=== PATIENT | male | born 1945 | race Caucasian/White ===

== ENCOUNTER 2023-11-23 12:44 | Emergency (ER) | payer MEDICARE, SELFPAY ==
[2023-11-23 12:57] VITALS: BP 136/73; PULSE 61; RESP 16; TEMP 36.7; O2SAT 98
--- NOTE | 2023-11-23 13:10 | ED.GENADULT ---
HPI - General Adult General Chief complaint: Upper Respiratory Infection Stated complaint: Sore Throat/Vomiting Source: patient, RN notes reviewed and old records reviewed Mode of arrival: ambulatory Limitations: no limitations History of Present Illness HPI narrative: 38-year-old male presents to [facility] with complaint cough, congestion, sore throat that started 3 days ago. patient states then today had some lightheadedness. Patient states took Benadryl 1 time for symptoms. Patient denies shortness of breath, chest pain, weakness, vomiting. Related Data Home Medications Medication Instructions Recorded Confirmed apixaban 5 mg tablet (Eliquis) 5 mg PO BID 11/23/23 11/23/23 Allergies Allergy/AdvReac Type Severity Reaction Status Date / Time Penicillins Allergy Intermediate Rash Verified 11/23/23 13:13 Review of Systems Constitutional: Constitutional: Reports no additional constitutional complaints, Denies body ache(s), Denies chills, Denies fatigue, Denies fever(s) and Denies headache(s) Eyes: Eyes: Reports no additional eye complaints and Denies blurry vision ENT: Reports system reviewed and no additional complaints, except as documented, Denies vertigo, Reports dizziness, Denies ear discharge, Denies otalgia, Denies facial pain, Denies headache(s), Reports nasal congestion, Denies nasal discharge, Denies sinus pain, Reports sinus pressure and Reports sore throat Cardiovascular: Cardiovascular: Reports no additional cardiovascular complaints, Denies chest pain, Denies chest pain at rest, Denies rapid heart rate and Denies dyspnea Respiratory: Respiratory: Reports no additional respiratory complaints, Reports chest congestion, Reports cough, Denies pain on inspiration, Denies pain with cough and Denies dyspnea Gastrointestinal: Gastrointestinal: Denies abdominal pain, Denies diarrhea, Denies nausea and Denies vomiting Integumentary/Breasts: Skin/Breast: Denies rash Neurologic: Reports system reviewed and no additional complaints, except as documented, Denies vertigo, Denies dizziness and Denies headache(s) Endocrine: Endocrine: Denies fatigue PMFSH Comments At the time of my signature, I reviewed and agree with the nursing past medical, surgical, social, and family history. There is no relevant family history pertinent to the patient complaint. Exam Const: General: cooperative, healthy appearing, no acute distress and well nourished Nutritional Appearance: well nourished Orientation/consciousness: patient oriented x3 Limitations: no limitations HENMT: Head: normal to inspection and normocephalic Ears: external ears normal, TM's normal bilaterally, mastoids normal and Abnormal EAC present Face/Nose/Sinus: normal facial exam Face and sinus: normal facial exam Mouth: Yes Normal oral and palatal mucosa present, Yes oropharynx normal and Yes moist mucous membranes Throat: tonsils normal, uvula midline and no uvular edema Eyes: General: appearance normal, both eyes and all related structures Sclera: sclerae normal Pupils: Equal, round and reactive pupils present Resp: Effort & Inspection: normal respiratory effort, able to speak in complete sentences, no audible wheezes, no cough, no respiratory distress and no retractions Auscultation: clear to auscultation bilaterally, no crackles, no rales, no rhonchi and no wheezes Cardio: Rate: regular rate Rhythm: regular rhythm Skin: General skin exam: normal color and no rashes or lesions noted Neuro: General: patient oriented x3 Cranial nerves: Yes Equal, round and reactive pupils present Psych: Appearance: grossly normal Mental Status: mental status grossly normal Speech and movement: Normal speech and movement present Affect: normal affect Course Course Emergency Course: Patient is aware of diagnosis, understands and agrees to treatment plan.? Anticipatory guidance given.? Patient agrees to follow-up as directed and is aware of reasons to seek care at the
== END 2023-11-23 13:32 | disposition short-term general hospital (02) ==
LOC: EXPBETH 12:51
PROVIDERS: Emergency Provider Registered Nurse; PCP Family Medicine
DX: R42 Dizziness and giddiness (principal); R55 Syncope and collapse; Z20.822 Contact with and (suspected) exposure to COVID-19
CPT/HCPCS: 87081; 87426; 87804; 87880; 99213; C9803; G0463

== ENCOUNTER 2024-04-30 15:38 | Outpatient (CLI) | payer MEDICARE, SELFPAY ==
--- NOTE | ~2024-04-30 | XR_ITS ---
Left Shoulder Technique: AP and scapular Y views were obtained. Clinical History: Pain Findings: No fracture or dislocation is seen. Osseous alignment is anatomic. The glenohumeral joint i s intact. There is [id number] AC joint degenerative change.. Probable calcific tendinitis of th e distal rotator cuff insertion. Impression: Probable calcific tendinitis of the distal rotator cuff insertion. [id number] AC joint degenerative change. Reviewed, dictated and finalized at location . Impression: Probable calcific tendinitis of the distal rotator cuff insertion. [id number] AC joint degenerative change.
== END 2024-04-30 15:39 | disposition home or self-care (01) ==
LOC: ANHBWCIMG 15:40
PROVIDERS: PCP Nurse Practitioner Adult Health; Visit Provider Nurse Practitioner Adult Health
DX: M25.512 Pain in left shoulder (principal)
CPT/HCPCS: 73030

== ENCOUNTER 2025-01-11 09:17 | Emergency (ER) | payer MEDICARE, SELFPAY ==
[2025-01-11 09:24] VITALS: BP 135/76; PULSE 66; RESP 20; TEMP 36.8; O2SAT 100
--- NOTE | 2025-01-11 10:19 | ED_ITS ---
HPI - URI/Sore Throat General Chief Complaint: Upper Respiratory Infection Stated Complaint: Cough/Sinus Problem Time Seen by Provider: 01/11/25 10:05 Source: patient, RN notes reviewed and old records reviewed Mode of arrival: ambulatory Limitations: no limitations History of Present Illness HPI Narrative: 79 year old male who presents to [facility] care with complaints of cough runny nose with sinus congestion with pressure for the past 3 weeks with no fever. Patient reports that he has been taking Jadyn [place] cold for his symptoms without resolution. Patient reports that he is expectorating white mucous. MD elicited complaint: cough, rhinorrhea and nasal congestion Onset (ago): week(s) (3) Severity: moderate Able to tolerate fluids by mouth: Yes Treatments prior to arrival: other (jadyn seltzer cold medication) Related Data Home Medications ?Medication ?Instructions ?Recorded ?Confirmed ?Last Taken ?Type apixaban 5 mg tablet (Eliquis) 5 mg PO BID 01/15/23 08/12/24 Unknown History dronedarone 400 mg tablet 400 mg PO Q12H 01/15/23 08/12/24 Unknown History metoprolol succinate 100 mg 100 mg PO DAILY 01/15/23 08/12/24 Unknown History tablet,extended release 24 hr pantoprazole 40 mg tablet,delayed 40 mg PO QAM 12/10/23 08/12/24 Unknown History release (Protonix) Allergies Allergy/AdvReac Type Severity Reaction Status Date / Time Penicillins Allergy Unknown Unknown Verified 08/12/24 15:39 Review of Systems Review of Systems: CONSTITUTIONAL: Denies malaise, chills, sweats, or fever. EYES: Denies visual changes, redness, or discharge. ENT: Reports rhinorrhea, congestion, sinus pain,no otalgia and no sore throat. CARDIOVASCULAR: Denies chest pain, palpitations, or edema. RESPIRATORY: Reports cough especially at night.? Denies dyspnea. GASTROINTESTINAL: Denies abdominal pain, nausea, vomiting, diarrhea SKIN: Denies rash or itching. MUSCULOSKELETAL: Denies myalgia. NEUROLOGIC: Denies headache. All systems reviewed & are unremarkable except as noted in HPI and below PMFSH Past Medical History Medical History (Updated 01/13/25 @ 09:15 by Aimee Castrejon NP) GERD (gastroesophageal reflux disease) A-fib FH: mitral valve repair Surgical History Surgical History (Updated 01/11/25 @ 10:37 by Aimee Castrejon NP) History of varicose vein stripping Family History Family History (Updated 02/06/24 @ 10:42 by Rocío Aguillon CMA) Father EtOH dependence Alcoholism Mother Diabetes mellitus Sibling Breast cancer Grandparent Diabetes mellitus Other Hypertension Depression Social History Social History Smoking status: Never smoker Alcohol intake: never Substance use: never Lack of Transportation: No Lack of Food: Never True Current Housing: I Have Housing Concerned About Future Housing: No Difficulty Paying Gas/Electric Bills: No Difficulty Paying for Meds: No Currently Unemployed: No Education: High School Diploma/GED Difficulty w/ Childcare or Family Care: No Living arrangements: with family Occupation/Education: occupation 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 There is no relevant family history pertinent to the presenting complaint Exam Narrative: GENERAL: Well-appearing, well-nourished, and in no acute distress. HEAD: Normocephalic EYES: PERRLA, conjunctivae clear ENT: Nares clear, turbinates edematous and erythematous, clear discharge, sinus pressure. Mucous membranes moist. TM pearly awad with dull light reflex bilaterally; no tragal tenderness. Oropharynx erythematous without lesions. Ton sils not enlarged and without exudate, no drooling, no hoarseness, no trismus, uvula midline.post nasal drainage noted NECK: Supple. No lymphadenopathy CHEST: Clear to auscultation, breath sounds equal. No wheezing, rhonchi, rales, or stridor. No respiratory distress, speaks in full sentences.cough noted SAO2 100% on room air HEART: Regular rate and rhythm. No murmur heard. SKIN: Warm, dry, no rash. NEURO: Alert and oriented x3. PSYCH: Normal mood and affect Course Course Emergency Course: Patient is aware of diagnosis, understands and agrees to treatment plan.? Anticipatory guidance given.? Patient agrees to follow-up as directed and is aware of reasons to seek care at the emergency department. Portions of this record may have been created with voice recognition software Level of Care: Express Care Visit Vital Signs Vital signs: Vital Signs Temperature 36.8 C 01/11/25 09:24 Pulse Rate 66 01/11/25 09:24 Respiratory Rate 20 01/11/25 09:24 Blood Pressure 135/76 01/11/25 09:24 Pulse Oximetry 100 01/11/25 09:24 Oxygen Delivery Room Air 01/11/25 09:24 Temperature 36.8 C 01/11/25 09:24 Pulse Rate 66 01/11/25 09:24 Respiratory Rate 20 01/11/25 09:24 Blood Pressure 135/76 01/11/25 09:24 Pulse Oximetry 100 01/11/25 09:24 Oxygen Delivery Room Air 01/11/25 09:24 Reviewed MDM - URI/Sore Throat MDM Narrative Medical decision making narrative: Differential diagnosis considered: Gonzalez virus, strep pharyngitis, allergic rhinitis, upper respiratory tract infection, sinusitis, rhinosinusitis, nasopharyngitis. viral pharyngitis, otitis media, otitis externa, pneumonia, bronchitis, viral cough syndrome, viral syndrome, and influenza.? Exam findings show no acute concerns or changes; patient is non-toxic appearing and is in no distress.? Patient is appropriate for outpatient treatment and follow-up. Differential Diagnosis Differential diagnosis: Likely upper respiratory infection, sinusitis, viral infection and other (cough) Medical Records Attestation: I reviewed the patient's medical records. Lab Data Attestation: I reviewed the patient's lab results. 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 - Chronic pansinusitis Patient Disposition: Home, Self-Care Condition: Stable Instructions: Antibiotic Form, Sinusitis (ED) Additional Instructions: Increase fluids especially juices and water [id number] cough and cold medicine of your choice for your symptoms Zyrtec Claritin or Brenda daily include Coricidin brand decongestant heat to the face 20-30 minutes 4-6 times a day for pain Salt water gargles, throat lozenges or throat sprays as desired Antibiotic as directed--finished the medication If your symptoms persist, change or worsen significantly before you can contact your personal physician then please, without delay, go to the emergency departme for further evaluation. Follow-up with PCP in 7-10 days or sooner if needed Follow up with PCP soon in regards to your blood pressure which is elevated above threshold for referral. Blood pressure above 120/80 may indicate pre- hypertension. Tylenol for any fever pain Patient Language: Azeri Prescriptions: New doxycycline hyclate 100 mg tablet 100 mg PO Q12H Qty: 20 0RF Rx Instructions: take with food benzonatate 200 mg capsule 200 mg PO TID PRN (Reason: cough) Qty: 20 0RF No Action pantoprazole [Protonix] 40 mg tablet,delayed release (DR/EC) 40 mg PO QAM Eliquis 5 mg tablet 5 mg PO BID metoprolol succinate 100 mg tablet extended release 24 hr 100 mg PO DAILY dronedarone 400 mg tablet 400 mg PO Q12H Rx Instructions: must administer with a meal/food Follow-up/Referrals: Kenia Lazo APRN [Primary Care Provider] - Time of Disposition: 10:32 Quality Yoan Coma Scale Eyes: Open Verbal: Oriented and Alert Motor: Follows Commands [place] Coma Total Score: 15
--- OUTSIDE RECORDS SUMMARY | 2025-01-11 11:58 | XMS_ITS | Encounter Summary ---
Author Name [facility] [place] Organization [facility] [place] Address [address] [place] [address] Care Team Providers Care Occupational Therapy Professor Name Role Phone ASIYA FIERRO Primary Care Provider UnavailTARYN Gong Primary Care Provider Unavailab gregory Insurance Providers: All historical and current Section Date Range: From patient's date of to the date document was created. This section includes the names of all active insurance providers for the patient. Insurance Provider Type of Coverage Plan Name Start of Policy Coverage End of Policy Coverage Group Number Member ID Insurance Provider's Telephone Number Policy Gresham's Name Patient's Relationship to Policy Gresham [employer]NA [facility] ([facility] MEDICARE ADVANTAGE [facility] ([facility] 2022 [id number] MARIELOS HOLT PHEN PATIENT MEDICA [facility] ([facility] MEDICARE ADVANTAGE [facility] ([facility] May 25, 2013 [id number] [phone] MARIELOS HOLT PHEN PATIENT MEDICARE ([facility] MEDICARE (M) PART B May 25, 2013 PART B [id number] HOLTMARIELOS PHEN PATIENT MEDICARE ([facility] MEDICARE (M) PART A Jul 26, 2012 PART A [id number] [phone] MARIELOS HOLT PATIENT MEDICARE PART D (WNR) MEDICARE (M) PART D March 25, 2013 PART D [phone] MARIELOS HOLT PATIENT [facility] [facility] (WNR) MEDICARE ADVANTAGE [facility] (WNR) Dec 26, 2022 [id number] MARIELOS HOLT PATIENT Selected Encounter This section includes the information on record at [place] for the Encounter. 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 This section includes future appointments and future orders which are active, pending or scheduled. Future Appointments This section includes appointments that were scheduled to occur 6 months from the date of the Encounter, up to a maximum of 20 appointments. The data comes from all [place] treatment facilities. Appointment Date/Time Appointment Type Appointme nt Facility Name Jul 31, 2024 10:30 AM AMBULATORY - MEDICINE [facility] Aug 10, 2024 10:15 AM AMBULATORY - NONE [facility] Aug 18, 2024 10:30 AM AMBULATORY - MEDICINE [facility] Aug 20, 2024 08:30 PM AMBULATORY - NONE [facility] 2024 10:30 AM AMBULATORY - MEDICINE [facility] Sep 14, 2024 09:00 AM AMBULATORY - SURGERY [facility] Nov 02, 2024 10:00 AM AMBULATORY - NONE [facility] Jan 19, 2025 02:30 PM AMBULATORY - MEDICINE [facility] Jan 22, 2025 02:30 PM AMBULATORY - NONE [facility] Active, Pending, and Scheduled Orders This section includes a listing of several types of active, pending, and scheduled orders, including clinic medications orders, diagnostic test orders, procedure orders and consult orders; where the start date of the order is 45 days before the date of the Encounter or 45 days after the date of theEncounter. The data comes from all [place] treatment facilities. Test Date/Time Test Type Test Details Facility Name Jul 22, 2024 06:00 AM Laboratory - Blood Bank Order TYPE & SCREEN - LAB BLOOD WC [facility] Lab Results: +/- 30 days of the encounter This section includes the Chemistry and Hematology Lab Results on record with [place] for the patient. Radiology Reports and Pathology Reports are provided separately, in subsequent sections. Lab Results This section contains the Chemistry/Hematology Results that were resulted 30 days before or 30 daysafter the date of the Encounter. Date/Time Source Result Type Result - Unit Interpretation Reference Range Comment Aug 10, 2024 10:12 AM [facility] GLUCOSE,BLOOD-poct (STL) Specimen Type: BLOOD Comment: Test Performed by: [id number] Meter #: [id number] Ordering Provider: TARYN EDGAR Report Released Date/Time: Aug 10, 2024 10:28 AM Reporting Lab: [facility] [address] [address] Performing Lab: [facility] [address] [address] GLUCOSE,BLOOD-p oct (STL) 94 mg/dL 72-99 Jul 23, 2024 06:24 AM [facility] MAGNESIUM Specimen Type: PLASMA Comment: No hemolysis noted. Ordering Provider: ALFREDITO WILSON Report Released Date/Time: Jul 22, 2024 05:37 PM Reporting Lab: [facility] [address] [facility] [address] Performing Lab: [facility] [address] [address] MAGNESIUM 1.8 mg/dL 1.6-2.6 Jul 23, 2024 06:24 AM [facility] BASIC METABOLIC PANEL Specimen Type: PLASMA Comment: No hemolysis noted. Ordering Provider: ALFREDITO WILSON Report Released Date/Time: Jul 22, 2024 05:37 PM Reporting Lab: [facility] [address] [address] Performing Lab: [address] [address] CREATININE 0.78 mg/dL 0.7-1.3 UREA NITROGEN 14.4 mg/dL 9.0-25.0 GLUCOSE 113 mg/dL H 72-99 SODIUM 136 meq/L 136-145 POTASSIUM 3.7 meq/L 3.5-5 CHLORIDE 108 meq/L H 98-107 CARBON DIOXIDE 21 meq/L L 22-31 CALCIUM 8.3 mg/dL L 8.4-10.4 EGFR (CKD-EPI 2020) 92.4 >60 Jul 23, 2024 06:24 AM [facility] PHOSPHOROUS Specimen Type: PLASMA Comment: No hemolysis noted. Ordering Provider: ALFREDITO WILSON Report Released Date/Time: Jul 22, 2024 05:37 PM Reporting Lab: [address] [address] Performing Lab: [address] [address] PHOSPHOROUS 4.0 mg/dL 2.3-4.7 Jul 23, 2024 06:24 AM [facility] CBC Specimen Type: BLOOD Comment: VERIFIED BY REPEAT Ordering Provider: ALFREDITO WILSON Report Released Date/Time: Jul 22, 2024 05:37 PM Reporting Lab: [address] [address] Performing Lab: [address] [address] WBC 11.3 10*3/uL H 3.6-11.2 RBC 3.86 10*6/uL L 4.10-5.70 HGB 11.8 g/dL L 13.1-16.8 HCT 35.8 L 38.2-48.4 MCV 92.7 fL 80.0-100.0 MCH 30.6 pg 27.0-34.0 MCHC 33.0 g/dL 33.0-36.0 PLT 126 10*3/uL L 150-400 MPV 12.0 fL H 7.5-11.2 RDW 13.9 11.8-15.1 IMMATURE PLT FRACTION 5.2 1.0-7.0 MICROCYTOSIS 1+ POLYCHROMASIA 1+ PAPPENHEIMER BODIES 0 LYMPHOCYTES, AUTO % 30 MONOCYTES, AUTO % 6 NEUTROPHILS, AUTO % 63 EOSINOPHILS, AUTO % 0 BASOPHILS, AUTO % 0 LYMPHOCYTES, ABSOLUTE 3.43 10*3/uL 0.77-4.50 MONOCYTES, ABSOLUTE 0.65 10*3/uL 0.19-0.80 NEUTROPHILS, ABSOLUTE 7.09 10*3/uL 2.10-8.00 EOSINOPHILS, ABSOLUTE 0.04 10*3/uL 0.00-0.60 BASOPHILS, ABSOLUTE 0.02 10*3/uL 0.00-0.20 PLT EST-CV ADEQUATE ADEQUATE SCRNPERF YES Jul 22, 2024 05:20 PM [facility] MRSA SURVL NARES DNA Specimen Type: NARES Comment: Qualitative real-time PCR test for the rapid detection of methicillin-resis tant Staphylococcus aureus (MRSA) DNA from nasal swabs. A negative result does not preclude infection with the agent(s) tested and should not be used as the sole basis for treatment or other patient management decisions. A positive test does not necessarily indicate the presence of viable organisms, following bacterial culture to recover the organism for further characterization and susceptibility testing. All results must be combined with clinical observations, patient history, and epidemiological information for final interpretation. Ordering Provider: ALFREDITO WILSON Report Released Date/Time: Jul 22, 2024 04:20 PM Reporting Lab: [address] [address] Performing Lab: [address] [address] MRSA SURVL NARES DNA Negative Negative Jul 22, 2024 02:16 PM [facility] POC ACT-CELITE,HEMOCHRON (STL) Specimen Type: BLOOD Comment: Test Performed by: [id number] Meter #: [id number] Ordering Provider: TARYN EDGAR Report Released Date/Time: Jul 22, 2024 03:15 PM Reporting Lab: [address] [address] Performing Lab: [address] [address] POC ACT-CELITE,HEMO CHRON (STL) 174 s H 89-169 Jul 22, 2024 01:45 PM [facility] POC ACT-CELITE,HEMOCHRON (STL) Specimen Type: BLOOD Comment: Test Performed by: [id number] Meter #: [id number] Ordering Provider: TARYN EDGAR Report Released Date/Time: Jul 22, 2024 03:15 PM Reporting Lab: [place] [address] [address] Performing Lab: [place] [address] [address] POC ACT-CELITE,HEMO CHRON (STL) >400 s H 89-169 Jul 22, 2024 01:22 PM [facility] POC ACT-CELITE,HEMOCHRON (STL) Specimen Type: BLOOD Comment: Test Performed by: [id number] Meter #: [id number] Ordering Provider: TARYN EDGAR Report Released Date/Time: Jul 22, 2024 02:24 PM Reporting Lab: [place] [address] [address] Performing Lab: [place] [address] [address] POC ACT-CELITE,HEMO CHRON (STL) 355 s H 89-169 Jul 22, 2024 01:02 PM [facility] POC ACT-CELITE,HEMOCHRON (STL) Specimen Type: BLOOD Comment: Test Performed by: [id number] Meter #: [id number] Ordering Provider: TARYN EDGAR Report Released Date/Time: Jul 22, 2024 02:04 PM Reporting Lab: [place] [address] [address] [address] Performing Lab: [place] [address] [address] [address] POC ACT-CELITE,HEMO CHRON (STL) 339 s H 89-169 Jul 22, 2024 12:46 PM [facility] POC ACT-CELITE,HEMOCHRON (STL) Specimen Type: BLOOD Comment: Test Performed by: [id number] Meter #: [id number] Ordering Provider: TARYN EDGAR Report Released Date/Time: Jul 22, 2024 01:48 PM Reporting Lab: [address] [address] Performing Lab: [address] [address] POC ACT-CELITE,HEMO CHRON (STL) 327 s H 89-169 Jul 22, 2024 12:30 PM [facility] POC ACT-CELITE,HEMOCHRON (STL) Specimen Type: BLOOD Comment: Test Performed by: [id number] Meter #: [id number] Ordering Provider: TARYN EDGAR Report Released Date/Time: Jul 22, 2024 01:48 PM Reporting Lab: [place] [phone] Performing Lab: [place] [phone] POC ACT-CELITE,HEMO CHRON (STL) >400 s H 89-169 Jul 22, 2024 12:07 PM [facility] POC ACT-CELITE,HEMOCHRON (STL) Specimen Type: BLOOD Comment: Test Performed by: [id number] Meter #: [id number] Ordering Provider: TARYN EDGAR Report Released Date/Time: Jul 22, 2024 01:16 PM Reporting Lab: [place] [phone] Performing Lab: [address] [address] POC ACT-CELITE,HEMO CHRON (STL) >400 s H 89-169 Jul 22, 2024 11:46 AM [facility] POC ACT-CELITE,HEMOCHRON (STL) Specimen Type: BLOOD Comment: Test Performed by: [id number] Meter #: [id number] Ordering Provider: TARYN EDGAR Report Released Date/Time: Jul 22, 2024 12:48 PM Reporting Lab: [address] [address] Performing Lab: [place] [address] [address] POC ACT-CELITE,HEMO CHRON (STL) 354 s H 89-169 Jul 22, 2024 11:31 AM [facility] POC ACT-CELITE,HEMOCHRON (STL) Specimen Type: BLOOD Comment: Test Performed by: [id number] Meter #: [id number] Ordering Provider: TARYN EDGAR Report Released Date/Time: Jul 22, 2024 12:33 PM Reporting Lab: [address] [address] Performing Lab: [address] [address] POC ACT-CELITE,HEMO CHRON (STL) 373 s H 89-169 Jul 22, 2024 11:15 AM [facility] POC ACT-CELITE,HEMOCHRON (STL) Specimen Type: BLOOD Comment: Test Performed by: [id number] Meter #: [id number] Ordering Provider: TARYN EDGAR Report Released Date/Time: Jul 22, 2024 12:16 PM Reporting Lab: [address] [address] Performing Lab: [address] [address] POC ACT-CELITE,HEMO CHRON (STL) 318 s H 89-169 Jul 22, 2024 11:01 AM [facility] POC ACT-CELITE,HEMOCHRON (STL) Specimen Type: BLOOD Comment: Test Performed by: [id number] Meter #: [id number] Ordering Provider: TARYN EDGAR Report Released Date/Time: Jul 22, 2024 12:03 PM Reporting Lab: [address] [address] Performing Lab: [address] [address] POC ACT-CELITE,HEMO CHRON (STL) 313 s H 89-169 Jul 22, 2024 10:25 AM [facility] POC ACT-CELITE,HEMOCHRON (STL) Specimen Type: BLOOD Comment: Test Performed by: [id number] Meter #: [id number] Ordering Provider: TARYN EDGAR Report Released Date/Time: Jul 22, 2024 11:28 AM Reporting Lab: [address] [address] Performing Lab: [place] [phone] POC ACT-CELITE,HEMO CHRON (STL) 379 s H 89-169 Jul 22, 2024 10:05 AM [facility] POC ACT-CELITE,HEMOCHRON (STL) Specimen Type: BLOOD Comment: Test Performed by: [id number] Meter #: [id number] Ordering Provider: TARYN EDGAR Report Released Date/Time: Jul 22, 2024 11:06 AM Reporting Lab: [place] [phone] Performing Lab: [address] [address] POC ACT-CELITE,HEMO CHRON (STL) 388 s H 89-169 Jul 22, 2024 09:49 AM [facility] POC ACT-CELITE,HEMOCHRON (STL) Specimen Type: BLOOD Comment: Test Performed by: [id number] Meter #: [id number] Ordering Provider: TARYN EDGAR Report Released Date/Time: Jul 22, 2024 10:51 AM Reporting Lab: [place] [phone] Performing Lab: [address] [address] POC ACT-CELITE,HEMO CHRON (STL) 351 s H 89-169 Jul 22, 2024 09:33 AM [facility] POC ACT-CELITE,HEMOCHRON (STL) Specimen Type: BLOOD Comment: Test Performed by: [id number] Meter #: [id number] Ordering Provider: TARYN EDGAR Report Released Date/Time: Jul 22, 2024 10:40 AM Reporting Lab: [address] [address] Performing Lab: [address] [address] POC ACT-CELITE,HEMO CHRON ([facility]) 269 s H 89-169 Jul 22, 2024 08:51 AM [facility] POC ACT-CELITE,HEMOCHRON ([facility]) Specimen Type: BLOOD Comment: Test Performed by: [id number] Meter #: [id number] Ordering Provider: TARYN EDGAR Report Released Date/Time: Jul 22, 2024 09:52 AM Reporting Lab: [address] [address] Performing Lab: [address] [address] POC ACT-CELITE,HEMO CHRON ([facility]) 155 s 89-169 Jul 22, 2024 06:55 AM [facility] PT/INR NEW ([facility]-CT) Specimen Type: PLASMA No comment entered. Ordering Provider: GWENDOLYN LOPEZ Report Released Date/Time: Jun 22, 2024 12:20 PM Reporting Lab: [address] [address] Performing Lab: [address] [address] PROTIME 14.1 s H 9.4-12.5 INR VALUE 1.3 {INR} Jul 22, 2024 06:55 AM [facility] BASIC METABOLIC PANEL Specimen Type: PLASMA Comment: No hemolysis noted. Ordering Provider: GWENDOLYN LOPEZ Report Released Date/Time: Jun 22, 2024 12:20 PM Reporting Lab: [address] [address] Performing Lab: [address] [address] CREATININE 1.00 mg/dL 0.7-1.3 UREA NITROGEN 16.9 mg/dL 9.0-25.0 GLUCOSE 107 mg/dL H 72-99 SODIUM 138 meq/L 136-145 POTASSIUM 4.4 meq/L 3.5-5 CHLORIDE 108 meq/L H 98-107 CARBON DIOXIDE 22 meq/L 22-31 CALCIUM 9.0 mg/dL 8.4-10.4 EGFR (CKD-EPI 2020) 78.0 >60 Jul 22, 2024 06:55 AM [facility] CBC Specimen Type: BLOOD No comment entered. Ordering Provider: GWENDOLYN LOPEZ Report Released Date/Time: Jun 22, 2024 12:20 PM Reporting Lab: [address] [address] Performing Lab: [address] [address] WBC 14.6 10*3/uL H 3.6-11.2 RBC 4.72 10*6/uL 4.10-5.70 HGB 14.4 g/dL 13.1-16.8 HCT 43.6 38.2-48.4 MCV 92.4 fL 80.0-100.0 MCH 30.5 pg 27.0-34.0 MCHC 33.0 g/dL 33.0-36.0 PLT 170 10*3/uL 150-400 MPV 11.8 fL H 7.5-11.2 RDW 14.0 11.8-15.1 NEUTROPHILS 34.8 MONOCYTES 1.7 EOSINOPHILS 1.8 POIKILOCYTOSIS 1+ PAPPENHEIMER BODIES 0 LYMPHOCYTES 60.0 ATYPICAL LYMPHOCYTES 1.7 PLT EST-CV ADEQUATE ADEQUATE EO#-MDIFF 0.26 10*3/uL 0.00-0.60 MONO#-MDIFF 0.25 10*3/uL 0.19-0.80 LYMPH#-MDIFF 9.01 10*3/uL H 0.77-4.50 NEUT#-MDIFF 5.08 10*3/uL 2.10-8.00 Jul 20, 2024 11:31 AM [facility] I-STAT, CREAT (STL-CT) Specimen Type: BLOOD Comment: Test Performed by: [id number] Meter #: [id number] Ordering Provider: TARYN EDGAR Report Released Date/Time: Jul 20, 2024 11:34 AM Reporting Lab: [facility] [address] [facility] [address] Performing Lab: [facility] [address] [facility] [address] I-STAT, CREAT (STL-MA) 1.1 mg/dL 0.7-1.3 Vital Signs: All taken on the encounter date This section contains inpatient and outpatient Vital Signs collected on the date of the Encounter. Date/Time Temperature Pulse Blood Pressure Respiratory Rate SP02 Pain Height Weight Body Mass Index Source Jul 22, 2024 08:33 PM 0 [facility] Jul 22, 2024 08:32 PM 98 73 105/67 20 94 0 [facility] Jul 22, 2024 07:30 PM 98.3 70 121/68 20 97 [facility] Jul 22, 2024 06:40 PM 6 [facility] Jul 22, 2024 06:30 PM 70 106/66 19 97 [facility] Radiology Reports: +/- 30 days of the encounter Radiology Reports For cases when an order for radiology services may have been completed prior to the date of the Encounter, the report list includes the Radiology Reports that were completed up to 30 days before dateof the Encounter. For cases when an order for radiology services may have been completed after the date of the Encounter, the report list also includes the Radiology Reports that were completed up to30 days after date of the Encounter. The data comes from all [place] treatment facilities. Date/Time Radiology Report Provider Source Aug 10, 2024 10:29 AM PET/CT TUMOR IMAGING (SKULL TO MID-THIGH)-P: YANETSABINEVALENTE GERMAN [id number] M Exm Date: AUG 10, 2024@10:29 Req Phys: TARYN EDGAR Loc: [facility]-PRE-OP EVAL NURSING AM (Req Img Loc: [facility]-PET-CT Service: [facility] [address] [place] [address] (Case [id number] COMPLETE) PET/CT TUMOR SKULL BASE TO MID-T(NM Detailed) CPT:65106 CPT Modifiers : PI PET TUMOR INIT TX STRAT Reason for Study: lung nodule (Case [id number] COMPLETE) F-18 FLUORODEOXYGLUCOSE (FDG),PER(NM Detailed) CPT:A9552 Clinical History: Report Status: Verified Date Reported: AUG 10, 2024 Date Verified: AUG 10, 2024 Oncology Social Work E-Sig:/ES/BURKE DAVIS M.D. Report: PATIENT NAME: SABINE HOLT. CASE #: [id number] PROCEDURE: PET/CT study HISTORY: A 78-year-old male presenting with right middle lobe pulmonary nodule seen in the prior CT from 07/20/2024. TECHNIQUE: 12.45 mCi of F-18 FDG by IV in the right antecubital fossa. PET/CT image acquisition from the base of the skull to upper thighs after approximately 60 minutes postinjection with a CT being low dose, noncontrast. No separate report for the CT was generated since it was used for localization and attenuation correction. Blood glucose level of the time of injection was 94 mg/DL. SUV calculation was based on body weight. Comparison: No similar prior study for comparison, however CT from 07/20/2024 was reviewed. FINDINGS: For reference, SUV max of liver is 3.4. HEAD AND NECK: The brain is partially included in the [id number] and there is misregistration in the region of head and neck due to patient's motion. The visualized portion of the brain is grossly unremarkable. No hypermetabolic/enlarged cervical lymphadenopathy is identified. Atherosclerotic calcification of the carotid vessels is noted. The thyroid gland appears grossly normal. 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 Mild FDG uptake within previously seen 0.9 cm right middle lobe pulmonary nodule with SUV max of 1.3. No evidence of hypermetabolic lymphadenopathy in the chest.. No pleural or pericardial effusion is identified. Atherosclerotic calcification of aorta and coronary vessels is noted. ABDOMEN: Within the limitation of low-dose CT liver, spleen, pancreas, adrenals and kidneys appear grossly unremarkable. Physiologic bowel activity is identified. No hypermetabolic/enlarged abdominal lymphadenopathy is noted. Atherosclerotic calcification of aorta and its branches is identified. PELVIS: Focal intense uptake within the mid of prostate with SUV max of 6.5. No evidence of hypermetabolic within pelvic lymph node enlargement. MUSCULOSKELETAL: Multilevel extensive degenerative changes are noted throughout the spine. There is lytic lesion within T12 vertebral body with no increased FDG uptake. Curvature of the lumbar spine to the right is noted. There is no abnormal FDG avid lesion. No suspicious sclerotic bone lesion is noted. Impression: 1. Mild FDG uptake within previously seen 0.9 cm right middle lobe pulmonary nodule, favored to be benign with no associated thoracic lymphadenopathy. However, low metabolic malignancy is not excluded and attention on follow-up CT chest is suggested to establish stability in the absence malignant features. 2. Intense FDG activity within mid prostate may represent activity within the prostatic urethra. Prostatic lesion is not excluded and clinical correlation with PSA is recommended. 3. There is lytic lesion within the T12 vertebral body with no increased FDG uptake. DIAGNOSTIC CODE: 1001 Dictated by Sirena Van MD (Nuclear Medicine resident). I, Burke Davis, have reviewed the images and report and concur with these findings. Primary Diagnostic Code: SIGNIFICANT ABNORMALITY, ATTN NEEDED Primary Interpreting Staff: BURKE DAVIS M.D., STAFF PHYSICIAN - DIAGNOSTIC IMAGING (Oncology Social Work) Primary Interpreting Resident: SIRENA VAN, Resident Physician /[facility] Jul 20, 2024 11:[address] HEART & VENOUS MAPPING W/3D: YANETSABINEVALENTE GERMAN [id number] -[id number] M Exm Date: JUL 20, 2024@11:10 Req Phys: GWENDOLYN LOPEZ Pat Loc: [facility]-PRE-OP EVAL NURSING AM (Req Img Loc: [facility]-CT IMAGING [facility] Service: Unknown [facility] [address] [place] [address] (Case [id number] COMPLETE) CT HEART W CONTRAST & VENOUS JOSE(CT Detailed) CPT:66396 Reason for Study: pulmonary vein mapping Clinical History: Responsible Attending: Dr Lopez Attending Contact Number: [phone] Resident Contact Number: Enter Hx and Reason for Exam: pt will need CT scan prior to a-fib ablation scheduled for 07/22 Allergies listed in CPRS chart: PENICILLIN Creatinine; CREATININE 0.84 mg/dL 02/03/2024 10:45 /eGFR: STL EGFR (within one year). CREATININE 0.84 mg/dL (02/03/24 10:45) Wt: 185.1 lb [83.96 kg] (05/08/2024 09:45) History of: Renal failure, chronic or acute renal disease: NO Report Status: Verified Date Reported: JUL 22, 2024 Date Verified: JUL 22, 2024 Oncology Social Work E-Sig:/ES/ADA Demian WIGGINST Report: Case [id number]. CT heart with contrast & venous mapping. Max CTDI(vol): 12.46 mGy. Total DLP: 104 mGy*cm. TECHNIQUE: Cardiac CT was obtained with bolus IV contrast administration without gating. Multiplanar reformatted images and 3-D models were reconstructed as a CT cardiac pulmonary venogram for electrophysiology planning. Images were reformatted and analyzed using [employer] software. NUMBER OF PULMONARY VEINS: 2 right and 2 left pulmonary veins. EARLY PULMONARY VEIN BRANCHING: There is early branching (within 1 cm) of pulmonary vein ostia involving the right superior and inferior pulmonary vein. There is a large superior segment right lower lobe pulmonary vein branch arising at the origin of the right inferior pulmonary vein. PULMONARY VEIN OSTIAL MEASUREMENTS: Right superior pulmonary vein: 3 x 2.6 cm Right inferior pulmonary vein: 3 x 2.6 cm Left superior pulmonary vein: 2.6 x 1.8 cm Left inferior pulmonary vein: 2.1 x 1.6 cm LEFT ATRIUM SIZE (AP DIAMETER): 5.3 cm (estimated -- non-gated study) LEFT ATRIAL APPENDAGE: No thrombus identified. ESOPHAGUS LOCATION: The esophagus courses posterior to the left superior and inferior pulmonary vein ostia CORONARY ARTERIES: Expected origins. Atherosclerotic calcification is present. INCIDENTAL FINDINGS: Mitral valve procedure is noted. CABG. There is a right middle lobe nodule measuring 9 mm (series 7 image 38). COMPARISON: None. Impression: 2 right and 2 left pulmonary veins. There is early branching of the right superior and inferior pulmonary vein. Right middle lobe nodule measuring 9 mm. Correlation with prior examinations is recommended if available to confirm stability. If unavailable then short-term follow-up CT versus PET/CT or tissue sampling is advised. Primary Interpreting Staff: ADA WIGGINS MD (Oncology Social Work) /ADA SANCHEZ [facility] Encounter Notes: All associated encounter notes This section contains the clinical notes associated to the Encounter. Date/Time Encounter Note(s) Provider Source Jul 22, 2024 08:05 AM CARDIOLOGY DIAGNOSTIC STUDY REPORT: LOCAL TITLE: CP ELECTROPHYSIOLOGY REPORT STL STANDARD TITLE: CARDIOLOGY DIAGNOSTIC STUDY REPORT DATE OF NOTE: JUL 22, 2024@08:05:45 ENTRY DATE: JUL 22, 2024@08:05:45 AUTHOR: CLINICAL,DEVICE PRO EXP COSIGNER: URGENCY: STATUS: COMPLETED PROCEDURE SUMMARY CODE: Machine Resulted DATE/TIME PERFORMED: JUL 22, 2024@06:15 DOCUMENT IN [employer] SEE FULL REPORT IN [facility] Administrative Closure: 07/22/2024 by: CLINICAL,DEVICE PROXY SERVICE CLINICAL,DEVICE PROXY SERVICE [facility]
--- OUTSIDE RECORDS SUMMARY | 2025-01-11 11:58 | XMS_ITS | Encounter Summary ---
Author Name [facility] [place] [facility] [place] [facility] [place] Address [address] [place] [address] Care Team Providers Care Family Medicine Physician Assistant Name Role Phone ASIYA FIERRO Primary Care Provider UnavailTARYN Gong Primary Care Provider Unavail le Insurance Providers: All historical and current Section [...] Name Patient's Relationship to Policy Gresham HUMANA [facility] ([facility]) MEDICARE ADVANTAGE [facility] ([facility]) 2022 [id number] YANETMARIELOS PHEN PATIENT MEDICA [facility] ([facility]) MEDICARE ADVANTAGE [facility] ([facility]) May 25, 2013 [id number] [phone] HOLTMARIELOS PHEN PATIENT MEDICARE ([facility]) MEDICARE (M) PART B May 25, 2013 PART B [id number] HOLTMARIELOS CORDOVA PHEN PATIENT MEDICARE ([facility]) MEDICARE (M) PART A Jul 26, 2012 PART A [id number] MARIELOS HOLT PATIENT MEDICARE PART D ([place]) MEDICARE (M) PART D March 25, 2013 PART D [id number] MARIELOS HOLT PATIENT [facility] (WNR) MEDICARE ADVANTAGE [facility] (WNR) Dec 26, 2022 [id number] MARIELOS HOLT PATIENT Selected Encounter This section includes the information on record at [place] for the Encounter. Date/Time Encounter Type Encounter Description Reason Provider Source March 31, 2024 10:00 AM OFFICE O/P EST HI 40 MIN CIED DEVICES ICD-10-CM I48.91 Unspecified atrial fibrillation PAYAM LOPEZ [facility] Encounter Template Text not used by [place] Assessments - Encounter Diagnoses This section includes the primary and secondary diagnoses documented for the Encounter. Date/Time Primary/Secondary Diagnosis Diagnosis Name Provider Source March 31, 2024 09:53 AM PRIMARY Unspecified atrial fibrillation PAYAM LOPEZ [facility] Plan of Treatment: Future Appointments (+ 6 months) and Future Tests (+/- 45 days) The Plan of Treatment section includes future care activities for the patient from all [place] [facility]. This section includes future appointments and future orders which are active, pending or scheduled. Future Appointments This section includes appointments that were scheduled to occur 6 months from the date of the Encounter, up to a maximum of 20 appointments. The data comes from all [place] treatment facilities. Appointment Date/Time Appointment Type Appointme nt Facility Name April 09, 2024 10:15 AM AMBULATORY - MEDICINE [facility] May 01, 2024 10:00 AM AMBULATORY - MEDICINE [facility] May 08, 2024 10:00 AM [facility] Jul 20, 2024 10:15 AM AMBULATORY - MEDICINE [facility] Jul 20, 2024 03:00 PM AMBULATORY - NONE [facility] Jul 22, 2024 06:00 AM AMBULATORY - NONE [facility] Jul 22, 2024 06:15 AM AMBULATORY - MEDICINE [facility] Jul 31, 2024 10:30 AM AMBULATORY - MEDICINE [facility] Aug 10, 2024 10:15 AM AMBULATORY - NONE [facility] Aug 18, 2024 10:30 AM AMBULATORY - MEDICINE [facility] Aug 20, 2024 08:30 PM AMBULATORY - NONE [facility] Marcum [facility] 2024 10:30 AM AMBULATORY - MEDICINE [facility] Sep 14, 2024 09:00 AM AMBULATORY - SURGERY . Thelma PEREZ [facility] Vital Signs: All taken on the encounter date This section contains inpatient and outpatient Vital Signs collected on the date of the Encounter. Date/Time Temperature Pulse Blood Pressure Respiratory Rate SP02 Pain Height Weight Body Mass Index Source March 31, 2024 02:15 PM 128 115/[address] [facility] Encounter Notes: All associated encounter notes This section contains the clinical notes associated to the Encounter. Date/Time Encounter Note(s) Provider Source March 31, 2024 09:45 AM CARDIOLOGY OUTPATI ENT NOTE: LOCAL TITLE: CARDIOLOGY OUTPATIENT FOLLOW UP ST STANDARD TITLE: CARDIOLOGY OUTPATIENT NOTE DATE OF NOTE: MARCH 31, 2024@09:45 ENTRY DATE: MARCH 31, 2024@09:45:49 AUTHOR: PAYAM LOPEZ EXP COSIGNER: URGENCY: STATUS: COMPLETED CARDIOLOGY OUTPATIENT FOLLOW UP ST Has ADDENDA CARDIAC ELECTROPHYSIOLOGY OUTPATIENT CONSULTATION HISTORY: Patient is a 78-year-old man with a history of atrial fibrillation (unclear paroxysmal or persistent) and chronic tremor and status post mitral valve repair in 2002.. He was first diagnosed in atrial fibrillation in December 2019. Per records and him he states he had palpitations and lightheadedness. He was started on Multaq. Since being started on the Multaq he had previously not had any recurrence. His last EKG in January 2024 showed sinus rhythm. He did undergo mitral valve repair in 2002. He is anticoagulated with Eliquis. He denies any chest pain shortness of breath syncope or presyncope. Specifically he denies palpitations or lightheadedness however his EKG for the first time since being on Multaq shows atrial fibrillation at 120 bpm. ROS- Unless otherwise stated, all ROS has been reviewed and is negative for presenting complaint. CURRENT MEDICATIONS: Active Outpatient Medications (excluding Supplies): Issue Date Status Last Fill Active Outpatient Medications Refills Expiration 1) APIXABAN 5MG TAB Qty: 180 for 90 days ACTIVE Issu:11-28-23 Sig: TAKE ONE TABLET BY MOUTH TWICE A Refills: 3 Last:02-14-24 DAY FOR ANTICOAGULATION Expr:11-28-24 2) CICLOPIROX 8% TOP SOLN Qty: 6.6 for 30 ACTIVE Issu:04-02-23 days Sig: APPLY LIGHTLY TO AFFECTED Refills: 9 Last:10-28-23 AREA(S) ONCE A DAY (THIN COAT TO THICK Expr:04-02-24 NAILS - FILE DOWN AFTER 1 WEEK) (EXTERNAL USE ONLY) 3) DRONEDARONE 400MG TAB Qty: 180 for 90 ACTIVE Issu:11-28-23 days Sig: TAKE ONE TABLET BY MOUTH Refills: 2 Last:03-23-24 TWICE A DAY FOR ATRIAL FIBRILLATION - Expr:11-28-24 TAKE IN THE MORNING AND EVENING WITH FOOD 4) METOPROLOL SUCCINATE 200MG SA TAB Qty: ACTIVE Issu:11-28-23 45 for 90 days Sig: TAKE ONE-HALF Refills: 3 Last:02-08-24 TABLET BY MOUTH ONCE A DAY FOR Expr:11-28-24 HEART/BLOOD PRESSURE. SWALLOW WHOLE, DO NOT CRUSH OR CHEW (TABLETS MAY BE CUT IN HALF). 5) PANTOPRAZOLE NA 40MG EC TAB Qty: 90 for ACTIVE Issu:02-03-24 90 days Sig: TAKE ONE TABLET BY MOUTH Refills: 3 Last:02-03-24 EVERY MORNING BEFORE A MEAL TAKE 30 Expr:02-03-25 MINUTES BEFORE MEAL(S) Medication List Reconciliation: Current medication list was reviewed with the patient and/or caregiver and compared to current list of medications in [facility]. The medicaton list was updated to reflect any changes. The importance of medication managment was explained and patient and/or caregiver was receptive and verbalized understanding. Allergies:PENICILLIN EXAM: Vital Signs: Pulse: 63 (02/17/2024 10:42) BP: 140/72 (02/17/2024 10:42) RESP: 18 (02/17/2024 10:42) G- Patient A&Ox3, NAD DATA: 03/28 EKG-atrial fibrillation, rate 120 02/15 CMP reviewed 10/16 EF 55-60% 10/16 EKG sinus with PACS, LAFB 01/14 echo: EF 55%, LA Vol 45, MVA 1.7 by PHT, 1.26 by VTI. 01/14 MPI- No ischemia 12/17 CMP reviewed Labs reviewed ASSESSMENT/PLAN: The patient is a 78-year-old man with a history of atrial fibrillation (unclear paroxysmal or persistent) and chronic tremor and status post mitral valve repair in 2002.. He was first diagnosed in atrial fibrillation in December 2019. He was placed on Multaq at that time and has been free of symptomatic atrial fibrillation since that time. His most recent EKG in January 2024 showed him to be in sinus rhythm. However today for the first time since being on the Multaq he is in atrial fibrillation at 120 bpm. He denies any associated symptoms including lightheadedness palpitations or shortness of breath and states he does not feel any different. We discussed options. The first option is simple cardioversion and monitoring. This has a disadvantages and that atrial fibrillation would have a high likelihood of occurring again in the future. The second option is switching his antiarrhythmic from Multaq to dofetilide which require 3 days of inpatient hospitalization. This is a more attractive noninvasive option. The final option is catheter ablation. I told him catheter ablation is the best long-term treatment for atrial fibrillation and the best chance of being free from antiarrhythmic for the rest of his life. The risks and benefits of catheter ablation were explained to the patient and he would like to proceed. We will plan on a DC cardioversion hopefully this week as the patient plans a trip on the . He will remain on the Multaq. We will plan on a pulmonary vein isolation plus or minus low voltage isolation. He will need a cardiac CT and PATRICIA prior. We will call him to schedule all procedures. Thank you for letting me participate in the case of this very pleasant patient. Please contact me if you have any questions. Payam Lopez M.D. Clinical Cardiac Electrophysiology This note was transcribed using voice detection software. Please excuse any errors. Health Maintenance All patients are counseled on the risks of smoking at every visit including patients with no history of smoking in order to dissuade them from starting the use of tobacco products; former smokers to minimize recidivism of nicotine dependence; and current smokers in an effort to help them cease the use of nicotine products. Where relevant [age between 50-60-years and history of smoking], we and/or the PCP will obtain an abdominal ultrasound to screen for the possibility of an abdominal aortic aneurysm and ABIs to screen for occult PAD. When completed, the results will be found in [facility]. Where relevant all echocardiograms (including transthoracic and transesophogeal echocardiograms), laboratory results, imaging results and procedure results that have been ordered have results communicated to the patient by myself, surrogate and/or the PCP. When completed, the results will be in the appropriate area in [facility] or [facility]. # HEALTH PROMOTION/HEALTH MAINTENANCE & EDUCATION DISEASE: Discussed treatment options & counseled on exacerbating factors. # DIAGNOSTIC TESTING AND LABORATORY DATA: Pertinent labs and diagnostic tests (both normal and abnormal) are included above and were reviewed and discussed with the patient within 7-days of the test and during this visit. - DISEASE: Coordinated care; discussed treatment options, & counseled on ` exacerbating factors. - Encouraged participation in regular exercise program 3-5 days/week - Maximize risk factor reduction & lifestyle modifications i.e. BP <130/80 and LDL goal <70 - Discussed at length about lifestyle modifications in regard to diet, exercise, and medication compliance. -Assessed smoking habits and whether actively using tobacco products or a past history of nicotine dependence, smoking cessation strategies were reinforced. - In patients with a history of CHF, SUKH/ARB use is considered and held when contraindications such as allergies, renal function preclude use. If not mentioned in the above note, these assessments are detailed in prior cardiology notes. The patient verbalized understanding of information regarding: labs, meds, and plans for care. Reinforcement is indicated. # MEDICATION RECONCILIATION: - All cardiac medications were reconciled during the visit. - All patients with an EF </= 40% are considered for Sukh inhibitors or ARBs except when contraindicated due to intolerance/allergy, hypotension, or renal disease. Documentation is found in the historical record if not repeated in this note. - All patients with an EF </= 40% are considered for beta blockers and aspirin unless contraindicated due to intolerance/allergy, hypotension, bradycardia, or bleeding risk. Documentation is found in the historical record if not repeated in this note. - Anticoagulation therapy was discussed with all patients in the setting of atrial flutter/fibrillation and held in cases where the complications of bleeding (e.g., fall risk) outweighs the risk of stroke. All patients on anticoagulation medications are counseled on bleeding risks and the warning signs of a stroke or TIA. - Except where mentioned or restricted, the PCP may renew the cardiac medications. - Other listed profile meds will continue as directed by the PCP (primary provider). Thank you for allowing us to participate in this patient's care. Total time spent = 60 minutes Life Sustaining Treatment Orders /dionna/ PAYAM LOPEZ MD CLINICAL CARDIAC WINDLACE MACHINE OPERATOR Signed: 03/31/2024 09:53 03/31/2024 ADDENDUM STATUS: COMPLETED Patient is anticoagulant with Eliquis and denies missing any doses in the last month. /dionna/ PAYAM LOPEZ MD CLINICAL CARDIAC WINDLACE MACHINE OPERATOR Signed: 03/31/2024 09:55 PAYAM LOPEZ [facility]
--- OUTSIDE RECORDS SUMMARY | 2025-01-11 11:58 | XMS_ITS | Clinical Summary ---
Author Organization [facility] Address [address] [place] [address] Phone Care Team Providers Care Marble Worker Name Role Phone Chris Dean MD Primary Care Provider [phone] Allergies Active Allergy Reactions Criticality Noted Date Comments Penicillins Rash 11/23/2023 Medications apixaban (Eliquis) 5 MG Tablet Take 5 mg by mouth 2 times daily. Active ondansetron (ZOFRAN) 4 MG Tablet Take 1 Tablet by mouth every 8 hours as needed for Nausea - 1st line. 10 Tablet 11/23/2023 Active Social History Tobacco Use Types Packs/Day Years Used Date Smoking Tobacco: Never Assessed Sex and Gender Information Value Date Recorded Sex Assigned at Not on file Legal Sex Male 2:00 PM MULTIPLE SLIDE OPERATOR Gender Identity Not on file Sexual Orientation Not on file Last Filed Vital Signs Vital Sign Reading Time Taken Comments Blood Pressure 126/59 11/23/2023 5:45 PM MULTIPLE SLIDE OPERATOR Pulse 55 11/23/2023 5:45 PM MULTIPLE SLIDE OPERATOR Temperature 36.2 C (97.2 F) 11/23/2023 2:11 PM MULTIPLE SLIDE OPERATOR Respiratory Rate 21 11/23/2023 5:45 PM MULTIPLE SLIDE OPERATOR Oxygen Saturation 100% 11/23/2023 5:45 PM MULTIPLE SLIDE OPERATOR Inhaled Oxygen Concentration - - Weight 81.6 kg (180 lb) 11/23/2023 2:11 PM MULTIPLE SLIDE OPERATOR Height 182.9 cm (6') 11/23/2023 2:11 PM MULTIPLE SLIDE OPERATOR Body Mass Index 24.41 11/23/2023 2:11 PM MULTIPLE SLIDE OPERATOR Plan of Treatment Health Maintenance Due Date Last Done Comments Hepatitis C Virus (HCV) Screening 1945 Zoster Immunization (1 of 2) 1997 Respiratory Syncytial Virus (RSV) Immunization (Adult) (1 - 1-dose 75+ series) 2022 Influenza Immunization (#1) 2024 11/25/2021 SARS-COV-2 Immunization ( season) 2024 02/24/2021, 02/06/2021, 01/27/2021 DTaP/Tdap/Td Immunization Discontinued 12/06/2017 TdaP Immunization Completed 12/06/2017 Pneumococcal Immunization (50+ years) Completed 01/17/2022, 02/01/2016 Hepatitis B Immunization Aged Out No longer eligible based on patient's age to complete this topic Meningococcal Immunization (ACWY) Aged Out No longer eligible based on patient's age to complete this topic Rotavirus Immunization Aged Out No lo nger eligible based on patient's age to complete this topic Insurance MEDICARE C [employer] Care Teams Marble Worker Relationship Specialty Start Date End Date Chris Dean MD [address] [place] [id number] PCP - General Family Medicine 11/23/23
--- OUTSIDE RECORDS SUMMARY | 2025-01-11 11:58 | XMS_ITS | Encounter Summary ---
Author Name [facility] [place] [facility] [place] Address [address] [place] [address] Care Team Providers Care Exercise Physiology Professor Name Role Phone ASIYA FIERRO Primary [...] Name Patient's Relationship to Policy Gresham HUMANA [employer] ([facility]) MEDICARE ADVANTAGE [employer] ([facility]) 2022 [id number] [phone] YANETMARIELOS PHEN PATIENT MEDICA [employer] ([facility]) MEDICARE ADVANTAGE [employer] ([facility]) May 25, 2013 [id number] [phone] HOLTMARIELOS PHEN PATIENT MEDICARE ([facility]) MEDICARE (M) PART B May 25, 2013 PART B [id number] [phone] HOLTMARIELOS CORDOVA PHEN PATIENT MEDICARE ([facility]) MEDICARE (M) PART A Jul 26, 2012 PART A [id number] [phone] MARIELOS HOLT PATIENT MEDICARE PART D (WNR) MEDICARE (M) PART D March 25, 2013 PART D [id number] [phone] MARIELOS HOLT PATIENT [employer] ([place]) MEDICARE ADVANTAGE [employer] ([place]) Dec 26, 2022 [id number] [phone] MARIELOS HOLT PATIENT Selected Encounter This section includes the information on record at [place] for the Encounter. Date/Time Encounter Type Encounter Description Reason Provider Source Sep 14, 2024 09:00 AM OFFICE O/P NEW MOD 45 [facility]OLOGY [facility] ICD-10-CM R31.29 Other microscopic hematuria HUY SHEIKH Encounter Template Text not used by [place] Assessments - Encounter Diagnoses This section includes the primary and secondary diagnoses documented for the Encounter. Date/Time Primary/Secondary Diagnosis Diagnosis Name Provider Source Sep 14, 2024 09:00 AM PRIMARY Other microscopic hematuria Lucretia ARCHULETA [facility] Plan of Treatment: Future Appointments (+ 6 months) and Future Tests (+/- 45 days) The Plan of Treatment section includes future care activities for the [facility] [place] [facility] This section includes future appointments and future orders which are active, pending or scheduled. Future Appointments This section includes appointments that were scheduled to occur 6 months from the date of the Encounter, up to a maximum of 20 appointments. The data comes from all [place] treatment facilities. Appointment Date/Time Appointment Type Appointme nt Facility Name Nov 02, 2024 10:00 AM AMBULATORY - NONE [facility] Jan 19, 2025 02:30 PM AMBULATORY - MEDICINE [facility] Jan 22, 2025 02:30 PM AMBULATORY - NONE [facility] Feb 05, 2025 02:30 PM [facility] Mar 01, 2025 11:00 AM AMBULATORY - MEDICINE [facility] Lab Results: +/- 30 days of the encounter This section includes the Chemistry and Hematology Lab Results on record with [place] for the patient. Radiology Reports and Pathology Reports are provided separately, in subsequent sections. Lab Results This section contains the Chemistry/Hematology Results that were resulted 30 days before or 30 daysafter the date of the Encounter. Date/Time Source Result Type Result - Unit Interpretation Reference Range Comment 2024 11:50 AM [facility] URIC ACID Specimen Type: PLASMA Comment: No hemolysis noted. Ordering Provider: EVANGELIST EDGAR Report Released Date/Time: 2024 10:17 AM Reporting Lab: [address] [address] Performing Lab: [address] [address] URIC ACID 6.0 mg/dL 3.5-7.2 2024 11:50 AM [facility] VITAMIN D, 25-HYDROXY Specimen Type: SERUM Comment: The listed sex of this patient may not be a typical indication for this test. Therefore, reference ranges or interpretive criteria listed may not be valid. Clinical correlation suggested. Ordering Provider: EVANGELIST EDGAR Report Released Date/Time: 2024 10:17 AM Reporting Lab: [facility] [address] [place] [phone] Performing Lab: [address] [address] VITAMIN D, 25-HYDROXY 63.1 ng/mL 30-96 2024 11:50 AM [facility] PROST. SPECIFIC AG.(PB-STL) Specimen Type: SERUM Comment: The listed sex of this patient may not be a typical indication for this test. Therefore, reference ranges or interpretive criteria listed may not be valid. Clinical correlation suggested. Ordering Provider: EVANGELIST EDGAR Report Released Date/Time: 2024 10:20 AM Reporting Lab: [facility] [address] [place] [phone] Performing Lab: [address] [address] PROST. SPECIFIC AG.(PB-STL) 1.456 ng/mL 0-4 2024 11:50 AM [facility] COMPREHENSIVE METABOLIC PANEL Specimen Type: PLASMA Comment: No hemolysis noted. Ordering Provider: EVANGELIST EDGAR Report Released Date/Time: 2024 10:17 AM Reporting Lab: [address] [address] Performing Lab: [address] [address] CREATININE 0.89 mg/dL 0.7-1.3 UREA NITROGEN 16.1 mg/dL 9.0-25.0 GLUCOSE 85 mg/dL 72-99 SODIUM 139 meq/L 136-145 POTASSIUM 4.0 meq/L 3.5-5 CHLORIDE 107 meq/L 98-107 CARBON DIOXIDE 21 meq/L L 22-31 CALCIUM 9.1 mg/dL 8.4-10.4 PROTEIN 7.1 g/dL 6-8.6 ALBUMIN 4.0 g/dL 3.4-5 TOTAL BILIRUBIN 0.6 mg/dL 0.2-1.2 ALKALINE PHOSPHATASE 88 U/L 40-150 AST/SGOT 12 U/L 5-34 ALT/SGPT 10 U/L 8-40 EGFR (CKD-EPI 2020) 88.3 >60 2024 11:50 AM [facility] CBC Specimen Type: BLOOD No comment entered. Ordering Provider: EVANGELITS EDGAR Report Released Date/Time: 2024 10:17 AM Reporting Lab: [address] [phone] Performing Lab: [address] [address] WBC 9.3 10*3/uL 3.6-11.2 RBC 4.07 10*6/uL L 4.10-5.70 HGB 12.2 g/dL L 13.1-16.8 HCT 36.7 L 38.2-48.4 MCV 90.2 fL 80.0-100.0 MCH 30.0 pg 27.0-34.0 MCHC 33.2 g/dL 33.0-36.0 PLT 161 10*3/uL 150-400 MPV 12.6 fL H 7.5-11.2 RDW 13.7 11.8-15.1 LYMPHOCYTES, AUTO % 50 MONOCYTES, AUTO % 5 NEUTROPHILS, AUTO % 44 EOSINOPHILS, AUTO % 1 BASOPHILS, AUTO % 0 LYMPHOCYTES, ABSOLUTE 4.61 10*3/uL H 0.77-4.50 MONOCYTES, ABSOLUTE 0.43 10*3/uL 0.19-0.80 NEUTROPHILS, ABSOLUTE 4.03 10*3/uL 2.10-8.00 EOSINOPHILS, ABSOLUTE 0.12 10*3/uL 0.00-0.60 BASOPHILS, ABSOLUTE 0.04 10*3/uL 0.00-0.20 2024 11:50 AM [facility] URINALYSIS (L-PB) Specimen Type: URINE No comment entered. Ordering Provider: EVANGELIST EDGAR Report Released Date/Time: 2024 10:20 AM Reporting Lab: [facility] [address] [facility] [phone] Performing Lab: [facility] [address] [facility] [phone] URINE COLOR Light-Yellow Yellow U.BILIRUBIN Negative mg/dL Negative U.PH 6.0 5.0-8.0 URINE WBC/HPF 1 /[HPF] 0-5 URINE RBC/HPF 2 /[HPF] 0-5 APPEARANCE Clear Clear U.NITRITE Negative mg/dL Negative MUCUS RARE /[LPF] Negative -Ra re CA OXYLATE CRYSTALS RARE /[HPF] Negative-Ra re URN.GLUCOSE Normal mg/dL Negative URN.PROTEIN 20 mg/dL H Negative-20 URN.UROBILINOGEN Normal mg/dL Normal URN.BLOOD Negative mg/dL Negat dutch-Tr jean URN.KETONES Negative mg/dL Neg ative-Tr jean URN.LEUK.EST. Negative mg/dL N egative-Tr jean URN.SPECIFIC GRAVITY 1.026 1.005-1.029 Vital Signs: All taken on the encounter date This section contains inpatient and outpatient Vital Signs collected on the date of the Encounter. Date/Time Temperature Pulse Blood Pressure Respiratory Rate SP02 Pain Height Weight Body Mass Index Source Sep 14, 2024 09:15 AM 97.7 75 143/79 18 99 0 72 187.4 25 [facility] N Pathology Reports: +/- 30 days of the encounter Pathology Reports For cases when an order for pathology services may have been completed prior to the date of the Encounter, the report list includes the Pathology Reports that were completed up to 30 days before dateof the Encounter. For cases when an order for pathology services may have been completed after the date of the Encounter, the report list also includes the Pathology Reports that were completed up to30 days after date of the Encounter. The data comes from all [place] treatment facilities. Date/Time Pathology Report Provider Source 2024 11:50 AM LR MICROBIOLOGY RE PORT: Accession [UID]: [facility] [id number] [[id number]] Received: 2024@17:54 Collection sample: URINE,CLEAN CATCH Collection date: 2024 11:50 Site/Specimen: URINE Provider: TARYN EDGAR Test(s) ordered: C&S URINE..................... completed: Aug 26, 2024 20:13 * BACTERIOLOGY FINAL REPORT => Aug 26, 2024 20:14 TECH CODE: [id number] Bacteriology Remark(s): BERNADINE 08/26/24 <10,000 CFU/ML MIXED GRAM POSITIVE ORGANISMS There will be no work up. =--=--=--=--=--=--=--=--=--=--=--=-- =--=--=--=--=--=--=--=--=--=--=--=-- =--=-- Performing Laboratory: Bacteriology Report Performed By: [address]# [id number] [address] [facility] [address] [place] [address] [facility] Encounter Notes: All associated encounter notes This section contains the clinical notes associated to the Encounter. Date/Time Encounter Note(s) Provider Source Sep 14, 2024 08:52 AM UROLOGY CONSULT: LOCAL TITLE: UROLOGY CONSULT [facility] STANDARD TITLE: UROLOGY CONSULT DATE OF NOTE: SEP 14, 2024@08:52 ENTRY DATE: SEP 14, 2024@08:52:18 AUTHOR: MILE ARCHULETA EXP COSIGNER: HUY SHEIKH URGENCY: STATUS: COMPLETED CHIEF COMPLAINT, HPI, EXAM & DATA CC: abnormal PET scan finding HPI: 79 yo M with hx of -recent PET scan with uptake in prostate (obtained due to CT finding of lung nodule) -denies all LUTS, urgency/frequency/difficult y voiding. not on flomax/finsteride. no hx of retention, gross hematuria, bladder stones, kidney stones. -denies any urological history or fhx of prostate cancer -08/2024 PSA 1.456 (similar to 11/2022 PSA 1.4) -on apixaban for hx afib -recent UA with 2rbc ROS/PMH Denies F/C/N/V/CP/SOB Remainder of PMH listed below and reviewed? Yes TARGETED PHYSICAL EXAM: Gen: NAD HEENT: NC/AT Resp: NLB Abd: s/nt/nd, no rebound or guarding Back: No CVAT bilaterally Ext: WWP MSK: CATHERINE Neuro: non-focal Skin: warm and dry CREATININE:CREATININE 0.89 mg/dL 2024 11:50 PSA: PROST. SPECIFIC AG.(PB-STL) 1.456 ng/mL 2024 11:50 IMAGING: Impression: 1. Mild FDG uptake within previously [...] vertebral body with no increased FDG uptake. ASSESSM ENT AND PLAN --- 79 yo M w/ PET scan showing uptake in prostate but otherwise very low risk for prostate cancer, PSA 1.4, no urinary symptoms, no Fhx pluck separator. discussed usual PSA screening cutoff of 4 for patients age 55-70 and risks benefits of screening/further testing given natural course of prostate cancer. given his age and low PSA, would not proceed with any further diagnostic testing for prostate cancer at this time. discussed microscopic hematuria guidelines and given precautions if further repeated UAs show >3rbc or develops gross hematuria. FOLLOW-UP: as needed basis call if any concern for new voiding symptoms, gross hematuria, etc (MORE INFORMATION) -- * LABS------ PSA Trend: PROST. SPECIFIC AG.(PB-STL) 1.456 ng/mL 2024 11:50 PROST. SPECIFIC AG.(PB-STL) 0.552 ng/mL 02/03/2024 10:45 PROST. SPECIFIC AG.(PB-STL) 1.454 ng/mL 12/12/2022 09:26 BMP: SODIUM 139 mEq/L 2024 11:50 POTASSIUM 4.0 mEq/L 2024 11:50 CHLORIDE 107 mEq/L 2024 11:50 UREA NITROGEN 16.1 mg/dL 2024 11:50 CREATININE 0.89 mg/dL 2024 11:50 CALCIUM 9.1 mg/dL 2024 11:50 CARBON DIOXIDE 21 L mEq/L 2024 11:50 GLUCOSE 85 mg/dL 2024 11:50 EGFR (CKD-EPI 2020) 88.3 2024 11:50 CBC: WBC 9.3 10*3/uL 2024 11:50 RBC 4.07 L 10*6/uL 2024 11:50 HGB 12.2 L g/dL 2024 11:50 HCT 36.7 L % 2024 11:50 MCV 90.2 fL 2024 11:50 MCH 30.0 pg 2024 11:50 MCHC 33.2 g/dL 2024 11:50 RDW 13.7 % 2024 11:50 PLT 161 10*3/uL 2024 11:50 MPV 12.6 H fL 2024 11:50 NEUTROPHILS, AUTO % 44 % 2024 11:50 LYMPHOCYTES, AUTO % 50 % 2024 11:50 MONOCYTES, AUTO % 5 % 2024 11:50 EOSINOPHILS, AUTO % 1 % 2024 11:50 BASOPHILS, AUTO % 0 % 2024 11:50 NEUTROPHILS, ABSOLUTE 4.03 10*3/uL 2024 11:50 LYMPHOCYTES, ABSOLUTE 4.61 H 10*3/uL 2024 11:50 MONOCYTES, ABSOLUTE 0.43 10*3/uL 2024 11:50 EOSINOPHILS, ABSOLUTE 0.12 10*3/uL 2024 11:50 BASOPHILS, ABSOLUTE 0.04 10*3/uL 2024 11:50 NEUTROPHILS 34.8 % 07/22/2024 06:55 LYMPHOCYTES 60.0 % 07/22/2024 06:55 MONOCYTES 1.7 % 07/22/2024 06:55 EOSINOPHILS 1.8 % 07/22/2024 06:55 ATYPICAL LYMPHOCYTES 1.7 % 07/22/2024 06:[address]T FRACTION 5.2 % 07/23/2024 06:00 POIKILOCYTOSIS 1+ 07/22/2024 06:55 MICROCYTOSIS 1+ 07/23/2024 06:00 POLYCHROMASIA 1+ 07/23/2024 06:00 UA: URINE COLOR Light-Yellow 2024 11:50 APPEARANCE Clear 2024 11:50 U.PH 6.0 2024 11:50 U.BILIRUBIN Negative mg/dL 2024 11:50 U.NITRITE Negative mg/dL 2024 11:50 URINE RBC/HPF 2 /HPF 2024 11:50 URINE WBC/HPF 1 /HPF 2024 11:50 MUCUS RARE /LPF 2024 11:50 CA OXYLATE CRYSTALS RARE /HPF 2024 11:50 PAST MEDICAL, SOCIAL, FAMILY HX AND ROS 1) Chronic tremor 2) AF - Atrial Fibrillation (SCT [id number]) 3) AK - Actinic keratosis 4) History of varicose veins 5) Lymphocytosis 6) PVD - peripheral vascular disease MEDICATIONS: Active Outpatient Medications (including Supplies): Active Outpatient Medications Status 1) APIXABAN 5MG TAB TAKE ONE TABLET BY MOUTH TWICE A DAY ACTIVE FOR ANTICOAGULATION 2) CICLOPIROX 8% TOP SOLN APPLY LIGHTLY TO AFFECTED ACTIVE AREA(S) ONCE A DAY (THIN COAT TO THICK NAILS - FILE DOWN AFTER 1 WEEK) (EXTERNAL USE ONLY) 3) COLCHICINE 0.6MG TAB TAKE ONE TABLET BY MOUTH TWICE A ACTIVE DAY STOP MED AND CONTACT PROVIDER AT FIRST SIGN OF NAUSEA, VOMITING, OR DIARRHEA 4) DRONEDARONE 400MG TAB TAKE ONE TABLET BY MOUTH TWICE ACTIVE A DAY FOR ATRIAL FIBRILLATION - TAKE IN THE MORNING AND EVENING WITH FOOD 5) METOPROLOL SUCCINATE 200MG SA TAB TAKE ONE-HALF ACTIVE TABLET BY MOUTH ONCE A DAY FOR HEART/BLOOD PRESSURE. SWALLOW WHOLE, DO NOT CRUSH OR CHEW (TABLETS MAY BE CUT IN HALF). 6) PANTOPRAZOLE NA 40MG EC TAB TAKE ONE TABLET BY MOUTH ACTIVE ONCE A DAY FOR GASTROESOPHAGEAL REFLUX DISEASE TAKE 30 MINUTES BEFORE MEAL(S) Allergies: PENICILLIN /dionna/ JESSICA MOON RESIDENT PHYSICIAN, UROLOGY Signed: 09/14/2024 09:07 /dionna/ HUY SHEIKH MD Staff Physician, Urology Cosigned: 09/14/2024 09:39 MILE ARCHULETA [facility]
--- OUTSIDE RECORDS SUMMARY | 2025-01-11 11:58 | XMS_ITS ---
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) MEDICARE ADVANTAGE [facility] ([facility]) 2022 [id number] [phone] MARIELOS MARLOW PHEN PATIENT MEDICA [facility] ([facility]) MEDICARE ADVANTAGE [facility] ([facility]) May 25, 2013 [id number] MARIELOS MARLOW PHEN PATIENT MEDICARE ([facility]) MEDICARE (M) PART B May 25, 2013 PART B [id number] [phone] MARLOWMARIELOS PHEN PATIENT MEDICARE ([facility]) MEDICARE (M) PART A Jul 26, 2012 PART A [id number] [phone] MARIELOS MARLOW PATIENT MEDICARE PART D (WNR) MEDICARE (M) PART D March 25, 2013 PART D [id number] MARIELOS MARLOW PATIENT [facility] (WNR) MEDICARE ADVANTAGE [facility] (WNR) Dec 26, 2022 [id number] [phone] MARIELOS MARLOW PATIENT Selected Encounter This section includes the information on record at [place] for the Encounter. Date/Time Encounter Type Encounter Description Reason Pro vider Source Jul 22, 2024 04:18 PM Inpatient Visit HOSPITALIZATION ICD-10-CM R33.9 Retention of urine, unspecified TWOD,MED IHE Encounter Template Text not used by [place] Assessments - Encounter Diagnoses This section includes the primary and secondary diagnoses documented for the Encounter. 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, NEC [facility] Jul 24, 2024 02:18 PM SECONDARY Other chest pain [facility] Jul 24, 2024 02:18 PM SECONDARY Peripheral vascular disease, unspecified [facility] Jul 24, 2024 02:18 PM SECONDARY Retention of urine, unspecified [facility] Jul 24, 2024 02:18 PM SECONDARY Solitary pulmonary nodule [facility] Plan of Treatment: Future Appointments (+ 6 months) and Future Tests (+/- 45 days) The Plan of Treatment section includes future care activities for the patient from all [place] treatmentfacilities. This section includes future appointments and future orders which are active, pending or scheduled. Future Appointments This section includes appointments that were scheduled to occur 6 months from the date of the Encounter, up to a maximum of 20 appointments. The data comes from all [facility]. Appointment Date/Time Appointment Type Appointme nt Facility Name Jul 31, 2024 10:30 AM AMBULATORY - MEDICINE [facility] Aug 10, 2024 10:15 AM AMBULATORY - NONE [facility] Aug 18, 2024 10:30 AM AMBULATORY - MEDICINE [facility] Aug 20, 2024 08:30 PM AMBULATORY - NONE [facility] 2024 10:30 AM AMBULATORY - MEDICINE [facility] Sep 14, 2024 09:00 AM AMBULATORY - SURGERY [facility] Nov 02, 2024 10:00 AM AMBULATORY - NONE [facility] Jan 19, 2025 02:30 PM AMBULATORY - MEDICINE [facility] Jan 22, 2025 02:30 PM AMBULATORY - NONE [facility] Active, Pending, and Scheduled Orders This section includes a listing of several types of active, pending, and scheduled orders, including clinic medications orders, diagnostic test orders, procedure orders and consult orders; where the start date of the order is 45 days before the date of the Encounter or 45 days after the date of theEncounter. The data comes from all [facility]. Test Date/Time Test Type Test Details Facility Name Jul 22, 2024 06:00 AM Laboratory - Blood Bank Order TYPE & SCREEN - LAB BLOOD WC [facility] Lab Results: +/- 30 days of the encounter This section includes the Chemistry and Hematology Lab Results on record with [place] for the patient. Radiology Reports and Pathology Reports are provided separately, in subsequent sections. Lab Results This section contains the Chemistry/Hematology Results that were resulted 30 days before or 30 daysafter the date of the Encounter. Date/Time Source Result Type Result - Unit Interpretation Reference Range Comment Aug 10, 2024 10:12 AM [facility] GLUCOSE,BLOOD-poct (STL) Specimen Type: BLOOD Comment: Test Performed by: [id number] Meter #: [id number] Ordering Provider: TARYN EDGAR Report Released Date/Time: Aug 10, 2024 10:28 AM Reporting Lab: [address] [place] [address] Performing Lab: [facility] [address] [place] [phone] GLUCOSE,BLOOD-p oct (STL) 94 mg/dL 72-99 Jul 23, 2024 06:24 AM [facility] MAGNESIUM Specimen Type: PLASMA Comment: No hemolysis noted. Ordering Provider: ALFREDITO WILSON Report Released Date/Time: Jul 22, 2024 05:37 PM Reporting Lab: [facility] [address] [place] [phone] Performing Lab: [address] [address] MAGNESIUM 1.8 mg/dL 1.6-2.6 Jul 23, 2024 06:24 AM [facility] BASIC METABOLIC PANEL Specimen Type: PLASMA Comment: No hemolysis noted. Ordering Provider: ALFREDITO WILSON Report Released Date/Time: Jul 22, 2024 05:37 PM Reporting Lab: [address] [address] Performing Lab: [address] [address] CREATININE 0.78 mg/dL 0.7-1.3 UREA NITROGEN 14.4 mg/dL 9.0-25.0 GLUCOSE 113 mg/dL H 72-99 SODIUM 136 meq/L 136-145 POTASSIUM 3.7 meq/L 3.5-5 CHLORIDE 108 meq/L H 98-107 CARBON DIOXIDE 21 meq/L L 22-31 CALCIUM 8.3 mg/dL L 8.4-10.4 EGFR (CKD-EPI 2020) 92.4 >60 Jul 23, 2024 06:24 AM [facility] PHOSPHOROUS Specimen Type: PLASMA Comment: No hemolysis noted. Ordering Provider: ALFREDITO WILSON Report Released Date/Time: Jul 22, 2024 05:37 PM Reporting Lab: [facility] [address] [place] [phone] Performing Lab: [address] [address] PHOSPHOROUS 4.0 mg/dL 2.3-4.7 Jul 23, 2024 06:24 AM [facility] CBC Specimen Type: BLOOD Comment: VERIFIED BY REPEAT Ordering Provider: ALFREDITO WILSON Report Released Date/Time: Jul 22, 2024 05:37 PM Reporting Lab: [address] [address] Performing Lab: [address] [address] WBC 11.3 10*3/uL H 3.6-11.2 RBC 3.86 [...] YES Jul 22, 2024 05:20 PM [facility] MRSA SURVL NARES DNA Specimen Type: NARES [...] Jul 22, 2024 04:20 PM Reporting Lab: [address] [address] Performing Lab: [address] [address] MRSA SURVL NARES DNA Negative Negative Jul 22, 2024 02:16 PM [facility] POC ACT-CELITE,HEMOCHRON (STL) Specimen Type: BLOOD Comment: Test Performed by: [id number] Meter #: [id number] Ordering Provider: TARYN EDGAR Report Released Date/Time: Jul 22, 2024 03:15 PM Reporting Lab: [place] [address] [place] [address] Performing Lab: [address] [address] POC ACT-CELITE,HEMO CHRON (STL) 174 s H 89-169 Jul 22, 2024 01:45 PM [facility] POC ACT-CELITE,HEMOCHRON (STL) Specimen Type: BLOOD Comment: Test Performed by: [id number] Meter #: [id number] Ordering Provider: TARYN EDGAR Report Released Date/Time: Jul 22, 2024 03:15 PM Reporting Lab: [address] [address] Performing Lab: [address] [address] POC ACT-CELITE,HEMO CHRON (STL) >400 s H 89-169 Jul 22, 2024 01:22 PM [facility] POC ACT-CELITE,HEMOCHRON (STL) Specimen Type: BLOOD Comment: Test Performed by: [id number] Meter #: [id number] Ordering Provider: TARYN EDGAR Report Released Date/Time: Jul 22, 2024 02:24 PM Reporting Lab: [address] [address] Performing Lab: [address] [address] POC ACT-CELITE,HEMO CHRON (STL) 355 s H 89-169 Jul 22, 2024 01:02 PM [facility] POC ACT-CELITE,HEMOCHRON (STL) Specimen Type: BLOOD Comment: Test Performed by: [id number] Meter #: [id number] Ordering Provider: TARYN EDGAR Report Released Date/Time: Jul 22, 2024 02:04 PM Reporting Lab: [address] [address] Performing Lab: [address] [address] POC ACT-CELITE,HEMO CHRON (STL) 339 s H 89-169 Jul 22, 2024 12:46 PM [facility] POC ACT-CELITE,HEMOCHRON (STL) Specimen Type: BLOOD Comment: Test Performed by: [id number] Meter #: [id number] Ordering Provider: TARYN EDGAR Report Released Date/Time: Jul 22, 2024 01:48 PM Reporting Lab: [address] [address] Performing Lab: [address] [address] POC ACT-CELITE,HEMO CHRON (STL) 327 s H 89-169 Jul 22, 2024 12:30 PM [facility] POC ACT-CELITE,HEMOCHRON (STL) Specimen Type: BLOOD Comment: Test Performed by: [id number] Meter #: [id number] Ordering Provider: TARYN EDGAR Report Released Date/Time: Jul 22, 2024 01:48 PM Reporting Lab: [address] [address] Performing Lab: [address] [address] POC ACT-CELITE,HEMO CHRON (STL) >400 s H 89-169 Jul 22, 2024 12:07 PM [facility] POC ACT-CELITE,HEMOCHRON (STL) Specimen Type: BLOOD Comment: Test Performed by: [id number] Meter #: [id number] Ordering Provider: TARYN EDGAR Report Released Date/Time: Jul 22, 2024 01:16 PM Reporting Lab: [address] [address] Performing Lab: [address] [address] POC ACT-CELITE,HEMO CHRON (STL) >400 s H 89-169 Jul 22, 2024 11:46 AM [facility] POC ACT-CELITE,HEMOCHRON (STL) Specimen Type: BLOOD Comment: Test Performed by: [id number] Meter #: [id number] Ordering Provider: TARYN EDGAR Report Released Date/Time: Jul 22, 2024 12:48 PM Reporting Lab: [address] [address] Performing Lab: [address] [address] POC ACT-CELITE,HEMO CHRON (STL) 354 s H 89-169 Jul 22, 2024 11:31 AM [facility] POC ACT-CELITE,HEMOCHRON (STL) Specimen Type: BLOOD Comment: Test Performed by: [id number] Meter #: [id number] Ordering Provider: TARYN EDGAR Report Released Date/Time: Jul 22, 2024 12:33 PM Reporting Lab: [address] [address] Performing Lab: [address] [address] POC ACT-CELITE,HEMO CHRON (STL) 373 s H 89-169 Jul 22, 2024 11:15 AM [facility] POC ACT-CELITE,HEMOCHRON (STL) Specimen Type: BLOOD Comment: Test Performed by: [id number] Meter #: [id number] Ordering Provider: TARYN EDGAR Report Released Date/Time: Jul 22, 2024 12:16 PM Reporting Lab: [place] [phone] Performing Lab: [place] [phone] POC ACT-CELITE,HEMO CHRON (STL) 318 s H 89-169 Jul 22, 2024 11:01 AM [facility] POC ACT-CELITE,HEMOCHRON (STL) Specimen Type: BLOOD Comment: Test Performed by: [id number] Meter #: [id number] Ordering Provider: TARYN EDGAR Report Released Date/Time: Jul 22, 2024 12:03 PM Reporting Lab: [place] [phone] Performing Lab: [place] [phone] POC ACT-CELITE,HEMO CHRON (STL) 313 s H 89-169 Jul 22, 2024 10:25 AM [facility] POC ACT-CELITE,HEMOCHRON (STL) Specimen Type: BLOOD Comment: Test Performed by: [id number] Meter #: [id number] Ordering Provider: TARYN EDGAR Report Released Date/Time: Jul 22, 2024 11:28 AM Reporting Lab: [place] [phone] Performing Lab: [address] [address] POC ACT-CELITE,HEMO CHRON (STL) 379 s H 89-169 Jul 22, 2024 10:05 AM [facility] POC ACT-CELITE,HEMOCHRON (STL) Specimen Type: BLOOD Comment: Test Performed by: [id number] Meter #: [id number] Ordering Provider: TARYN EDGAR Report Released Date/Time: Jul 22, 2024 11:06 AM Reporting Lab: [address] [address] Performing Lab: [address] [address] POC ACT-CELITE,HEMO CHRON (STL) 388 s H 89-169 Jul 22, 2024 09:49 AM [facility] POC ACT-CELITE,HEMOCHRON (STL) Specimen Type: BLOOD Comment: Test Performed by: [id number] Meter #: [id number] Ordering Provider: TARYN EDGAR Report Released Date/Time: Jul 22, 2024 10:51 AM Reporting Lab: [address] [address] Performing Lab: [address] [address] POC ACT-CELITE,HEMO CHRON (STL) 351 s H 89-169 Jul 22, 2024 09:33 AM [facility] POC ACT-CELITE,HEMOCHRON (STL) Specimen Type: BLOOD Comment: Test Performed by: [id number] Meter #: [id number] Ordering Provider: TARYN EDGAR Report Released Date/Time: Jul 22, 2024 10:40 AM Reporting Lab: [address] [address] Performing Lab: [address] [address] POC ACT-CELITE,HEMO CHRON (L) 269 s H 89-169 Jul 22, 2024 08:51 AM [facility] POC ACT-CELITE,HEMOCHRON (STL) Specimen Type: BLOOD Comment: Test Performed by: [id number] Meter #: [id number] Ordering Provider: TARYN EDGAR Report Released Date/Time: Jul 22, 2024 09:52 AM Reporting Lab: [address] [address] Performing Lab: [address] [address] POC ACT-CELITE,HEMO CHRON (STL) 155 s 89-169 Jul 22, 2024 06:55 AM [facility] PT/INR NEW (STL-CT) Specimen Type: PLASMA No comment entered. Ordering Provider: GWENDOLYN CHA Report Released Date/Time: Jun 22, 2024 12:20 PM Reporting Lab: [address] [address] Performing Lab: [address] [address] PROTIME 14.1 s H 9.4-12.5 INR VALUE 1.3 {INR} Jul 22, 2024 06:55 AM [facility] BASIC METABOLIC PANEL Specimen Type: PLASMA Comment: No hemolysis noted. Ordering Provider: GWENDOLYN CHA Report Released Date/Time: Jun 22, 2024 12:20 PM Reporting Lab: [address] [address] Performing Lab: [address] [address] CREATININE 1.00 mg/dL 0.7-1.3 UREA NITROGEN 16.9 mg/dL 9.0-25.0 GLUCOSE 107 mg/dL H 72-99 SODIUM 138 meq/L 136-145 POTASSIUM 4.4 meq/L 3.5-5 CHLORIDE 108 meq/L H 98-107 CARBON DIOXIDE 22 meq/L 22-31 CALCIUM 9.0 mg/dL 8.4-10.4 EGFR (CKD-EPI 2020) 78.0 >60 Jul 22, 2024 06:55 AM [facility] CBC Specimen Type: BLOOD No comment entered. Ordering Provider: GWENDOLYN CHA Report Released Date/Time: Jun 22, 2024 12:20 PM Reporting Lab: [address] [address] Performing Lab: [address] [address] WBC 14.6 10*3/uL H 3.6-11.2 RBC 4.72 [...] 2.10-8.00 Jul 20, 2024 11:31 AM [facility] I-STAT, CREAT ([facility]) Specimen Type: BLOOD Comment: Test Performed by: [id number] Meter #: [id number] Ordering Provider: TARYN EDGAR Report Released Date/Time: Jul 20, 2024 11:34 AM Reporting Lab: [address] [address] Performing Lab: [address] [address] I-STAT, CREAT ([facility]) 1.1 mg/dL 0.7-1.3 Vital Signs: All taken on the encounter date This section contains inpatient and outpatient Vital Signs collected on the date of the Encounter. Date/Time Temperature Pulse Blood Pressure Respiratory Rate SP02 Pain Height Weight Body Mass Index Source Jul 22, 2024 08:[address] [facility] Jul 22, 2024 08:32 PM 98 73 105/[address] [facility] Jul 22, 2024 07:30 PM 98.3 70 121/[address] [facility] Jul 22, 2024 06:[address] [facility] Jul 22, 2024 06:30 PM 70 106/66 19 97 [facility] Radiology Reports: +/- 30 days [...] the Encounter. The data comes from all [place] treatment facilities. Date/Time Radiology Report Provider Source Aug 10, 2024 10:29 AM PET/CT TUMOR IMAGING (SKULL TO MID-THIGH)-P: SABINE MARLOW [id number] -1945 M Exm Date: AUG 10, 2024@10:29 Req Phys: TARYN EDGAR Loc: [facility]-PRE-OP EVAL NURSING AM (Req Img Loc: [facility]-PET-CT Service: [address] [address] (Case [id number] COMPLETE) PET/CT TUMOR SKULL BASE TO MID-T(NM Detailed) CPT:35870 CPT Modifiers : PI PET TUMOR INIT TX STRAT Reason for Study: lung nodule (Case [id number] COMPLETE) F-18 FLUORODEOXYGLUCOSE (FDG),PER(NM Detailed) CPT:A9552 Clinical History: Report Status: Verified Date Reported: AUG 10, 2024 Date Verified: AUG 10, 2024 Assistant Purchasing Manager E-Sig:/ES/BURKE CARRION M.D. Report: PATIENT NAME: SABINE MARLOW. CASE #: [id number] PROCEDURE: PET/CT study HISTORY: A 78-year-old male [...] The brain is partially included in the foveo-ap-yvru and there is misregistration in the region [...] Van MD (Nuclear Medicine resident). I, Burke Carrion, have reviewed the images and report and concur with these findings. Primary Diagnostic Code: SIGNIFICANT ABNORMALITY, ATTN NEEDED Primary Interpreting Staff: BURKE CARRION M.D., STAFF PHYSICIAN - DIAGNOSTIC IMAGING (Assistant Purchasing Manager) Primary Interpreting Resident: SIRENA VAN, Resident Physician /BURKE PATRICIA [facility] Jul 20, 2024 11:[address] HEART & VENOUS MAPPING W/3D: SABINE MARLOW [id number] -1945 M Exm Date: JUL 20, 2024@11:10 Req Phys: GWENDOLYN CHA Loc: [facility]-PRE-OP EVAL NURSING AM (Req Img Loc: [facility]-CT IMAGING [facility] Service: Unknown [facility], [address] [place] [address] (Case [id number] COMPLETE) CT HEART W CONTRAST & VENOUS JOSE(CT Detailed) CPT:36392 Reason for Study: pulmonary vein mapping Clinical History: Responsible Attending: Dr Cha Attending Contact Number: [phone] Resident Contact Number: Enter Hx and Reason [...] 22, 2024 Date Verified: JUL 22, 2024 Assistant Purchasing Manager E-Sig:/ES/ADA WIGGINS Report: Case [id number]. CT heart with contrast & venous mapping. Max CTDI(vol): 12.46 mGy. Total DLP: 104 mGy*cm. TECHNIQUE: Cardiac CT was obtained with bolus IV contrast administration without gating. Multiplanar reformatted images and 3-D models were reconstructed as a CT cardiac pulmonary venogram for electrophysiology planning. Images were reformatted and analyzed using [employer] software. NUMBER OF PULMONARY VEINS: 2 [...] advised. Primary Interpreting Staff: ADA WIGGINS MD (Assistant Purchasing Manager) /ADA SANCHEZ [facility] Encounter Notes: All associated encounter notes This section contains the clinical notes associated to the Encounter. Date/Time Encounter Note(s) Provider Source Jul 24, 2024 04:20 PM NURSING TRANSFER SUMMARIZATION DISCHARGE NOTE: LOCAL TITLE: [place] DISCHARGE/TRANSFER SUMMARY [facility] STANDARD TITLE: NURSING TRANSFER SUMMARIZATION DISCHARGE NOTE DATE OF NOTE: JUL 24, 2024@16:20 ENTRY DATE: JUL 24, 2024@16:21:23 AUTHOR: MAZIN PARKER COSIGNER: URGENCY: STATUS: COMPLETED DISCHARGE - TRANSFER SUMMARY Action: Discharge Diagnosis: Last Admission: 07/22/24 4:18:57 pm Admit Dx: ATRIAL FIBRILLATION Age: 78 Allergies: PENICILLIN Patient Condition: Stable Vital Signs: Temperature: 97.7 F [36.5 C] (07/24/2024 10:41) Pulse: 74 (07/24/2024 10:41) Respiration: 18 (07/24/2024 10:41) Blood Pressure: 101/64 (07/24/2024 10:41) Pain: 0 (07/24/2024 00:05) Fall Risk Assessment Score: 35 Fall Risk Level: Low Risk = SUICIDE SCREEN = [place] Suicide Severity Rating Scale (C-SSRS) 1. Over the past month, have you wished you were or wished you could go to sleep and not wake up? No 2. Over the past month, have you had any actual thoughts of killing yourself? No 3. Over the past month, have you been thinking about how you might do this? Response not required due to responses to other questions. 4. Over the past month, have you had these thoughts and had some intention of acting on them? Response not required due to responses to other questions. 5. Over the past month, have you started to work out or worked out the details of how to kill yourself? Response not required due to responses to other questions. 6. If yes, at any time in the past month did you intend to carry out this plan? Response not required due to responses to other questions. 7. In your lifetime, have you ever done anything, started to do anything, or prepared to do anything to end your life (for example, collected pills, obtained a gun, gave away valuables, went to the roof but didn't jump)? No 8. If YES, was this within the past 3 months? Response not required due to responses to other questions. C-SSRS Screen is Negative Isolation: No Precautions: Fall Orientation: x3 Hygiene: Self Care Nutrition: Regular diet Special needs: Assistance: Independent Bowel/Bladder: Date of last bowel movement: Jun Defecation: Normal Able to void: YES Continent: YES Catheter: No Wound / Skin Condition: STANDARD OF CARE / PRACTICE IMPLEMENTED: n/a Indicate status at Discharge/Transfer: Resolved Flu Shot Given: No Patient refused Pneumococcal Shot Given: No Patient refused MRSA Discharge Swab Done: No Reason: n/a Discharged/Transfered to: Own home without home care services Accompanied by (Name & Relationship): daughter lili Next of Kin notified: NO Discharge/Transfer Mode: Wheelchair Discharged/Transferred with: Written Discharge Instructions Medications Return Appointments [facility] was informed of the date and time of his/her follow-up mental health appointments: NO [facility] was provided the opportunity to cancel or change his/her scheduled follow-up mental health appointments: NO The was educated about what to do and who to contact should he/she need to cancel the follow-up mental health appointment: NO Clothing / Valuables returned: Yes Describe: shirt, pants, glasses, shoes Prosthetics with patient: Dentures/Partials with patient: None Glasses with patient: YES Other: NA Printed MD Instruction sheet with medication list reviewed and given to the patient/caregiver. Patient/Caregiver verifies medication list is complete and accurate. Patient/Caregiver appeared ready for instruction (good eye contact, appropriate questions, active participation, etc) Person(s) who received education: Patient Education Topic/Teaching Needs: Disease/Condition Medication Diet/Nutrition Follow-up Instructions Methods used Included: A copy of the Discharge Instructions Health Summary given to patient/caregiver and signed by patient/guardian. Patient's medications were reviewed and reconciled by discharge team. Teaching outcomes: Good level of understanding /dionna/ MAZIN MCKENNA, RN REGISTERED NURSE Signed: 07/24/2024 16:[address] [facility] Jul 24, 2024 02:35 PM CARDIOLOGY NOTE: LOCAL TITLE: CARDIOLOGY TELEMETRY [facility] STANDARD TITLE: CARDIOLOGY NOTE DATE OF NOTE: JUL 24, 2024@14:35 ENTRY DATE: JUL 24, 2024@14:35:53 AUTHOR: KEYANNA ASHBY EXP COSIGNER: URGENCY: STATUS: COMPLETED Telemetry reviewed: Normal Sinus Rhythm W/ FREQ.PVCS,PAT,PVCS RELAY SHOP SUPERVISOR #: [id number] RATE: 70S-80S SHIFT: 7-3 Shift COMMENT: HR RISE TO 120S WHEN HAVING PAT /dionna/ KEYANNA ASHBY Medical [employer] Cutting Machine Operator ekg Signed: 07/24/2024 14:[address] [facility] Jul 24, 2024 02:18 PM DISCHARGE SUMMARY: LOCAL TITLE: DISCHARGE OBSERVATION MEDICINE ST STANDARD TITLE: DISCHARGE SUMMARY DICT DATE: JUL 24, 2024@10:23 ENTRY DATE: JUL 24, 2024@10:23:15 DICTATED BY: ALFREDITO WILSON ATTENDING: YOLANDA FIGUEROA URGENCY: routine STATUS: COMPLETED PRINCIPAL DIAGNOSIS: Atrial fibrillation/flutter SECONDARY DIAGNOSES: Significant Medical Problems PRESENT on Admission: Chronic tremor, atrial fibrillation/flutter, actinic keratosis, peripheral vascular disease Significant Medical Problems NOT PRESENT on Admission: None OPERATIVE/INVASIVE PROCEDURES: Complex ablation for atrial fibrillation ATTENDING PHYSICIAN: CAROLINA White M.D. BRIEF HISTORY AND ESSENTIAL PHYSICAL FINDINGS: 78 YO [place] with history of chronic tremor, atrial fibrillation/flutter, peripheral vascular disease who presents for planned ablation for his paroxysmal atrial fibrillation now status post ablation on 07/22/2024. He had very extensive ablation (R and L carinal lines; posterior wall, anterior wall, septum, and roof isolation; creation of mitral line due to spontaneous intraprocedural mitral flutter; CTI flutter line for spontaneous intraprocedureal cavotricuspid isthmus AFL; roof line). Has been on Multaq and metoprolol in addition to Eliquis, was noted to be in A-fib in clinic while on his medications. HOSPITAL COURSE: Patient tolerated the procedure well initially. 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 Nausea improved with Zofran and Compazine. Nausea resolved on the day of discharge and were thought to be secondary to anesthetic effect. Chest pain also dramatically improved by the day of discharge. He was continued on home apixaban, metoprolol, and multaq. His home PPI was increased to 40 mg BID for 6 weeks, he was started on sucralfate QID for 2 weeks, and colchicine 0.6 mg BID for 2 weeks. CHRONIC: #Incidental right middle lobe nodule: 9 mm, outpatient follow-up Physical exam: General: NAD HEENT: PERRL, EOM GI Neck: Supple No LAD Heart: RRR, No mgr Lungs: Clear, no wrr Abdomen: NT/ND BS+ Vascular: 2/4 radial pulses Extremities: No clubbing, cyanosis, edema. Neuro: CN 2-12 GI, no gross motor or sensory deficits Skin: No gross rash CONDITION ON DISCHARGE: Stable FOLLOW-UP: 08/18/2024 10:30 [facility]CA[facility] 1 INPATIENT APPOINTMENT 2024 10:30 STE[facility]-NOCJhonathan PACT 1 PCP INPATIENT APPOINTMENT 01/01/2025 10:00 [facility] [place] INPATIENT APPOINTMENT NON-VA FOLLOW-UP CARE: Not Applicable DISCHARGE MEDICATIONS: Active Outpatient Medications (including Supplies): Active Outpatient Medications Status 1) APIXABAN 5MG TAB TAKE ONE TABLET BY MOUTH TWICE A DAY ACTIVE FOR ANTICOAGULATION 2) CICLOPIROX 8% TOP SOLN APPLY LIGHTLY TO AFFECTED ACTIVE AREA(S) ONCE A DAY (THIN COAT TO THICK NAILS - FILE DOWN AFTER 1 WEEK) (EXTERNAL USE ONLY) 3) DRONEDARONE 400MG TAB TAKE ONE TABLET BY MOUTH TWICE ACTIVE A DAY FOR ATRIAL FIBRILLATION - TAKE IN THE MORNING AND EVENING WITH FOOD 4) METOPROLOL SUCCINATE 200MG SA TAB TAKE ONE-HALF ACTIVE TABLET BY MOUTH ONCE A DAY FOR HEART/BLOOD PRESSURE. SWALLOW WHOLE, DO NOT CRUSH OR CHEW (TABLETS MAY BE CUT IN HALF). 5) PANTOPRAZOLE NA 40MG EC TAB TAKE ONE TABLET BY MOUTH ACTIVE EVERY MORNING BEFORE A MEAL TAKE 30 MINUTES BEFORE MEAL(S) Pending Outpatient Medications Status 1) COLCHICINE 0.6MG TAB TAKE ONE TABLET BY MOUTH TWICE A PENDING DAY STOP MED AND CONTACT PROVIDER AT FIRST SIGN OF NAUSEA, VOMITING, OR DIARRHEA 2) PANTOPRAZOLE NA 40MG EC TAB TAKE ONE TABLET BY MOUTH PENDING TWO TIMES A DAY BEFORE MEALS TAKE 30 MINUTES BEFORE MEAL(S) 3) SUCRALFATE 1GM TAB TAKE ONE TABLET BY MOUTH FOUR PENDING TIMES A DAY - TAKE ON AN EMPTY STOMACH. 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 [ ] The patient is not competent in the AR sense of the word. TOTAL TIME SPENT FOR FINAL HOSPITAL DISCHARGE: 30 minutes. Verified By MRT/SUNDAR /dionna/ YOALNDA FIGUEROA INTERNAL MEDICINE PHYSICIAN Signed: 07/28/2024 10:05 for ALFREDITO WILSON M.D resident physician /dionna/ YOLANDA FIGUEROA INTERNAL MEDICINE PHYSICIAN Cosigned: 07/28/2024 10:05 YOLANDA FIGUEROA [facility] Jul 24, 2024 02:18 PM NURSING NOTE: LOCAL TITLE: [facility] NSG IV INSERTION AND MAINTENANCE STANDARD TITLE: NURSING NOTE DATE OF NOTE: JUL 24, 2024@14:18 ENTRY DATE: JUL 24, 2024@16:18:48 AUTHOR: MAZIN PARKER EXP COSIGNER: URGENCY: STATUS: COMPLETED Version 2.2 Charting in accordance with [place] APPROVED [place] STANDARD (ARAES) ACUTE INPATIENT/REHABILITATION NURSING ADMISSION SCREENING, ASSESSMENT, AND STANDARDS OF CARE ====== IV Line Insertion and Maintenance ====== ====== Peripheral IV ====== Line #1: Discontinue: Location: Right, Forearm Date/Time: Jun Reason for discontinuation: Therapy complete Line #2: Discontinue: Location: Right, Forearm Date/Time: Jun Reason for discontinuation: Therapy complete /es/ MAZIN MCKENNA, RN REGISTERED NURSE Signed: 07/24/2024 16:19 MAZIN PARKER [facility] Jul 24, 2024 12:41 PM NURSING INPATIENT NOTE: LOCAL TITLE: [facility] NURSING FREQUENT DOCUMENTATION STANDARD TITLE: NURSING INPATIENT NOTE DATE OF NOTE: JUL 24, 2024@12:41 ENTRY DATE: JUL 24, 2024@12:41:33 AUTHOR: MAZIN PARKER EXP COSIGNER: URGENCY: STATUS: COMPLETED Version 2.4 Charting in accordance with [facility] [place] STANDARD (ARAES) ACUTE INPATIENT/REHABILITATION NURSING ADMISSION SCREENING, ASSESSMENT, AND STANDARDS OF CARE ==== NATIONAL EARLY WARNING SCORE (NEWS) ==== The vital signs below were used for scoring: Temperature: 97.7 Pulse: 74 Blood Pressure: 101/64 Respiration: 18 Pulse Oximetry: 94 The NEWS total is 2. 1. Temperature (C/F): Score = 0 36.1 - 38.0 C (96.9 - 100.4 F) 2. Pulse: Score = 0 51-90 3. Respirations: Score = 0 12-20 4. Blood Pressure (Only Systolic BP, mmHg): Score = 1 101-110 5. Pulse Oximetry: Score = 1 94% - 95% 6. Supplemental oxygen in use: Score = 0 No 7. AVPU: Score = 0 Alert /es/ MAZIN PARKER BSN, RN REGISTERED NURSE Signed: 07/24/2024 13:[address] [facility] Jul 24, 2024 12:32 PM ADMINISTRATIVE NOTE: LOCAL TITLE: ADMINISTRATIVE ST STANDARD TITLE: ADMINISTRATIVE NOTE DATE OF NOTE: JUL 24, 2024@12:32 ENTRY DATE: JUL 24, 2024@12:32:29 AUTHOR: ELMO SHEIKH EXP COSIGNER: URGENCY: STATUS: COMPLETED PATIENT SABINE MARLOW #[id number] WAS CONVERTED TO OBSERVATION STATUS PER ORDER ON 07/24/2024. /dionna/ ELMO SHEIKH ADVANCED TUGBOAT OPERATOR Signed: 07/24/2024 12:33 Receipt Acknowledged By: 07/26/2024 23:37 /dionna/ JAI BACA MERIDIAN ADVANCED TUGBOAT OPERATOR * AWAITING SIGNATURE * ALFREDO HERNANDEZ * AWAITING SIGNATURE * ADA FELIX DEVON C [facility] Jul 24, 2024 10:15 AM PHYSICIAN EDUCATION DISCHARGE NOTE: LOCAL TITLE: DISCHARGE INSTRUCTIONS ST STANDARD TITLE: PHYSICIAN EDUCATION DISCHARGE NOTE DATE OF NOTE: JUL 24, 2024@10:15 ENTRY DATE: JUL 24, 2024@10:15:33 AUTHOR: ALFREDITO WILSON EXP COSIGNER: YOLANDA FIGUEROA URGENCY: STATUS: COMPLETED >>>>>>>>>>>>>>>>>>>>>>>>>>>>> >>>>>>>>>>>>>>>>>>>>>>>>>>>>> >>>>>>>>>>>> <<<<<<<<<<<<<<<<<<<<<<<<<<<<< <<<<<<<<<<<<<<<<<<<<<<<<<<<<< <<<<<<<<<<<< >>>>>>>>>>>>>>>>>>>>>>>>>>>>> >>>>>>>>>>>>>>>>>>>>>>>>>>>>> >>>>>>>>>>>> MEDICATIONS THAT WERE CHANGED: None MEDICATIONS THAT WERE STOPPED (AND REASON FOR STOPPING): None NEW MEDICATIONS WITH INSTRUCTIONS: - PANTOPRAZOLE TAB,EC 40MGTAKE ONE TABLET BY MOUTH TWO TIMES A DAY BEFORE MEALS TAKE 30 MINUTES BEFOREMEAL(S) after 6 weeks of BID patient should return to his qdaily dose - COLCHICINE TAB 0.6MGTAKE ONE TABLET BY MOUTH TWICE A DAY STOP MED AND CONTACT PROVIDER AT FIRST SIGNOF NAUSEA, VOMITING, OR DIARRHEA -SUCRALFATE TAB 1GMTAKE ONE TABLET BY MOUTH FOUR TIMES A DAY - Take on an empty stomach. DATE OF ADMISSION: Jun 16:18 DATE OF DISCHARGE: Jun REASON(S) FOR BEING IN THE HOSPITAL: You were admitted for a planned procedure called an ablation to treat an irregular heart rhythm called atrial fibrillation. The procedure went well without any immediate complications. Please follow-up with your neurology specialist as outpatient YOUR OUTPATIENT CARE TEAM: Team Information Primary Care Team: ROSANGELA FORREST 1 PCP PC Provider: TARYN EDGAR Position: PHYSICIAN FUTURE APPOINTMENTS: 08/18/2024 10:30 [facility] 1 INPATIENT APPOINTMENT 2024 10:30 ROSANGELA FORREST 1 PCP INPATIENT APPOINTMENT 01/01/2025 10:00 [facility] YOUR KNOWN ALLERGIES: PENICILLIN CALL YOUR DOCTOR IF YOU HAVE ANY OF THESE PROBLEMS: PHYSICAL ACTIVITY: Activity as tolerated DIET: Oral Nutrition/Diet Instructions Regular Diet: A healthy eating plan will maintain or promote good health. -Consume a diet rich in fruits, vegetables, whole grains, and healthy oils -Choose lean protein sources such as fish, poultry, beans/legumes, and non-fat or low-fat dairy sources. -Limit saturated fat such as fatty cuts of beef, vanegas, pork, chicken with skin, whole milk, cream, butter -Minimize consumption of sugary drinks, desserts -Limit deep-fried foods and fast foods -Limit the use of added table salts, salt-type seasoning, and processed foods -Speak to a Registered Dietitian about other healthy eating tips and meal planning TOBACCO & ALCOHOL: Discharge tobacco cessation medication(s) not indicated due to: Other reason(s) documented by physician/AIR INTERCEPT CONTROLLER/PA or pharmacist Reason(s): None Discharge medications for alcohol/drug disorder not offered Reason: None DISCHARGE INSTRUCTIONAL MATERIALS: CONDITION OF PATIENT AT DISCHARGE: Stable DISCHARGE DESTINATION: Home OTHER (RETURN TO WORK): When able and ready NOTE: If you are having feelings of Depression or Emotional Distress, or feel you just need to talk with someone, please call [phone]), [facility] - Press 1. COPY OF DISCHARGE INSTRUCTIONS: The patient/family understands and will be provided a copy of these discharge instructions. DISCHARGE MEDICATION LIST: Active Outpatient Medications (including Supplies): Active Outpatient Medications Status 1) APIXABAN 5MG TAB TAKE ONE TABLET BY MOUTH TWICE A DAY ACTIVE FOR ANTICOAGULATION 2) CICLOPIROX 8% TOP SOLN APPLY LIGHTLY TO AFFECTED ACTIVE AREA(S) ONCE A DAY (THIN COAT TO THICK NAILS - FILE DOWN AFTER 1 WEEK) (EXTERNAL USE ONLY) 3) DRONEDARONE 400MG TAB TAKE ONE TABLET BY MOUTH TWICE ACTIVE A DAY FOR ATRIAL FIBRILLATION - TAKE IN THE MORNING AND EVENING WITH FOOD 4) METOPROLOL SUCCINATE 200MG SA TAB TAKE ONE-HALF ACTIVE TABLET BY MOUTH ONCE A DAY FOR HEART/BLOOD PRESSURE. SWALLOW WHOLE, DO NOT CRUSH OR CHEW (TABLETS MAY BE CUT IN HALF). 5) PANTOPRAZOLE NA 40MG EC TAB TAKE ONE TABLET BY MOUTH ACTIVE EVERY MORNING BEFORE A MEAL TAKE 30 MINUTES BEFORE MEAL(S) Pending Outpatient Medications Status 1) COLCHICINE 0.6MG TAB TAKE ONE TABLET BY MOUTH TWICE A PENDING DAY STOP MED AND CONTACT PROVIDER AT FIRST SIGN OF NAUSEA, VOMITING, OR DIARRHEA 2) PANTOPRAZOLE NA 40MG EC TAB TAKE ONE TABLET BY MOUTH PENDING TWO TIMES A DAY BEFORE MEALS TAKE 30 MINUTES BEFORE MEAL(S) 3) SUCRALFATE 1GM TAB TAKE ONE TABLET BY MOUTH FOUR PENDING TIMES A DAY - TAKE ON AN EMPTY STOMACH. 8 Total Medications Active Remote Medications: No Active Remote Medications for this patient /dionna/ ALFREDITO WILSON M.D resident physician Signed: 07/24/2024 10:22 /dionna/ YOLANDA FIGUEROA INTERNAL MEDICINE PHYSICIAN Cosigned: 07/24/2024 12:18 ALFREDITO WILSON [facility] Jul 24, 2024 08:32 AM NURSING NOTE: LOCAL TITLE: [facility] SKIN INSPECTION/ASSESSMENT STANDARD TITLE: NURSING NOTE DATE OF NOTE: JUL 24, 2024@08:32 ENTRY DATE: JUL 24, 2024@08:32:07 AUTHOR: MAZIN PARKER COSIGNER: URGENCY: STATUS: COMPLETED Assessment Type: SKIN REINSPECTION/REASSESSMENT SKIN INSPECTION: Skin Color: Pale Skin Temperature: Warm Skin Moisture: Normal Skin Turgor: Elastic (normal/immediate) Mary Skin Assessment: The patient's Mary Scale Score is 18. The patient is at mild risk for development of pressure ulcer/injury. Sensory perception -- ability to respond meaningfully to pressure-related discomfort Very limited. Moisture -- degree to which skin is exposed to moisture Rarely moist. Activity -- ability to change and control body position Walks occasionally. Mobility -- ability to change and control body position Slightly limited. Nutrition -- usual food intake patterns Adequate. Friction and shear No apparent problem. INTERVENTIONS: No change in previous interventions as listed below Vaaes Pressure Injury Interventions 07/23/2024 Vaaes Pressure Injury Int Not Needed RISK FACTORS THAT INCREASE RISK FOR DEVELOPING PRESSURE INJURIES: The patient/resident has the following: Age over 75 Known vascular surgery or vascular disease SKIN ALTERATIONS: Pressure Ulcer/Injury Documentation from the past year: No data available SKIN ALTERATIONS: Wound Documentation from the past year: Skin Assessment 07/24/2024 Skin Integrity - Wound rt groin / left wrist 07/23/2024 Skin Integrity - Wound rt groin /left wrist SKIN INTEGRITY: Wound - other than pressure ulcer/injury (includes open surgical wounds/incisions): Location: rt groin /left wrist Wound Type: Other: surgical Wound Description: Wound Bed Tissue Types: Other: dressed Radha-wound skin status: Intact Usual for ethnicity Skin Temperature: Warm No Edema Wound drainage none. /dionna/ MAZIN MCKENNA, RN REGISTERED NURSE Signed: 07/24/2024 08:33 MAZIN PARKER [facility] Jul 24, 2024 08:24 AM NURSING INPATIENT NOTE: LOCAL TITLE: [facility] ACUTE INPATIENT NSG SHIFT ASSESSMENT STANDARD TITLE: NURSING INPATIENT NOTE DATE OF NOTE: JUL 24, 2024@08:24 ENTRY DATE: JUL 24, 2024@08:24:08 AUTHOR: MAZIN PARKER EXP COSIGNER: URGENCY: STATUS: COMPLETED Version 2.2 Charting in accordance with [facility] [place] STANDARD (ARAES) ACUTE INPATIENT/REHABILITATION NURSING ADMISSION SCREENING, ASSESSMENT, AND STANDARDS OF CARE ==== ASSESSMENT ==== ==== HANDOFF ==== Bedside report and handoff completed Safety check completed ==== PAIN ASSESSMENT ==== Patient's acceptable pain goal: 0 No pain Are you currently experiencing pain? No: Pain Score: 0 ==== WILEY FALL SCALE & TIPS PROGRAM ==== Wiley Fall Scale: The Wiley Fall scale was performed and score was 35. This is indicative of moderate risk for falls. History of falling: immediate or within 3 months? No Secondary diagnosis: No Ambulatory aid: Crutches/cane(s)/walker Intravenous therapy/Heparin lock: Yes Gait/Transferring: Normal/bed rest/immobile Mental Status: Oriented to own ability/knows own limitations Fall Tailoring Interventions for Patient Safety (TIPS) Fall TIPS initiated with patient: Yes Interventions: Communicate recent fall or risk of harm Walking Aids: Walker Fall TIPS reviewed with patient: Yes Interventions: Communicate recent fall or risk of harm Walking Aids: Walker ==== ENVIRONMENTAL SAFETY MANAGEMENT ==== Implemented safety standards of care: -[place] to unit & environment -Adequate room lighting -Bed in low and locked position -Call light within reach -Personal items within reach -Traffic path in room free of clutter -Non-slip footwear -Upper/half length side rails up for bed mobility -Sensory aids within reach -Encourage patient to utilize sensory support ==== NEUROLOGICAL ==== Neurological Orientation: Oriented x4 Level of Consciousness (AVPU): Alert = Appears aware of and responsive to the environment on their own. Follows commands, opens eyes spontaneously, and tracks objects. Affect/behavior: Cooperative Calm ==== NEUROMUSCULAR/NEUROVASCULAR EXTREMITIES ASSESSMENT ==== Strength: First Assist Bilateral: Strong Upper Extremity Bilateral: Full strength Lower Extremity Bilateral: Full strength Sensation: Upper Extremity Sensation Bilateral: Intact Lower Extremity Sensation Bilateral: Intact Temperature: Upper Extremity Temperature Bilateral: Warm Lower Extremity Temperature Bilateral: Warm ==== CARDIOVASCULAR ==== Heart Sounds: Normal (S1S2) Heart Rate/Rhythm (without rural mail contractor): Regular Cardiac Rhythm Analysis: Normal Sinus Rhythm Telemetry Transmitter Pack #: [id number] Capillary Refill: All 4 extremities, less than or equal to 3 seconds. Peripheral Pulses: All 4 extremities, 3+ normal. Edema: None Cardiovascular - Embolism Prevention: Not Applied: Patient declined Comment: apixiban po ==== RESPIRATORY ==== Respirations: Unlabored Pattern: Regular Breath Sounds Auscultated: Anterior only Left Upper Lobe: Clear Right Upper Lobe: Clear Right Middle Lobe: Clear Left Lower Lobe: Clear Right Lower Lobe: Clear ==== GASTROINTESTINAL ==== Last bowel movement: 07/24/24 Bowel movement reported by patient-unwitnessed Abdominal Description: Flat Palpation: Soft, Non-tender Bowel Sounds: RUQ: Active LUQ: Active RLQ: Active LLQ: Active ==== GENITOURINARY ==== Elimination: Continent ==== ACTIVITIES OF DAILY LIVING ==== Hygiene ADLs: Dressing: Upper Body: Independent Lower Body: Independent Eating: Independent Foot Care: Inspection Hand Hygiene: Patient declined Oral Care: Non-ventilator patient: Patient teeth brushed: Independently The was educated that poor oral hygiene increases the risk of hospital acquired pneumonia and dental problems like gingivitis and tooth decay. [place] was educated using their preferred method and verbalized understanding. Pericare: Independent Personal Care: Independent Toileting: Independent ==== MOBILITY ==== Mobility Status: Gait: Steady ==== IV LINES ==== Peripheral IV: Line #1: Assessment: Location: Right, Wrist Gauge: 20 Dressing Condition: Clean, dry, intact Site Condition: No redness, swelling, pain Line Status: Capped ==== PSYCHOSOCIAL ==== Type of Emotional Support Provided: 1:1 discussion, Hospitalization discussion, Ventilation of feelings encouraged /es/ MAZIN MCKENNA, RN REGISTERED NURSE Signed: 07/24/2024 08:28 MAZIN PARKER [facility] Jul 24, 2024 07:21 AM NURSING INPATIENT NOTE: LOCAL TITLE: [facility] ACUTE INPATIENT NSG SHIFT ASSESSMENT STANDARD TITLE: NURSING INPATIENT NOTE DATE OF NOTE: JUL 24, 2024@07:21 ENTRY DATE: JUL 24, 2024@07:21:26 AUTHOR: WILBER AUGUSTE JR COSIGNER: URGENCY: STATUS: COMPLETED Version 2.2 Charting in accordance with [place] APPROVED [place] STANDARD (ARAES) ACUTE INPATIENT/REHABILITATION NURSING ADMISSION SCREENING, ASSESSMENT, AND STANDARDS OF CARE ==== REASSESSMENT ==== ==== HANDOFF ==== Safety check completed ==== ENVIRONMENTAL SAFETY MANAGEMENT ==== Implemented safety standards of care: -[place] to unit & environment -Adequate room lighting -Bed in low and locked position -Call light within reach -Personal items within reach -Traffic path in room free of clutter -Non-slip footwear -Upper/half length side rails up for bed mobility -Sensory aids within reach -Encourage patient to utilize sensory support Additional safety measures: Close to nurses station Mobility support items readily available ==== RESPIRATORY ==== Respirations: Unlabored Pattern: Regular === INTEGUMENTARY/SKIN/WOUND - (INCLUDING MARY) SEE NOTE: VAAES SKIN INPECTION/ASSESSMENT === /dionna/ WILBER AUGUSTE JR RN REGISTERED NURSE Signed: 07/24/2024 07:24 WILBER AUGUSTE JR [facility] Jul 24, 2024 02:18 AM NURSING NOTE: LOCAL TITLE: [facility] SKIN INSPECTION/ASSESSMENT STANDARD TITLE: NURSING NOTE DATE OF NOTE: JUL 24, 2024@02:18 ENTRY DATE: JUL 24, 2024@02:18:57 AUTHOR: WILBER AUGUSTE JR EXP COSIGNER: URGENCY: STATUS: COMPLETED Assessment Type: SKIN REINSPECTION/REASSESSMENT SKIN INSPECTION: Skin Color: Usual for ethnicity Skin Temperature: Warm Skin Moisture: Normal Skin Turgor: Elastic (normal/immediate) Mary Skin Assessment: The patient's Mary Scale Score is 18. The patient is at mild risk for development of pressure ulcer/injury. Sensory perception -- ability to respond meaningfully to pressure-related discomfort Very limited. Moisture -- degree to which skin is exposed to moisture Rarely moist. Activity -- ability to change and control body position Walks occasionally. Mobility -- ability to change and control body position Slightly limited. Nutrition -- usual food intake patterns Adequate. Friction and shear No apparent problem. INTERVENTIONS: No change in previous interventions as listed below Vaaes Pressure Injury Interventions 07/23/2024 [facility] Pressure Injury Int Not Needed RISK FACTORS THAT INCREASE RISK FOR DEVELOPING PRESSURE INJURIES: The patient/resident has the following: Age over 75 Known vascular surgery or vascular disease Device(s): (nasogastric tubes, oxygen tubing, urinary catheters, cell phone etc.) SKIN ALTERATIONS: Pressure Ulcer/Injury Documentation from the past year: No data available SKIN ALTERATIONS: Wound Documentation from the past year: Skin Assessment 07/23/2024 Skin Integrity - Wound rt groin /left wrist Wound - other than pressure ulcer/injury (includes open surgical wounds/incisions): Location: rt groin / left wrist Wound Type: Other: surgical incision No Edema Wound drainage none. /dionna/ WILBER AUGUSTE JR RN REGISTERED NURSE Signed: 07/24/2024 02:29 WILBER AUGUSTE JR [facility] Jul 24, 2024 01:14 AM NURSING INPATIENT NOTE: LOCAL TITLE: [facility] NURSING FREQUENT DOCUMENTATION STANDARD TITLE: NURSING INPATIENT NOTE DATE OF NOTE: JUL 24, 2024@01:14 ENTRY DATE: JUL 24, 2024@01:14:43 AUTHOR: WILBER AUGUSTE JR EXP COSIGNER: URGENCY: STATUS: COMPLETED Version 2.4 Charting in accordance with [facility] [place] STANDARD (ARAES) ACUTE INPATIENT/REHABILITATION NURSING ADMISSION SCREENING, ASSESSMENT, AND STANDARDS OF CARE ==== NATIONAL EARLY WARNING SCORE (NEWS) ==== The vital signs below were used for scoring: Temperature: 98 Pulse: 68 Blood Pressure: 97/62 Respiration: 20 Pulse Oximetry: 97 The NEWS total is 2. 1. Temperature (C/F): Score = 0 36.1 - 38.0 C (96.9 - 100.4 F) 2. Pulse: Score = 0 51-90 3. Respirations: Score = 0 12-20 4. Blood Pressure (Only Systolic BP, mmHg): Score = 2 91-100 5. Pulse Oximetry: Score = 0 96% or greater 6. Supplemental oxygen in use: Score = 0 No 7. AVPU: Score = 0 Alert Patient Status: Remains on unit /dionna/ WILBER AUGUSTE JR, RN REGISTERED NURSE Signed: 07/24/2024 01:17 WILBER AUGUSTE JR [facility] Jul 24, 2024 12:09 AM CARDIOLOGY NOTE: LOCAL TITLE: CARDIOLOGY TELEMETRY ST[facility] STANDARD TITLE: CARDIOLOGY NOTE DATE OF NOTE: JUL 24, 2024@00:09 ENTRY DATE: JUL 24, 2024@00:09:40 AUTHOR: ROHITH MEZA EXP COSIGNER: URGENCY: STATUS: COMPLETED Telemetry reviewed: Normal Sinus Rhythm w/ PVCs, PACs - PAT RELAY SHOP SUPERVISOR #: [id number] RATE: 65-94 bpm SHIFT: 11-7 Shift COMMENT: Pt heart rate increases as high as 123 bpm nonsustained. /dionna/ ROHITH MEZA MEDICAL LAMINATION BUILDER - TELEMETRY Signed: 07/24/2024 05:41 ROHITH MEZA [facility] Jul 24, 2024 12:04 AM NURSING INPATIENT NOTE: LOCAL TITLE: [facility] ACUTE INPATIENT NSG SHIFT ASSESSMENT STANDARD TITLE: NURSING INPATIENT NOTE DATE OF NOTE: JUL 24, 2024@00:04 ENTRY DATE: JUL 24, 2024@00:04:20 AUTHOR: WILBER AUGUSTE JR EXP COSIGNER: URGENCY: STATUS: COMPLETED Version 2.2 Charting in accordance with [facility] [place] STANDARD (ARAES) ACUTE INPATIENT/REHABILITATION NURSING ADMISSION SCREENING, ASSESSMENT, AND STANDARDS OF CARE ==== ADDITIONAL ASSESSMENT DOCUMENTATION ==== ==== HANDOFF ==== Bedside report and handoff completed Safety check completed ==== PAIN ASSESSMENT ==== Patient's acceptable pain goal: 0 No pain Are you currently experiencing pain? No: Pain Score: 0 ==== WILEY FALL SCALE & TIPS PROGRAM ==== Wiley Fall Scale: The Wiley Fall scale was performed and score was 50. This is indicative of high risk for falls. History of falling: immediate or within 3 months? No Secondary diagnosis: Yes Ambulatory aid: Crutches/cane(s)/walker Intravenous therapy/Heparin lock: Yes Gait/Transferring: Normal/bed rest/immobile Mental Status: Oriented to own ability/knows own limitations Fall Tailoring Interventions for Patient Safety (TIPS) Fall TIPS initiated with patient: Yes Interventions: Walking Aids: Walker Fall TIPS reviewed with patient: Yes Interventions: Communicate recent fall or risk of harm Walking Aids: Walker ==== ENVIRONMENTAL SAFETY MANAGEMENT ==== Implemented safety standards of care: -[place] to unit & environment -Adequate room lighting -Bed in low and locked position -Call light within reach -Personal items within reach -Traffic path in room free of clutter -Non-slip footwear -Upper/half length side rails up for bed mobility -Sensory aids within reach -Encourage patient to utilize sensory support Additional safety measures: Close to nurses station Increased frequency of rounding Mobility support items readily available Supplemental Environmental Safety Management: Suicide Screen - [place] Suicide Severity Rating Scale (C-SSRS): [place] Suicide Severity Rating Scale (C-SSRS): 1. Over the past month, have you wished you were or wished you could go to sleep and not wake up? No 2. Over the past month, have you had any actual thoughts of killing yourself? No 3. Over the past month, have you been thinking about how you might do this? Response not required due to responses to other questions. 4. Over the past month, have you had these thoughts and had some intention of acting on them? Response not required due to responses to other questions. 5. Over the past month, have you started to work out or worked out the details of how to kill yourself? Response not required due to responses to other questions. 6. If yes, at any time in the past month did you intend to carry out this plan? Response not required due to responses to other questions. 7. In your lifetime, have you ever done anything, started to do anything, or prepared to do anything to end your life (for example, collected pills, obtained a gun, gave away valuables, went to the roof but didn't jump)? No 8. If YES, was this within the past 3 months? Response not required due to responses to other questions. C-SSRS Screen is Negative ==== NEUROLOGICAL ==== Neurological Orientation: Oriented x4 Level of Consciousness (AVPU): Alert = Appears aware of and responsive to the environment on their own. Follows commands, opens eyes spontaneously, and tracks objects. Affect/behavior: Cooperative Calm ==== NEUROMUSCULAR/NEUROVASCULAR EXTREMITIES ASSESSMENT ==== Strength: First Assist Bilateral: Strong Upper Extremity Bilateral: Full strength Lower Extremity Bilateral: Full strength Sensation: Upper Extremity Sensation Bilateral: Intact Lower Extremity Sensation Bilateral: Intact Temperature: Upper Extremity Temperature Bilateral: Warm Lower Extremity Temperature Bilateral: Warm ==== CARDIOVASCULAR ==== Heart Sounds: Normal (S1S2) Heart Rate/Rhythm (without rural mail contractor): Regular Cardiac Rhythm Analysis: Normal Sinus Rhythm Capillary Refill: All 4 extremities, less than or equal to 3 seconds. Peripheral Pulses: All 4 extremities, 3+ normal. Edema: None Cardiovascular - Embolism Prevention: Not Applied: Patient declined Comment: apixiban po ==== RESPIRATORY ==== Respirations: Unlabored Pattern: Regular Breath Sounds Auscultated: Anterior only Left Upper Lobe: Clear Right Upper Lobe: Clear Right Middle Lobe: Clear Left Lower Lobe: Clear Right Lower Lobe: Clear ==== GASTROINTESTINAL ==== Last bowel movement: 07/22/24 Bowel movement reported by patient-unwitnessed Passing flatus Elimination: Continent Abdominal Description: Flat Palpation: Soft, Non-tender Bowel Sounds: RUQ: Active LUQ: Active RLQ: Active LLQ: Active ==== GENITOURINARY ==== Elimination: Continent === INTEGUMENTARY/SKIN/WOUND - (INCLUDING MARY) SEE NOTE: VAAES SKIN INPECTION/ASSESSMENT === ==== ACTIVITIES OF DAILY LIVING ==== Hygiene ADLs: Dressing: Upper Body: Independent Lower Body: Independent Eating: Moderate assist Foot Care: Inspection Hand Hygiene: Performed post toileting Performed pre meals/snacks Oral Care: Non-ventilator patient: Patient teeth brushed: With assistance tremors [facility] [place] was educated that poor oral hygiene increases the risk of hospital acquired pneumonia and dental problems like gingivitis and tooth decay. was educated using their preferred method and verbalized understanding. Pericare: Personal Care: Moderate assist Toileting: Independent ==== MOBILITY ==== Mobility Status: Independent: Gait: Steady Gait: Shuffling ==== IV LINES ==== Peripheral IV: Line #1: Assessment: Location: Right, Wrist Gauge: 20 Dressing Condition: Clean, dry, intact Transparent dressing Site Condition: No redness, swelling, pain Tenderness Line Status: Capped Line #2: Assessment: Location: Right, Hand Gauge: 20 Dressing Condition: Clean, dry, intact Transparent dressing Site Condition: No redness, swelling, pain Line Status: Capped ==== PSYCHOSOCIAL ==== Type of Emotional Support Provided: 1:1 discussion, Hospitalization discussion, Ventilation of feelings bob /dionna/ WILBER AUGUSTE JR, RN REGISTERED NURSE Signed: 07/24/2024 00:15 WILBER AUGUSTE JR [facility] Jul 23, 2024 07:54 PM CARDIOLOGY NOTE: LOCAL TITLE: CARDIOLOGY TELEMETRY ST STANDARD TITLE: CARDIOLOGY NOTE DATE OF NOTE: JUL 23, 2024@19:54 ENTRY DATE: JUL 23, 2024@19:54:05 AUTHOR: TOBY JENSEN EXP COSIGNER: URGENCY: STATUS: COMPLETED Telemetry reviewed: Normal Sinus Rhythm freq pvcs ~6sec svt at 1730 RELAY SHOP SUPERVISOR #: [id number] RATE: 70s SHIFT: 3-11 Shift COMMENT: /dionna/ TOBY JENSEN SEPTIC TECHNICIAN Signed: 07/23/2024 19:54 TOBY JENSEN [facility] Jul 23, 2024 04:16 PM NURSING INPATIENT NOTE: LOCAL TITLE: [facility] ACUTE INPATIENT NSG SHIFT ASSESSMENT STANDARD TITLE: NURSING INPATIENT NOTE DATE OF NOTE: JUL 23, 2024@16:16 ENTRY DATE: JUL 23, 2024@16:16:25 AUTHOR: MAZIN PARKER EXP COSIGNER: URGENCY: STATUS: COMPLETED Version 2.2 Charting in accordance with [facility] [place] STANDARD (ARAES) ACUTE INPATIENT/REHABILITATION NURSING ADMISSION SCREENING, ASSESSMENT, AND STANDARDS OF CARE ==== REASSESSMENT ==== ==== PAIN ASSESSMENT ==== Patient's acceptable pain goal: 0 No pain Are you currently experiencing pain? No: Pain Score: 0 ==== NEUROLOGICAL ==== Neurological Orientation: Oriented x4 Level of Consciousness (AVPU): Alert = Appears aware of and responsive to the environment on their own. Follows commands, opens eyes spontaneously, and tracks objects. Affect/behavior: Cooperative Calm ==== NEUROMUSCULAR/NEUROVASCULAR EXTREMITIES ASSESSMENT ==== Strength: First Assist Bilateral: Strong Upper Extremity Bilateral: Full strength Lower Extremity Bilateral: Full strength Sensation: Upper Extremity Sensation Bilateral: Intact Lower Extremity Sensation Bilateral: Intact Temperature: Upper Extremity Temperature Bilateral: Warm Lower Extremity Temperature Bilateral: Warm ==== CARDIOVASCULAR ==== Heart Sounds: Normal (S1S2) Heart Rate/Rhythm (without rural mail contractor): Regular Cardiac Rhythm Analysis: Normal Sinus Rhythm Telemetry Transmitter Pack #: [id number] Capillary Refill: All 4 extremities, less than or equal to 3 seconds. Peripheral Pulses: All 4 extremities, 3+ normal. Edema: None Cardiovascular - Embolism Prevention: Not Applied: Patient declined Comment: apixiban po ==== RESPIRATORY ==== Respirations: Unlabored Pattern: Regular Breath Sounds Auscultated: Anterior only Left Upper Lobe: Clear Right Upper Lobe: Clear Right Middle Lobe: Clear Left Lower Lobe: Clear Right Lower Lobe: Clear ==== GASTROINTESTINAL ==== Last bowel movement: 07/22/24 Bowel movement reported by patient-unwitnessed Abdominal Description: Flat Palpation: Soft, Non-tender Bowel Sounds: RUQ: Active LUQ: Active RLQ: Active LLQ: Active Pt still c/o nausea med team aware ==== GENITOURINARY ==== Elimination: Continent Pt voiding per toilet /es/ MAZIN PARKER BSN, RN REGISTERED NURSE Signed: 07/23/2024 16:[address] [facility] Jul 23, 2024 02:58 PM CARDIOLOGY NOTE: LOCAL TITLE: CARDIOLOGY TELEMETRY STL STANDARD TITLE: CARDIOLOGY NOTE DATE OF NOTE: JUL 23, 2024@14:58 ENTRY DATE: JUL 23, 2024@14:58:09 AUTHOR: KEYANNA ASHBY EXP COSIGNER: URGENCY: STATUS: COMPLETED Telemetry reviewed: Normal Sinus Rhythm W/PACS,PVCS,PSVT,PVC TRIPLETS RELAY SHOP SUPERVISOR #: [id number] RATE: 80S-120S SHIFT: 7-3 Shift COMMENT: shai ASHBY Medical [place] Cutting Machine Operator ekg Signed: 07/23/2024 14:[address] [facility] Jul 23, 2024 12:06 PM NURSING INPATIENT NOTE: LOCAL TITLE: [facility] NURSING FREQUENT DOCUMENTATION STANDARD TITLE: NURSING INPATIENT NOTE DATE OF NOTE: JUL 23, 2024@12:06 ENTRY DATE: JUL 23, 2024@12:07:09 AUTHOR: AYSHA MANRIQUEZ EXP COSIGNER: URGENCY: STATUS: COMPLETED Version 2.4 Charting in accordance with [place] APPROVED [place] STANDARD (ARAES) ACUTE INPATIENT/REHABILITATION NURSING ADMISSION SCREENING, ASSESSMENT, AND STANDARDS OF CARE ==== ACTIVITIES OF DAILY LIVING ==== Hygiene ADLs: Dressing: Upper Body: Independent Lower Body: Independent Eating: Independent Oral Care: Non-ventilator patient: Patient teeth brushed: Independently [facility] [place] was educated that poor oral hygiene increases the risk of hospital acquired pneumonia and dental problems like gingivitis and tooth decay. was educated using their preferred method and verbalized understanding. /dionna/ willard travis NURSING ASSITANT Signed: 07/23/2024 12:[address] [facility] Jul 23, 2024 12:05 PM NURSING INPATIENT NOTE: LOCAL TITLE: [facility] NURSING FREQUENT DOCUMENTATION STANDARD TITLE: NURSING INPATIENT NOTE DATE OF NOTE: JUL 23, 2024@12:05 ENTRY DATE: JUL 23, 2024@15:52:45 AUTHOR: MAZIN PARKER EXP COSIGNER: URGENCY: STATUS: COMPLETED Version 2.4 Charting in accordance with [place] APPROVED [place] STANDARD ([facility]) ACUTE INPATIENT/REHABILITATION NURSING ADMISSION SCREENING, ASSESSMENT, AND STANDARDS OF CARE ==== BLADDER SCAN ==== Bladder distention: Absent Time Scan performed: Jun Voided within 15 minutes prior to scan: No Initial bladder volume (ml): Urine voided (ml): Post-void bladder volume (ml): Random bladder volume(ml): 90 Patient was NOT catheterized Post-void residual catheterization amount (ml): /salma PARKER BSN, RN REGISTERED NURSE Signed: 07/23/2024 16:[address] [facility] Jul 23, 2024 11:53 AM INTERNAL MEDICINE INPATIENT NOTE: LOCAL TITLE: MEDICINE GENERAL INPATIENT NOTE STANDARD TITLE: INTERNAL MEDICINE INPATIENT NOTE DATE OF NOTE: JUL 23, 2024@11:53 ENTRY DATE: JUL 23, 2024@11:53:29 AUTHOR: ALFREDITO WILSON EXP COSIGNER: YOLANDA FIGUEROA URGENCY: STATUS: COMPLETED MEDICINE GENERAL INPATIENT NOTE Has ADDENDA Internal Medicine Progress Note Assessment and Plan - 78 YO [place] with history of chronic tremor, atrial fibrillation/flutter, actinic keratosis, peripheral vascular disease who presents for planned ambulation now status post ablation on 07/22/2024 #. Paroxysmal atrial fibrillation Patient has a history of mitral valve repair in 2002, diagnosed with atrial fibrillation in 2017. Per patient has been asymptomatic. Anticoagulation for stroke risk reduction is indicated. Past 24 hrs: Rate control: adequate. Plan: --Rate/Rhythm control. Target HR: <110. Continue home metoprolol. continue home maltaq --Anticoagulation: Continue home Eliquis --Strict bedrest until 7 PM --Discontinue Hou after bedrest --Increase PPI to 40 mg BID for 6 weeks per cardiology recommendations -- Start Carafate 4 times daily for 2 weeks -- Telemetry -- Colchicine 0.6 twice daily for 2 weeks #. Nausea: Zofran and Compazine as needed CHRONIC: #Incidental right middle lobe nodule: 9 mm, outpatient follow-up #Actinic keratosis: Continue home topical solutions Subjective - No acute events overnight. This morning patient reports 8 out of 10 chest pain, nonradiating. Feels pressure-like. Associated symptoms include nausea no vomiting. Received Zofran and Compazine without much improvement. Cardiology attending contacted recommended starting colchicine 0.6 twice daily for 2 weeks. EKG at bedside unchanged from prior Hospital course: - 78 YO [place] with history of chronic tremor, atrial fibrillation/flutter, actinic keratosis, peripheral vascular disease who presents for planned ablation for his paroxysmal atrial fibrillation now status post ablation on 07/22/2024 Patient reports he tolerated the procedure well, per documentation patient went into a flutter during ablation. At bedside patient's vital signs are stable and within normal limits. He denies any pain denies palpitations denies shortness of breath. Reports that he was diagnosed with atrial fibrillation in 2017, denies having any symptoms including palpitations since then. Has been on Multaq and metoprolol in addition to Eliquis, was noted to be in A-fib in clinic while on his medications. Objective: - Vital Signs: Pulse: 70 (07/23/2024 08:29) BP: 104/64 (07/23/2024 08:29) RESP: 20 (07/23/2024 08:29) TEMP: 97.2 F [36.2 C] (07/23/2024 08:29) SaO2: 98% (07/23/2024 08:29) Weight: 208.3 lb [94.48 kg] (07/22/2024 17:00) Height: 72 in [182.9 cm] (07/22/2024 17:00) Physical exam General: NAD HEENT: PERRL, EOM GI Neck: Supple No LAD Heart: RRR, No mgr Lungs: Clear, no wrr Abdomen: NT/ND BS+ Vascular: 2/4 radial pulses Extremities: No clubbing, cyanosis, edema. Neuro: CN 2-12 GI, no gross motor or sensory deficits Skin: No gross rash Inpatient Medications: - 1) APIXABAN (PA-F) TAB,ORAL PO BID 5MG 2) CICLOPIROX OLAMINE SOLN,TOP TOP QDAILY LIGHTLY 3) DRONEDARONE (PA-F) TAB PO BID W/MEALS Give with food to improve absorption. 4) METOPROLOL SUCCINATE (SUST RELEASE) PO QDAILY 100MG 5) SUCRALFATE TAB PO QID 1GM 6) ACETAMINOPHEN TAB PO TID 650MG 7) ONDANSETRON INJ,SOLN IVP TID PRN 4MG/2ML 8) COLCHICINE TAB PO BID 0.6MG 9) PANTOPRAZOLE TAB,EC PO BID AC 40MG Labs: - SODIUM 136 mEq/L 07/23/2024 06:00 POTASSIUM 3.7 mEq/L 07/23/2024 06:00 CHLORIDE 108 H mEq/L 07/23/2024 06:00 UREA NITROGEN 14.4 mg/dL 07/23/2024 06:00 CREATININE 0.78 mg/dL 07/23/2024 06:00 CALCIUM 8.3 L mg/dL 07/23/2024 06:00 PROTEIN 7.0 g/dL 02/03/2024 10:45 ALBUMIN 4.0 g/dL 02/03/2024 10:45 ALKALINE PHOSPHATASE 82 U/L 02/03/2024 10:45 ALT/SGPT 10 U/L 02/03/2024 10:45 AST/SGOT 15 U/L 02/03/2024 10:45 TOTAL BILIRUBIN 0.6 mg/dL 02/03/2024 10:45 CARBON DIOXIDE 21 L mEq/L 07/23/2024 06:00 GLUCOSE 113 H mg/dL 07/23/2024 06:00 EGFR (CKD-EPI 2020) 92.4 07/23/2024 06:00 MAGNESIUM 1.8 mg/dL (07/23/24 06:00) PHOSPHOROUS 4.0 mg/dL 07/23/2024 06:00 WBC 11.3 H 10*3/uL 07/23/2024 06:00 RBC 3.86 L 10*6/uL 07/23/2024 06:00 HGB 11.8 L g/dL 07/23/2024 06:00 HCT 35.8 L % 07/23/2024 06:00 MCV 92.7 fL 07/23/2024 06:00 MCH 30.6 pg 07/23/2024 06:00 MCHC 33.0 g/dL 07/23/2024 06:00 RDW 13.9 % 07/23/2024 06:00 PLT 126 L 10*3/uL 07/23/2024 06:00 MPV 12.0 H fL 07/23/2024 06:00 NEUTROPHILS, AUTO % 63 % 07/23/2024 06:00 LYMPHOCYTES, AUTO % 30 % 07/23/2024 06:00 MONOCYTES, AUTO % 6 % 07/23/2024 06:00 EOSINOPHILS, AUTO % 0 % 07/23/2024 06:00 BASOPHILS, AUTO % 0 % 07/23/2024 06:00 NEUTROPHILS, ABSOLUTE 7.09 10*3/uL 07/23/2024 06:00 LYMPHOCYTES, ABSOLUTE 3.43 10*3/uL 07/23/2024 06:00 MONOCYTES, ABSOLUTE 0.65 10*3/uL 07/23/2024 06:00 EOSINOPHILS, ABSOLUTE 0.04 10*3/uL 07/23/2024 06:00 BASOPHILS, ABSOLUTE 0.02 10*3/uL 07/23/2024 06:00 NEUTROPHILS 34.8 % 07/22/2024 06:55 LYMPHOCYTES 60.0 % 07/22/2024 06:55 MONOCYTES 1.7 % 07/22/2024 06:55 EOSINOPHILS 1.8 % 07/22/2024 06:55 ATYPICAL LYMPHOCYTES 1.7 % 07/22/2024 06:55 IMMATURE PLT FRACTION 5.2 % 07/23/2024 06:00 POIKILOCYTOSIS 1+ 07/22/2024 06:55 MICROCYTOSIS 1+ 07/23/2024 06:00 POLYCHROMASIA 1+ 07/23/2024 06:00 /dionna/ ALFREDITO WILSON M.D resident physician Signed: 07/23/2024 12:03 /dionna/ YOLANDA FIGUEROA INTERNAL MEDICINE PHYSICIAN Cosigned: 07/23/2024 15:45 07/23/2024 ADDENDUM STATUS: COMPLETED Admitted yesterday evening. Seen and evaluated on rounds today. See attestation from the admission H&P for my E&M. /salma FIGUEROA INTERNAL MEDICINE PHYSICIAN Signed: 07/23/2024 15:45 ALFREDITO WILSON [facility] Jul 23, 2024 09:13 AM NURSING INPATIENT NOTE: LOCAL TITLE: [facility] NURSING FREQUENT DOCUMENTATION STANDARD TITLE: NURSING INPATIENT NOTE DATE OF NOTE: JUL 23, 2024@09:13 ENTRY DATE: JUL 23, 2024@09:13:42 AUTHOR: MAZIN PARKER COSIGNER: URGENCY: STATUS: COMPLETED Version 2.4 Charting in accordance with [place]PR[place] STANDARD ([facility]) ACUTE INPATIENT/REHABILITATION NURSING ADMISSION SCREENING, ASSESSMENT, AND STANDARDS OF CARE ==== NATIONAL EARLY WARNING SCORE (NEWS) ==== The following vital measurements were used to complete the NEWS. Measurement DT TEMP PULSE RESP BP POx F(C) (L/MIN)(%) 07/23/2024 08:29 97.2(36.2) 70 20 104/64 98 The NEWS total is 1. 1. Temperature (C/F): Score = 0 36.1 - 38.0 C (96.9 - 100.4 F) 2. Pulse: Score = 0 51-90 3. Respirations: Score = 0 12-20 4. Blood Pressure (Only Systolic BP, mmHg): Score = 1 101-110 5. Pulse Oximetry: Score = 0 96% or greater 6. Supplemental oxygen in use: Score = 0 No 7. AVPU: Score = 0 Alert /es/ MAZIN PARKER BSN, RN REGISTERED NURSE Signed: 07/23/2024 09:15 MAZIN PARKER [facility] Jul 23, 2024 09:06 AM NURSING NOTE: LOCAL TITLE: [facility] SKIN INSPECTION/ASSESSMENT STANDARD TITLE: NURSING NOTE DATE OF NOTE: JUL 23, 2024@09:06 ENTRY DATE: JUL 23, 2024@09:07:01 AUTHOR: MAZIN PARKER EXP COSIGNER: URGENCY: STATUS: COMPLETED Assessment Type: SKIN REINSPECTION/REASSESSMENT SKIN INSPECTION: Skin Color: Usual for ethnicity Skin Temperature: Warm Skin Moisture: Normal Skin Turgor: Elastic (normal/immediate) Mary Skin Assessment: The patient's Mary Scale Score is 19. The patient is considered not at risk for development of pressure ulcers/injuries. Sensory perception -- ability to respond meaningfully to pressure-related discomfort Slightly limited. Moisture -- degree to which skin is exposed to moisture Rarely moist. Activity -- ability to change and control body position Walks occasionally. Mobility -- ability to change and control body position Slightly limited. Nutrition -- usual food intake patterns Adequate. Friction and shear No apparent problem. INTERVENTIONS: The pressure injury interventions were not needed - patient/resident is not at risk. RISK FACTORS THAT INCREASE RISK FOR DEVELOPING PRESSURE INJURIES: The patient/resident has the following: Age over 75 Known vascular surgery or vascular disease SKIN ALTERATIONS: Pressure Ulcer/Injury Documentation from the past year: No data available SKIN ALTERATIONS: Wound Documentation from the past year: Skin Assessment 07/23/2024 Skin Integrity - Wound rt groin /left wrist SKIN INTEGRITY: Wound - other than pressure ulcer/injury (includes open surgical wounds/incisions): Location: rt groin /left wrist Wound Type: Other: surgical Wound Description: Wound Bed Tissue Types: Other: dressed Radha-wound skin status: Intact Usual for ethnicity Skin Temperature: Warm No Edema Wound drainage none. /es/ MAZIN MCKENNA, RN REGISTERED NURSE Signed: 07/23/2024 09:09 MAZIN PARKER [facility] Jul 23, 2024 09:01 AM NURSING INPATIENT NOTE: LOCAL TITLE: [facility] ACUTE INPATIENT NSG SHIFT ASSESSMENT STANDARD TITLE: NURSING INPATIENT NOTE DATE OF NOTE: JUL 23, 2024@09:01 ENTRY DATE: JUL 23, 2024@09:02:58 AUTHOR: MAZIN PARKER EXP COSIGNER: URGENCY: STATUS: COMPLETED Version 2.2 Charting in accordance with [facility] [place] STANDARD (ARAES) ACUTE INPATIENT/REHABILITATION NURSING ADMISSION SCREENING, ASSESSMENT, AND STANDARDS OF CARE ==== ASSESSMENT ==== ==== PAIN ASSESSMENT ==== Patient's acceptable pain goal: 2 Notice pain, does not interfere with activities Are you currently experiencing pain? Yes - DVPRS scale used to assess Location: chest [employer] Pain Rating Scale (DVPRS): 8 Awful, hard to do anything Pain Score: 8 Med Team aware, MD came to bedside. EKG ordered. MD read EKG. ordered nausea meds and stated to give tylenol early once nausea subsides. ==== [place] SCALE & TIPS PROGRAM ==== Wiley Fall Scale: The Wiley Fall scale was performed and score was 35. This is indicative of moderate risk for falls. History of falling: immediate or within 3 months? No Secondary diagnosis: No Ambulatory aid: Crutches/cane(s)/walker Intravenous therapy/Heparin lock: Yes Gait/Transferring: Normal/bed rest/immobile Mental Status: Oriented to own ability/knows own limitations Fall Tailoring Interventions for Patient Safety (TIPS) Fall TIPS initiated with patient: Yes Interventions: Communicate recent fall or risk of harm Walking Aids: Walker Fall TIPS reviewed with patient: Yes Interventions: Communicate recent fall or risk of harm Walking Aids: Walker ==== ENVIRONMENTAL SAFETY MANAGEMENT ==== Implemented safety standards of care: -[place] to unit & environment -Adequate room lighting -Bed in low and locked position -Call light within reach -Personal items within reach -Traffic path in room free of clutter -Non-slip footwear -Upper/half length side rails up for bed mobility -Sensory aids within reach -Encourage patient to utilize sensory support ==== NEUROLOGICAL ==== Neurological Orientation: Oriented x4 Level of Consciousness (AVPU): Alert = Appears aware of and responsive to the environment on their own. Follows commands, opens eyes spontaneously, and tracks objects. Affect/behavior: Cooperative Calm ==== NEUROMUSCULAR/NEUROVASCULAR EXTREMITIES ASSESSMENT ==== Strength: First Assist Bilateral: Strong Upper Extremity Bilateral: Full strength Lower Extremity Bilateral: Full strength Sensation: Upper Extremity Sensation Bilateral: Intact Lower Extremity Sensation Bilateral: Intact Temperature: Upper Extremity Temperature Bilateral: Warm Lower Extremity Temperature Bilateral: Warm ==== CARDIOVASCULAR ==== Heart Sounds: Normal (S1S2) Heart Rate/Rhythm (without rural mail contractor): Regular Cardiac Rhythm Analysis: Normal Sinus Rhythm Telemetry Transmitter Pack #: 108 Capillary Refill: All 4 extremities, less than or equal to 3 seconds. Peripheral Pulses: All 4 extremities, 3+ normal. Edema: None Cardiovascular - Embolism Prevention: Not Applied: Patient declined Comment: apixiban po ==== RESPIRATORY ==== Respirations: Unlabored Pattern: Regular Breath Sounds Auscultated: Anterior only Left Upper Lobe: Clear Right Upper Lobe: Clear Right Middle Lobe: Clear Left Lower Lobe: Clear Right Lower Lobe: Clear ==== GASTROINTESTINAL ==== Last bowel movement: 07/22/24 Bowel movement reported by patient-unwitnessed Abdominal Description: Flat Palpation: Soft, Non-tender Bowel Sounds: RUQ: Active LUQ: Active RLQ: Active LLQ: Active ==== GENITOURINARY ==== Elimination: Continent ==== ACTIVITIES OF DAILY LIVING ==== Hygiene ADLs: Dressing: Upper Body: Independent Lower Body: Independent Eating: Independent Foot Care: Inspection Hand Hygiene: Patient declined Oral Care: Non-ventilator patient: Patient teeth brushed: Independently [facility] [place] was educated that poor oral hygiene increases the risk of hospital acquired pneumonia and dental problems like gingivitis and tooth decay. [place] was educated using their preferred method and verbalized understanding. Pericare: Independent Personal Care: Independent Toileting: Independent ==== MOBILITY ==== Mobility Status: Gait: Steady ==== IV LINES ==== Peripheral IV: Line #1: Assessment: Location: Right, Wrist Gauge: 20 Dressing Condition: Clean, dry, intact Site Condition: No redness, swelling, pain Line Status: Capped ==== PSYCHOSOCIAL ==== Type of Emotional Support Provided: 1:1 discussion, Hospitalization discussion, Ventilation of feelings encouraged /dionna/ MAZIN MCKENNA, RN REGISTERED NURSE Signed: 07/23/2024 09:06 MAZIN PARKER [facility] Jul 23, 2024 04:53 AM CARDIOLOGY NOTE: LOCAL TITLE: CARDIOLOGY TELEMETRY [facility] STANDARD TITLE: CARDIOLOGY NOTE DATE OF NOTE: JUL 23, 2024@04:53 ENTRY DATE: JUL 23, 2024@04:53:53 AUTHOR: ROHITH MEZA COSIGNER: URGENCY: STATUS: COMPLETED Telemetry reviewed: Normal Sinus Rhythm w/ PVCs, PACs - PAT, SVT RELAY SHOP SUPERVISOR #: 108 RATE: 63-87 bpm SHIFT: 11-7 Shift COMMENT: @ 03:12 the pt experienced 10 bts SVT lasting 3.65s with a heart rate of ~ 167 bpm. /salma MEZA MEDICAL LAMINATION BUILDER - TELEMETRY Signed: 07/23/2024 05:16 ROHITH MEZA [facility] Jul 23, 2024 01:22 AM NURSING INPATIENT NOTE: LOCAL TITLE: [facility] ACUTE INPATIENT NSG SHIFT ASSESSMENT STANDARD TITLE: NURSING INPATIENT NOTE DATE OF NOTE: JUL 23, 2024@01:22 ENTRY DATE: JUL 23, 2024@01:22:56 AUTHOR: WILBER AUGUSTE JR COSIGNER: URGENCY: STATUS: COMPLETED Version 2.2 Charting in accordance with [facility] [place] STANDARD (VAAES) ACUTE INPATIENT/REHABILITATION NURSING ADMISSION SCREENING, ASSESSMENT, AND STANDARDS OF CARE ==== REASSESSMENT ==== ==== HANDOFF ==== Safety check completed ==== ENVIRONMENTAL SAFETY MANAGEMENT ==== Implemented safety standards of care: -[place] to unit & environment -Adequate room lighting -Bed in low and locked position -Call light within reach -Personal items within reach -Traffic path in room free of clutter -Non-slip footwear -Upper/half length side rails up for bed mobility -Sensory aids within reach -Encourage patient to utilize sensory support Additional safety measures: Close to nurses station Increased frequency of rounding ==== RESPIRATORY ==== Respirations: Unlabored Pattern: Regular === INTEGUMENTARY/SKIN/WOUND - (INCLUDING MARY) SEE NOTE: VAAES SKIN INPECTION/ASSESSMENT === /dionna/ WILBER AUGUSTE JR RN REGISTERED NURSE Signed: 07/23/2024 01:24 WILBER AUGUSTE JR [facility] Jul 23, 2024 12:35 AM NURSING NOTE: LOCAL TITLE: VAAES SKIN INSPECTION/ASSESSMENT STANDARD TITLE: NURSING NOTE DATE OF NOTE: JUL 23, 2024@00:35 ENTRY DATE: JUL 23, 2024@00:42:25 AUTHOR: WILBER AUGUSTE JR EXP COSIGNER: URGENCY: STATUS: COMPLETED Assessment Type: SKIN REINSPECTION/REASSESSMENT SKIN INSPECTION: Skin Color: Usual for ethnicity Skin Temperature: Warm Skin Moisture: Normal Skin Turgor: Elastic (normal/immediate) Mary Skin Assessment: The patient's Mary Scale Score is 19. The patient is considered not at risk for development of pressure ulcers/injuries. Sensory perception -- ability to respond meaningfully to pressure-related discomfort Slightly limited. Moisture -- degree to which skin is exposed to moisture Rarely moist. Activity -- ability to change and control body position Walks occasionally. Mobility -- ability to change and control body position Slightly limited. Nutrition -- usual food intake patterns Adequate. Friction and shear No apparent problem. INTERVENTIONS: No change in previous interventions as listed below 07/22/2024 Vaaes Pressure Injury Int Not Needed RISK FACTORS THAT INCREASE RISK FOR DEVELOPING PRESSURE INJURIES: The patient/resident has the following: Age over 75 Known vascular surgery or vascular disease SKIN ALTERATIONS: Pressure Ulcer/Injury Documentation from the past year: No data available SKIN ALTERATIONS: Wound Documentation from the past year: No data available for: Skin Integrity - Wound Skin Integrity - Wound Second Skin Integrity - Wound Third Skin Integrity - Wound Fourth Skin Integrity - Wound Fifth Skin Integrity - Wound Additional Wound - other than pressure ulcer/injury (includes open surgical wounds/incisions): Location: rt groin /left wrist Wound Type: Other: surgical Wound Description: Wound Bed Tissue Types: Other: dressed Radha-wound skin status: Intact Usual for ethnicity Skin Temperature: Warm No Edema Wound drainage none. /dionna/ WILBER AUGUSTE JR RN REGISTERED NURSE Signed: 07/23/2024 00:50 WILBER AUGUSTE JR [facility] Jul 22, 2024 11:27 PM NURSING INPATIENT NOTE: LOCAL TITLE: [facility] NURSING FREQUENT DOCUMENTATION STANDARD TITLE: NURSING INPATIENT NOTE DATE OF NOTE: JUL 22, 2024@23:27 ENTRY DATE: JUL 22, 2024@23:27:57 AUTHOR: WILBER AUGUSTE JR EXP COSIGNER: URGENCY: STATUS: COMPLETED Version 2.4 Charting in accordance with [place] APPR[place]ED [place] STANDARD (ARAES) ACUTE INPATIENT/REHABILITATION NURSING ADMISSION SCREENING, ASSESSMENT, AND STANDARDS OF CARE ==== NATIONAL EARLY WARNING SCORE (NEWS) ==== The vital signs below were used for scoring: Temperature: 98 Pulse: 73 Blood Pressure: 105/67 Respiration: 20 Pulse Oximetry: 94 The NEWS total is 2. 1. Temperature (C/F): Score = 0 36.1 - 38.0 C (96.9 - 100.4 F) 2. Pulse: Score = 0 51-90 3. Respirations: Score = 0 12-20 4. Blood Pressure (Only Systolic BP, mmHg): Score = 1 101-110 5. Pulse Oximetry: Score = 1 94% - 95% 6. Supplemental oxygen in use: Score = 0 No 7. AVPU: Score = 0 Alert Patient Status: Remains on unit /dionna/ WILBER AUGUSTE JR, RN REGISTERED NURSE Signed: 07/22/2024 23:[address] 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 /dionna/ KAREN ALLEN Employment Legal Assistant EKG Signed: 07/22/2024 22:[address] [facility] Jul 22, 2024 08:32 PM NURSING INPATIENT NOTE: LOCAL TITLE: [facility] ACUTE INPATIENT NSG SHIFT ASSESSMENT STANDARD TITLE: NURSING INPATIENT NOTE DATE OF NOTE: JUL 22, 2024@20:32 ENTRY DATE: JUL 22, 2024@20:32:51 AUTHOR: WEST,WILBER JR EXP COSIGNER: URGENCY: STATUS: COMPLETED Version 2.2 Charting in accordance with [place] [facility] [place] STANDARD (VAAES) ACUTE INPATIENT/REHABILITATION NURSING ADMISSION SCREENING, ASSESSMENT, AND STANDARDS OF CARE ==== REASSESSMENT ==== ==== HANDOFF ==== Bedside report and handoff completed Safety check completed ==== PAIN ASSESSMENT ==== Patient's acceptable pain goal: 0 No pain Are you currently experiencing pain? No: Pain Score: 0 ==== WILEY FALL SCALE & TIPS PROGRAM ==== Wiley Fall Scale: The Wiley Fall scale was performed and score was 35. This is indicative of moderate risk for falls. History of falling: immediate or within 3 months? No Secondary diagnosis: No Ambulatory aid: Crutches/cane(s)/walker Intravenous therapy/Heparin lock: Yes Gait/Transferring: Normal/bed rest/immobile Mental Status: Oriented to own ability/knows own limitations Fall Tailoring Interventions for Patient Safety (TIPS) Fall TIPS initiated with patient: Yes Interventions: Communicate recent fall or risk of harm Walking Aids: Walker Fall TIPS reviewed with patient: Yes Interventions: Communicate recent fall or risk of harm Walking Aids: Walker ==== ENVIRONMENTAL SAFETY MANAGEMENT ==== Implemented safety standards of care: -Republic to unit & environment -Adequate room lighting -Bed in low and locked position -Call light within reach -Personal items within reach -Traffic path in room free of clutter -Non-slip footwear -Upper/half length side rails up for bed mobility -Sensory aids within reach -Encourage patient to utilize sensory support Supplemental Environmental Safety Management: Suicide Screen - [place] Suicide Severity Rating Scale (C-SSRS): [place] Suicide Severity Rating Scale (C-SSRS): 1. Over the past month, have you wished you were or wished you could go to sleep and not wake up? No 2. Over the past month, have you had any actual thoughts of killing yourself? No 3. Over the past month, have you been thinking about how you might do this? Response not required due to responses to other questions. 4. Over the past month, have you had these thoughts and had some intention of acting on them? Response not required due to responses to other questions. 5. Over the past month, have you started to work out or worked out the details of how to kill yourself? Response not required due to responses to other questions. 6. If yes, at any time in the past month did you intend to carry out this plan? Response not required due to responses to other questions. 7. In your lifetime, have you ever done anything, started to do anything, or prepared to do anything to end your life (for example, collected pills, obtained a gun, gave away valuables, went to the roof but didn't jump)? No 8. If YES, was this within the past 3 months? Response not required due to responses to other questions. C-SSRS Screen is Negative ==== NEUROLOGICAL ==== Neurological Orientation: Oriented x4 Level of Consciousness (AVPU): Alert = Appears aware of and responsive to the environment on their own. Follows commands, opens eyes spontaneously, and tracks objects. Affect/behavior: Cooperative Calm ==== NEUROMUSCULAR/NEUROVASCULAR EXTREMITIES ASSESSMENT ==== Strength: First Assist Bilateral: Strong Upper Extremity Bilateral: Full strength Lower Extremity Bilateral: Full strength Sensation: Upper Extremity Sensation Bilateral: Intact Lower Extremity Sensation Bilateral: Intact Temperature: Upper Extremity Temperature Bilateral: Warm Lower Extremity Temperature Bilateral: Warm ==== CARDIOVASCULAR ==== Heart Sounds: Normal (S1S2) Heart Rate/Rhythm (without rural mail contractor): Regular Cardiac Rhythm Analysis: Normal Sinus Rhythm Telemetry Transmitter Pack #: [id number] Capillary Refill: All 4 extremities, less than or equal to 3 seconds. Peripheral Pulses: All 4 extremities, 3+ normal. Edema: None Cardiovascular - Embolism Prevention: Not Applied: Patient declined Comment: apixiban po ==== RESPIRATORY ==== Respirations: Unlabored Pattern: Regular Breath Sounds Auscultated: Anterior only Left Upper Lobe: Clear Right Upper Lobe: Clear Right Middle Lobe: Clear Left Lower Lobe: Clear Right Lower Lobe: Clear ==== GASTROINTESTINAL ==== Last bowel movement: 8/28/24 Bowel movement reported by patient-unwitnessed Abdominal Description: Flat Palpation: Soft, Non-tender Bowel Sounds: RUQ: Active LUQ: Active RLQ: Active LLQ: Active ==== GENITOURINARY ==== Elimination: Continent === INTEGUMENTARY/SKIN/WOUND - (INCLUDING MARY) SEE NOTE: VAAES SKIN INPECTION/ASSESSMENT === ==== ACTIVITIES OF DAILY LIVING ==== Hygiene ADLs: Dressing: Upper Body: Independent Lower Body: Independent Eating: Independent Foot Care: Inspection Hand Hygiene: Patient declined Oral Care: Non-ventilator patient: Patient teeth brushed: Independently [facility] [place] was educated that poor oral hygiene increases the risk of hospital acquired pneumonia and dental problems like gingivitis and tooth decay. was educated using their preferred method and verbalized understanding. Pericare: Independent Personal Care: Independent Toileting: Independent ==== MOBILITY ==== Mobility Status: Gait: Steady ==== IV LINES ==== Peripheral IV: Line #1: Assessment: Location: Right, Wrist Gauge: 20 Dressing Condition: Clean, dry, intact Site Condition: No redness, swelling, pain Line Status: Capped ==== PSYCHOSOCIAL ==== Type of Emotional Support Provided: 1:1 discussion, Hospitalization discussion, Ventilation of feelings bob /dionna/ WILBER AUGUSTE JR, RN REGISTERED NURSE Signed: 07/22/2024 20:[address] [facility] Jul 22, 2024 07:28 PM NURSING INPATIENT NOTE: LOCAL TITLE: [facility] NURSING FREQUENT DOCUMENTATION STANDARD TITLE: NURSING INPATIENT NOTE DATE OF NOTE: JUL 22, 2024@19:28 ENTRY DATE: JUL 22, 2024@19:28:46 AUTHOR: TERESE CANNON EXP COSIGNER: URGENCY: STATUS: COMPLETED Version 2.4 Charting in accordance with [facility] STANDARD (ARAES) ACUTE INPATIENT/REHABILITATION NURSING ADMISSION SCREENING, ASSESSMENT, AND STANDARDS OF CARE ==== GENITOURINARY ==== Urinary Catheter: Type: Indwelling: Discontinue: Urethral Date/Time: Jun@19:00 Comment: D/C hou cath per MD order, pt tolerated well /dionna/ TERESE CANNON Registered Nurse Signed: 07/22/2024 19:[address] [facility] Jul 22, 2024 06:45 PM NURSING NOTE: LOCAL TITLE: [facility] SKIN INSPECTION/ASSESSMENT STANDARD TITLE: NURSING NOTE DATE OF NOTE: JUL 22, 2024@18:45 ENTRY DATE: JUL 22, 2024@18:45:14 AUTHOR: TERESE CANNON EXP COSIGNER: URGENCY: STATUS: COMPLETED Assessment Type: INITIAL SKIN INSPECTION/ASSESSMENT SKIN INSPECTION: Skin Color: Usual for ethnicity Skin Temperature: Warm Skin Moisture: Normal, Dry Skin Turgor: Elastic (normal/immediate) Mary Skin Assessment: The patient's Mary Scale Score is 21. The patient is considered not at risk for development of pressure ulcers/injuries. Sensory perception -- ability to respond meaningfully to pressure-related discomfort No impairment. Moisture -- degree to which skin is exposed to moisture Rarely moist. Activity -- ability to change and control body position Walks occasionally. Mobility -- ability to change and control body position Slightly limited. Nutrition -- usual food intake patterns Excellent. Friction and shear No apparent problem. INTERVENTIONS: The pressure injury interventions were not needed - patient/resident is not at risk. RISK FACTORS THAT INCREASE RISK FOR DEVELOPING PRESSURE INJURIES: The patient/resident has the following: Age over 75 Device(s): (nasogastric tubes, oxygen tubing, urinary catheters, cell phone etc.) Comment: tele monitor, cell phone, hou cath SKIN ALTERATIONS: Wound Documentation from the past year: No data available for: Skin Integrity - Wound Skin Integrity - Wound Second Skin Integrity - Wound Third Skin Integrity - Wound Fourth Skin Integrity - Wound Fifth Skin Integrity - Wound Additional SKIN/WOUND DRESSING: Location(s): Rt groins, Lt wrist, Drsg, D/I Clean Dry Intact Open to air /es/ TERESE CANNON Registered Nurse Signed: 07/22/2024 18:46 TERESE CANNON [facility] Jul 22, 2024 06:44 PM NURSING INPATIENT NOTE: LOCAL TITLE: [facility] NURSING FREQUENT DOCUMENTATION STANDARD TITLE: NURSING INPATIENT NOTE DATE OF NOTE: JUL 22, 2024@18:44 ENTRY DATE: JUL 22, 2024@18:44:13 AUTHOR: TERESE CANNON EXP COSIGNER: URGENCY: STATUS: COMPLETED Version 2.4 Charting in accordance with [facility] [place] STANDARD (ARAES) ACUTE INPATIENT/REHABILITATION NURSING ADMISSION SCREENING, ASSESSMENT, AND STANDARDS OF CARE ==== NATIONAL EARLY WARNING SCORE (NEWS) ==== The vital signs below were used for scoring: Temperature: 98.2 Pulse: 70 Blood Pressure: 114/67 Respiration: 19 Pulse Oximetry: 98 The NEWS total is 0. 1. Temperature (C/F): Score = 0 36.1 - 38.0 C (96.9 - 100.4 F) 2. Pulse: Score = 0 51-90 3. Respirations: Score = 0 12-20 4. Blood Pressure (Only Systolic BP, mmHg): Score = 0 111-219 5. Pulse Oximetry: Score = 0 96% or greater 6. Supplemental oxygen in use: Score = 0 No 7. AVPU: Score = 0 Alert Patient Status: Remains on unit /es/ TERESE CANNON Registered Nurse Signed: 07/22/2024 18:45 TERESE CANNON [facility] Jul 22, 2024 06:39 PM NURSING INPATIENT NOTE: LOCAL TITLE: [facility] ACUTE INPATIENT NSG SHIFT ASSESSMENT STANDARD TITLE: NURSING INPATIENT NOTE DATE OF NOTE: JUL 22, 2024@18:39 ENTRY DATE: JUL 22, 2024@18:39:56 AUTHOR: TERESE CANNON EXP COSIGNER: URGENCY: STATUS: COMPLETED Version 2.2 Charting in accordance with [facility] [place] STANDARD (ARAES) ACUTE INPATIENT/REHABILITATION NURSING ADMISSION SCREENING, ASSESSMENT, AND STANDARDS OF CARE ==== ASSESSMENT ==== ==== HANDOFF ==== Safety check completed ==== PAIN ASSESSMENT ==== Patient's acceptable pain goal: Are you currently experiencing pain? Yes - DVPRS scale used to assess Location: back Defense and Veterans Pain Rating Scale (DVPRS): Pain Score: 6 Primary Pain Assessment: Pain Type: Acute Describe Pain (Quality): Musculoskeletal: Aching Pain Alleviating Interventions: Medication, see MAR ==== WILEY FALL SCALE & TIPS PROGRAM ==== Wiley Fall Scale: The Wiley Fall scale was performed and score was 60. This is indicative of high risk for falls. History of falling: immediate or within 3 months? No Secondary diagnosis: Yes Ambulatory aid: Crutches/cane(s)/walker Intravenous therapy/Heparin lock: Yes Gait/Transferring: Weakness Mental Status: Oriented to own ability/knows own limitations Fall Tailoring Interventions for Patient Safety (TIPS) Fall TIPS initiated with patient: Yes Interventions: Toileting method: Bedpan Bed/Chair Alarm on Assistance out of bed: Bed rest Call for assistance before getting out of bed Safe patient handling device necessary Fall TIPS reviewed with patient: Yes Interventions: Toileting schedule frequency established Toileting method: Assist to bathroom Bed/Chair Alarm on Assistance out of bed: Call for assistance before getting out of bed Safe patient handling device necessary ==== ENVIRONMENTAL SAFETY MANAGEMENT ==== Implemented safety standards of care: -[place] to unit & environment -Adequate room lighting -Bed in low and locked position -Call light within reach -Personal items within reach -Traffic path in room free of clutter -Non-slip footwear -Upper/half length side rails up for bed mobility -Sensory aids within reach -Encourage patient to utilize sensory support Additional safety measures: Alarms: Bed Close to nurses station Increased frequency of rounding Mobility support items readily available ==== NEUROLOGICAL ==== Neurological Orientation: Oriented x4 Level of Consciousness (AVPU): Alert = Appears aware of and responsive to the environment on their own. Follows commands, opens eyes spontaneously, and tracks objects. ==== NEUROMUSCULAR/NEUROVASCULAR EXTREMITIES ASSESSMENT ==== Strength: First Assist Bilateral: Moderate Upper Extremity Bilateral: Full strength Lower Extremity Bilateral: Full strength Sensation: Upper Extremity Sensation Bilateral: Intact Lower Extremity Sensation Bilateral: Intact Temperature: Upper Extremity Temperature Bilateral: Warm Lower Extremity Temperature Bilateral: Warm ==== CARDIOVASCULAR ==== Cardiac Rhythm Analysis: Normal Sinus Rhythm Telemetry Transmitter Pack #: [id number] Capillary Refill: All 4 extremities, less than or equal to 3 seconds. Peripheral Pulses: All 4 extremities, 3+ normal. Edema: None ==== RESPIRATORY ==== Respirations: Unlabored Pattern: Regular Breath Sounds Auscultated: Anterior only Right Upper Lobe: Clear, Diminished Left Upper Lobe: Clear, Diminished Right Middle Lobe: Right Lower Lobe: Left Lower Lobe: ==== GASTROINTESTINAL ==== Last bowel movement: 07/22/24 Passing flatus Elimination: Continent Bowel Sounds: RUQ: Active LUQ: Active RLQ: Active LLQ: Active ==== GENITOURINARY ==== Urinary Catheter: Type: Indwelling: Assessment: Type: Urethral: Regular CAUTI Prevention Maintenance Bundle Maintained: - Maintain closed drainage system - Collecting bag below the level of the bladder and remains off the floor - Catheter and collecting tube free from kinking and remains off the floor - Collection bag regularly emptied using a separate, clean collecting container for single patient use; avoiding splashing, and no contact of the drainage spigot with the nonsterile collecting container - Daily periurethral hygiene Catheter secured: Left leg Site Condition: No redness, pain, swelling Indication(s): Perioperative use for selected surgical procedures === INTEGUMENTARY/SKIN/WOUND - (INCLUDING MARY) SEE NOTE: VAAES SKIN INPECTION/ASSESSMENT === ==== ACTIVITIES OF DAILY LIVING ==== Hygiene ADLs: Oral Care: Non-ventilator patient: Patient teeth brushed: Independently ==== MOBILITY ==== Mobility Status: Minimum assist: ==== IV LINES ==== Peripheral IV: Present on admission: Line #1: Location: Right, Wrist Gauge: 20 Line #2: Location: Right, Hand Gauge: 20 Line #1: Assessment: Location: Right, Wrist, Hand Gauge: 20 Dressing Condition: Clean, dry, intact Site Condition: No redness, swelling, pain Line Status: Capped Flushed ==== PSYCHOSOCIAL ==== Type of Emotional Support Provided: Anticipated outcomes, Coping skills discussion, Disease process discussion, Hospitalization discussion, Medical directives discussion, Treatment discussion, Ventilation of feelings encouraged /dionna/ TERESE CANNON Registered Nurse Signed: 07/22/2024 18:43 TERESE CANNON [facility] Jul 22, 2024 06:35 PM NURSING ADMISSION EVALUATION NOTE: LOCAL TITLE: [facility] ACUTE INPATIENT NSG ADMISSION SCREEN STANDARD TITLE: NURSING ADMISSION EVALUATION NOTE DATE OF NOTE: JUL 22, 2024@18:35 ENTRY DATE: JUL 22, 2024@18:35:33 AUTHOR: TERESE CANNON EXP COSIGNER: URGENCY: STATUS: COMPLETED == GENERAL INFORMATION == Admission information given by: Patient Is there a legal guardian/conservator? No Preferred language for discussing healthcare: Tu[place] Preferred mode of communication: Verbal Written Items at Bedside: Dentures: top Visual Aids: Standard Glasses === INFECTIOUS DISEASE RISK SCREEN === Travel Screen: Have you traveled within the [place] within the last 21 days? No Have you traveled outside the [place] within the last 21 days? No Within the last 14 days, have you had: No known exposure Other Exposure to Infectious Disease: No known exposure Patient reported the following symptoms: No Symptoms Present History of Multiple Drug Resistant Organism (MDRO): No Methicillin-resistant Staphylococcus aureus (MRSA) Swabbing: Informed verbal consent obtained Education provided Order placed for MRSA Swab === NUTRITION SCREENING === Malnutrition Screening Weight (Previous 6 months): Measurement DT WEIGHT LB(KG)[BMI] 07/22/2024 17:00 208.3(94.48)[28*] 07/22/2024 06:30 185(83.91)[25] 05/08/2024 09:45 185.1(83.96)[25] 03/31/2024 14:15 187(84.82)[25] Lost weight recently without trying: No (0 points) Have you been eating poorly because of decreased appetite? No (0 points) Total Score: 0 Other Nutrition Screening Questions: The patient does not report any concerns with their teeth that would make it difficult to eat. The patient does not report overeating to the point of feeling sick or making themselves vomit. The patient denies gaining 10 lbs.(4.5 kgs) or more in the past 3 months without trying. The patient denies having any food allergies, intolerance, special dietary needs, or ethnic, cultural or yazidism preferences that would affect their dietary needs. Food Insecurity Screening Within the past 12 months, you worried whether your food would run out before you got money to buy more. Never true Within the past 12 months, the food you bought just did not last you and you did not have the money to get more. Never true Food Insecurity Disposition: == RISK SCREENINGS == Alcohol Screen: Screen to be completed by: Nurse: SCREEN FOR ALCOHOL (AUDIT-C) An alcohol screening test (AUDIT-C) was negative (score=2). 1. How often did you have a drink containing alcohol in the past year? Consider a drink to be a 12 ounce can or bottle of regular beer, 8 ounces of malt liquor, a 5 ounce glass of table wine, or a 1.5 ounce shot of liquor (like scotch, gin, or vodka). Monthly or less 2. How many drinks containing alcohol did you have on a typical day when you were drinking in the past year? One or two drinks 3. How often did you have six or more drinks on one occasion in the past year? Less than monthly *Does the patient consume alcohol? Yes: Alcohol Use History: Amount used/Frequency: once a week Date/Time of last use: Jun Do you have a history of alcohol withdrawal symptoms? No Do you have a history of Delirium Tremens (DTs)? No Do you have a history of seizures related to withdrawal? No Tobacco Use: Former - tobacco user Do you currently or have you ever used alternative nicotine products? No Substance Use Assessment: *Do you use any recreational drugs or narcotics (prescription or non-prescription)? No === RISK OF WANDERING === The patient does not have a history of wandering. The patient does not have a history of elopement. The patient is not expressing a desire to leave. = SUICIDE SCREEN = [place] Suicide Severity Rating Scale (C-SSRS) 1. Over the past month, have you wished you were or wished you could go to sleep and not wake up? No 2. Over the past month, have you had any actual thoughts of killing yourself? No 3. Over the past month, have you been thinking about how you might do this? Response not required due to responses to other questions. 4. Over the past month, have you had these thoughts and had some intention of acting on them? Response not required due to responses to other questions. 5. Over the past month, have you started to work out or worked out the details of how to kill yourself? Response not required due to responses to other questions. 6. If yes, at any time in the past month did you intend to carry out this plan? Response not required due to responses to other questions. 7. In your lifetime, have you ever done anything, started to do anything, or prepared to do anything to end your life (for example, collected pills, obtained a gun, gave away valuables, went to the roof but didn't jump)? No 8. If YES, was this within the past 3 months? Response not required due to responses to other questions. C-SSRS Screen is Negative == EXPOSURE TO VIOLENCE AND ABUSE PRE-SCREEN == Are you worried for your safety, that you will be hurt or harmed? No Has anyone tried to force you to sign papers or use your money against your will? No == POST TRAUMATIC STRESS DISORDER CARE CONSIDERATIONS == To minimize a startle response, what is your preference on how best to awaken you? No preference Call my name from the doorway == ADVANCE DIRECTIVE == Notification of Rights Related to Advance Directives: Written notification not provided. Explain: decline *The patient wishes to receive information about or assistance with Advance Care Planning and/or Advance Directive: No == ANTICIPATED DISCHARGE NEEDS == Where do you live? Housing owned/rented by : Method of transportation upon discharge: Private Vehicle: Are there any anticipated barriers to discharge? No = EDUCATIONAL NEEDS/LEARNING STYLE = Barriers to learning: None evident Patient learning style preferences: 1:1 Demonstration Printed materials Verbal explanation == VISITOR INFORMATION == Will you have a primary support person while in the hospital? No Patient's Visitor Restriction preferences: No Privacy Review: ==== WILEY FALL SCALE & TIPS PROGRAM ==== Wiley Fall Scale: The Wiley Fall scale was performed and score was 60. This is indicative of high risk for falls. History of falling: immediate or within 3 months? No Secondary diagnosis: Yes Ambulatory aid: Crutches/cane(s)/walker Intravenous therapy/Heparin lock: Yes Gait/Transferring: Weakness Mental Status: Oriented to own ability/knows own limitations Fall Tailoring Interventions for Patient Safety (TIPS) Fall TIPS initiated with patient: Yes Interventions: Toileting method: Bedpan Bed/Chair Alarm on Assistance out of bed: Bed rest Call for assistance before getting out of bed Safe patient handling device necessary /dionna/ TERESE CANNON Registered Nurse Signed: 07/22/2024 18:[address] [facility] Jul 22, 2024 06:33 PM NURSING NOTE: LOCAL TITLE: [facility] PERSONAL EFFECTS STL STANDARD TITLE: NURSING NOTE DATE OF NOTE: JUL 22, 2024@18:33 ENTRY DATE: JUL 22, 2024@18:34:02 AUTHOR: TERESE CANNON EXP COSIGNER: URGENCY: STATUS: COMPLETED PERSONAL EFFECTS Personal Items: Patient/Family advised that [facility] not responsible for loss of any personal effects or valuables. 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 /dionna/ TERESE CANNON Registered Nurse Signed: 07/22/2024 18:[address] [facility] Jul 22, 2024 06:32 PM NURSING TREATMENT PLAN NOTE: LOCAL TITLE: [place] PLAN OF CARE STANDARD TITLE: NURSING TREATMENT PLAN NOTE DATE OF NOTE: JUL 22, 2024@18:32 ENTRY DATE: JUL 22, 2024@18:32:54 AUTHOR: TERESE CANNON EXP COSIGNER: URGENCY: STATUS: COMPLETED [facility] PLAN OF CARE Has ADDENDA Plan of Care and Discharge Plan (nurse) TREATMENT PLAN Is the patient a fall risk? Yes. NURSING DIAGNOSIS: Falls Potential/Actual Injury Goals: Prior to discharge, patient will:--Injury due to fall will be minimized during hospital stay, --Verbalize safety measures to lower risk of fall/injury (lock w/c, use hand rails, ask for assistance) Jun, --Identify factor(s) that may increase risk of fall before discharge, --Maintain or preserve physical mobility during hospital stay Interventions: * Score 45 --Encourage pt to ask for assistance (MIGUEL ÁNGEL, ), --Keep night light and bathroom light on at night, --Check for elimination needs every 2 hours, --[place] to unit and surroundings (bathroom, call light, etc), --Provide non slip footwear when ambulating (NSG), --Place bed in low position or use low bed Care plan status: Continued Progress toward goals documented continuously through progress notes Patient Education(Nursing,SWS,PT/OT,D ietician,Environmental Services Project Manager,&Physician) Instruct as to: /dionna/ TERESE CANNON Registered Nurse Signed: 07/22/2024 18:33 07/23/2024 ADDENDUM STATUS: COMPLETED The Nursing Care Plan has been reviewed. Progress on the Goals/Outcomes is as follows: pt progressing towards goals Discharge Planning: Assessment of patient/family's ability to manage care requirement post-discharge: GOOD Need identified at this time for referrals/resources post-discharge: UNCERTAIN Comment: pending further assessment and treatment Nursing Diagnosis: Cardiac Output, Decreased (electrical/ mechanical) Goals/Expected Outcomes: Attains hemodynamic stability. Specify: Voices no complaint of chest pain or dyspnea. Interventions: Monitor and record LOC, pulse rate, rhythm, and BP q 4 Auscultate heart and breath sounds q 4 Report development of abnormal sounds. Monitor hemodynamic measurements and note trends q 4 Measure I&O and weigh daily., Maintain oxygen therapy as ordered., Administer vasoactive medications as ordered. Educational Needs: Teach patient and family about reportable symptoms. This patient problem has been resolved/stabilized. Goals have been mutually set with patient. /dionna/ WILBER AUGUSTE JR RN REGISTERED NURSE Signed: 07/23/2024 01:10 07/24/2024 ADDENDUM STATUS: COMPLETED The Nursing Care Plan has been reviewed. Progress on the Goals/Outcomes is as follows: pt progressing towards goals Discharge Planning: Assessment of patient/family's ability to manage care requirement post-discharge: GOOD Need identified at this time for referrals/resources post-discharge: UNCERTAIN Comment: pending further assessment and treatment RISK SCREEN PRECAUTIONS Bedrail Entrapment Precautions: Bed maintained in low position, Call light in reach, Bed Exit Alarms in place and activated, Minimize side rail use, Floor mats in place, Routine Toileting Schedule, Routine Turning and Re-Positioning Schedule, Bed Perimeter reminders (i.e. pillows, gap protectors, blanket rolls), Padded Bedrails for Seizure or Active Movement disorder Precautions, Close Observation Standard Fall Risk Precautions: Bed locked and in low position at all times., Siderails up, if indicated., Call light, water and personal care items within easy reach., Urinal within easy reach., Adequate lighting provided., Room and britton kept free of clutter and obstacles., [place] to surroundings., Nurse call system explained with correct return demonstration., Assistive devices within reach (glasses, hearing aids, walker, etc), Patient encouraged to wear non-skid footwear., Patient encouraged to call for assistance, if needed. Skin Risk Precautions: Keep all skin clean, dry, free of body excretion. , During cleansing, minimize the force and friction applied to skin., Use moisturizer to treat dry skin; avoid massage over bony prominences., Provide foot and nail care to avoid abrasions by scratching adjacent skin areas., Keep bed clothing dry, free from crumbs, and other irritating material., Use positioning devices such as pillows or foam wedges to pad bony prominences. , Keep patient's heels off the bed., Maintain head of bed at lowest degree elevation consistent with medical conditions or other restrictions., Avoid prolonged sitting. Nursing Diagnosis: Cardiac Output, Decreased (electrical/ mechanical) Goals/Expected Outcomes: Attains hemodynamic stability. Specify:improved circulation Voices no complaint of chest pain or dyspnea. Interventions: Monitor and record LOC, pulse rate, rhythm, and BP q 4 Auscultate heart and breath sounds q 4 Report development of abnormal sounds. Monitor hemodynamic measurements and note trends q 4 Measure I&O and weigh daily., Maintain oxygen therapy as ordered., Administer vasoactive medications as ordered. Educational Needs: Teach patient and family about reportable symptoms. This patient problem has been resolved/stabilized. Goals have been mutually set with patient. /dionna/ WILBER AUGUSTE JR RN REGISTERED NURSE Signed: 07/24/2024 03:19 TERESE CANNON [facility] Jul 22, 2024 04:44 PM INTERNAL MEDICINE H & P NOTE: LOCAL TITLE: MEDICINE HISTORY AND PHYSICAL STL STANDARD TITLE: INTERNAL MEDICINE H & P NOTE DATE OF NOTE: JUL 22, 2024@16:44 ENTRY DATE: JUL 22, 2024@16:44:58 AUTHOR: ALFREDITO WILSON EXP COSIGNER: YOLANDA FIGUEROA URGENCY: STATUS: COMPLETED MEDICINE HISTORY AND PHYSICAL STL Has ADDENDA JUL 22, 2024 Medicine History and Physical CC: Scheduled A-fib ablation HPI: 78 YO [place] with history of chronic tremor, atrial fibrillation/flutter, actinic keratosis, peripheral vascular disease who presents for planned ablation for his paroxysmal atrial fibrillation now status post ablation on 07/22/2024 Patient reports he tolerated the procedure well, per documentation patient went into a flutter during ablation. At bedside patient's vital signs are stable and within normal limits. He denies any pain denies palpitations denies shortness of breath. Reports that he was diagnosed with atrial fibrillation in 2017, denies having any symptoms including palpitations since then. Has been on Multaq and metoprolol in addition to Eliquis, was noted to be in A-fib in clinic while on his medications. Outpatient Medications: Active Outpatient Medications (including Supplies): Active Outpatient Medications Status 1) APIXABAN 5MG TAB TAKE ONE TABLET BY MOUTH TWICE A DAY ACTIVE FOR ANTICOAGULATION 2) CICLOPIROX 8% TOP SOLN APPLY LIGHTLY TO AFFECTED ACTIVE AREA(S) ONCE A DAY (THIN COAT TO THICK NAILS - FILE DOWN AFTER 1 WEEK) (EXTERNAL USE ONLY) 3) DRONEDARONE 400MG TAB TAKE ONE TABLET BY MOUTH TWICE ACTIVE A DAY FOR ATRIAL FIBRILLATION - TAKE IN THE MORNING AND EVENING WITH FOOD 4) METOPROLOL SUCCINATE 200MG SA TAB TAKE ONE-HALF ACTIVE TABLET BY MOUTH ONCE A DAY FOR HEART/BLOOD PRESSURE. SWALLOW WHOLE, DO NOT CRUSH OR CHEW (TABLETS MAY BE CUT IN HALF). 5) PANTOPRAZOLE NA 40MG EC TAB TAKE ONE TABLET BY MOUTH ACTIVE EVERY MORNING BEFORE A MEAL TAKE 30 MINUTES BEFORE MEAL(S) 1) FENTANYL INJ,SOLN IVP Q15MIN PRN 25MCG-50MCG 2) ONDANSETRON INJ,SOLN IVP Q6H PRN 4MG/2ML 3) ACETAMINOPHEN 1000MG/100ML (PA-F) INJ IV PRN 1000MG/100ML 4) APIXABAN (PA-F) TAB,ORAL PO BID 5MG 5) CICLOPIROX OLAMINE SOLN,TOP TOP QDAILY LIGHTLY 6) DRONEDARONE (PA-F) TAB PO BID W/MEALS 7) METOPROLOL SUCCINATE (SUST RELEASE) PO QDAILY 100MG 8) PANTOPRAZOLE TAB,EC PO QAMAC 40MG Allergies/Adverse Drug Reactions: PENICILLIN Past Medical/Surgical History: 1) Chronic tremor 2) AF - Atrial Fibrillation (SCT [id number]) 3) AK - Actinic keratosis 4) History of varicose veins 5) Lymphocytosis 6) PVD - peripheral vascular disease SOCIAL HISTORY: Alcohol: None Smoke: None Drugs: None FAMILY HISTORY: Noncontributory ROS: Thorough review of systems complete and are normal except as listed above OBJECTIVE: VS: BP: 131/87 P: 100 R: 18 WT: 185 T: 98.1 HT: 72 25.1 General: NAD HEENT: PERRL, EOM GI Neck: Supple No LAD Heart: RRR, No mgr Lungs: Clear, no wrr Abdomen: NT/ND BS+ Vascular: 2/4 radial pulses Extremities: No clubbing, cyanosis, edema. Neuro: CN 2-12 GI, no gross motor or sensory deficits Skin: No gross rash Notable Laboratory Findings: WBC 14.6 H 10*3/uL 07/22/2024 06:55 RBC 4.72 10*6/uL 07/22/2024 06:55 HGB 14.4 g/dL 07/22/2024 06:55 HCT 43.6 % 07/22/2024 06:55 MCV 92.4 fL 07/22/2024 06:55 MCH 30.5 pg 07/22/2024 06:55 MCHC 33.0 g/dL 07/22/2024 06:55 RDW 14.0 % 07/22/2024 06:55 PLT 170 10*3/uL 07/22/2024 06:55 MPV 11.8 H fL 07/22/2024 06:55 NEUTROPHILS, AUTO % 44 % 02/03/2024 10:45 LYMPHOCYTES, AUTO % 49 % 02/03/2024 10:45 MONOCYTES, AUTO % 5 % 02/03/2024 10:45 EOSINOPHILS, AUTO % 2 % 02/03/2024 10:45 BASOPHILS, AUTO % 0 % 02/03/2024 10:45 NEUTROPHILS, ABSOLUTE 4.34 10*3/uL 02/03/2024 10:45 LYMPHOCYTES, ABSOLUTE 4.85 H 10*3/uL 02/03/2024 10:45 MONOCYTES, ABSOLUTE 0.52 10*3/uL 02/03/2024 10:45 EOSINOPHILS, ABSOLUTE 0.21 10*3/uL 02/03/2024 10:45 BASOPHILS, ABSOLUTE 0.04 10*3/uL 02/03/2024 10:45 NEUTROPHILS 34.8 % 07/22/2024 06:55 LYMPHOCYTES 60.0 % 07/22/2024 06:55 MONOCYTES 1.7 % 07/22/2024 06:55 EOSINOPHILS 1.8 % 07/22/2024 06:55 ATYPICAL LYMPHOCYTES 1.7 % 07/22/2024 06:55 POIKILOCYTOSIS 1+ 07/22/2024 06:55 Comprehensive Metabolic Panel Results: SODIUM 138 mEq/L 07/22/2024 06:55 POTASSIUM 4.4 mEq/L 07/22/2024 06:55 CHLORIDE 108 H mEq/L 07/22/2024 06:55 UREA NITROGEN 16.9 mg/dL 07/22/2024 06:55 CREATININE 1.00 mg/dL 07/22/2024 06:55 CALCIUM 9.0 mg/dL 07/22/2024 06:55 PROTEIN 7.0 g/dL 02/03/2024 10:45 ALBUMIN 4.0 g/dL 02/03/2024 10:45 ALKALINE PHOSPHATASE 82 U/L 02/03/2024 10:45 ALT/SGPT 10 U/L 02/03/2024 10:45 AST/SGOT 15 U/L 02/03/2024 10:45 TOTAL BILIRUBIN 0.6 mg/dL 02/03/2024 10:45 CARBON DIOXIDE 22 mEq/L 07/22/2024 06:55 GLUCOSE 107 H mg/dL 07/22/2024 06:55 EGFR (CKD-EPI 2020) 78.0 07/22/2024 06:55 Hepatic Panel: No data available SODIUM 138 mEq/L 07/22/2024 06:55 POTASSIUM 4.4 mEq/L 07/22/2024 06:55 CHLORIDE 108 H mEq/L 07/22/2024 06:55 UREA NITROGEN 16.9 mg/dL 07/22/2024 06:55 CREATININE 1.00 mg/dL 07/22/2024 06:55 CALCIUM 9.0 mg/dL 07/22/2024 06:55 CARBON DIOXIDE 22 mEq/L 07/22/2024 06:55 GLUCOSE 107 H mg/dL 07/22/2024 06:55 EGFR (CKD-EPI 2020) 78.0 07/22/2024 06:55 ____ No PHOSPHOROUS data found No GLUCOSE,BLOOD-poct (STL) data found HGA1C 6.2 H % 02/03/2024 10:45 HGA1C 5.7 % 12/12/2022 09:26 Ancillary Data: 05/02/2024 14:55 Local Title: EKG CONSULT STL Standard Title: CARDIOLOGY DIAGNOSTIC STUDY CONSULT AUTHOR: CLINICAL,DEVICE PROXY SERVICE DOCUMENT IN [facility]IST[facility] SEE FULL REPORT IN [facility] SIGNATURE NOT REQUIRED SEE SIGNATURE IN [facility] ([place] EKG) AUTO-INSTRUMENT DIAGNOSIS Procedure: 88213 12 Lead ECG Release Status: Released Off-Line Verified Date Verified: May 02, 2024@14:55:19 94598.2 Ventricular Rate: 63 BPM 21459.3 Atrial Rate: 63 BPM 03892.4 P-R Interval: 176 ms 33786.5 QRS Duration: 100 ms 12027.6 Q-T Interval: 440 ms 82007 QTC Calculation(Bazett)450 ms 87301.12 Calculated P [place]: -2 degrees 39801.13 Calculated R [place]: -53 degrees 46492.14 Calculated T [place]: 34 degrees Normal sinus rhythm with sinus arrhythmia Incomplete right bundle branch block Left anterior fascicular block Abnormal ECG When compared with ECG of 09-APR-2024 10:09, No significant change was found Administrative Closure: 05/02/2024 by: CLINICAL,DEVICE PROXY SERVICE < THE ABOVE NOTE IS UNSIGNED > - DRAFT COPY * DRAFT COPY * DRAFT COPY * DRAFT COPY * DRAFT COPY * DRAFT COPY - IMAGING: Reviewed in chart Assessment/Plan: 78 YO WH[place] with history of chronic tremor, atrial fibrillation/flutter, actinic keratosis, peripheral vascular disease who presents for planned ambulation now status post ablation on 07/22/2024 #. Persistent atrial fibrillation Patient has a history of mitral valve repair in 2003, diagnosed with atrial fibrillation in 2017. Per patient has been asymptomatic. Anticoagulation for stroke risk reduction is indicated. Past 24 hrs: Rate control: adequate. Plan: --Rate/Rhythm control. Target HR: <110. Continue home metoprolol. continue home dribedaribe --Anticoagulation: Continue home Eliquis --Strict bedrest until 7 PM --Discontinue Hou after bedrest --Increase PPI to 40 mg for 6 weeks per cardiology recommendations -- Start Carafate 4 times daily for 2 weeks -- Telemetry CHRONIC: #Incidental right middle lobe nodule: 9 mm, outpatient follow-up #Actinic keratosis: Continue home topical solutions Dispo: Likely discharge tomorrow per cardiology JUL 22, 2024 /dionna/ ALFREDITO WILSON M.D resident physician Signed: 07/22/2024 17:27 /dionna/ YOLANDA FIGUEROA INTERNAL MEDICINE PHYSICIAN Cosigned: 07/23/2024 11:17 07/23/2024 ADDENDUM STATUS: COMPLETED Persistent atrial fibrillation entered in error. Patient has paroxysmal atrial fibrillation /dionna/ ALFREDITO WILSON M.D resident physician Signed: 07/23/2024 07:18 /dionna/ YOLANDA FIGUEROA INTERNAL MEDICINE PHYSICIAN Cosigned: 07/23/2024 12:35 07/23/2024 ADDENDUM STATUS: COMPLETED Patient admitted yesterday evening. I have seen and evaluated the patient with the resident team on 07/23. I have independently reviewed chart documentation, lab results, imaging studies and directly supervised medical decision making with the team. I have reviewed and agree with the note above unless otherwise documented below. History as summarized above. 12-system ROS completed and negative unless otherwise stated in HPI Family history reviewed and non-contributory Agree with exam above, with the following additions/modifications: N/A IMPRESSION & PLAN Mr. Marlow is a 78 yo man with AFib presenting 07/22 for elective outpatient AFib ablation and is admitted for monitoring. He had very extensive ablation (R and L carinal lines; posterior wall, anterior wall, septum, and roof isolation; creation of mitral line due to spontaneous intraprocedural mitral flutter; CTI flutter line for spontaneous intraprocedureal cavotricuspid isthmus AFL; roof line). He did well overnight. This morning he developed substernal pressure and significant nausea. Our team talked with his Human Services Worker who informed us that this was an incredibly extensive ablation and his symptoms are not unexpected. Will continue to treat Mr. Marlow symptomatically and coordinate with Dr. Cha, defering to his expertise. /dionna/ YOLANDA FIGUEROA INTERNAL MEDICINE PHYSICIAN Signed: 07/23/2024 11:25 ALFREDITO WILSON [facility] Jul 22, 2024 04:24 PM ADMINISTRATIVE NOTE: LOCAL TITLE: ADMINISTRATIVE STL STANDARD TITLE: ADMINISTRATIVE NOTE DATE OF NOTE: JUL 22, 2024@16:24 ENTRY DATE: JUL 22, 2024@16:24:13 AUTHOR: KARLOS ALBARRAN EXP COSIGNER: URGENCY: STATUS: COMPLETED ADVISED RECRUITMENT INTERN:JR GLOVER PT HAS ARRIVED /dionna/ KARLOS Honeycutt ADVANCED TUGBOAT OPERATOR Signed: 07/22/2024 16:25 Receipt Acknowledged By: 07/22/2024 16:25 /dionna/ DEVORA SMITH SNOW REMOVING SUPERVISOR TUGBOAT OPERATOR 07/24/2024 10:33 /es/ JING WOODRUFF SUPERVISORY TUGBOAT OPERATOR KARLOS ALBARRAN [facility]
--- OUTSIDE RECORDS SUMMARY | 2025-01-11 11:58 | XMS_ITS | Encounter Summary ---
Author Name [facility] [place] [facility] [facility] [place] Address [address] [place] [address] Care Team Providers Care Head Inspector And Center Marker Name Role Phone ASIYA FIERRO Primary Care [...] Name Patient's Relationship to Policy Gresham HUMANA [facility] ([facility]) MEDICARE ADVANTAGE [facility] ([facility]) 2022 [id number] YANETMARIELOS PHEN PATIENT MEDICA [facility] ([facility]) MEDICARE ADVANTAGE [facility] ([facility]) May 25, 2013 [id number] HOLTMARIELOS PHEN PATIENT MEDICARE ([facility]) MEDICARE (M) PART B May 25, 2013 PART B [id number] HOLTMARIELOS CORDOVA PHEN PATIENT MEDICARE ([facility]) MEDICARE (M) PART A Jul 26, 2012 PART A [id number] [phone] MARIELOS HOLT PATIENT MEDICARE PART D (WNR) MEDICARE (M) PART D March 25, 2013 PART D [id number] MARIELOS HOLT PATIENT [employer] [facility] (WNR) MEDICARE ADVANTAGE [facility] (WNR) Dec 26, 2022 [id number] MARIELOS HOLT PATIENT Selected Encounter This section includes the information on record at [place] for the Encounter. Date/Time Encounter Type Encounter Description Reason Provider Source April 09, 2024 09:12 AM OFFICE O/P EST MOD 30 MIN NON-OR ANESTHESIA PROCEDURES ICD-10-CM Z01.818 Encounter for other preprocedural examination BARRIE BARRERA Yuan Encounter Template Text not used by [place] Assessments - Encounter Diagnoses This section includes the primary and secondary diagnoses documented for the Encounter. Date/Time Primary/Secondary Diagnosis Diagnosis Name Provider Source April 09, 2024 09:22 AM PRIMARY Encounter for other preprocedural examination KELLI BARRERA [facility] April 09, 2024 09:22 AM SECONDARY Encounter for other specified surgical aftercare KELLI BARRERA [facility] Plan of Treatment: Future Appointments (+ 6 months) and Future Tests (+/- 45 days) The Plan of Treatment section includes future care activities for the patient from all [place] treatmentfacilities. This section includes future appointments and future orders which are active, pending or scheduled. Future Appointments This section includes appointments that were scheduled to occur 6 months from the date of the Encounter, up to a maximum of 20 appointments. The data comes from all [place] treatment facilities. Appointment Date/Time Appointment Type Appointme nt Facility Name May 01, 2024 10:00 AM AMBULATORY - MEDICINE [facility] May 08, 2024 10:00 AM AMBUL[facility]ORY - MEDICINE [facility] Jul 20, 2024 10:15 AM AMBULATORY - MEDICINE [facility] Jul 20, 2024 03:00 PM AMBULATORY - NONE [facility] Jul 22, 2024 06:00 AM AMBULATORY - NONE [facility] Jul 22, 2024 06:15 AM AMBULATORY - MEDICINE [facility] Jul 31, 2024 10:30 AM AMBULATORY - MEDICINE [facility] Aug 10, 2024 10:15 AM AMBULATORY - NONE . ENA Marcum [facility] Aug 18, 2024 10:30 AM [facility] Aug 20, 2024 08:30 PM AMBULATORY - NONE . ENA Marcum [facility] 2024 10:30 AM AMBULATORY - MEDICINE [facility] Sep 14, 2024 09:00 AM AMBULATORY - SURGERY [facility] Encounter Notes: All associated encounter notes This section contains the clinical notes associated to the Encounter. Date/Time Encounter Note(s) Provider Source April 09, 2024 09:14 AM ANESTHESIOLOGY PRE OPERATIVE E & M NOTE: LOCAL TITLE: ANESTHESIA PRE-OP STL STANDARD TITLE: ANESTHESIOLOGY PRE OPERATIVE E & M NOTE DATE OF NOTE: APRIL 09, 2024@09:14 ENTRY DATE: APRIL 09, 2024@09:14:15 AUTHOR: KELLI BARRERA EXP COSIGNER: URGENCY: STATUS: COMPLETED SABINE HOLT is a 78 year old MALE Pre-operative diagnosis: atrial fibrillation Operation proposed: cardioversion VITALS Age: 78 Weight: 187 lb [84.82 kg] (03/31/2024 14:15) Height: BMI: BMI not available without height 03/31/24 14:15 P: 128* B/P: 115/87 Wt: 187.00 lb (84.82 kg) Pulse Oximetry: 98% Pain: 0 (02/17/2024 10:42) ALLERGIES PENICILLIN MEDICATIONS Inpatient: No medications found. Active Outpatient Medications (including Supplies): Active Outpatient Medications Status 1) APIXABAN 5MG TAB TAKE ONE TABLET BY MOUTH TWICE A DAY ACTIVE FOR ANTICOAGULATION 2) DRONEDARONE 400MG TAB TAKE ONE TABLET BY MOUTH TWICE ACTIVE A DAY FOR ATRIAL FIBRILLATION - TAKE IN THE MORNING AND EVENING WITH FOOD 3) METOPROLOL SUCCINATE 200MG SA TAB TAKE ONE-HALF ACTIVE TABLET BY MOUTH ONCE A DAY FOR HEART/BLOOD PRESSURE. SWALLOW WHOLE, DO NOT CRUSH OR CHEW (TABLETS MAY BE CUT IN HALF). 4) PANTOPRAZOLE NA 40MG EC TAB TAKE ONE TABLET BY MOUTH ACTIVE EVERY MORNING BEFORE A MEAL TAKE 30 MINUTES BEFORE MEAL(S) LABS WBC 10.0 10*3/uL 02/03/2024 10:45 RBC 4.34 10*6/uL 02/03/2024 10:45 HGB 13.3 g/dL 02/03/2024 10:45 HCT 40.1 % 02/03/2024 10:45 MCV 92.4 fL 02/03/2024 10:45 MCH 30.6 pg 02/03/2024 10:45 MCHC 33.2 g/dL 02/03/2024 10:45 RDW 13.7 % 02/03/2024 10:45 PLT 160 10*3/uL 02/03/2024 10:45 MPV 12.7 H fL 02/03/2024 10:45 NEUTROPHILS, AUTO % 44 % 02/03/2024 10:45 [...] 10:45 BASOPHILS, ABSOLUTE 0.04 10*3/uL 02/03/2024 10:45 No INR EO data found No PTT EO data found SODIUM 141 mEq/L 02/03/2024 10:45 POTASSIUM 4.1 mEq/L 02/03/2024 10:45 CHLORIDE 108 H mEq/L 02/03/2024 10:45 UREA NITROGEN 16.9 mg/dL 02/03/2024 10:45 CREATININE 0.84 mg/dL 02/03/2024 10:45 CALCIUM 9.0 mg/dL 02/03/2024 10:45 PROTEIN 7.0 g/dL 02/03/2024 10:45 ALBUMIN 4.0 g/dL 02/03/2024 10:45 ALKALINE PHOSPHATASE 82 U/L 02/03/2024 10:45 ALT/SGPT 10 U/L 02/03/2024 10:45 AST/SGOT 15 U/L 02/03/2024 10:45 TOTAL BILIRUBIN 0.6 mg/dL 02/03/2024 10:45 CARBON DIOXIDE 24 mEq/L 02/03/2024 10:45 GLUCOSE 96 mg/dL 02/03/2024 10:45 EGFR (CKD-EPI 2020) 90.4 02/03/2024 10:45 HGA1C 6.2 H % 02/03/2024 10:45 URINE COLOR Light-Yellow 01/09/2023 09:00 APPEARANCE Clear 01/09/2023 09:00 U.PH 6.5 01/09/2023 09:00 U.BILIRUBIN Negative 01/09/2023 09:00 U.NITRITE Negative mg/dL 01/09/2023 09:00 URINE RBC/HPF 1 /HPF 01/09/2023 09:00 URINE WBC/HPF 4 /HPF 01/09/2023 09:00 MUCUS RARE /LPF 01/09/2023 09:00 No URINE DRUG SCREEN EO data found No TEST LAST ONE EO data found No HIV SCREENING EO data found [facility] Hep C tests in last five years. HEP C Ab HCV Ab (STL) Nonreactive S/CO (12/12/22 09:26) DIAGNOSTICS CXR: No Radiology exams found. EK03/31/2024 11:55 Local Title: EKG CONSULT ST Standard Title: CARDIOLOGY DIAGNOSTIC STUDY CONSULT AUTHOR: CLINICAL,DEVICE PROXY SERVICE DOCUMENT IN [facility] SEE FULL REPORT IN [employer] [facility] SIGNATURE NOT REQUIRED SEE SIGNATURE IN [employer] [facility] ([facility] EKG) AUTO-INSTRUMENT DIAGNOSIS Procedure: 65718 12 Lead ECG Release Status: Released Off-Line Verified Date Verified: March 31, 2024@11:55:29 87161.2 Ventricular Rate: 120 BPM 82607.5 QRS Duration: 90 ms 98142.6 Q-T Interval: 340 ms 74265 QTC Calculation(Bazett)480 ms 89825.13 Calculated R [place]: -56 degrees 49733.14 Calculated T [place]: 65 degrees Atrial fibrillation with rapid ventricular response with premature ventricular or aberrantly conducted complexes Left axis deviation Abnormal ECG When compared with ECG of 03-FEB-2024 09:50, Atrial fibrillation has replaced Sinus rhythm Vent. rate has increased BY 55 BPM Administrative Closure: 03/31/2024 by: CLINICAL,DEVICE PROXY SERVICE < THE ABOVE NOTE IS UNSIGNED > - DRAFT COPY * DRAFT COPY * DRAFT COPY * DRAFT COPY * DRAFT COPY * DRAFT COPY - PFT: No Pulmonary Function Test for this patient. Echocardiogram: PROGRESS NOTES SELECTED No data available for: ECHOCARDIOGRAPHIC RESULTS MA ECHOCARDIOGRAPHY CONSULT STL ECHO COMPLETED CONSULT STL TRANSESOPHAGEAL ECHOCARDIOGRAM CONSULT RESULTS (PATRICIA) MA TRANSESOPHAGEAL ECHOCARDIOGRAM (PATRICIA) CONSULT REPORT IMAGING IMPRESSION SELECTED No data available for: US ECHOCARDIOGRAPHY, TRANSTHORACIC US DOPPLER ECHOCARDIOGARPHY COLOR FLOW MAPPING -PB ONLY US DOPPLER ECHOCARDIOGRAPHY-PB ONLY US ECHOCARDIOGRAPHY, TRANSTHORACIC-PB ONLY CARDIOLOGY ECHOCARDIOGRAM 1. Sinus rhythm intraventricular conduction delay and frequent premature beats. 2. Normal biventricular systolic function. 3. The left atrium is moderately enlarged. 4. The mitral valve was not well visualized. Restricted motion of posterior mitral leaflet consistent with mitral valve repair. Mitral ring annuloplasty is also seen. Progressive mitral stenosis. 5. No other hemodynamically significant valvular abnormality. 6. No evidence of pulmonary hypertension (estimated PASP of 30 mmHg) 7. No prior study available for comparison. TAMIE HERNANDEZ MD Reading physician Stress test: No Stress Test Data available PROBLEM LIST 1) Chronic tremor 2) AF - Atrial Fibrillation (SCT [id number]) 3) AK - Actinic keratosis 4) History of varicose veins 5) Lymphocytosis comment: rule out CLL 6) PVD - peripheral vascular disease REVIEW OF SYSTEMS/PAST MEDICAL HISTORY Functional capacity: >4 METs, able to walk 2 city blocks or climb flight of stairs RESPIRATORY for: - Recent or current SOB - Sleep apnea - Asthma - COPD CARDIAC for: - Recent chest pain + Hypertension - Hyperlipidemia - Myocardial infarction - Coronary artery disease - Heart failure + Valvular disease, status post mitral valve repair in 2002 + Atrial fibrillation PSYCH/CENTRAL NERVOUS for: - Depression - Anxiety - Post-traumatic stress disorder - Cerebral vascular accident - Seizures + chronic tremor ENDOCRINE for: - Diabetes - Hypothyroid RENAL for: - Chronic kidney disease - Nephrolithiasis GI for: - GERD - Liver disease - GI bleed VASCULAR/HEMATOLOGY/ONCOLOGY for: - Anemia - Thrombocytopenia - Bleeding disorders MUSCULOSKELETAL/SKIN/PERIPHE RAL NERVOUS for: - Obesity - Arthritis/Degenerative joint disease - Rheumatoid arthritis - Neuropathy /REPRODUCTIVE for: - Prostate hypertrophy HABITS Alcohol: Occasional Smoking: Denies Other drugs: Denies SURGICAL HISTORY Reviewed Previous anesthesia complications: None Family history of anesthesia complications: None PHYSICAL EXAM Alert & oriented x3 Heart: Regular rate, Regular rhythm Lungs: Clear to auscultation bilaterally AIRWAY: MP CLASS:II THYROMENTAL DISTANCE:3 finger breaths RANGE OF MOTION: FULL ; no pain on flexion/extension TEETH: Okay ASA CLASS 3. A patient with severe systemic disease. ANESTHETIC PLAN case cancelled. pt arrived in [facility] Planned anesthetic technique and options were discussed with the patient or guardian including risks, benefits, and potential complications. PRE-INDUCTION REASSESSMENT NPO Greater than 8 hours: Yes /es/ KELLI BARRERA MD STAFF ANESTHESIOLOGIST Signed: 04/09/2024 13:12 KELLI BARRERA [facility]
--- OUTSIDE RECORDS SUMMARY | 2025-01-11 11:58 | XMS_ITS | Continuity of Care Document ---
Author Name [facility] Organization [facility] Care Team Providers Care Legal Services Manager Name Role Phone [facility] Unavailable Unavailable Problems Combined list of problems from Department of Defense and [facility] Affairs facilities. It does not include entries that were removed or entered in error. Problem Status Onset Date Problem Type Date of Resolution Comments Source colon cancer screening Active 11/25/19 14 Condition Jun 24, 2014 Entered By: MYRNA WOOD Comment: pt thinks last normal cscope 2008, and due in 2018, non [place] [facility] Excessive cerumen in ear canal Active 11/25/19 12 Condition [facility] Varicose veins of lower extremity Active 11/25/19 11 Condition [facility] Actinic keratosis Active Condition [facility] - Atrial Fibrillation ([facility] [id number]) Active Condition [facility] [place] - Actinic keratosis Active Condition [facility] Allergic rhinitis Active Condition [facility] Amalgam tattoo Active Condition [facility] Cataracts Active Condition [facility] Cervical spondylosis Active Condition [facility] Chronic tremor Active Condition [facility] Fatigue (ICD-9-CM 780.79) Active Condition [facility] H/O: multiple allergies Active Condition [facility] History of repair of mitral valve Active Condition [facility] History of varicose veins Active Condition [facility] Impaired fasting glucose Active Condition [facility] Lipoma Active Condition [facility] Lumbar spine scoliosis Active Condition [facility] Lumbar spondylosis Active Condition [facility] Lymphocytosis Active Condition Sep Entered By: Zandra EDGAR Comment: rule out CLL [facility] Paroxysmal atrial fibrillation Active Condition [facility] Pharyngitis * (ICD-9-CM 462.) Active Condition [facility] Presbyopia Active Condition [facility] PVD - peripheral vascular disease Active Condition [facility] Senile hyperkeratosis Active Condition [facility] Sus[facility] bilateral glaucoma Active Condition [facility] Thoracic spondylosis Active Condition [facility] Varicose veins Active Condition [facility] Vitamin D deficiency Active Condition [facility] Diagnosis: ICD-10-CM R31.29 Other microscopic hematuria Active Diagnosis [facility] Diagnosis: ICD-10-CM R25.1 Tremor, unspecified Active Diagnosis [facility] Diagnosis: ICD-10-CM R19.7 Diarrhea, unspecified Active Diagnosis [facility] Diagnosis: ICD-10-CM I48.91 Unspecified atrial fibrillation Active Diagnosis [facility] Diagnosis: ICD-10-CM Z23 Encounter for immunization Active Diagnosis [facility] Diagnosis: ICD-10-CM Z51.81 Encounter for therapeutic drug level monitoring Active Diagnosis [facility] Diagnosis: ICD-10-CM Z71.81 Spiritual or hoahaoism counseling Active Diagnosis [facility] Admit Reason: ATRIAL FIBRILLATION Active Diagnosis [facility] Diagnosis: ICD-10-CM Z01.818 Encounter for other preprocedural examination Active Diagnosis [facility] Diagnosis: ICD-10-CM R94.31 Abnormal electrocardiogram [ECG] [EKG] Active Diagnosis 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 Diagnosis: ICD-10-CM L60.0 Ingrowing nail Active Diagnosis [facility] Medications Combined list of outpatient medications from Department of Defense and [facility] Affairs facilities.Medications provided include 1) outpatient medications from the last 15 months, and 2) patient-reported medications. Medication Details Route Status Patient Instructions Prescription Expires Prescription Number Last Dispense Date Ordering Provider Order Date Order Qty Source APIXABAN 5MG TAB TAKE ONE TABLET BY MOUTH TWICE A DAY FOR ANTICOAG ULATION [facility] [id number] ADI PEREZ 2022 180 [facility] N APIXABAN 5MG TAB TAKE ONE TABLET BY MOUTH TWICE A DAY FOR ANTICOAG ULATION ORAL 11/28/2024 [id number] Tye IRENE 2023 180 [facility] BROMOLIN 500MG TAB TAKE ONE TABLET BY MOUTH TWICE A DAY ORAL ACTIVE NAELVATOSudeep D 2012 [place] [facility] CHOLECALCIF SHARRON 25MCG (1,000UNIT) TAB TAKE TWO TABLETS BY MOUTH DAILY ORAL ACTIVE VADIMMURIEL JUDITHMAGY Stack 2018 [facility] CICLOPIROX 8% SOLN,TOP APPLY LIGHTLY TO AFFECTED AREA(S) ONCE A DAY (THIN COAT TO THICK NAILS - FILE DOWN AFTER 1 WEEK) (EXTERNA L USE ONLY) TOPICA L ACTIVE 04/23/2025 [id number] TARYN EDGAR 2023 6.6 [facility] CICLOPIROX 8% SOLN,TOP APPLY LIGHTLY TO AFFECTED AREA(S) ONCE A DAY (THIN COAT TO THICK NAILS - FILE DOWN AFTER 1 WEEK) (EXTERNA L USE ONLY) TOPICA L DISCONT INUED 04/02/2024 [id number] TARYN EDGAR 2022 6.6 [facility] COLCHICINE 0.6MG TAB TAKE ONE TABLET BY MOUTH TWICE A DAY STOP MED AND CONTACT PROVIDER AT FIRST SIGN OF NAUSEA, VOMITING , OR DIARRHEA ORAL 09/19/2024 [id number] TARYN EDGAR 2023 14 [facility] N COLCHICINE 0.6MG TAB TAKE ONE TABLET BY MOUTH TWICE A DAY FOR GOUT STOP MED AND CONTACT PROVIDER AT FIRST SIGN OF NAUSEA, VOMITING , OR DIARRHEA ORAL 08/23/2024 [id number] ALFREDITO WILSON 2023 14 [facility] N CYANOCOBALA MIN 1000MCG TAB TAKE ONE TABLET BY MOUTH EVERY DAY ORAL ACTIVE NOLBERTO WOOD K 2013 [facility] CYANOCOBALA MIN 1000MCG TAB TAKE ONE TABLET BY MOUTH ONCE EVERY DAY ORAL ACTIVE VADIMMURIEL JOSE R [address] [facility] DRONEDARONE 400MG TAB TAKE ONE TABLET BY MOUTH TWICE A DAY FOR ATRIAL FIBRILLA TION - TAKE IN THE MORNING AND EVENING WITH FOOD ORAL ACTIVE 12/22/2025 [id number] 5 Tye IRENE 2024 180 [facility] DRONEDARONE 400MG TAB TAKE ONE TABLET BY MOUTH TWICE A DAY FOR ATRIAL FIBRILLA TION - TAKE IN THE MORNING AND EVENING WITH FOOD ORAL DISCONT INUED 11/28/2024 [id number] 4 Tye IRENE 2023 180 [facility] N DRONEDARONE 400MG TAB TAKE ONE TABLET BY MOUTH TWICE A DAY FOR ATRIAL FIBRILLA TION - TAKE IN THE MORNING AND EVENING WITH FOOD ORAL DISCONT INUED 11/20/2024 [id number] TARYN EDGAR 2022 60 [facility] DRONEDARONE 400MG TAB TAKE ONE TABLET BY MOUTH TWICE A DAY FOR ATRIAL FIBRILLA TION - TAKE IN THE MORNING AND EVENING WITH FOOD ORAL DISCONT INUED 09/26/2024 [id number] 3 TARYN EDGAR 2022 60 [facility] FISH OIL 1000MG (500MG DHA/EPA) CAP,ORAL TAKE 1 CAPSULE BY MOUTH TWICE A DAY WITH MEALS ORAL ACTIVE MURIEL FIERRO R [address] [facility] LUTEIN CAP/TAB TAKE ONE TABLET po EVERY DAY ACTIVE NANAMANL,TOD D 2012 [facility] METOPROLOL SUCCINATE 200MG TAB,SA TAKE ONE-HALF TABLET BY MOUTH ONCE A DAY FOR HEART/BL OOD PRESSURE . SWALLOW WHOLE, DO NOT CRUSH OR CHEW (TABLETS MAY BE CUT IN HALF). ORAL DISCONT INUED 02/15/2024 [id number] TARYN EDGAR 2022 45 [facility] METOPROLOL SUCCINATE 200MG TAB,SA TAKE ONE-HALF TABLET BY MOUTH ONCE A DAY FOR HEART/BL OOD PRESSURE . SWALLOW WHOLE, DO NOT CRUSH OR CHEW (TABLETS MAY BE CUT IN HALF). ORAL 11/28/2024 [id number] 4 Tye IRENE 2023 45 [facility] PANTOPRAZOL E NA 40MG TAB,EC TAKE ONE TABLET BY MOUTH ONCE A DAY FOR GASTROES OPHAGEAL REFLUX DISEASE TAKE 30 MINUTES BEFORE MEAL(S) ORAL SUSPEND ED 08/20/2025 [id number] TARYN EDGAR 2023 90 [facility] PANTOPRAZOL E NA 40MG TAB,EC TAKE ONE TABLET BY MOUTH TWO TIMES A DAY BEFORE MEALS FOR 6 WEEKS FOR GASTROES OPHAGEAL REFLUX DISEASE TAKE 30 MINUTES BEFORE MEAL(S) AFTER 6 WEEKS OF TWICE A DAY PATIENT SHOULD RETURN TO HIS ONCE DAILY DOSE ORAL DISCONT INUED (EDIT) 09/04/2024 [id number] 4 ALFREDITO WILSON 2023 90 [facility] PANTOPRAZOL E NA 40MG TAB,EC TAKE ONE TABLET BY MOUTH EVERY MORNING BEFORE A MEAL TAKE 30 MINUTES BEFORE MEAL(S) ORAL DISCONT INUED 02/03/2025 [id number] 4 TARYN EDGAR 2023 90 [facility] SUCRALFATE 1GM TAB TAKE ONE TABLET BY MOUTH FOUR TIMES A DAY FOR DUODENAL ULCER - TAKE ON AN EMPTY STOMACH. ORAL 08/23/2024 [id number] ALFREDITO WILSON 2023 48 [facility] Allergies, Adverse Reactions, Alerts Combined list of allergies from Department of Defense and Veterans Affairs facilities. It does not include entries that were removed or entered in error. Substance Category Reaction Severity Reaction type Status Date Reported Comments Source PENICILLIN Propensity to adverse reactions to drug (finding) Fever active 6 [facility] PENICILLIN Propensity to adverse reactions to drug (finding) Drowsy active 2 [facility] Immunizations Combined list of available immunizations from the Department of Defense and Veterans Affairs facilities. Immunization Series Date Given Administered By Site Reaction Lot Number CVX Code Drug Clean Out Driller Status Comments Source COVID-19 (PFIZER), MRNA, LNP-S, PF, PATRICIA-SUCROSE, 30 MCG/0.3 ML (AGES 12+ YEARS) 2023 GARDNER,EDIT H R LEFT DELTO ID [id number] complet [facility] INFLUENZA, HIGH-DOSE, TRIVALENT, PF 2023 GARDNER,EDIT H R RIGHT DELTO ID [id number] 135 complet [facility] RSV, BIVALENT, PROTEIN SUBUNIT RSVPREF, DILUENT RECONSTITUTED , 0.5 ML, PF 2023 GARDNER,EDIT H R LEFT DELTO ID [id number] 305 complet [facility] PNEUMOCOCCAL POLYSACCHARID E PPV23 2021 33 complet [facility] INFLUENZA, UNSPECIFIED FORMULATION 2021 88 complet [facility] PNEUMOCOCCAL POLYSACCHARID E PPV23 2021 33 complet [facility] N COVID-19 (MODERNA), MRNA, LNP-S, PF, 100 MCG/0.5ML DOSE OR 50 MCG/0.25ML DOSE 2 2020 207 complet [facility] DIVISIO N COVID-19 (MODERNA), MRNA, LNP-S, PF, 100 MCG/0.5ML DOSE OR 50 MCG/0.25ML DOSE 1 2020 207 complet [facility] DIVISIO N COVID-19 (MODERNA), MRNA, LNP-S, PF, 100 MCG/0.5 ML DOSE 1 2020 207 complet [facility] TDAP 2017 115 complet [facility] DIVISIO N TDAP 2017 115 complet ed sanofi pasteur/c [id number] [facility] PNEUMOCOCCAL CONJUGATE PCV 13 2015 133 complet ed [facility] PNEUMOCOCCAL CONJUGATE PCV 13 2015 133 complet ed [facility]/ [id number]/ [facility] Results Combined list of recent chemistry, hematology and other laboratory results from Department of Defense and Veterans Affairs, ranging from 15 months to all on record, depending upon the facility. Order Name Results Value Reference Range Date Interpretation Specimen Comments Source CBC LEUKOCYTES [#/VOLUME] IN BLOOD BY AUTOMATED COUNT 9.3 10*3/u L 3.6 - 11.2 08/25 Specimen Type: BLOOD No comment entered. Ordering Provider: Zandra EDGAR Report Released Date/Time: 2024 10:17 AM Reporting Lab: [place] [address] Performing Lab: [address] [facility] CBC ERYTHROCYTE S [#/VOLUME] IN BLOOD BY AUTOMATED COUNT 4.07 10*6/u L 4.10 - 5.70 08/25 L Specimen Type: BLOOD No comment entered. Ordering Provider: Zandra EDGAR Report Released Date/Time: 2024 10:17 AM Reporting Lab: [facility] [address] [place] [address] Performing Lab: [facility] [address] [place] [address] [facility] CBC HEMOGLOBIN [MASS/VOLUM E] IN BLOOD 12.2 g/dL 13.1 - 16.8 08/25 L Specimen Type: BLOOD No comment entered. Ordering Provider: Zandra EDGAR Report Released Date/Time: 2024 10:17 AM Reporting Lab: [facility] [address] [place] [address] Performing Lab: [address] [facility] CBC HEMATOCRIT [VOLUME FRACTION] OF BLOOD 36.7 38.2 - 48.4 08/25 L Specimen Type: BLOOD No comment entered. Ordering Provider: Zandra EDGAR Report Released Date/Time: 2024 10:17 AM Reporting Lab: [place] [id number] [place] [phone] Performing Lab: [address] [address] [facility] CBC MCV [ENTITIC VOLUME] BY AUTOMATED COUNT 90.2 fL 80.0 - 100.0 08/25 Specimen Type: BLOOD No comment entered. Ordering Provider: Zandra EDGAR Report Released Date/Time: 2024 10:17 AM Reporting Lab: [address] [address] Performing Lab: [address] [phone] [facility] CBC MCH [ENTITIC MASS] BY AUTOMATED COUNT 30.0 pg 27.0 - 34.0 08/25 Specimen Type: BLOOD No comment entered. Ordering Provider: Zandra EDGAR Report Released Date/Time: 2024 10:17 AM Reporting Lab: [address] [address] Performing Lab: [address] [phone] [place] [address] [facility] CBC MCHC [MASS/VOLUM E] BY AUTOMATED COUNT 33.2 g/dL 33.0 - 36.0 08/25 Specimen Type: BLOOD No comment entered. Ordering Provider: Zandra EDGAR Report Released Date/Time: 2024 10:17 AM Reporting Lab: [address] [address] Performing Lab: [address] [phone] [place] [address] [facility] CBC PLATELETS [#/VOLUME] IN BLOOD BY AUTOMATED COUNT 161 10*3/u L 150 - 400 08/25 Specimen Type: BLOOD No comment entered. Ordering Provider: Zandra EDGAR Report Released Date/Time: 2024 10:17 AM Reporting Lab: [address] [address] Performing Lab: [facility] [address] [facility] [address] [facility] CBC PLATELET MEAN VOLUME [ENTITIC VOLUME] IN BLOOD BY AUTOMATED COUNT 12.6 fL 7.5 - 11.2 08/25 H Specimen Type: BLOOD No comment entered. Ordering Provider: Zandra EDGAR Report Released Date/Time: 2024 10:17 AM Reporting Lab: [address] [address] Performing Lab: [address] [address] [facility] CBC ERYTHROCYTE DISTRIBUTIO N WIDTH [RATIO] BY AUTOMATED COUNT 13.7 11.8 - 15.1 08/25 Specimen Type: BLOOD No comment entered. Ordering Provider: Zandra EDGAR Report Released Date/Time: 2024 10:17 AM Reporting Lab: [address] [address] Performing Lab: [place] [address] [facility] [address] [facility] CBC LYMPHOCYTES /100 LEUKOCYTES IN BLOOD BY AUTOMATED COUNT 50 08/25 Specimen Type: BLOOD No comment entered. Ordering Provider: Zandra EDGAR Report Released Date/Time: 2024 10:17 AM Reporting Lab: [facility] [address] Performing Lab: [facility] [address] [place] [address] [facility] CBC MONOCYTES/1 00 LEUKOCYTES IN BLOOD BY AUTOMATED COUNT 5 08/25 Specimen Type: BLOOD No comment entered. Ordering Provider: Zandra EDGAR Report Released Date/Time: 2024 10:17 AM Reporting Lab: [facility] [address] Performing Lab: [place] [address] [facility] [phone] [facility] CBC NEUTROPHILS /100 LEUKOCYTES IN BLOOD BY AUTOMATED COUNT 44 08/25 Specimen Type: BLOOD No comment entered. Ordering Provider: Zandra EDGAR Report Released Date/Time: 2024 10:17 AM Reporting Lab: [facility] [address] [place] [phone] Performing Lab: [address] [phone] [facility] CBC EOSINOPHILS /100 LEUKOCYTES IN BLOOD BY AUTOMATED COUNT 1 08/25 Specimen Type: BLOOD No comment entered. Ordering Provider: Zandra EDGAR Report Released Date/Time: 2024 10:17 AM Reporting Lab: [facility] [address] [place], [place] [phone] Performing Lab: [place] [phone] [facility] CBC BASOPHILS/1 00 LEUKOCYTES IN BLOOD BY AUTOMATED COUNT 0 08/25 Specimen Type: BLOOD No comment entered. Ordering Provider: Zandra EDGAR Report Released Date/Time: 2024 10:17 AM Reporting Lab: [facility] [address] [place] [phone] Performing Lab: [address] [phone] [facility] CBC LYMPHOCYTES [#/VOLUME] IN BLOOD BY AUTOMATED COUNT 4.61 10*3/u L 0.77 - 4.50 08/25 H Specimen Type: BLOOD No comment entered. Ordering Provider: Zandra EDGAR Report Released Date/Time: 2024 10:17 AM Reporting Lab: [facility] [address] [place] [phone] Performing Lab: [facility] [address] [place] [phone] [facility] CBC MONOCYTES [#/VOLUME] IN BLOOD BY AUTOMATED COUNT 0.43 10*3/u L 0.19 - 0.80 08/25 Specimen Type: BLOOD No comment entered. Ordering Provider: Zandra EDGAR Report Released Date/Time: 2024 10:17 AM Reporting Lab: [facility] [address] [place] [address] Performing Lab: [place] [phone] [facility] CBC NEUTROPHILS [#/VOLUME] IN BLOOD BY AUTOMATED COUNT 4.03 10*3/u L 2.10 - 8.00 08/25 Specimen Type: BLOOD No comment entered. Ordering Provider: Zandra EDGAR Report Released Date/Time: 2024 10:17 AM Reporting Lab: [place] [address] Performing Lab: [address] [facility] CBC EOSINOPHILS [#/VOLUME] IN BLOOD BY AUTOMATED COUNT 0.12 10*3/u L 0.00 - 0.60 08/25 Specimen Type: BLOOD No comment entered. Ordering Provider: Zandra EDGAR Report Released Date/Time: 2024 10:17 AM Reporting Lab: [facility] [address] [place] [address] Performing Lab: [address] [facility] CBC BASOPHILS [#/VOLUME] IN BLOOD BY AUTOMATED COUNT 0.04 10*3/u L 0.00 - 0.20 08/25 Specimen Type: BLOOD No comment entered. Ordering Provider: Zandra EDGAR Report Released Date/Time: 2024 10:17 AM Reporting Lab: [facility] [address] [place] [address] Performing Lab: [place] [id number] [facility] COMPREHEN SIVE METABOLIC PANEL CREATININE [MASS/VOLUM E] IN SERUM OR PLASMA 0.89 mg/dL 0.7 - 1.3 08/25 Specimen Type: PLASMA Comment: No hemolysis noted. Ordering Provider: Zandra EDGAR Report Released Date/Time: 2024 10:17 AM Reporting Lab: [address] [address] Performing Lab: [address] [address] [facility] COMPREHEN SIVE METABOLIC PANEL UREA NITROGEN [MASS/VOLUM E] IN SERUM OR PLASMA 16.1 mg/dL 9.0 - 25.0 08/25 Specimen Type: PLASMA Comment: No hemolysis noted. Ordering Provider: Zandra EDGAR Report Released Date/Time: 2024 10:17 AM Reporting Lab: [address] [address] Performing Lab: [address] [phone] [facility] COMPREHEN SIVE METABOLIC PANEL GLUCOSE [MASS/VOLUM E] IN SERUM OR PLASMA 85 mg/dL 72 - 99 08/25 Specimen Type: PLASMA Comment: No hemolysis noted. Ordering Provider: Zandra EDGAR Report Released Date/Time: 2024 10:17 AM Reporting Lab: [address] [address] Performing Lab: [address] [address] [facility] COMPREHEN SIVE METABOLIC PANEL SODIUM [MOLES/VOLU ME] IN SERUM OR PLASMA 139 meq/L 136 - 145 08/25 Specimen Type: PLASMA Comment: No hemolysis noted. Ordering Provider: Zandra EDGAR Report Released Date/Time: 2024 10:17 AM Reporting Lab: [address] [address] Performing Lab: [address] [address] [facility] COMPREHEN SIVE METABOLIC PANEL POTASSIUM [MOLES/VOLU ME] IN SERUM OR PLASMA 4.0 meq/L 3.5 - 5 08/25 Specimen Type: PLASMA Comment: No hemolysis noted. Ordering Provider: Zandra EDGAR Report Released Date/Time: 2024 10:17 AM Reporting Lab: [place] [address] [facility] [address] Performing Lab: [address] [address] [facility] COMPREHEN SIVE METABOLIC PANEL CHLORIDE [MOLES/VOLU ME] IN SERUM OR PLASMA 107 meq/L 98 - 107 08/25 Specimen Type: PLASMA Comment: No hemolysis noted. Ordering Provider: Zandra EDGAR Report Released Date/Time: 2024 10:17 AM Reporting Lab: [address] [address] Performing Lab: [address] [address] [facility] COMPREHEN SIVE METABOLIC PANEL CARBON DIOXIDE, TOTAL [MOLES/VOLU ME] IN SERUM OR PLASMA 21 meq/L 22 - 31 08/25 L Specimen Type: PLASMA Comment: No hemolysis noted. Ordering Provider: Zandra EDGAR Report Released Date/Time: 2024 10:17 AM Reporting Lab: [address] [address] Performing Lab: [address] [address] [facility] COMPREHEN SIVE METABOLIC PANEL CALCIUM [MASS/VOLUM E] IN SERUM OR PLASMA 9.1 mg/dL 8.4 - 10.4 08/25 Specimen Type: PLASMA Comment: No hemolysis noted. Ordering Provider: Zandra EDGAR Report Released Date/Time: 2024 10:17 AM Reporting Lab: [address] [address] Performing Lab: [address] [address] [facility] COMPREHEN SIVE METABOLIC PANEL PROTEIN [MASS/VOLUM E] IN SERUM OR PLASMA 7.1 g/dL 6 - 8.6 08/25 Specimen Type: PLASMA Comment: No hemolysis noted. Ordering Provider: Zandra EDGAR Report Released Date/Time: 2024 10:17 AM Reporting Lab: [place] [address] [place] [phone] Performing Lab: [place] [address] [place] [phone] [facility] COMPREHEN SIVE METABOLIC PANEL ALBUMIN [MASS/VOLUM E] IN SERUM OR PLASMA 4.0 g/dL 3.4 - 5 08/25 Specimen Type: PLASMA Comment: No hemolysis noted. Ordering Provider: Zandra EDGAR Report Released Date/Time: 2024 10:17 AM Reporting Lab: [place] [address] [place] [address] Performing Lab: [place] [address] [facility] COMPREHEN SIVE METABOLIC PANEL BILIRUBIN.T OTAL [MASS/VOLUM E] IN SERUM OR PLASMA 0.6 mg/dL 0.2 - 1.2 08/25 Specimen Type: PLASMA Comment: No hemolysis noted. Ordering Provider: Zandra EDGAR Report Released Date/Time: 2024 10:17 AM Reporting Lab: [place] [address] [place] [phone] Performing Lab: [place] [address] [place] [phone] [facility] COMPREHEN SIVE METABOLIC PANEL ALKALINE PHOSPHATASE [ENZYMATIC ACTIVITY/VO LUME] IN SERUM OR PLASMA 88 U/L 40 - 150 08/25 Specimen Type: PLASMA Comment: No hemolysis noted. Ordering Provider: Zandra EDGAR Report Released Date/Time: 2024 10:17 AM Reporting Lab: [place] [address] [place] [address] Performing Lab: [place] [address] [facility] [address] [facility] COMPREHEN SIVE METABOLIC PANEL ASPARTATE AMINOTRANSF ERASE [ENZYMATIC ACTIVITY/VO LUME] IN SERUM OR PLASMA 12 U/L 5 - 34 08/25 Specimen Type: PLASMA Comment: No hemolysis noted. Ordering Provider: Zandra EDGAR Report Released Date/Time: 2024 10:17 AM Reporting Lab: [address] [address] Performing Lab: [address] [phone] [place] [address] [facility] COMPREHEN SIVE METABOLIC PANEL ALANINE AMINOTRANSF ERASE [ENZYMATIC ACTIVITY/VO LUME] IN SERUM OR PLASMA 10 U/L 8 - 40 08/25 Specimen Type: PLASMA Comment: No hemolysis noted. Ordering Provider: Zandra EDGAR Report Released Date/Time: 2024 10:17 AM Reporting Lab: [address] [address] Performing Lab: [phone] [place] [address] [facility] COMPREHEN SIVE METABOLIC PANEL GLOMERULAR FILTRATION RATE/1.73 SQ M.PREDICTED [VOLUME RATE/AREA] IN SERUM, PLASMA OR BLOOD BY CREATININE- BASED FORMULA (CKD-EPI 2020) 88.3 60 08/25 Specimen Type: PLASMA Comment: No hemolysis noted. Ordering Provider: Zandra EDGAR Report Released Date/Time: 2024 10:17 AM Reporting Lab: [address] [address] Performing Lab: [address] [facility] PROST. SPECIFIC AG.(PB-ST L) PROSTATE SPECIFIC AG [MASS/VOLUM E] IN SERUM OR PLASMA 1.456 ng/mL 0 - 4 08/25 Specimen Type: SERUM Comment: The listed sex of this patient may not be a typical indication for this test. Therefore, reference ranges or interpretiv e criteria listed may not be valid. Clinical correlation suggested. Ordering Provider: Zandra EDGAR Report Released Date/Time: 2024 10:20 AM Reporting Lab: [place] [id number] Performing Lab: [address] [phone] [facility] URIC ACID URATE [MASS/VOLUM E] IN SERUM OR PLASMA 6.0 mg/dL 3.5 - 7.2 08/25 Specimen Type: PLASMA Comment: No hemolysis noted. Ordering Provider: Zandra EDGAR Report Released Date/Time: 2024 10:17 AM Reporting Lab: [place] [address] Performing Lab: [address] [facility] URINALYSI S (STL-PB) COLOR OF URINE Light- Yellow 08/25 Specimen Type: URINE No comment entered. Ordering Provider: Zandra EDGAR Report Released Date/Time: 2024 10:20 AM Reporting Lab: [place] [id number] Performing Lab: [phone] [place] [address] [facility] URINALYSI S (STL-PB) BILIRUBIN.T OTAL [PRESENCE] IN URINE BY TEST STRIP Negati vemg/d L 08/25 Specimen Type: URINE No comment entered. Ordering Provider: Zandra EDGAR Report Released Date/Time: 2024 10:20 AM Reporting Lab: [place] [id number] Performing Lab: [address] [phone] [place] [address] [facility] URINALYSI S (STL-PB) PH OF URINE BY TEST STRIP 6.0 5.0 - 8.0 08/25 Specimen Type: URINE No comment entered. Ordering Provider: Zandra EDGAR Report Released Date/Time: 2024 10:20 AM Reporting Lab: [address] [address] Performing Lab: [address] [address] [facility] URINALYSI S (STL-PB) LEUKOCYTES [#/AREA] IN URINE SEDIMENT BY MICROSCOPY HIGH POWER FIELD 1 /[HPF] 0 - 5 08/25 Specimen Type: URINE No comment entered. Ordering Provider: Zandra EDGAR Report Released Date/Time: 2024 10:20 AM Reporting Lab: [address] [address] Performing Lab: [address] [address] [facility] URINALYSI S (STL-PB) ERYTHROCYTE S [#/VOLUME] IN URINE SEDIMENT BY MICROSCOPY HIGH POWER FIELD 2 /[HPF] 0 - 5 08/25 Specimen Type: URINE No comment entered. Ordering Provider: Zandra EDGAR Report Released Date/Time: 2024 10:20 AM Reporting Lab: [address] [address] Performing Lab: [address] [address] [facility] URINALYSI S (STL-PB) APPEARANCE OF URINE Clear 08/25 Specimen Type: URINE No comment entered. Ordering Provider: Zandra EDGAR Report Released Date/Time: 2024 10:20 AM Reporting Lab: [address] [address] Performing Lab: [address] [address] [facility] URINALYSI S (STL-PB) NITRITE [PRESENCE] IN URINE BY TEST STRIP Negati vemg/d L 08/25 Specimen Type: URINE No comment entered. Ordering Provider: Zandra EDGAR Report Released Date/Time: 2024 10:20 AM Reporting Lab: [address] [address] Performing Lab: [address] [address] [facility] URINALYSI S (STL-PB) MUCUS [PRESENCE] IN URINE SEDIMENT BY LIGHT MICROSCOPY RARE/[ LPF] 08/25 Specimen Type: URINE No comment entered. Ordering Provider: Zandra EDGAR Report Released Date/Time: 2024 10:20 AM Reporting Lab: [address] [address] Performing Lab: [address] [phone] [facility] URINALYSI S (STL-PB) CALCIUM OXALATE CRYSTALS [PRESENCE] IN URINE SEDIMENT BY LIGHT MICROSCOPY RARE/[ HPF] 08/25 Specimen Type: URINE No comment entered. Ordering Provider: Zandra EDGAR Report Released Date/Time: 2024 10:20 AM Reporting Lab: [address] [address] Performing Lab: [address] [address] [facility] URINALYSI S (STL-PB) GLUCOSE [MASS/VOLUM E] IN URINE BY TEST STRIP Normal mg/dL 08/25 Specimen Type: URINE No comment entered. Ordering Provider: Zandra EDGAR Report Released Date/Time: 2024 10:20 AM Reporting Lab: [address] [address] Performing Lab: [address] [address] [facility] URINALYSI S (STL-PB) PROTEIN [MASS/VOLUM E] IN URINE BY TEST STRIP 20 mg/dL - 20 08/25 H Specimen Type: URINE No comment entered. Ordering Provider: Zandra EDGAR Report Released Date/Time: 2024 10:20 AM Reporting Lab: [address] [address] Performing Lab: [address] [address] [facility] URINALYSI S (STL-PB) URN.UROBILI NOGEN Normal mg/dL 08/25 Specimen Type: URINE No comment entered. Ordering Provider: Zandra EDGAR Report Released Date/Time: 2024 10:20 AM Reporting Lab: [address] [address] Performing Lab: [address] [address] [facility] URINALYSI S (STL-PB) HEMOGLOBIN [MASS/VOLUM E] IN URINE BY TEST STRIP Negati vemg/d L 08/25 Specimen Type: URINE No comment entered. Ordering Provider: Zandra EDGAR Report Released Date/Time: 2024 10:20 AM Reporting Lab: [address] [address] Performing Lab: [address] [address] [facility] URINALYSI S (STL-PB) KETONES [MASS/VOLUM E] IN URINE BY TEST STRIP Negati vemg/d L 08/25 Specimen Type: URINE No comment entered. Ordering Provider: Zandra EDGAR Report Released Date/Time: 2024 10:20 AM Reporting Lab: [address] [address] Performing Lab: [address] [address] [facility] URINALYSI S (STL-PB) URN.LEUK.ES T. Negati vemg/d L 08/25 Specimen Type: URINE No comment entered. Ordering Provider: Zandra EDGAR Report Released Date/Time: 2024 10:20 AM Reporting Lab: [place] [address] Performing Lab: [address] [facility] URINALYSI S (L-PB) SPECIFIC GRAVITY OF URINE 1.026 1.005 - 1.029 08/25 Specimen Type: URINE No comment entered. Ordering Provider: Zandra EDGAR Report Released Date/Time: 2024 10:20 AM Reporting Lab: [place] [address] Performing Lab: [address] [facility] VITAMIN D, 25-HYDROX Y 25-HYDROXYV ITAMIN D3 [MASS/VOLUM E] IN SERUM OR PLASMA 63.1 ng/mL 30 - 96 08/25 Specimen Type: SERUM Comment: The listed sex of this patient may not be a typical indication for this test. Therefore, reference ranges or interpretiv e criteria listed may not be valid. Clinical correlation suggested. Ordering Provider: Zandra EDGAR Report Released Date/Time: 2024 10:17 AM Reporting Lab: [place] [address] Performing Lab: [address] [facility] GLUCOSE,B LOOD-poct ([facility]) GLUCOSE [MASS/VOLUM E] IN BLOOD BY AUTOMATED TEST STRIP 94 mg/dL 72 - 99 08/10 Specimen Type: BLOOD Comment: Test Performed by: [id number] Meter #: [id number] Ordering Provider: Zandra EDGAR Report Released Date/Time: Aug 10, 2024 10:28 AM Reporting Lab: [facility] [address] [facility] [address] Performing Lab: [facility] [address] [facility] [address] [facility] BASIC METABOLIC PANEL CREATININE [MASS/VOLUM E] IN SERUM OR PLASMA 0.78 mg/dL 0.7 - 1.3 07/23 Specimen Type: PLASMA Comment: No hemolysis noted. Ordering Provider: DANE WILSON Report Released Date/Time: Jul 22, 2024 05:37 PM Reporting Lab: [place] [address] [address] [facility] [address] Performing Lab: [facility] [address] [facility] [facility] [address] [facility] BASIC METABOLIC PANEL UREA NITROGEN [MASS/VOLUM E] IN SERUM OR PLASMA 14.4 mg/dL 9.0 - 25.0 07/23 Specimen Type: PLASMA Comment: No hemolysis noted. Ordering Provider: DANE WILSON Report Released Date/Time: Jul 22, 2024 05:37 PM Reporting Lab: [place] [address] [facility] [address] Performing Lab: [facility] [address] [facility] [address] [facility] BASIC METABOLIC PANEL GLUCOSE [MASS/VOLUM E] IN SERUM OR PLASMA 113 mg/dL 72 - 99 07/23 H Specimen Type: PLASMA Comment: No hemolysis noted. Ordering Provider: DANE WILSON Report Released Date/Time: Jul 22, 2024 05:37 PM Reporting Lab: [place] [address] [facility] [address] Performing Lab: [place] [address] [facility] [address] [facility] BASIC METABOLIC PANEL SODIUM [MOLES/VOLU ME] IN SERUM OR PLASMA 136 meq/L 136 - 145 07/23 Specimen Type: PLASMA Comment: No hemolysis noted. Ordering Provider: DANE WILSON Report Released Date/Time: Jul 22, 2024 05:37 PM Reporting Lab: [facility] [address] [facility] [address] Performing Lab: [facility] [address] [facility] [address] [facility] BASIC METABOLIC PANEL POTASSIUM [MOLES/VOLU ME] IN SERUM OR PLASMA 3.7 meq/L 3.5 - 5 07/23 Specimen Type: PLASMA Comment: No hemolysis noted. Ordering Provider: DANE WILSON Report Released Date/Time: Jul 22, 2024 05:37 PM Reporting Lab: [address] [address] Performing Lab: [facility] [address] [place] [address] [facility] BASIC METABOLIC PANEL CHLORIDE [MOLES/VOLU ME] IN SERUM OR PLASMA 108 meq/L 98 - 107 07/23 H Specimen Type: PLASMA Comment: No hemolysis noted. Ordering Provider: DANE WILSON Report Released Date/Time: Jul 22, 2024 05:37 PM Reporting Lab: [address] [address] Performing Lab: [facility] [address] [facility] [address] [facility] BASIC METABOLIC PANEL CARBON DIOXIDE, TOTAL [MOLES/VOLU ME] IN SERUM OR PLASMA 21 meq/L 22 - 31 07/23 L Specimen Type: PLASMA Comment: No hemolysis noted. Ordering Provider: DANE WILSON Report Released Date/Time: Jul 22, 2024 05:37 PM Reporting Lab: [facility] [address] [place] [address] Performing Lab: [facility] [address] [place] [address] [facility] BASIC METABOLIC PANEL CALCIUM [MASS/VOLUM E] IN SERUM OR PLASMA 8.3 mg/dL 8.4 - 10.4 07/23 L Specimen Type: PLASMA Comment: No hemolysis noted. Ordering Provider: DANE WILSON Report Released Date/Time: Jul 22, 2024 05:37 PM Reporting Lab: [facility] [address] [facility] [address] Performing Lab: [facility] [address] [facility] [address] [facility] BASIC METABOLIC PANEL GLOMERULAR FILTRATION RATE/1.73 SQ M.PREDICTED [VOLUME RATE/AREA] IN SERUM, PLASMA OR BLOOD BY CREATININE- BASED FORMULA (CKD-EPI 2020) 92.4 60 07/23 Specimen Type: PLASMA Comment: No hemolysis noted. Ordering Provider: DANE WILSON Report Released Date/Time: Jul 22, 2024 05:37 PM Reporting Lab: [facility] [address] [address] Performing Lab: [facility] [address] [address] [facility] MAGNESIUM MAGNESIUM [MASS/VOLUM E] IN SERUM OR PLASMA 1.8 mg/dL 1.6 - 2.6 07/23 Specimen Type: PLASMA Comment: No hemolysis noted. Ordering Provider: DANE WILSON Report Released Date/Time: Jul 22, 2024 05:37 PM Reporting Lab: [facility] [address] [facility] [address] Performing Lab: [facility] [address] [address] [facility] PHOSPHORO US PHOSPHATE [MASS/VOLUM E] IN SERUM OR PLASMA 4.0 mg/dL 2.3 - 4.7 07/23 Specimen Type: PLASMA Comment: No hemolysis noted. 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 Vital Sign Value Date Comments Source SYSTOLIC BLOOD PRESSURE 143 09/14/2024 09:15:09 [facility] DIASTOLIC BLOOD PRESSURE 79 09/14/2024 09:15:09 [facility] PULSE OXIMETRY 99 09/14/2024 09:15:[address] [facility] WEIGHT 187.4 09/14/2024 09:15:09 [facility] BMI 25 kg/m2 09/14/2024 09:15:09 [facility] PAIN 0 09/14/2024 09:15:09 [facility] HEIGHT 72 09/14/2024 09:15:09 [facility] TEMPERATURE 97.7 09/14/2024 09:15:09 [facility] PULSE 75 09/14/2024 09:15:09 [facility] RESPIRATION 18 09/14/2024 09:15:09 [facility] SYSTOLIC BLOOD PRESSURE 139 2024 10:09:00 [facility] DIASTOLIC BLOOD PRESSURE 86 2024 10:09:00 [facility] PULSE OXIMETRY 100 2024 10:09:00 [facility] WEIGHT 185 2024 10:09:00 [facility] BMI 25 kg/m2 2024 10[facility]09:00 [facility] PAIN 0 2024 10:09:00 [facility] TEMPERATURE 96.6 2024 10:09:00 [facility] PULSE 75 2024 10:09:00 [facility] RESPIRATION 20 2024 10:09:00 [facility] SYSTOLIC BLOOD PRESSURE 125 08/18/2024 13:37:55 [facility] DIASTOLIC BLOOD PRESSURE 75 08/18/2024 13:37:55 [facility] PULSE OXIMETRY 98 08/18/2024 13:37:55 [facility] PULSE 71 08/18/2024 13:37:55 [facility] PAIN 0 07/24/2024 00:05:00 [facility] SYSTOLIC BLOOD PRESSURE 133 07/23/2024 04:57:47 [facility] DIASTOLIC BLOOD PRESSURE 67 07/23/2024 04:57:47 [facility] PULSE OXIMETRY 95 07/23/2024 04:57:47 [facility] PAIN 0 07/23/2024 04:57:47 [facility] TEMPERATURE 98.7 07/23/2024 04:57:47 [facility] PULSE 80 07/23/2024 04:57:47 [facility] RESPIRATION 18 07/23/2024 04:57:47 [facility] Encounters Combined list of: 1) Encounters from Department of [facility] Affairs facilities going backup to the last 18 months, not all [place] inpatient encounters are included; 2) Encounters from the Department of [facility] facilities going backup to 280 months. Location Location Details Encounter Type Encounter Number Reason For Visit Attending Provider ADM Date DC Date Status Disposition Source [facility] QNHP OL DIG ASSMT&MGMT 5-10 [id number] Diagnos is: ICD-10- CM Z51.81 Encount er for therape utic drug level monitor Kim [place] 07/19 [facility] Outpatient Encounter [id number] SARAH CLAY 07/30 [facility] Outpatient Encounter [id number] JESÚS CASTILLO CA E 07/31 [facility] HC PRO PHONE CALL 5-10 MIN [id number] Diagnos is: ICD-10- CM Z51.81 Encount er for therape utic drug level monitor mallory PEREZJAQUELINE Mike 08/01 [facility] OFFICE O/P EST LOW 20-29 MIN [id number] Diagnos is: ICD-10- CM L60.0 Ingrowi RESHMA Donnelly 08/23 [facility] Outpatient Encounter [id number] ADELE DAVIS 09/23 [facility] PT-FOCUSED HLTH RISK ASSMT [id number] Diagnos is: ICD-10- CM I48.91 Unspeci fied atrial fibrill ation DAVIDSON DAWSON A 10/31 [facility] Outpatient Encounter [id number] 11/01 [facility] Outpatient Encounter [id number] 11/15 [facility] Outpatient Encounter [id number] SARAH CLAY 11/19 [facility] OFF/OP CONSLTJ NEW/EST HI 55 [id number] Diagnos is: ICD-10- CM I48.91 Unspeci fied atrial fibrill ation AMANDA IRENE THAN S 11/28 [facility] TRANSPORT PORTABLE EKG [id number] Diagnos is: ICD-10- CM I48.91 Unspeci fied atrial fibrill ation DAVIDSON DAWSON A 02/02 [facility] OFFICE O/P EST MOD 30 MIN [id number] Diagnos is: ICD-10- CM R25.1 Tremor, unspeci fied TARYN EDGAR 02/02 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 BRIGHT OLIVO UL A 02/16 [facility] Encounter [id number] 02/18 [facility] O/P EST HI 40 MIN [id number] Diagnos is: ICD-10- CM I48.91 Unspeci fied atrial fibrill ation BRIDGER LOPEZ C 03/31 [facility] PRO PHONE CALL 11-20 MIN [id number] Diagnos is: ICD-10- CM I48.91 Unspeci fied atrial fibrill ation GRETCHEN CRANE 03/31 [facility] Encounter [id number] 03/31 [facility] HC PRO PHONE CALL 21-30 MIN [id number] Diagnos is: ICD-10- CM I48.91 Unspeci fied atrial fibrill ation HIMA CHRISTIANSON 04/06 [facility] Outpatient Encounter [id number] 04/08 [facility] OFFICE O/P EST MOD 30 MIN [id number] Diagnos is: ICD-10- CM Z01.818 Encount er for other preproc edural examSreekanth Pro 04/09 [facility] OFFICE O/P EST SF 10 MIN [id number] [id number] Diagnos is: ICD-10- CM I48.19 Other persist ent atrial fibrill ation ENEDINA SHIRLEY 04/09 [facility] Outpatient Encounter [id number] SKINNY RING 04/21 [facility] OFF/OP EST MAY X REQ PHY/QHP [id number] Diagnos is: ICD-10- CM R94.31 Abnorma l electro cardiog hernandez [ECG] [EKG] ANSLEY ELENA 05/01 [facility] OFFICE O/P EST HI 40 MIN [id number] Diagnos is: ICD-10- CM I48.91 Unspeci fied atrial fibrill ation AMANDA IRENE S 05/08 [facility] QNHP OL DIG ASSMT&MGMT 5-10 [id number] Diagnos is: ICD-10- CM Z51.81 Encount er for therape utic drug level monitor Kim [place] 06/12 [facility] Outpatient Encounter [id number] 06/22 [facility] HC PRO PHONE CALL 21-30 MIN [id number] [id number] Diagnos is: ICD-10- CM I48.91 Unspeci fied atrial fibrill ation HIMA CHRISTIANSON 06/26 [facility] Outpatient Encounter [id number] Diagnos is: ICD-10- CM R25.1 Tremor, unspeci fied ANN WALLACE 06/26 [facility] Outpatient Encounter [id number] 07/20 [facility] OFFICE O/P EST MOD 30 MIN [id number] Diagnos is: ICD-10- CM I48.91 Unspeci fied atrial fibrill ation RUSS BANUELOS 07/20 [facility] MEASURE BLOOD OXYGEN LEVEL [id number] [id number] Diagnos is: ICD-10- CM I48.91 Unspeci fied atrial fibrill ation DOV PHIPPS 07/22 [facility] ELECTROPHY S MAP 3D ADD-ON [id number] [id number] Diagnos is: ICD-10- CM I48.91 Unspeci fied atrial fibrill ation BRIDGER LOPEZ STEVEN C 07/22 [facility] Inpatient Encounter [id number] TARYN EDGAR 07/22 [facility] N [facility] 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 [id number] [id number] Diagnos is: ICD-10- CM Z71.81 Spiritu al or religio us claims counsel ing ZA MORALES 07/22 [facility] OFFICE O/P EST MOD 30 MIN [id number] Diagnos is: ICD-10- CM Z01.818 Encount er for other preproc edural examina JAQUELINE Abdi 07/22 [facility] Outpatient Encounter [id number] 07/22 [facility] Outpatient Encounter [id number] PABLO PACHECO ICA A 07/22 [facility] Outpatient Encounter [id number] Tye DAVIDSON EKCOYuan 07/22 [facility] Inpatient Encounter [id number] Admit Reason: ATRIAL FIBRILL ATION JENNIFER,GINO 07/22 [facility] Inpatient Encounter [id number] JOE AUGUSTE JR 07/22 [facility] Inpatient Encounter [id number] TERESE CANNON 07/22 [facility] Inpatient Encounter [id number] YOLANDA FIGUEROA 07/22 [facility] Inpatient Encounter [id number] YOLANDA FIGUEROA 07/22 [facility] Inpatient Encounter [id number] YOLANDA FIGUEROA 07/22 [facility] Inpatient Encounter [id number] CAROLINAYOLANDA 07/22 [facility] Inpatient Encounter [id number] JOE AUGUSTE SON JR 07/22 [facility] Encounter [id number] DEBRA AUGUSTEER SON JR 07/22 [facility] In[facility] Encounter [id number] MOLINAJOE SON JR 07/23 [facility] Inpatient Encounter [id number] DEBRA AUGUSTEER SON JR 07/23 [facility] Inpatient Encounter [id number] 07/23 [facility] Inpatient Encounter [id number] 07/23 [facility] MTMS BY PHARM EST 15 MIN [id number] Diagnos is: ICD-10- CM Z51.81 Encount er for therape utic drug level monitor ESAU Mesa 07/23 [facility] Inpatient Encounter [id number] PARKER,BUCHANANPrincess CARBONE E 07/23 [facility] Inpatient Encounter [id number] PARKER,BUCHANANPrincess CARBONE E 07/23 [facility] Inpatient Encounter [id number] PARKERCHANEL CARBONE E 07/23 [facility] Inpatient Encounter [id number] TEDDY MANRIQUEZ 07/23 [facility] 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 [id number] [id number] Diagnos is: ICD-10- CM Z71.81 Spiritu al or religio us claims counsel OLIVE Kingston 07/23 [facility] SBSQ HOSP IP/OBS HIGH 50 [id number] Diagnos is: ICD-10- CM I48.91 Unspeci fied atrial fibrill ation MISBAH AUGUSTIN OE K 07/23 [facility] Inpatient Encounter [id number] [id number] CHANEL PARKER RAF E 07/23 [facility] Inpatient Encounter [id number] CHANEL PARKER RAF E 07/23 [facility] Inpatient Encounter [id number] [id number] JOE AUGUSTE JR 07/24 [facility] Inpatient Encounter [id number] [id number] JOE AUGUSTE SON JR 07/24 [facility] Inpatient Encounter [id number] [id number] JOE AUGUSTE JR 07/24 [facility] Inpatient Encounter [id number] [id number] JOE AUGUSTE SON JR 07/24 [facility] Inpatient Encounter [id number] CASSANDRA PARKERU RAF E 07/24 [facility] Inpatient Encounter [id number] [id number] PARKERCASSANDRAU RAF E [facility]/OBS MODERATE 35 [id number] [id number] Diagnos is: ICD-10- CM I48.91 Unspeci fied atrial fibrill ation BRIDGER LOPEZ STEVEN C 07/24 [facility] Inpatient Encounter [id number] CHANEL PARKER RAF E 07/24 [facility] Outpatient Encounter [id number] 07/25 [facility] Outpatient Encounter [id number] [id number] JESÚS CASTILLO E 07/28 [facility] QNHP OL DIG ASSMT&MGMT 5-10 [id number] [id number] Diagnos is: ICD-10- CM Z51.81 Encount er for therape utic drug level monitor TRACY Ramos 07/29 [facility] Outpatient Encounter [id number] [id number] 07/29 [facility] CB OFFICE O/P EST LOW 20 MIN 88459-4.65 [id number] Diagnos is: ICD-10- CM Z23 Encount er for immuniz ation JESÚS CASTILLO E 07/31 [facility] Outpatient Encounter [id number] 08/03 [facility] Outpatient Encounter [id number] [id number] 08/17 [facility] OFFICE O/P EST HI 40 MIN 24605-8.65 [id number] Diagnos is: ICD-10- CM I48.91 Unspeci fied atrial fibrill ation BRIDGER LOPEZ STEVEN Uribe 08/18 [facility] Outpatient Encounter [id number] [id number] 08/18 [facility] Outpatient Encounter [id number] [id number] 3 08/20 [facility] Outpatient Encounter [id number] [id number] 08/20 [facility] Outpatient Encounter [id number] Diagnos is: ICD-10- CM R19.7 Diarrhe a, unspeci fied Rony WOLFE ONSTANNEIL D 08/20 [facility] OFFICE O/P EST MOD 30 MIN [id number] Diagnos is: ICD-10- CM R25.1 Tremor, unspeci fied TARYN EDGAR 08/25 [facility] OFFICE O/P NEW MOD 45 MIN [id number] Diagnos is: ICD-10- CM R31.29 Other microsc opic hematur ia AGUILAR,R ALPH J 09/14 [facility] Outpatient Encounter [id number] 12/21 [facility] Outpatient Encounter [id number] 12/29 [facility] Outpatient Encounter [id number] 01/01 [facility] Social History Combined list of available smoking, tobacco, and other social history from Department of Defense and [facility] Affairs facilities. Social History Type Response Date Comment Sourc e Tobacco smoking status NHIS VA-TOBACCO FORMER USER 2024 [facility] History of tobacco use VA-TOBACCO QUIT 1 5 YRS OR MORE 2024 [facility] History of tobacco use VA-TOBACCO FORMER USER 10/02/2022 [facility] History of tobacco use VA-TOBACCO FORMER USER 01/17/[address] [facility] History of tobacco use VA-TOBACCO FORMER USER 12/23/[address] [facility] History of tobacco use VA-TOBACCO NEVER USED 11/09/[address] [facility] History of tobacco use VA-TOBACCO NEVER USED 11/10/[address] 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 History of tobacco use LIFETIME NON-TOBA PLASTIC EXTRUSION OPERATOR USER 06/24/2014 [facility] History of tobacco use LIFETIME NON-TOBA PLASTIC EXTRUSION OPERATOR USER 10/21/2012 [facility] Plan of Care List of future care activities from Department of Veterans Affairs facilities. Additional future care activities may be listed in the Assessment and Plan section. Date/Time Care Activity Care Activity Detail Facili ty 01/19/2025 AMBULATORY - MEDICINE AMBULATORY - MEDICI NE [facility] 01/22/2025 AMBULATORY - NONE AMBULATORY - NONE [facility] 02/05/2025 AMBULATORY - MEDICINE AMBULATORY - MEDICI NE [facility] 03/01/2025 AMBULATORY - MEDICINE AMBULATORY - MEDICI NE 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
--- OUTSIDE RECORDS SUMMARY | 2025-01-11 11:58 | XMS_ITS ---
Author Name [facility] [facility] [place] Address [address] [place] [address] Care Team Providers Care Accounting Consultant Name Role Phone ASIYA FIERRO Primary Care Provider UnavailTARYN Gong Primary Care Provider Unavailab jenkins Insurance Providers: All historical and current Section [...] Name Patient's Relationship to Policy Gresham HUMANA [facility] MEDICARE ADVANTAGE [facility] ([facility] 2022 [id number] YANETMARIELOS PHEN PATIENT MEDICA [facility] ([facility]) MEDICARE ADVANTAGE [facility] ([facility]) May 25, 2013 [id number] [phone] HOLTMARIELOS PHEN PATIENT MEDICARE ([facility]) MEDICARE (M) PART B May 25, 2013 PART B [id number] [phone] HOLT,MARIELOS PHEN PATIENT MEDICARE (WN) MEDICARE (M) PART A Jul 26, 2012 PART A [id number] [phone] MARIELOS HOLT PATIENT MEDICARE PART D (WNR) MEDICARE (M) PART D March 25, 2013 PART D [id number] [phone] MARIELOS HOLT PATIENT [facility] (WNR) MEDICARE ADVANTAGE [facility] (WNR) Dec 26, 2022 [id number] [phone] MARIELOS HOLT PATIENT Selected Encounter This section includes the information on record at [place] for the Encounter. Date/Time Encounter Type Encounter Description Reason Provider Source Jul 22, 2024 03:28 PM Outpatient Encounter ADMIN PAT ACTIVTIES (MASNONCT) ALEX LAW Yuan Encounter Template Text not used by [...] 31, 2024 10:30 AM AMBULATORY - MEDICINE [facility] Aug 10, 2024 10:15 AM AMBULATORY - NONE [facility] Aug 18, 2024 10:30 AM AMBULATORY - MEDICINE [facility] Aug 20, 2024 08:30 PM AMBULATORY - NONE [facility] 2024 10:30 AM AMBULATORY - MEDICINE [facility] Sep 14, 2024 09:00 AM AMBULATORY - SURGERY [facility] Nov 02, 2024 10:00 AM AMBULATORY - NONE [facility] Jan 19, 2025 02:30 PM AMBULATORY - MEDICINE [facility] Jan 22, 2025 02:30 PM AMBULATORY - NONE [facility] Active, Pending, and Scheduled Orders This [...] TYPE & SCREEN - LAB BLOOD WC [facility] Lab Results: +/- 30 days of [...] Range Comment Aug 10, 2024 10:12 AM [facility] GLUCOSE,BLOOD-poct (STL) Specimen Type: BLOOD Comment: Test Performed by: [id number] Meter #: [id number] Ordering Provider: TARYN EDGAR Report Released Date/Time: Aug 10, 2024 10:28 AM Reporting Lab: [facility] [address] [facility] [address] Performing Lab: [facility] [address] [facility] [address] GLUCOSE,BLOOD-p oct (STL) 94 mg/dL 72-99 Jul 23, 2024 06:24 AM [facility] BASIC METABOLIC PANEL Specimen Type: PLASMA Comment: No hemolysis noted. Ordering Provider: ALFREDITO WILSON Report Released Date/Time: Jul 22, 2024 05:37 PM Reporting Lab: [facility] [address] [facility] [address] Performing Lab: [facility] [address] [facility] [address] CREATININE 0.78 mg/dL 0.7-1.3 UREA NITROGEN 14.4 mg/dL 9.0-25.0 GLUCOSE 113 mg/dL H 72-99 SODIUM 136 meq/L 136-145 POTASSIUM 3.7 meq/L 3.5-5 CHLORIDE 108 meq/L H 98-107 CARBON DIOXIDE 21 meq/L L 22-31 CALCIUM 8.3 mg/dL L 8.4-10.4 EGFR (CKD-EPI 2020) 92.4 >60 Jul 23, 2024 06:24 AM [facility] MAGNESIUM Specimen Type: PLASMA Comment: No hemolysis noted. Ordering Provider: ALFREDITO WILSON Report Released Date/Time: Jul 22, 2024 05:37 PM Reporting Lab: [address] [address] Performing Lab: [address] [address] MAGNESIUM 1.8 mg/dL 1.6-2.6 Jul 23, 2024 06:24 AM [facility] PHOSPHOROUS Specimen Type: PLASMA Comment: No hemolysis noted. Ordering Provider: ALFREDITO WILSON Report Released Date/Time: Jul 22, 2024 05:37 PM Reporting Lab: [address] [address] Performing Lab: [address] [address] PHOSPHOROUS 4.0 mg/dL 2.3-4.7 Jul 23, 2024 06:24 AM [facility] CBC Specimen Type: BLOOD Comment: VERIFIED BY REPEAT Ordering Provider: ALFREDITO WILSON Report Released Date/Time: Jul 22, 2024 05:37 PM Reporting Lab: [address] [address] Performing Lab: [address] [address] WBC 11.3 10*3/uL H 3.6-11.2 RBC 3.86 [...] SCRNPERF YES Jul 22, 2024 05:20 PM [facility] MRSA SURVL NARES DNA Specimen Type: [...] Jul 22, 2024 04:20 PM Reporting Lab: [place] [address] [facility] [place] [address] Performing Lab: [place] [address] [facility] [address] MRSA SURVL NARES DNA Negative Negative Jul 22, 2024 02:16 PM [facility] POC ACT-CELITE,HEMOCHRON (STL) Specimen Type: BLOOD Comment: Test Performed by: [id number] Meter #: [id number] Ordering Provider: TARYN EDGAR Report Released Date/Time: Jul 22, 2024 03:15 PM Reporting Lab: [place] [address] [facility] [place] [address] Performing Lab: [address] [address] POC ACT-CELITE,HEMO CHRON (STL) 174 s H 89-169 Jul 22, 2024 01:45 PM [facility] POC ACT-CELITE,HEMOCHRON (STL) Specimen Type: BLOOD Comment: Test Performed by: [id number] Meter #: [id number] Ordering Provider: TARYN EDGAR Report Released Date/Time: Jul 22, 2024 03:15 PM Reporting Lab: [address] [address] Performing Lab: [address] [address] POC ACT-CELITE,HEMO CHRON (STL) >400 s H 89-169 Jul 22, 2024 01:22 PM [facility] POC ACT-CELITE,HEMOCHRON (STL) Specimen Type: BLOOD Comment: Test Performed by: [id number] Meter #: [id number] Ordering Provider: TARYN EDGAR Report Released Date/Time: Jul 22, 2024 02:24 PM Reporting Lab: [address] [address] Performing Lab: [address] [address] POC ACT-CELITE,HEMO CHRON (STL) 355 s H 89-169 Jul 22, 2024 01:02 PM [facility] POC ACT-CELITE,HEMOCHRON (STL) Specimen Type: BLOOD Comment: Test Performed by: [id number] Meter #: [id number] Ordering Provider: TARYN EDGAR Report Released Date/Time: Jul 22, 2024 02:04 PM Reporting Lab: [address] [address] Performing Lab: [address] [address] POC ACT-CELITE,HEMO CHRON (STL) 339 s H 89-169 Jul 22, 2024 12:46 PM [facility] POC ACT-CELITE,HEMOCHRON (STL) Specimen Type: BLOOD Comment: Test Performed by: [id number] Meter #: [id number] Ordering Provider: TARYN EDGAR Report Released Date/Time: Jul 22, 2024 01:48 PM Reporting Lab: [address] [address] Performing Lab: [place] [phone] POC ACT-CELITE,HEMO CHRON (STL) 327 s H 89-169 Jul 22, 2024 12:30 PM [facility] POC ACT-CELITE,HEMOCHRON (STL) Specimen Type: BLOOD Comment: Test Performed by: [id number] Meter #: [id number] Ordering Provider: TARYN EDGAR Report Released Date/Time: Jul 22, 2024 01:48 PM Reporting Lab: [place] [phone] Performing Lab: [place] [phone] POC ACT-CELITE,HEMO CHRON (STL) >400 s H 89-169 Jul 22, 2024 12:07 PM [facility] POC ACT-CELITE,HEMOCHRON (STL) Specimen Type: BLOOD Comment: Test Performed by: [id number] Meter #: [id number] Ordering Provider: TARYN EDGAR Report Released Date/Time: Jul 22, 2024 01:16 PM Reporting Lab: [place] [phone] Performing Lab: [address] [address] POC ACT-CELITE,HEMO CHRON (STL) >400 s H 89-169 Jul 22, 2024 11:46 AM [facility] POC ACT-CELITE,HEMOCHRON (STL) Specimen Type: BLOOD Comment: Test Performed by: [id number] Meter #: [id number] Ordering Provider: TARYN EDGAR Report Released Date/Time: Jul 22, 2024 12:48 PM Reporting Lab: [address] [address] Performing Lab: [address] [address] POC ACT-CELITE,HEMO CHRON (STL) 354 s H 89-169 Jul 22, 2024 11:31 AM [facility] POC ACT-CELITE,HEMOCHRON (STL) Specimen Type: BLOOD Comment: Test Performed by: [id number] Meter #: [id number] Ordering Provider: TARYN EDGAR Report Released Date/Time: Jul 22, 2024 12:33 PM Reporting Lab: [address] [address] Performing Lab: [address] [address] POC ACT-CELITE,HEMO CHRON (STL) 373 s H 89-169 Jul 22, 2024 11:15 AM [facility] POC ACT-CELITE,HEMOCHRON (STL) Specimen Type: BLOOD Comment: Test Performed by: [id number] Meter #: [id number] Ordering Provider: TARYN EDGAR Report Released Date/Time: Jul 22, 2024 12:16 PM Reporting Lab: [address] [address] Performing Lab: [address] [address] POC ACT-CELITE,HEMO CHRON (STL) 318 s H 89-169 Jul 22, 2024 11:01 AM [facility] POC ACT-CELITE,HEMOCHRON (STL) Specimen Type: BLOOD Comment: Test Performed by: [id number] Meter #: [id number] Ordering Provider: TARYN EDGAR Report Released Date/Time: Jul 22, 2024 12:03 PM Reporting Lab: [address] [address] Performing Lab: [address] [address] POC ACT-CELITE,HEMO CHRON (STL) 313 s H 89-169 Jul 22, 2024 10:25 AM [facility] POC ACT-CELITE,HEMOCHRON (STL) Specimen Type: BLOOD Comment: Test Performed by: [id number] Meter #: [id number] Ordering Provider: TARYN EDGAR Report Released Date/Time: Jul 22, 2024 11:28 AM Reporting Lab: [address] [address] Performing Lab: [address] [address] POC ACT-CELITE,HEMO CHRON (STL) 379 s H 89-169 Jul 22, 2024 10:05 AM [facility] POC ACT-CELITE,HEMOCHRON (STL) Specimen Type: BLOOD Comment: Test Performed by: [id number] Meter #: [id number] Ordering Provider: TARYN EDGAR Report Released Date/Time: Jul 22, 2024 11:06 AM Reporting Lab: [address] [address] Performing Lab: [address] [address] POC ACT-CELITE,HEMO CHRON (STL) 388 s H 89-169 Jul 22, 2024 09:49 AM [facility] POC ACT-CELITE,HEMOCHRON (STL) Specimen Type: BLOOD Comment: Test Performed by: [id number] Meter #: [id number] Ordering Provider: TARYN EDGAR Report Released Date/Time: Jul 22, 2024 10:51 AM Reporting Lab: [address] [address] Performing Lab: [address] [address] POC ACT-CELITE,HEMO CHRON (STL) 351 s H 89-169 Jul 22, 2024 09:33 AM [facility] POC ACT-CELITE,HEMOCHRON (STL) Specimen Type: BLOOD Comment: Test Performed by: [id number] Meter #: [id number] Ordering Provider: TARYN EDGAR Report Released Date/Time: Jul 22, 2024 10:40 AM Reporting Lab: [address] [address] Performing Lab: [address] [address] POC ACT-CELITE,HEMO CHRON (STL) 269 s H 89-169 Jul 22, 2024 08:51 AM [facility] POC ACT-CELITE,HEMOCHRON ([facility]) Specimen Type: BLOOD Comment: Test Performed by: [id number] Meter #: [id number] Ordering Provider: TARYN EDGAR Report Released Date/Time: Jul 22, 2024 09:52 AM Reporting Lab: [address] [address] Performing Lab: [address] [address] POC ACT-CELITE,HEMO CHRON (L) 155 s 89-169 Jul 22, 2024 06:55 AM [facility] BASIC METABOLIC PANEL Specimen Type: PLASMA Comment: No hemolysis noted. Ordering Provider: GWENDOLYN CHA Report Released Date/Time: Jun 22, 2024 12:20 PM Reporting Lab: [address] [address] Performing Lab: [address] [address] CREATININE 1.00 mg/dL 0.7-1.3 UREA NITROGEN 16.9 mg/dL 9.0-25.0 GLUCOSE 107 mg/dL H 72-99 SODIUM 138 meq/L 136-145 POTASSIUM 4.4 meq/L 3.5-5 CHLORIDE 108 meq/L H 98-107 CARBON DIOXIDE 22 meq/L 22-31 CALCIUM 9.0 mg/dL 8.4-10.4 EGFR (CKD-EPI 2020) 78.0 >60 Jul 22, 2024 06:55 AM [facility] PT/INR NEW (L-IA) Specimen Type: PLASMA No comment entered. Ordering Provider: GWENDOLYN CHA Report Released Date/Time: Jun 22, 2024 12:20 PM Reporting Lab: [address] [address] Performing Lab: [address] [address] PROTIME 14.1 s H 9.4-12.5 INR VALUE 1.3 {INR} Jul 22, 2024 06:55 AM [facility] CBC Specimen Type: BLOOD No comment entered. Ordering Provider: GWENDOLYN CHA Report Released Date/Time: Jun 22, 2024 12:20 PM Reporting Lab: [address] [address] Performing Lab: [address] [address] WBC 14.6 10*3/uL H 3.6-11.2 RBC 4.72 [...] 10*3/uL 2.10-8.00 Jul 20, 2024 11:31 AM [facility] I-STAT, CREAT (ST-IA) Specimen Type: BLOOD Comment: Test Performed by: [id number] Meter #: [id number] Ordering Provider: TARYN EDGAR Report Released Date/Time: Jul 20, 2024 11:34 AM Reporting Lab: [facility] [address] [facility] [address] Performing Lab: [facility] [address] [facility] [place] [address] I-STAT, CREAT (STL-MA) 1.1 mg/dL 0.7-1.3 Vital Signs: All taken on the encounter date This section contains inpatient and outpatient Vital Signs collected on the date of the Encounter. Date/Time Temperature Pulse Blood Pressure Respiratory Rate SP02 Pain Height Weight Body Mass Index Source Jul 22, 2024 08:33 PM 0 [facility] Jul 22, 2024 08:32 PM 98 73 105/67 20 94 0 [facility] Jul 22, 2024 07:30 PM 98.3 70 121/68 20 97 [facility] Jul 22, 2024 06:40 PM 6 [facility] Jul 22, 2024 06:30 PM 70 106/66 19 97 [facility] Radiology Reports: +/- 30 days [...] PET/CT TUMOR IMAGING (SKULL TO MID-THIGH)-P: SABINE HOLT [id number] -[id number] M Exm Date: AUG 10, 2024@10:29 Req Phys: TARYN EDGAR Loc: [facility]-PRE-OP EVAL NURSING AM (Req Img Loc: [facility]-PET-CT Service: [facility] [address] [place] [address] (Case [id number] COMPLETE) PET/CT TUMOR SKULL BASE TO MID-T(NM Detailed) CPT:96630 CPT Modifiers : PI PET TUMOR INIT TX STRAT Reason for Study: lung nodule (Case [id number] COMPLETE) F-18 FLUORODEOXYGLUCOSE (FDG),PER(NM Detailed) CPT:A9552 Clinical History: Report Status: Verified Date Reported: AUG 10, 2024 Date Verified: AUG 10, 2024 Tamping Machine Operator E-Sig:/ES/BURKE CARRION M.D. Report: PATIENT NAME: SABINE HOLT. CASE #: [id number] PROCEDURE: PET/CT study HISTORY: A 78-year-old male [...] The brain is partially included in the [id number] and there is misregistration in the region [...] CARRION M.D., STAFF PHYSICIAN - DIAGNOSTIC IMAGING (Tamping Machine Operator) Primary Interpreting Resident: SIRENA VAN, Resident Physician /BURKE PATRICIA [facility] Jul 20, 2024 11:[address] HEART & VENOUS MAPPING W/3D: SABINE HOLT [id number] -[id number] M Ex Date: JUL 20, 2024@11:10 Req Phys: GWENDOLYN CHA Loc: [facility]-PRE-OP EVAL NURSING AM (Req Img Loc: [facility]-CT IMAGING [facility] Service: Unknown [facility] [address] [place] [address] (Case [id number] COMPLETE) CT HEART W CONTRAST & VENOUS JOSE(CT Detailed) CPT:15778 Reason for Study: pulmonary vein mapping Clinical History: Responsible Attending: Dr Cha Attending Contact Number: [phone] Resident Contact Number: Enter Hx and Reason [...] 22, 2024 Date Verified: JUL 22, 2024 Tamping Machine Operator E-Sig:/ES/ADA Demian WIGGINST Report: Case [id number]. CT heart with contrast & venous mapping. Max CTDI(vol): 12.46 mGy. Total DLP: 104 mGy*cm. TECHNIQUE: Cardiac CT was obtained with bolus IV contrast administration without gating. Multiplanar reformatted images and 3-D models were reconstructed as a CT cardiac pulmonary venogram for electrophysiology planning. Images were reformatted and analyzed using [employer] [place] Suite software. NUMBER OF PULMONARY VEINS: 2 [...] advised. Primary Interpreting Staff: ADA WIGGINS MD (Tamping Machine Operator) /ADA [facility] Encounter Notes: All associated encounter notes This section contains the clinical notes associated to the Encounter. Date/Time Encounter Note(s) Provider Source Jul 22, 2024 03:28 PM ANESTHESIOLOGY MALATHI WSHEET: LOCAL TITLE: ANES INTRA-OP FLOWSHEET STL STANDARD TITLE: ANESTHESIOLOGY FLOWSHEET DATE OF NOTE: JUL 22, 2024@15:28 ENTRY DATE: JUL 22, 2024@15:28:33 AUTHOR: ALEX LAW COSIGNER: URGENCY: STATUS: COMPLETED Patient: SABINE HOLT SSN: [id number] Date of Operation: 07/22/2024 Surgery Start Time: Surgery End Time: Anesthesia Care Start: 07/22/2024 8:51 Anesthesia Care End: Anesthesia Method: General 07/22/2024 9:11 (Primary), Airway: Endotracheal Intubation, Technique: Direct Laryngoscopy, Level Of Consciousness: Sedated, Patient Position: Supine, Preoxygenated, Induction Type: Intravenous, Breathing Circuit: [place] Adult, Ventilation by Mask: Easy to Ventilate with Aid/Adjunct, Intubating Device: Curved Blade, Ease: Easy, 1 Number Of Attempts, Intubation View: Grade 1, Blade Size: 4, Size: 8 mm, Depth (cm): 24, Tube: Cuffed, Depth Measurement Location: Lips, Tracheal Cuff Inflated With Min. Volume To Create Seal, Tracheal Cuff Inflated With: Air, EtCO2 Verified: Waveform, Breath Sounds: Equal And Bilateral, Epigastric Sounds Negative, Performed By: Other, Result: Atraumatic Rationale For Selected Technique: Elective Route: Oral Airway Preparation: Lubricant Tube Checklist: Balloons Checked, Attachments Available Airway Tube: Standard Adjunct Devices: Head Strap, Oral Airway, Stylet Verification Of Tube Placement: Tube Inserted Via DVVC (Direct Vision Vocal Cords), Bilateral Chest Movement Securement: Taped Eye Protection: Both Eyes, Tape Insertion Complication: No Complications Noted Positioning: Head Neutral, Head And Neck In Alignment With Spine, Pressure Points Padded & Checked, Eyes, Ears And Nose Free Of Pressure vasu rrna intubated, atraumatic, dentition unchanged ASA Number: 3 Procedure: ep afib ablation Diagnosis: afib Holding, Anesthesia, PACU Drugs: -------- Phenylephrine gtt: 6403.294 mcg FentaNYL: 75 mcg Lidocaine: 40 mg Propofol: 120 mg Sugammadex: 200 mg Rocuronium: 100 mg Phenylephrine: 1000 mcg ePHEDrine: 10 mg Glycopyrrolate: 0.3 mg Etomidate: 10 mg Heparin Sodium: 89866 unit Protamine: 40 mg Holding, Anesthesia, PACU Fluids: --------- Normal Saline: 600 ml Urine Output: 825 ml Resources: Safety Belt Arm Sleds - Right Arm On Armboards < 90 Degrees Abduction At Shoulders - Left Padding at wrists - Bilateral Padding At Elbows - Bilateral Staff: --------- CECE BOOGIE PRIN. ANES. RUTER, STEPHANIE, PRIN. ANES. CHEN, PAUL, ANES. SUPER. BAUMGARTNER, CHRISTINA, RELIEF OXIDIZED FINISH PLATER EZEQUIEL DAVIS, RELIEF OXIDIZED FINISH PLATER ALEX LAW, RELIEF OXIDIZED FINISH PLATER CECE BOOGIE PRIN. ANES. Anesthesia Procedure: ---- Procedure 07/22/2024 9:28 Line Number: 3, Level Of Consciousness: Anesthetized, Site: Radial Artery, Laterality: Left, Catheter Type: Arrow Kit, Catheter Size: 20, Inserted By: ANES. JENSEN, Co-Performed By: Other, 2 Number Of Attempts Patient Location: Post Induction - OR Sterile Procedure Prep: Mask, Sterile Gown, Sterile Gloves, Full Aseptic Technique, Chlorhexidine Technique: Ultrasound - Real Time Guidance Securement: Chlorhexidine Patch Dressing Observation: Waveform - Good Procedure 07/22/2024 8:51 In Situ, Line Number: 1, Site: Arm, Laterality: Right, Catheter Type: Angio, Catheter Size: 20 Ga Securement: Sterile Occlusive Dressing Procedure 07/22/2024 9:11 Line Number: 2, Level Of Consciousness: Anesthetized, Site: Hand, Laterality: Right, Catheter Type: Angio, Catheter Size: 20 Ga, Inserted By: Moderate Sedation Nurse Patient Location: Post Induction - OR Sterile Procedure Prep: Chlorhexidine Technique: Standard Securement: Sterile Occlusive Dressing Procedure Date: 07/22/2024 Procedure Start Time: 07/22/2024 9:53 Procedure End Time: 07/22/2024 15:12 /dionna/ Alex Law THREAD GRINDER THREAD GRINDER Signed: 07/22/2024 15:28 [facility]
--- OUTSIDE RECORDS SUMMARY | 2025-01-11 11:59 | XMS_ITS | Encounter Summary ---
Author Name [facility] [place] [facility] [place] [facility] [place] Address [address] [place] [address] Care Team Providers Care Cook Helper Fruit Name Role Phone ASIYA FIERRO Primary Care [...] Name Patient's Relationship to Policy Gresham HUMANA [facility] ([facility]) MEDICARE ADVANTAGE [facility] ([facility]) 2022 [id number] [phone] HOLTMARIELOS PHEN PATIENT MEDICA [facility] ([facility]) MEDICARE ADVANTAGE [facility] ([facility]) May 25, 2013 [id number] [phone] HOLTMARIELOS PHEN PATIENT MEDICARE ([facility]) MEDICARE (M) PART B May 25, 2013 PART B [id number] [phone] HOLTMARIELOS PHEN PATIENT MEDICARE (WNR) MEDICARE (M) PART A Jul 26, 2012 PART A [id number] [phone] MARIELOS HOLT PATIENT MEDICARE PART D (WNR) MEDICARE (M) PART D March 25, 2013 PART D [id number] MARIELOS HOLT PATIENT [facility] (WNR) MEDICARE ADVANTAGE [facility] (WNR) Dec 26, 2022 [id number] MARIELOS HOLT PATIENT Selected Encounter This section includes the information on record at NH for the Encounter. Date/Time Encounter Type Encounter Description Reason Provider Source May 01, 2024 10:00 AM OFF/OP EST MARCH X REQ PHY/QHP PRIMARY CARE/MEDICINE ICD-10-CM R94.31 Abnormal electrocardiogram [ECG] [EKG] PATSY ELENA [facility] Encounter Template Text not used by [place] Assessments - Encounter Diagnoses This section includes the primary and secondary diagnoses documented for the Encounter. Date/Time Primary/Secondary Diagnosis Diagnosis Name Provider Source May 06, 2024 10:56 AM PRIMARY Abnormal electrocardiogram [ECG] [EKG] [facility]MA [facility] Plan of Treatment: Future Appointments (+ 6 months) and Future Tests (+/- 45 days) The Plan of Treatment section includes future care activities for the patient [facility]. This section includes future appointments and future orders which are active, pending or scheduled. Future Appointments This section includes appointments that were scheduled to occur 6 months from the date of the Encounter, up to a maximum of 20 appointments. The data comes from all [place] treatment facilities. Appointment Date/Time Appointment Type Appointme nt Facility Name May 08, 2024 10:00 AM AMBULATORY - MEDICINE [facility] Jul 20, 2024 10:15 AM AMBULATORY - MEDICINE [facility] Jul 20, 2024 03:00 PM AMBULATORY - NONE [facility] Jul 22, 2024 06:00 AM [facility] Jul 22, 2024 06:15 AM AMBULATORY - MEDICINE [facility] Jul 31, 2024 10:30 AM AMBULATORY - MEDICINE [facility] Aug 10, 2024 10:15 AM AMBULATORY - NONE [facility] Aug 18, 2024 10:30 AM AMBULATORY - MEDICINE [facility] Aug 20, 2024 08:30 PM AMBULATORY - NONE [facility] 2024 10:30 AM AMBULATORY - MEDICINE [facility] Sep 14, 2024 09:00 AM AMBULATORY - SURGERY [facility] Social History: Smoking Status (Most current) and Tobacco Use (All prior to encounter date) This section includes the most current, and the historical, smoking and tobacco- related health factors from the NH facility where the Encounter took place. Current Smoking Status This section includes the most current smoking, or tobacco-related health factor, from the [place] facility where the Encounter took place. Date/Time Current Smoking Status Comment Lilly ity Oct 02, 2022 01:00 PM VA-TOBACCO FORMER USER [facility] Tobacco Use History This section includes a history of the smoking, or tobacco-related health factors, that were collected on or before the date of the Encounter. The data comes from the [place] facility where the Encounter took place. Date/Time Smoking Status/Tobacco Use Comment F acility Oct 02, 2022 01:00 PM VA-TOBACCO QUIT [address] [facility] Encounter Notes: All associated encounter notes This section contains the clinical notes associated to the Encounter. Date/Time Encounter Note(s) Provider Source May 02, 2024 02:55 PM CARDIOLOGY DIAGNOS TIC STUDY CONSULT: LOCAL TITLE: EKG CONSULT STL STANDARD TITLE: CARDIOLOGY DIAGNOSTIC STUDY CONSULT DATE OF NOTE: MAY 02, 2024@14:55:24 ENTRY DATE: MAY 02, 2024@14:55:24 AUTHOR: CLINICAL,DEVICE PRO EXP COSIGNER: URGENCY: STATUS: COMPLETED DOCUMENT IN [facility] SEE FULL REPORT IN [facility] SIGNATURE NOT REQUIRED SEE SIGNATURE IN [facility] ([employer] EKG) AUTO-INSTRUMENT DIAGNOSIS Procedure: [id number] 12 Lead ECG Release Status: Released Off-Line Verified Date Verified: May 02, 2024@14:55:19 10184.2 Ventricular Rate: 63 BPM 49784.3 Atrial Rate: 63 BPM 10870.4 P-R Interval: 176 ms 40945.5 QRS Duration: 100 ms 38778.6 Q-T Interval: 440 ms 01834 QTC Calculation(Bazett)450 ms 85922.12 Calculated P Lyons: -2 degrees 99831.13 Calculated R Lyons: -53 degrees 21280.14 Calculated T Lyons: 34 degrees Normal sinus rhythm with sinus arrhythmia Incomplete right bundle branch block Left anterior fascicular block Abnormal ECG When compared with ECG of 09-APR-2024 10:09, No significant change was found Administrative Closure: 05/02/2024 by: CLINICAL,DEVICE PROXY SERVICE CLINICAL,DEVICE PROXY SERVICE [facility] May 01, 2024 10:06 AM NURSING NOTE: LOCAL TITLE: V15 PACT FACE TO FACE NOTE STL STANDARD TITLE: NURSING NOTE DATE OF NOTE: MAY 01, 2024@10:06 ENTRY DATE: MAY 01, 2024@10:06:30 AUTHOR: PATSY ELENA EXP COSIGNER: URGENCY: STATUS: COMPLETED Nurse Visit: Patient Identifiers : Full Name Date of Reason for visit: EKG Mode of Arrival: Ambulatory Allergy Review: PENICILLIN Allergy list reviewed and remains current. Procedures' Verified provider order Date & time:05/01/2024 @ 09:58 Indication: dronedarone monitoring EKG results' with LAYO Right BBB Left AFB / Abnormal EKG Reviewed by Provider: Dr. Dean Olden instructed: Provider reviewed EKG and okay for to go home. That the ordering provider would review his EKG. Olden's understanding verified by teach back: Yes Contact provided Primary Care phone number and encouraged to call if any questions or concerns. Review that after hours nurse line [phone] and emergency room are available 17/06 for patient use. /es/ PATSY ELENA RN, MSN REGISTERED NURSE Signed: 05/05/2024 15:[address] [facility]
--- OUTSIDE RECORDS SUMMARY | 2025-01-11 11:59 | XMS_ITS | Encounter Summary ---
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 Role Phone ASIYA FIERRO Primary Care Provider UnavailTARYN Gong Primary Care Provider Unavailab le Insurance Providers: All historical and current [...] Name Patient's Relationship to Policy Gresham HUMANA [facility] ([facility]) MEDICARE ADVANTAGE [facility] ([facility]) 2022 [id number] MARIELOS HOLT PHEN PATIENT MEDICA [facility] ([facility]) MEDICARE ADVANTAGE [facility] ([facility]) May 25, 2013 [id number] [phone] MARIELOS HOLT PHEN PATIENT MEDICARE ([facility]) MEDICARE (M) PART B May 25, 2013 PART B [id number] [phone] MARIELOS HOLT PHEN PATIENT MEDICARE ([facility]) MEDICARE (M) PART A Jul 26, 2012 PART A [id number] [phone] MARIELOS HOLT PATIENT MEDICARE PART D (WNR) MEDICARE (M) PART D March 25, 2013 PART D [id number] [facility] MEDIC[facility] ADVANTAGE [facility] (WNR) Dec 26, 2022 [id number] MARIELOS HOLT PATIENT Selected Encounter This section includes the information on record at [facility] for the Encounter. Date/Time Encounter Type Encounter Description Reason Pro vider Source IHE Encounter Template Text not used by [facility]
--- OUTSIDE RECORDS SUMMARY | 2025-01-11 11:59 | XMS_ITS | Encounter Summary ---
Author Name [facility] [facility] [place] [facility] [place] Address [address] [place] [address] Care Team Providers Care Chute Tapper Name Role Phone ASIYA FIERRO Primary Care [...] Name Patient's Relationship to Policy Gresham HUMANA [facility] ([facility]) MEDICARE ADVANTAGE [facility] ([facility]) 2022 [id number] [phone] YANETMARIELOS PHEN PATIENT [facility] ([facility]) MEDICARE ADVANTAGE [facility] ([facility]) May 25, 2013 [id number] HOLTMARIELOS PHEN PATIENT MEDICARE ([facility]) MEDICARE (M) PART B May 25, 2013 PART B [id number] [phone] HOLTMARIELOS CORDOVA PHEN PATIENT MEDICARE ([facility]) MEDICARE (M) PART A Jul 26, 2012 PART A [id number] MARIELOS HOLT PATIENT MEDICARE PART D (WNR) MEDICARE (M) PART D March 25, 2013 PART D [id number] [phone] MARIELOS HOLT PATIENT [facility] (WNR) MEDICARE ADVANTAGE [facility] (WNR) Dec 26, 2022 [id number] MARIELOS HOLT PATIENT Selected Encounter This section includes the information on record at [place] for the Encounter. Date/Time Encounter Type Encounter Description Reason Provider Source Aug 18, 2024 10:30 AM OFFICE O/P EST HI 40 MIN CIED DEVICES ICD-10-CM I48.91 Unspecified atrial fibrillation PAYAM LOPEZ [facility] Encounter Template Text not used by [place] Assessments - Encounter Diagnoses This section includes the primary and secondary diagnoses documented for the Encounter. Date/Time Primary/Secondary Diagnosis Diagnosis Name Provider Source Aug 18, 2024 11:53 AM PRIMARY Unspecified atrial fibrillation PAYAM LOPEZ [facility] Plan of Treatment: Future Appointments (+ 6 months) and Future Tests (+/- 45 days) The Plan of Treatment section includes future care activities for the patient from all [place] treatmentfacilities. This section includes future appointments and future orders which are active, pending or scheduled. Future Appointments This section includes appointments that were scheduled to occur 6 months from the date of the Encounter, up to a maximum of 20 appointments. The data comes from all [place] treatment facilities. Appointment Date/Time Appointment Type Appointme nt Facility Name Aug 20, 2024 08:30 PM [facility] 2024 10:30 AM AMBULATORY - MEDICINE [facility] Sep 14, 2024 09:00 AM AMBULATORY - SURGERY . [facility] Nov 02, 2024 10:00 AM AMBULATORY - NONE [facility] Jan 19, 2025 02:30 PM AMBULATORY - MEDICINE [facility] Jan 22, 2025 02:30 PM AMBULATORY - NONE [facility] Feb 05, 2025 02:30 PM AMBULATORY - MEDICINE [facility] Active, Pending, and Scheduled Orders This section includes a listing of several types of active, pending, and scheduled orders, including clinic medications orders, diagnostic test orders, procedure orders and consult orders; where the start date of the order is 45 days before the date of the Encounter or 45 days after the date of theEncounter. The data comes from all [place] treatment facilities. Test Date/Time Test Type Test Details Facility Name Jul 22, 2024 06:00 AM Laboratory - Blood Bank Order TYPE & SCREEN - LAB BLOOD WC [facility] Lab Results: +/- 30 days of the encounter This section includes the Chemistry and Hematology Lab Results on record with [place] for the patient. Radiology Reports and Pathology Reports are provided separately, in subsequent sections. Lab Results This section contains the Chemistry/Hematology Results that were resulted 30 days before or 30 daysafter the date of the Encounter. Date/Time Source Result Type Result - Unit Interpretation Reference Range Comment 2024 11:50 AM [facility] URIC ACID Specimen Type: PLASMA Comment: No hemolysis noted. Ordering Provider: TARYN EDGAR Report Released Date/Time: 2024 10:17 AM Reporting Lab: [facility] [address] [facility] [address] Performing Lab: [place] [address] [facility] [place] [address] URIC ACID 6.0 mg/dL 3.5-7.2 2024 11:50 AM [facility] VITAMIN D, 25-HYDROXY Specimen Type: SERUM Comment: The listed sex of this patient may not be a typical indication for this test. Therefore, reference ranges or interpretive criteria listed may not be valid. Clinical correlation suggested. Ordering Provider: TARYN EDGAR Report Released Date/Time: 2024 10:17 AM Reporting Lab: [facility] [address] [facility] [address] Performing Lab: [place] [address] [facility] [place] [place] [address] VITAMIN D, 25-HYDROXY 63.1 ng/mL 30-96 2024 11:50 AM [facility] PROST. SPECIFIC AG.(PB-STL) Specimen Type: SERUM Comment: The listed sex of this patient may not be a typical indication for this test. Therefore, reference ranges or interpretive criteria listed may not be valid. Clinical correlation suggested. Ordering Provider: TARYN EDGAR Report Released Date/Time: 2024 10:20 AM Reporting Lab: [facility] [address] [place] [address] Performing Lab: [facility] [address] [place] [address] PROST. SPECIFIC AG.(PB-STL) 1.456 ng/mL 0-4 2024 11:50 AM [facility] COMPREHENSIVE METABOLIC PANEL Specimen Type: PLASMA Comment: No hemolysis noted. Ordering Provider: TARYN EDGAR Report Released Date/Time: 2024 10:17 AM Reporting Lab: [address] [address] Performing Lab: [address] [address] CREATININE 0.89 mg/dL 0.7-1.3 UREA NITROGEN 16.1 [...] (CKD-EPI 2020) 88.3 >60 2024 11:50 AM [facility] CBC Specimen Type: BLOOD No comment entered. Ordering Provider: TARYN EDGAR Report Released Date/Time: 2024 10:17 AM Reporting Lab: [facility] [address] [place] [address] Performing Lab: [address] [address] WBC 9.3 10*3/uL 3.6-11.2 RBC 4.07 10*6/uL [...] ABSOLUTE 0.04 10*3/uL 0.00-0.20 2024 11:50 AM [facility] URINALYSIS (STL-PB) Specimen Type: URINE No comment entered. Ordering Provider: TARYN EDGAR Report Released Date/Time: 2024 10:20 AM Reporting Lab: [facility] [address] [facility] [address] Performing Lab: [facility] [address] [facility] [address] URINE COLOR Light-Yellow Yellow U.BILIRUBIN Negative mg/dL Negative U.PH 6.0 5.0-8.0 URINE WBC/HPF 1 /[HPF] 0-5 URINE RBC/HPF 2 /[HPF] 0-5 APPEARANCE Clear Clear U.NITRITE Negative mg/dL Negative MUCUS RARE /[LPF] Negative -R are CA OXYLATE CRYSTALS RARE /[HPF] Negative-R are URN.GLUCOSE Normal mg/dL Negative URN.PROTEIN 20 mg/dL H Negative -2 0 URN.UROBILINOGE N Normal mg/dL Normal URN.BLOOD Negative mg/dL Negat dutch-T race URN.KETONES Negative mg/dL Neg ative-T race URN.LEUK.EST. Negative mg/dL N egative-T race URN.SPECIFIC GRAVITY 1.026 1.005-1.02 9 Aug 10, 2024 10:12 AM [facility] GLUCOSE,BLOOD-poct (STL) Specimen Type: BLOOD Comment: Test Performed by: [id number] Meter #: [id number] Ordering Provider: TARYN EDGAR Report Released Date/Time: Aug 10, 2024 10:28 AM Reporting Lab: [address] [address] Performing Lab: [address] [address] GLUCOSE,BLOOD-p oct (STL) 94 mg/dL 72-99 Jul 23, 2024 06:24 AM [facility] MAGNESIUM Specimen Type: PLASMA Comment: No hemolysis noted. Ordering Provider: ALFREDITO WILSON Report Released Date/Time: Jul 22, 2024 05:37 PM Reporting Lab: [address] [address] Performing Lab: [address] [address] MAGNESIUM 1.8 mg/dL 1.6-2.6 Jul 23, 2024 06:24 AM [facility] BASIC METABOLIC PANEL Specimen Type: PLASMA Comment: No hemolysis noted. Ordering Provider: ALFREDITO WILSON Report Released Date/Time: Jul 22, 2024 05:37 PM Reporting Lab: [address] [address] Performing Lab: [address] [address] CREATININE 0.78 mg/dL 0.7-1.3 UREA NITROGEN 14.4 mg/dL 9.0-25.0 GLUCOSE 113 mg/dL H 72-99 SODIUM 136 meq/L 136-145 POTASSIUM 3.7 meq/L 3.5-5 CHLORIDE 108 meq/L H 98-107 CARBON DIOXIDE 21 meq/L L 22-31 CALCIUM 8.3 mg/dL L 8.4-10.4 EGFR (CKD-EPI 2020) 92.4 >60 Jul 23, 2024 06:24 AM [facility] PHOSPHOROUS Specimen Type: PLASMA Comment: No hemolysis noted. Ordering Provider: ALFREDITO WILSON Report Released Date/Time: Jul 22, 2024 05:37 PM Reporting Lab: [address] [address] Performing Lab: [address] [address] PHOSPHOROUS 4.0 mg/dL 2.3-4.7 Jul 23, 2024 06:24 AM [facility] CBC Specimen Type: BLOOD Comment: VERIFIED BY REPEAT Ordering Provider: ALFREDITO WILSON Report Released Date/Time: Jul 22, 2024 05:37 PM Reporting Lab: [address] [address] Performing Lab: [address] [address] WBC 11.3 10*3/uL H 3.6-11.2 RBC 3.86 [...] SCRNPERF YES Jul 22, 2024 05:20 PM [facility] MRSA SURVL NARES DNA Specimen Type: NARES [...] Jul 22, 2024 04:20 PM Reporting Lab: [address] [address] Performing Lab: [place] [address] [facility] [address] MRSA SURVL NARES DNA Negative Negative Jul 22, 2024 02:16 PM [facility] POC ACT-CELITE,HEMOCHRON (STL) Specimen Type: BLOOD Comment: Test Performed by: [id number] Meter #: [id number] Ordering Provider: TARYN EDGAR Report Released Date/Time: Jul 22, 2024 03:15 PM Reporting Lab: [place] [address] [facility] [address] Performing Lab: [place] [address] [facility] [address] POC ACT-CELITE,HEMO CHRON (STL) 174 s H 89-169 Jul 22, 2024 01:45 PM [facility] POC ACT-CELITE,HEMOCHRON (STL) Specimen Type: BLOOD Comment: Test Performed by: [id number] Meter #: [id number] Ordering Provider: TARYN EDGAR Report Released Date/Time: Jul 22, 2024 03:15 PM Reporting Lab: [facility] [address] [facility] [address] Performing Lab: [facility] [address] [facility] [address] POC ACT-CELITE,HEMO CHRON (STL) >400 s H 89-169 Jul 22, 2024 01:22 PM [facility] POC ACT-CELITE,HEMOCHRON (STL) Specimen Type: BLOOD Comment: Test Performed by: [id number] Meter #: [id number] Ordering Provider: TARYN EDGAR Report Released Date/Time: Jul 22, 2024 02:24 PM Reporting Lab: [address] [address] Performing Lab: [address] [address] POC ACT-CELITE,HEMO CHRON (STL) 355 s H 89-169 Jul 22, 2024 01:02 PM [facility] POC ACT-CELITE,HEMOCHRON (STL) Specimen Type: BLOOD Comment: Test Performed by: [id number] Meter #: [id number] Ordering Provider: TARYN EDGAR Report Released Date/Time: Jul 22, 2024 02:04 PM Reporting Lab: [place] [address] [facility] [address] Performing Lab: [address] [address] POC ACT-CELITE,HEMO CHRON (STL) 339 s H 89-169 Jul 22, 2024 12:46 PM [facility] POC ACT-CELITE,HEMOCHRON (STL) Specimen Type: BLOOD Comment: Test Performed by: [id number] Meter #: [id number] Ordering Provider: TARYN EDGRA Report Released Date/Time: Jul 22, 2024 01:48 PM Reporting Lab: [address] [address] Performing Lab: [address] [address] POC ACT-CELITE,HEMO CHRON (STL) 327 s H 89-169 Jul 22, 2024 12:30 PM [facility] POC ACT-CELITE,HEMOCHRON (STL) Specimen Type: BLOOD Comment: Test Performed by: [id number] Meter #: [id number] Ordering Provider: TARYN EDGAR Report Released Date/Time: Jul 22, 2024 01:48 PM Reporting Lab: [address] [address] Performing Lab: [address] [address] POC ACT-CELITE,HEMO CHRON (STL) >400 s H 89-169 Jul 22, 2024 12:07 PM [facility] POC ACT-CELITE,HEMOCHRON (STL) Specimen Type: BLOOD Comment: Test Performed by: [id number] Meter #: [id number] Ordering Provider: TARYN EDGAR Report Released Date/Time: Jul 22, 2024 01:16 PM Reporting Lab: [address] [address] Performing Lab: [address] [address] POC ACT-CELITE,HEMO CHRON (STL) >400 s H 89-169 Jul 22, 2024 11:46 AM [facility] POC ACT-CELITE,HEMOCHRON (STL) Specimen Type: BLOOD Comment: Test Performed by: [id number] Meter #: [id number] Ordering Provider: TARYN EDGAR Report Released Date/Time: Jul 22, 2024 12:48 PM Reporting Lab: [place] [address] [facility] [address] Performing Lab: [address] [address] POC ACT-CELITE,HEMO CHRON (STL) 354 s H 89-169 Jul 22, 2024 11:31 AM [facility] POC ACT-CELITE,HEMOCHRON (STL) Specimen Type: BLOOD Comment: Test Performed by: [id number] Meter #: [id number] Ordering Provider: TARYN EDGAR Report Released Date/Time: Jul 22, 2024 12:33 PM Reporting Lab: [address] [address] Performing Lab: [address] [address] POC ACT-CELITE,HEMO CHRON (STL) 373 s H 89-169 Jul 22, 2024 11:15 AM [facility] POC ACT-CELITE,HEMOCHRON (STL) Specimen Type: BLOOD Comment: Test Performed by: [id number] Meter #: [id number] Ordering Provider: TARYN EDGAR Report Released Date/Time: Jul 22, 2024 12:16 PM Reporting Lab: [address] [address] Performing Lab: [address] [address] POC ACT-CELITE,HEMO CHRON (STL) 318 s H 89-169 Jul 22, 2024 11:01 AM [facility] POC ACT-CELITE,HEMOCHRON (STL) Specimen Type: BLOOD Comment: Test Performed by: [id number] Meter #: [id number] Ordering Provider: TARYN EDGAR Report Released Date/Time: Jul 22, 2024 12:03 PM Reporting Lab: [address] [address] Performing Lab: [address] [address] POC ACT-CELITE,HEMO CHRON (STL) 313 s H 89-169 Jul 22, 2024 10:25 AM [facility] POC ACT-CELITE,HEMOCHRON (STL) Specimen Type: BLOOD Comment: Test Performed by: [id number] Meter #: [id number] Ordering Provider: TARYN EDGAR Report Released Date/Time: Jul 22, 2024 11:28 AM Reporting Lab: [address] [address] Performing Lab: [address] [address] POC ACT-CELITE,HEMO CHRON (STL) 379 s H 89-169 Jul 22, 2024 10:05 AM [facility] POC ACT-CELITE,HEMOCHRON (STL) Specimen Type: BLOOD Comment: Test Performed by: [id number] Meter #: [id number] Ordering Provider: TARYN EDGAR Report Released Date/Time: Jul 22, 2024 11:06 AM Reporting Lab: [address] [address] Performing Lab: [address] [address] POC ACT-CELITE,HEMO CHRON (STL) 388 s H 89-169 Jul 22, 2024 09:49 AM [facility] POC ACT-CELITE,HEMOCHRON (STL) Specimen Type: BLOOD Comment: Test Performed by: [id number] Meter #: [id number] Ordering Provider: TARYN EDGAR Report Released Date/Time: Jul 22, 2024 10:51 AM Reporting Lab: [address] [address] Performing Lab: [address] [address] POC ACT-CELITE,HEMO CHRON (STL) 351 s H 89-169 Jul 22, 2024 09:33 AM [facility] POC ACT-CELITE,HEMOCHRON (STL) Specimen Type: BLOOD Comment: Test Performed by: [id number] Meter #: [id number] Ordering Provider: TARYN EDGAR Report Released Date/Time: Jul 22, 2024 10:40 AM Reporting Lab: [address] [address] Performing Lab: [address] [address] POC ACT-CELITE,HEMO CHRON (STL) 269 s H 89-169 Jul 22, 2024 08:51 AM [facility] POC ACT-CELITE,HEMOCHRON (STL) Specimen Type: BLOOD Comment: Test Performed by: [id number] Meter #: [id number] Ordering Provider: TARYN EDGAR Report Released Date/Time: Jul 22, 2024 09:52 AM Reporting Lab: [facility] [address] [place] [address] Performing Lab: [address] [address] POC ACT-CELITE,HEMO CHRON ([facility]) 155 s 89-169 Jul 22, 2024 06:55 AM [facility] PT/INR NEW ([facility]) Specimen Type: PLASMA No comment entered. Ordering Provider: PAYAM LOPEZ Report Released Date/Time: Jun 22, 2024 12:20 PM Reporting Lab: [address] [address] Performing Lab: [address] [address] PROTIME 14.1 s H 9.4-12.5 INR VALUE 1.3 {INR} Jul 22, 2024 06:55 AM [facility] BASIC METABOLIC PANEL Specimen Type: PLASMA Comment: No hemolysis noted. Ordering Provider: PAYAM LOPEZ Report Released Date/Time: Jun 22, 2024 12:20 PM Reporting Lab: [address] [address] Performing Lab: [address] [address] CREATININE 1.00 mg/dL 0.7-1.3 UREA NITROGEN 16.9 mg/dL 9.0-25.0 GLUCOSE 107 mg/dL H 72-99 SODIUM 138 meq/L 136-145 POTASSIUM 4.4 meq/L 3.5-5 CHLORIDE 108 meq/L H 98-107 CARBON DIOXIDE 22 meq/L 22-31 CALCIUM 9.0 mg/dL 8.4-10.4 EGFR (CKD-EPI 2020) 78.0 >60 Jul 22, 2024 06:55 AM [facility] CBC Specimen Type: BLOOD No comment entered. Ordering Provider: PAYAM LOPEZ Report Released Date/Time: Jun 22, 2024 12:20 PM Reporting Lab: [facility] [address] [facility] [place] [address] Performing Lab: [address] [address] WBC 14.6 10*3/uL H 3.6-11.2 RBC 4.72 [...] 10*3/uL 2.10-8.00 Jul 20, 2024 11:31 AM [facility] I-STAT, CREAT ([facility]) Specimen Type: BLOOD Comment: Test Performed by: [id number] Meter #: [id number] Ordering Provider: TARYN EDGAR Report Released Date/Time: Jul 20, 2024 11:34 AM Reporting Lab: [place] [address] [facility] [place] [address] Performing Lab: [address] [address] I-STAT, CREAT (STL-MA) 1.1 mg/dL 0.7-1.3 Vital Signs: All taken on the encounter date This section contains inpatient and outpatient Vital Signs collected on the date of the Encounter. Date/Time Temperature Pulse Blood Pressure Respiratory Rate SP02 Pain Height Weight Body Mass Index Source Aug 18, 2024 01:37 PM 71 125/75 98 [facility] N Radiology Reports: +/- 30 days of [...] the Encounter. The data comes from all [place] treatment facilities. Date/Time Radiology Report Provider Source Aug 10, 2024 10:29 AM PET/CT TUMOR IMAGING (SKULL TO MID-THIGH)-P: SABINE HOLT [id number] -[id number] M Exm Date: AUG 10, 2024@10:29 Req Phys: TARYN EDGAR Loc: [facility]-PRE-OP EVAL NURSING AM (Req Img Loc: [facility]-PET-CT Service: Unknown [facility] [address] [place] [address] (Case [id number] COMPLETE) PET/CT TUMOR SKULL BASE TO MID-T(NM Detailed) CPT:90228 CPT Modifiers : PI PET TUMOR INIT TX STRAT Reason for Study: lung nodule (Case [id number] COMPLETE) F-18 FLUORODEOXYGLUCOSE (FDG),PER(NM Detailed) CPT:A9552 Clinical History: Report Status: Verified Date Reported: AUG 10, 2024 Date Verified: AUG 10, 2024 Transfer And Pumphouse Operator Chief E-Sig:/ES/BURKE DAVIS M.D. Report: PATIENT NAME: SABINE HOLT. CASE #: [id number] PROCEDURE: PET/CT study HISTORY: A 78-year-old male [...] The brain is partially included in the [id number] and there is misregistration in the region [...] DAVIS M.D., STAFF PHYSICIAN - DIAGNOSTIC IMAGING (Transfer And Pumphouse Operator Chief) Primary Interpreting Resident: SIRENA VAN, Resident Physician /BURKE PATRICIA [facility] Jul 20, 2024 11:[address] HEART & VENOUS MAPPING W/3D: SABINE HOLT [id number] -[id number] M Exm Date: JUL 20, 2024@11:10 Req Phys: PAYAM LOPEZ Loc: [facility]-PRE-OP EVAL NURSING AM (Req Img Loc: [facility]-CT IMAGING [facility] Service: [facility], [facility] [address] [place] [address] (Case [id number] COMPLETE) CT HEART W CONTRAST & VENOUS JOSE(CT Detailed) CPT:04867 Reason for Study: pulmonary vein mapping Clinical History: Responsible Attending: Dr Lopez Attending Contact Number: [phone] Resident Contact Number: Enter Hx and Reason [...] 22, 2024 Date Verified: JUL 22, 2024 Transfer And Pumphouse Operator Chief E-Sig:/ES/ADA WIGGINS Report: Case [id number]. CT heart with contrast & venous mapping. Max CTDI(vol): 12.46 mGy. Total DLP: 104 mGy*cm. TECHNIQUE: Cardiac CT was obtained with bolus IV contrast administration without gating. Multiplanar reformatted images and 3-D models were reconstructed as a CT cardiac pulmonary venogram for electrophysiology planning. Images were reformatted and analyzed using [employer] Make My plate Suite software. NUMBER OF PULMONARY VEINS: 2 [...] advised. Primary Interpreting Staff: ADA WIGGINS MD (Transfer And Pumphouse Operator Chief) /ADA SANCHEZ [facility] Pathology Reports: +/- 30 days of the [...] the Encounter. The data comes from all [place] treatment facilities. Date/Time Pathology Report Provider Source 2024 11:50 AM LR MICROBIOLOGY RE PORT: Accession [UID]: [id number] [[id number]] Received: 2024@17:54 Collection sample: URINE,CLEAN CATCH Collection date: 2024 11:50 Site/Specimen: URINE Provider: TARYN EDGAR Test(s) ordered: C&S URINE..................... completed: Aug 26, 2024 20:13 * BACTERIOLOGY FINAL REPORT => Aug 26, 2024 20:14 TECH CODE: [id number] Bacteriology Remark(s): BERNADINE 08/26/24 <10,000 CFU/ML MIXED GRAM POSITIVE ORGANISMS There will be no work up. =--=--=--=--=--=--=--=--=--=--=--=-- =--=--=--=--=--=--=--=--=--=--=--=-- =--=-- Performing Laboratory: Bacteriology Report Performed By: [facility] [address]# [id number] 5 [facility] [address] [place] [address] [facility] Encounter Notes: All associated encounter notes This section contains the clinical notes associated to the Encounter. Date/Time Encounter Note(s) Provider Source Aug 18, 2024 11:43 AM CARDIOLOGY OUTPATI ENT NOTE: LOCAL TITLE: CARDIOLOGY OUTPATIENT FOLLOW UP [facility] STANDARD TITLE: CARDIOLOGY OUTPATIENT NOTE DATE OF NOTE: AUG 18, 2024@11:43 ENTRY DATE: AUG 18, 2024@11:43:53 AUTHOR: PAYAM LOPEZ EXP COSIGNER: URGENCY: STATUS: COMPLETED CARDIAC ELECTROPHYSIOLOGY OUTPATIENT CONSULTATION HISTORY: Patient is a 78-year-old man with a history of atrial fibrillation (unclear paroxysmal or persistent) and chronic tremor and status post mitral valve repair in 2002. He was first diagnosed in atrial fibrillation [...] however his EKG for the first time during his last ablation on Multaq showed atrial fibrillation at 120 bpm. He was sent for cardioversion however he showed up to the cardioversion and sinus rhythm. Thus he most likely had paroxysmal atrial fibrillation. He remained on the Multaq. In discussing options decision was made to proceed with catheter ablation. This occurred on 06/2024. His preprocedure PATRICIA showed normal LV function. He presented to the ablation sinus rhythm however he went to spontaneous mitral flutter. During entrainment of the flutter he went into another flutter that was consistent with CTI dependent atrial flutter. He was also found to have low voltage in the anterior wall, posterior wall and roof. He underwent pulmonary vein isolation, posterior wall isolation, roof isolation, mitral flutter line connected to the anterior wall box lesion (his annuloplasty ring was mapped with intracardiac echo prior), CTI flutter line. Of note his flutter degenerated to atrial fibrillation which terminated with ablation anterior to the appendage. He has done quite well since procedure he has done quite well. He remains on anticoagulation with apixaban and Multaq. He denies any atrial fibrillation. ROS- Unless otherwise stated, all ROS has been reviewed and is negative for presenting complaint. CURRENT MEDICATIONS: Active Outpatient Medications (excluding Supplies): Issue Date Status Last Fill Active Outpatient Medications Refills Expiration 1) APIXABAN 5MG TAB Qty: 180 for 90 days ACTIVE Issu:11-28-23 Sig: TAKE ONE TABLET BY MOUTH TWICE A Refills: 1 Last:08-02-24 DAY FOR ANTICOAGULATION Expr:11-28-24 2) CICLOPIROX 8% TOP SOLN Qty: 6.6 for 30 ACTIVE Issu:04-22-24 days Sig: APPLY LIGHTLY TO AFFECTED Refills: 11 Last:04-24-24 AREA(S) ONCE A DAY (THIN COAT TO THICK Expr:04-23-25 NAILS - FILE DOWN AFTER 1 WEEK) (EXTERNAL USE ONLY) 3) COLCHICINE 0.6MG TAB Qty: 14 for 7 days ACTIVE Issu:07-24-24 Sig: TAKE ONE TABLET BY MOUTH TWICE A Refills: 0 Last:07-24-24 DAY FOR GOUT STOP MED AND CONTACT Expr:08-23-24 PROVIDER AT FIRST SIGN OF NAUSEA, VOMITING, OR DIARRHEA 4) DRONEDARONE 400MG TAB Qty: 180 for 90 ACTIVE Issu:11-28-23 days Sig: TAKE ONE TABLET BY MOUTH Refills: 1 Last:06-17-24 TWICE A DAY FOR ATRIAL FIBRILLATION - Expr:11-28-24 TAKE IN THE MORNING AND EVENING WITH FOOD 5) METOPROLOL SUCCINATE 200MG SA TAB Qty: ACTIVE Issu:11-28-23 45 for 90 days Sig: TAKE ONE-HALF Refills: 1 Last:08-03-24 TABLET BY MOUTH ONCE A DAY FOR Expr:11-28-24 HEART/BLOOD PRESSURE. SWALLOW WHOLE, DO NOT CRUSH OR CHEW (TABLETS MAY BE CUT IN HALF). 6) PANTOPRAZOLE NA 40MG EC TAB Qty: 90 for ACTIVE Issu:07-24-24 42 days Sig: TAKE ONE TABLET BY MOUTH Refills: 0 Last:07-24-24 TWO TIMES A DAY BEFORE MEALS FOR 6 Expr:09-04-24 WEEKS FOR GASTROESOPHAGEAL REFLUX DISEASE TAKE 30 MINUTES BEFORE MEAL(S) AFTER 6 WEEKS OF TWICE A DAY PATIENT SHOULD RETURN TO HIS ONCE DAILY DOSE 7) SUCRALFATE 1GM TAB Qty: 48 for 12 days ACTIVE Issu:07-24-24 Sig: TAKE ONE TABLET BY MOUTH FOUR Refills: 0 Last:07-24-24 TIMES A DAY FOR DUODENAL ULCER - TAKE Expr:08-23-24 ON AN EMPTY STOMACH. Medication List Reconciliation: Current medication list was reviewed with the patient and/or caregiver and compared to current list of medications in [facility]. The medicaton list was updated to reflect any changes. The importance of medication managment was explained and patient and/or caregiver was receptive and verbalized understanding. Allergies:PENICILLIN EXAM: Vital Signs: Pulse: 74 (07/24/2024 10:41) BP: 101/64 (07/24/2024 10:41) RESP: 18 (07/24/2024 10:41) G- Patient A&Ox3, NAD DATA: 07/18 CMP reviewed 07/18 PATRICIA-EF 60% 03/28 EKG-atrial fibrillation, rate 120 02/15 CMP reviewed 10/16 EF 55-60% 10/16 EKG sinus with PACS, LAFB 01/14 echo: EF 55%, LA Vol 45, MVA 1.7 by PHT, 1.26 by VTI. 01/14 MPI- No ischemia 12/17 CMP reviewed Labs reviewed ASSESSMENT/PLAN: The patient is a 78-year-old man with a history of recurrent atrial fibrillation on Multaq and chronic tremor, status post mitral valve repair in 2002, who is status post catheter ablation of persistent atrial fibrillation with extensive ablation including pulmonary vein isolation, posterior wall isolation due to low voltage, as well as roof and anterior wall isolation. He had spontaneous mitral flutter which converted to CTI dependent flutter which degenerated to atrial fibrillation. He underwent both a mitral flutter line-anterior that was connected to the anterior box lesion as well as CTI flutter line. His atrial fibrillation terminated with ablation anterior to the appendage. Since the procedure he has done quite well. He remains anticoagulated with Eliquis and remains on Multaq. He has not had any symptomatic atrial fibrillation. We will continue both the Multaq and the Eliquis and I will schedule follow-up with him in 5 months, which will be 6 months from the procedure. Thank you for letting me participate in [...] completed, the results will be found in [facility]. Where relevant all echocardiograms (including transthoracic and transesophogeal echocardiograms), laboratory results, imaging results and procedure results that have been ordered have results communicated to the patient by myself, surrogate and/or the PCP. When completed, the results will be in the appropriate area in [facility] or [facility]. # HEALTH PROMOTION/HEALTH MAINTENANCE & EDUCATION [...] = 60 minutes Life Sustaining Treatment Orders /es/ PAYAM LOPEZ MD [address] [address] CONDUCTOR Signed: 08/18/2024 11:53 PAYAM LOPEZ [facility]
--- OUTSIDE RECORDS SUMMARY | 2025-01-11 11:59 | XMS_ITS | Encounter Summary ---
Author Name [facility] [place] [facility] [place] Address [address] [place] [address] Care Team Providers Care Orange Picking Supervisor Name Role Phone ASIYA FIERRO Primary Care [...] Policy [place] HUMANA [facility] ([facility]) MEDICARE ADVANTAGE [facility] ([facility]) 2022 [id number] YANETMARIELOS PHEN PATIENT MEDICA [facility] ([facility]) MEDICARE ADVANTAGE [facility] ([facility]) May 25, 2013 [id number] [phone] HOLTMARIELOS PHEN PATIENT MEDICARE ([facility]) MEDICARE (M) PART B May 25, 2013 PART B [id number] [phone] HOLTMARIELOS CORDOVA PHEN PATIENT MEDICARE ([facility]) MEDICARE (M) PART A Jul 26, 2012 PART A [id number] [phone] MARIELOS HOLT PATIENT MEDICARE PART D (WNR) MEDICARE (M) PART D March 25, 2013 PART D [id number] [phone] MARIELOS HOLT PATIENT WELLCARE [facility] (WNR) MEDICARE ADVANTAGE [facility] (WNR) Dec 26, 2022 [id number] [phone] MARIELOS HOLT PATIENT Selected Encounter This section includes the information on record at [place] for the Encounter. Date/Time Encounter Type Encounter Description Reason Provider Source May 08, 2024 10:00 AM OFFICE O/P EST HI 40 MIN CARDIOLOGY ICD-10-CM I48.91 Unspecified atrial fibrillation [place] IRENE Yuan Encounter Template Text not used by [place] Assessments - Encounter Diagnoses This section includes the primary and secondary diagnoses documented for the Encounter. Date/Time Primary/Secondary Diagnosis Diagnosis Name Provider Source May 08, 2024 10:18 AM PRIMARY [facility]specified [facility] May 08, 2024 10:18 AM SECONDARY Essential (primary) hypertension [facility] May 08, 2024 10:18 AM SECONDARY Nonrheumatic mitral valve disorder, unspecified [facility] May 08, 2024 10:18 AM SECONDARY Unspecified atrial fibrillation NANCY CARTER [facility] Plan of Treatment: Future Appointments (+ 6 months) and Future Tests (+/- 45 days) The Plan of Treatment section includes future care activities for the patient from all [place] [facility]. This section includes future appointments and future orders which are active, pending or scheduled. Future Appointments This section includes appointments that were scheduled to occur 6 months from the date of the Encounter, up to a maximum of 20 appointments. The data comes from all [place] treatment facilities. Appointment Date/Time Appointment Type Appointme nt Facility Name Jul 20, 2024 10:15 AM AMBULATORY - MEDICINE [facility] Jul 20, 2024 03:00 PM AMBULATORY - NONE [facility] Jul 22, 2024 06:00 AM AMBULATORY - NONE [facility] Jul 22, 2024 06:15 AM AMBULATORY - MEDICINE [facility] Jul 31, 2024 10:30 AM AMBULATORY - MEDICINE [facility] Aug 10, 2024 10:15 AM AMBULATORY - NONE Iris Marcum [facility] Aug 18, 2024 10:30 AM AMBULATORY - MEDICINE [facility] Aug 20, 2024 08:30 PM AMBULATORY - NONE [facility] Marcum [facility] 2024 10:30 AM AMBULATORY - MEDICINE [facility] Sep 14, 2024 09:00 AM AMBULATORY - SURGERY . Thelma PEREZ [facility] Nov 02, 2024 10:00 AM AMBULATORY - NONE [facility] Vital Signs: All taken on the encounter date This section contains inpatient and outpatient Vital Signs collected on the date of the Encounter. Date/Time Temperature Pulse Blood Pressure Respiratory Rate SP02 Pain Height Weight Body Mass Index Source May 08, 2024 09:45 AM 97.6 67 150/82 16 0 185.1 [facility] Encounter Notes: All associated encounter notes This section contains the clinical notes associated to the Encounter. Date/Time Encounter Note(s) Provider Source Jun 29, 2024 09:56 AM CARDIOLOGY NURSING PREPROCEDURE NOTE: LOCAL TITLE: SURVEILLANCE OBSERVER PROCEDURE [facility] STANDARD TITLE: CARDIOLOGY NURSING PREPROCEDURE NOTE DATE OF NOTE: JUN 29, 2024@09:56 ENTRY DATE: JUN 29, 2024@09:56:53 AUTHOR: NANCY CARETR EXP COSIGNER: URGENCY: STATUS: COMPLETED Pre-Procedure Instructions Please read the following instructions carefully: * You are scheduled for a Transesophageal Echocardiogram 07/20/24 at 1000AM. * Please report to the Echo Lab Room C220 located on the 2nd floor by 1000AM the day of your procedure * Please DO NOT eat or drink anything after MIDNIGHT the night before your test. * You may take all your scheduled medications with a sip of water the morning of your procedure INCLUDING APIXABAN * You MUST have someone drive you the day of your procedure. You cannot drive for 24 hours after your procedure; a lithographic printing machinist must remain with you for 24 hours after your procedure. If you are not able to have someone drive you, please contact the phone number listed below for assistance. * If you are diabetic, please DO NOT take your diabetic medications the morning of your procedure. * DO NOT bring any valuables or large sums of money with you to the hospital. However, please bring your [place] identification card with you. * If you are feeling ill, taking antibiotics, or are unable to come the day of your procedure, please contact the phone number listed below. * Please plan on obtaining a chest CT scan before or after your procedure. These test results are needed for your ablation * Please plan on being here approximately 2-3 hours the day of your procedure. This includes preparation time, procedure time, and recovery time. /dionna/ NANCY CARTER RN SURVEILLANCE OBSERVER Signed: 06/29/2024 09:59 NANCY CARTER [facility] May 07, 2024 10:37 PM CARDIOLOGY OUTPATI ENT NOTE: LOCAL TITLE: CARDIOLOGY OUTPATIENT FOLLOW UP [facility] STANDARD TITLE: CARDIOLOGY OUTPATIENT NOTE DATE OF NOTE: MAY 07, 2024@22:37 ENTRY DATE: MAY 07, 2024@22:37:47 AUTHOR: VANESSA IRENE COSIGNER: URGENCY: STATUS: COMPLETED [facility] FAILURE SERVICE: FOLLOW-UP VISIT NOTE PRINCIPAL AND SECONDARY DIAGNOSES: 1. pAfib 2. HTN 3. Mitral Valve Repair 2002 CARE TEAM: 1. EP Dr. Cha INTERVAL HISTORY: 78 year old make with Afib (dx 12/2019), Mitral valve repair 2002, HTN in consultation for Afib. Patient was seen via telephone visit by Dr. Cha 03/26/23. Prior this visit he endorses LH and palpations and was started on on multaq with resolution of symptoms. He was scheduled for a DCCV on 03/2024 but EKG prior to DCCV patient was in NSR. Today he presents for follow up. States he feels good overall. Denies palpations, CP, LH, orthopnea, PND, swelling. No hospital visits related to his heart. 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 Denies issues with bleeding and falls. Doesn't check his BP or HR at home. Of note, a 12 point REVIEW OF SYSTEMS was performed; all other review of systems negative, except as listed in the interval history. CURRENT OUTPATIENT MEDICATIONS: Active Outpatient Medications (including Supplies): Active [...] A MEAL TAKE 30 MINUTES BEFORE MEAL(S) - All cardiac medications were reconciled during the visit. apixaban DRONEDARONE METOPROLOL SUCCINATE 100 daily PHYSICAL EXAM: Temperature: 97.6 F [36.4 C] (05/08/2024 09:45) BP: 150/82 (05/08/2024 09:45) Pulse: 67 (05/08/2024 09:45) Resp: 16 (05/08/2024 09:45) Weight:185.1 lb [83.96 kg] (05/08/2024 09:45) BMI: BMI not available without height GENERAL: Sclera anicteric, PERRLA, MMM NECK: Carotids were brisk without bruits. CHEST/LUNGS: Clear to auscultation bilaterally with no rales or wheezes. Good respiratory effort and excursion. HEART: S1 S2, RRRR, no JVP ABDOMEN: Soft, nontender, BS positive x 4 quadrants EXTREMITIES: No lower extremity edema. Pedal pulses intact bilaterally NEUROLOGICAL: Alert and oriented x 3. Normal motor strength. PSYCHIATRIC: Mood and affect appropriate DIAGNOSTIC DATA: ###EKG 10/16 EKG sinus with PACS, LAFB -EKG 11/01/23 with Sinus bradycardia with Premature atrial complexes Incomplete right bundle branch block Left anterior fascicular block Abnormal ECG When compared with ECG of 02-OCT-2022 14:52, Incomplete right bundle branch block is now Present 01/14 echo: EF 55%, LA Vol 45, MVA 1.7 by PHT, 1.26 by VTI. 01/14 MPI- No ischemia ###. LABORATORIES: COMPREHENSIVE METABOLIC PANEL SODIUM 141 mEq/L 02/03/2024 10:45 POTASSIUM 4.1 [...] 10:45 EGFR (CKD-EPI 2020) 90.4 02/03/2024 10:45 COMPLETE BLOOD COUNT WBC 10.0 10*3/uL 02/03/2024 10:45 RBC 4.34 [...] 10:45 BASOPHILS, ABSOLUTE 0.04 10*3/uL 02/03/2024 10:45 COAGULATION STUDIES No INR EO data found No PTT EO data found HGA1C: HGA1C 6.2 H % 02/03/2024 10:45 LIPIDS TRIGLYCERIDE 107 mg/dL 02/03/2024 10:45 CHOLESTEROL 148 mg/dL 02/03/2024 10:45 HDL(New) 33 L mg/dL 02/03/2024 10:45 CALCULATED LDL 94 mg/dL 02/03/2024 10:45 CARDIAC BIOMARKERS BNP: No BRAIN NATRIURETIC PEPTIDE data found IRON STUDIES FERRITIN: No FERRITIN EO data found TSAT: The OBJECT TRANSFERRIN EO was NOT found...Contact IRM. ASSESSMENT AND PLAN: In summary, HOLT,SABINE GERMAN is a 78 MALE with a history of afib, MV repair, and HTN. He was recently seen by Dr. Cha with short term plan for DCCV (however cancelled as patient in NSR on EKG prior to DCCV) and snf plan for PVI. Patient presents today for follow up. PVI planned for 06/2024. ###pAfib: appears to in NSR and rate controlled on exam today. -Continue multaq -Continue metoprolol xl 100 daily -Continue Eliquis -EKG 11/01/23 with Sinus bradycardia with Premature atrial complexes Incomplete right bundle branch block Left anterior fascicular block Abnormal ECG When compared with ECG of 02-OCT-2022 14:52, Incomplete right bundle branch block is now Present -LFTs in 01/2024 WNL -Plans for ablation in June 2024 ###Mitral Valve repair -repeat TTE if change in symptoms ###HTN -elevated at clinic today. Instructed patient to start checking BP at home. #RTC in 7 months at Spent 45 min reviewing records/labs/obtaining history/examining patient/ordering labs, tests, medications/discussing results and plan with patient and outside provider. All patients are counseled on the risks [...] completed, the results will be found in [facility]. # HEALTH PROMOTION/HEALTH MAINTENANCE & EDUCATION DISEASE: Discussed treatment options & counseled on exacerbating factors. # DIAGNOSTIC TESTING AND LABORATORY DATA: Pertinent labs and diagnostic tests (both normal and abnormal) are included above and were reviewed and discussed with the patient within 7-days of the test and during this visit. - DISEASE: Coordinated care; discussed treatment options, & counseled on exacerbating factors. - Encouraged participation in regular [...] are considered for beta blockers and aspirin contraindicated due to intolerance/allergy, hypotension, bradycardia, or [...] PCP (primary provider). Thank you for allowing me to participate in this patient's care. Please don't hesitate to call with any questions or concerns. /dionna/ VANESSA IRENE NP Signed: 05/08/2024 10:18 VANESSA IRENE [facility]
--- OUTSIDE RECORDS SUMMARY | 2025-01-11 11:59 | XMS_ITS | Encounter Summary ---
Author Name [facility] [place] [facility] [place] [facility] [place] Address [address] [place] [address] Care Team Providers Care Warehouse Consultant Name Role Phone ASIYA FIERRO Primary [...] Name Patient's Relationship to Policy Gresham [employer]NA [facility] ([facility]) MEDICARE ADVANTAGE [facility] ([facility]) 2022 [id number] [phone] YANETMARIELOS PHEN PATIENT MEDICA [facility] ([facility]) MEDICARE ADVANTAGE [facility] ([facility]) May 25, 2013 [id number] [phone] HOLTMARIELOS PHEN PATIENT MEDICARE ([facility]) MEDICARE (M) PART B May 25, 2013 PART B [id number] [phone] HOLTMARIELOS CORDOVA PHEN PATIENT MEDICARE ([facility]) MEDICARE (M) PART A Jul 26, 2012 PART A [id number] [phone] MARIELOS HOLT PATIENT MEDICARE PART D (WNR) MEDICARE (M) PART D March 25, 2013 PART D [id number] MARIELOS HOLT PATIENT [facility] (WNR) MEDICARE ADVANTAGE [facility] (WNR) Dec 26, 2022 [id number] MARIELOS HOLT PATIENT Selected Encounter This section includes the information on record at [place] for the Encounter. Date/Time Encounter Type Encounter Description Reason Provider Source Feb 17, 2024 11:00 AM OFFICE O/P NEW LOW 30 MIN OTOLARYNGOLOGY/ENT ICD-10-CM D10.1 Benign neoplasm of tongue JAQUELINE OLIVO Yuan Encounter Template Text not used by [place] Assessments - Encounter Diagnoses This section includes the primary and secondary diagnoses documented for the Encounter. Date/Time Primary/Secondary Diagnosis Diagnosis Name Provider Source Feb 17, 2024 12:17 PM PRIMARY Benign neoplasm of tongue CIRA BECKMAN [facility] Plan of Treatment: Future Appointments (+ 6 months) and Future Tests (+/- 45 days) The Plan of Treatment section includes future care activities for the patient from all [place] treatmentfacilities. This section includes future appointments and future orders which are active, pending or scheduled. Future Appointments This section includes appointments that were scheduled to occur 6 months from the date of the Encounter, up to a maximum of 20 appointments. The data comes from all [place] treatment facilities. Appointment Date/Time Appointment Type Appointme nt Facility Name March 31, 2024 10:00 AM AMBULATORY - MEDICINE [facility] April 09, 2024 10:15 AM AMBULATORY - MEDICINE [facility] May 01, 2024 10:00 AM AM[facility]ULATORY - MEDICINE [facility] May 08, 2024 10:00 AM AM[facility]ULATORY - MEDICINE [facility] Jul 20, 2024 10:15 AM AMBULATORY - MEDICINE [facility] Jul 20, 2024 03:00 PM AMBULATORY - NONE [facility] Jul 22, 2024 06:00 AM AMBULATORY - NONE [facility] Jul 22, 2024 06:15 AM AMBULATORY - MEDICINE [facility] Jul 31, 2024 10:30 AM AMBULATORY - MEDICINE [facility] Aug 10, 2024 10:15 AM [facility]ORY - [facility] Aug 18, 2024 10:30 AM AMBULATORY - MEDICINE [facility] Lab Results: +/- 30 days of the encounter This section includes the Chemistry and Hematology Lab Results on record with [facility] for the [facility]. Radiology Reports and Pathology Reports are provided separately, in subsequent sections. Lab Results This section contains the Chemistry/Hematology Results that were resulted 30 days before or 30 daysafter the date of the Encounter. Date/Time Source Result Type Result - Unit Interpretation Reference Range Comment Feb 03, 2024 10:45 AM [facility] LIPID PANEL (STL) Specimen Type: PLASMA Comment: No hemolysis noted. Ordering Provider: EVANGELIST EDGAR Report Released Date/Time: Feb 03, 2024 10:19 AM Reporting Lab: [facility] [address] [place] [phone] Performing Lab: [address] [address] CHOLESTEROL 148 mg/dL 0-200 TRIGLYCERIDE 107 mg/dL 0-150 CALCULATED LDL 94 mg/dL HDL(New) 33 mg/dL L >40 Feb 03, 2024 10:45 AM [facility] HGA1C Specimen Type: BLOOD No comment entered. Ordering Provider: EVANGELIST EDGAR Report Released Date/Time: Feb 03, 2024 10:19 AM Reporting Lab: [facility] [address] [facility] [phone] Performing Lab: [facility] [address] [facility] [phone] HGA1C 6.2 H 4.0-6.0 Feb 03, 2024 10:45 AM [facility] COMPREHENSIVE METABOLIC PANEL Specimen Type: PLASMA Comment: No hemolysis noted. Ordering Provider: EVANGELIST EDGAR Report Released Date/Time: Feb 03, 2024 10:18 AM Reporting Lab: [facility] [phone] Performing Lab: [address] [phone] CREATININE 0.84 mg/dL 0.7-1.3 UREA NITROGEN 16.9 mg/dL 9.0-25.0 GLUCOSE 96 mg/dL 72-99 SODIUM 141 meq/L 136-145 POTASSIUM 4.1 meq/L 3.5-5 CHLORIDE 108 meq/L H 98-107 CARBON DIOXIDE 24 meq/L 22-31 CALCIUM 9.0 mg/dL 8.4-10.4 PROTEIN 7.0 g/dL 6-8.6 ALBUMIN 4.0 g/dL 3.4-5 TOTAL BILIRUBIN 0.6 mg/dL 0.2-1.2 ALKALINE PHOSPHATASE 82 U/L 40-150 AST/SGOT 15 U/L 5-34 ALT/SGPT 10 U/L 8-40 EGFR (CKD-EPI 2020) 90.4 >60 Feb 03, 2024 10:45 AM [facility] PROST. SPECIFIC AG.(PB-STL) Specimen Type: SERUM Comment: The listed sex of this patient may not be a typical indication for this test. Therefore, reference ranges or interpretive criteria listed may not be valid. Clinical correlation suggested. Ordering Provider: EVANGELIST EDGAR Report Released Date/Time: Feb 03, 2024 10:19 AM Reporting Lab: [address] [phone] Performing Lab: [address] [phone] PROST. SPECIFIC AG.(PB-STL) 0.552 ng/mL 0-4 Feb 03, 2024 10:45 AM [facility] CBC Specimen Type: BLOOD No comment entered. Ordering Provider: EVANGELIST EDGAR Report Released Date/Time: Feb 03, 2024 10:19 AM Reporting Lab: [address] [address] Performing Lab: [address] [phone] WBC 10.0 10*3/uL 3.6-11.2 RBC 4.34 10*6/uL 4.10-5.70 HGB 13.3 g/dL 13.1-16.8 HCT 40.1 38.2-48.4 MCV 92.4 fL 80.0-100.0 MCH 30.6 pg 27.0-34.0 MCHC 33.2 g/dL 33.0-36.0 PLT 160 10*3/uL 150-400 MPV 12.7 fL H 7.5-11.2 RDW 13.7 11.8-15.1 LYMPHOCYTES, AUTO % 49 MONOCYTES, AUTO % 5 NEUTROPHILS, AUTO % 44 EOSINOPHILS, AUTO % 2 BASOPHILS, AUTO % 0 LYMPHOCYTES, ABSOLUTE 4.85 10*3/uL H 0.77-4.50 MONOCYTES, ABSOLUTE 0.52 10*3/uL 0.19-0.80 NEUTROPHILS, ABSOLUTE 4.34 10*3/uL 2.10-8.00 EOSINOPHILS, ABSOLUTE 0.21 10*3/uL 0.00-0.60 BASOPHILS, ABSOLUTE 0.04 10*3/uL 0.00-0.20 Feb 03, 2024 10:45 AM [facility] TSH (MA-PB-STL) Specimen Type: SERUM Comment: The listed sex of this patient may not be a typical indication for this test. Therefore, reference ranges or interpretive criteria listed may not be valid. Clinical correlation suggested. Ordering Provider: EVANGELIST EDGAR Report Released Date/Time: Feb 03, 2024 10:19 AM Reporting Lab: [facility] [address] [place] [phone] Performing Lab: [address] [address] TSH 1.179 u[IU]/mL 0.47-5 Feb 03, 2024 10:45 AM [facility] VITAMIN D, 25-HYDROXY Specimen Type: SERUM Comment: The listed sex of this patient may not be a typical indication for this test. Therefore, reference ranges or interpretive criteria listed may not be valid. Clinical correlation suggested. Ordering Provider: EVANGELIST EDGAR Report Released Date/Time: Feb 03, 2024 10:19 AM Reporting Lab: [facility] [address] [place] [phone] Performing Lab: [address] [place] [address] VITAMIN D, 25-HYDROXY 63.8 ng/mL 30-96 Vital Signs: All taken on the encounter date This section contains inpatient and outpatient Vital Signs collected on the date of the Encounter. Date/Time Temperature Pulse Blood Pressure Respiratory Rate SP02 Pain Height Weight Body Mass Index Source Feb 17, 2024 10:42 AM 97.3 63 140/72 18 99 0 [facility] N Encounter Notes: All associated encounter notes This section contains the clinical notes associated to the Encounter. Date/Time Encounter Note(s) Provider Source Feb 17, 2024 12:11 PM OTOLARYNGOLOGY CON SULT: LOCAL TITLE: OTOLARYNGOLOGY CONSULT ST STANDARD TITLE: OTOLARYNGOLOGY CONSULT DATE OF NOTE: FEB 17, 2024@12:11 ENTRY DATE: FEB 17, 2024@12:11:10 AUTHOR: CIRA BECKMAN COSIGNER: JAQUELINE OLIVO URGENCY: STATUS: COMPLETED FEB 17, 2024 OTOLARYNGOLOGY-HEAD AND NECK SURGERY - NEW PATIENT CONSULT NOTE CC: tongue lesion HPI: 78 y/o WHITE MALE presenting w/tongue lesion. This was noticed to the left lateral tongue by his dentist in December 2023 (2 month ago). He has not noticed it previously. Reports it has been stable in size. Denies any pain, limited tongue mobility, bleeding, or growth. Denies any dysphagia, odynophagia, dysarthria or voice changes, weight loss, SOB. PMH: 1) Chronic tremor 2) AF - Atrial Fibrillation ([facility] [id number]) 3) AK - Actinic keratosis 4) History [...] A MEAL TAKE 30 MINUTES BEFORE MEAL(S) ALLERGIES: PENICILLIN Address: [address] [place] [address] Tobacco: nonsmoker EtOH: social Drug abuse: none FH:non-contributory ROS: Constitutional: denies significant weight loss or weight gain. Neuro: denies headaches, vision changes, vertigo, dizziness, numbness/tingling HEENT: as noted in HPI CV: denies chest pain Resp: denies SOB GI: denies N/V, constipation, diarrhea Renal: denies hematuria/dysuria, extremity swelling Heme: no bleeding disorders Derm: no rashes PHYSICAL EXAM: Temp: 97.3 F [36.3 C] (02/17/2024 10:42) Pulse Ox: Measurement DT POx (L/MIN)(%) 02/17/2024 10:42 99 11/28/2023 09:53 99 04/02/2023 10:54 100 10/02/2022 13:00 99 PULSE: 63 (02/17/2024 10:42) RESPIRATION: 18 (02/17/2024 10:42) BLOOD PRESSURE: 140/72 (02/17/2024 10:42) WEIGHT: 190.1 lb [86.23 kg] (11/28/2023 09:53) GEN:Pt is WDWN, NAD, A&Ox3 FACE:Normocephalic/Atraumat ic. No scars or cutaneous lesions. NEURO:Cranial nerves II-XII intact. V1-V3 intact/symmetric, facial movements symmetric. EARS:Bilateral auricles well formed. No drainage. NOSE:External nose normal. No drainage. EYES:EOMI. Conjugate gaze. No nystagmus. Vision grossly intact. OC/OP: 5 mm venous mass to the left anterior lateral/ventral tongue that is soft to palpation -- no submucosal mass palpated. Normal tongue mobility -- no other tongue lesions noted. FOM soft w/o lesions. Oropharynx clear. NECK: Supple with no LAD. Trachea midline. Thyroid WNL, no nodules. No lesions/masses noted on inspection or palpation. Salivary glands normal to palpation. CHEST: breathing comfortably without stridor/stertor. Warm and well perfused. 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 I discussed small likelihood that this is something more sinister such as mucosal melanoma given appearance, lack of symptoms, and lack of growth in the last 2 months. He is on eliquis and I do not feel strongly about biopsy at this time given this is likely venous in nature. I discussed monitoring for growth, change, or bleeding which should prompt him to see us again for biopsy. It is fairly anterior and easy to monitor so I am comfortable with him doing this at home and giving us a call if there are concerns. PLAN: - RTC prn /dionna/ CIRA BECKMAN Otolaryngology PGY3 Signed: 02/17/2024 12:17 /dionna/ JAQUELINE OLIVO MD Staff Physician, Otolaryngology Cosigned: 02/17/2024 14:44 CIRA BECKMAN [facility]
--- OUTSIDE RECORDS SUMMARY | 2025-01-11 11:59 | XMS_ITS ---
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 Laboratory Technician Apprentice Name Role Phone ASIYA FIERRO Primary Care [...] Name Patient's Relationship to Policy Gresham [facility]NA [facility] MEDICARE ADVANTAGE [facility]) 2022 [id number] [phone] YANETMARIELOS PHEN PATIENT [facility] ([facility]) MEDICARE ADVANTAGE [facility] ([facility]) May 25, 2013 [id number] HOLTMARIELOS PHEN PATIENT MEDICARE ([facility]) MEDICARE (M) PART B May 25, 2013 PART B [id number] [phone] HOLT,MARIELOS PHEN PATIENT MEDICARE (WN) MEDICARE (M) PART A Jul 26, 2012 PART A [id number] [phone] MARIELOS HOLT PATIENT MEDICARE PART D (WNR) MEDICARE (M) PART D March 25, 2013 PART D [id number] [phone] MARIELOS HOLT PATIENT [facility] (WNR) MEDICARE ADVANTAGE [facility] (WNR) Dec 26, 2022 [id number] [phone] MARIELOS HOLT PATIENT Selected Encounter This section includes the information on record at [place] for the Encounter. Date/Time Encounter Type Encounter Description Reason Provider Source Jul 22, 2024 04:14 PM Outpatient Encounter ADMIN PAT ACTIVTIES (MASNONCT) RICARDO DAVIDSON Encounter Template Text not used by [place] Plan of Treatment: Future Appointments (+ 6 months) and Future Tests (+/- 45 days) The Plan of Treatment section includes future care activities for the patient [facility] [place] [facility] This section includes future appointments and future [...] 31, 2024 10:30 AM AMBULATORY - MEDICINE [facility] Aug 10, 2024 10:15 AM AMBULATORY - NONE [facility] Aug 18, 2024 10:30 AM [facility] - [facility] Aug 20, 2024 08:30 PM AMBULATORY - NONE [facility] 2024 10:30 AM AMBULATORY - MEDICINE [facility] Sep 14, 2024 09:00 AM AMBULATORY - SURGERY [facility] Nov 02, 2024 10:00 AM AMBULATORY - NONE [facility] Jan 19, 2025 02:30 PM [facility] - [facility] Jan 22, 2025 02:30 PM AMBULATORY - NONE [facility] Active, Pending, and Scheduled Orders This section includes a listing of several types of active, pending, and scheduled orders, including clinic medications orders, diagnostic test orders, procedure orders and consult orders; where the start date of the order is 45 days before the date of the Encounter or 45 days after the date of theEncounter. The data comes from all [place] treatment facilities. Test Date/Time Test Type Test Details Facility Name Jul 22, 2024 06:00 AM Laboratory - Blood Bank Order TYPE & SCREEN - LAB BLOOD WC [facility] Lab Results: +/- 30 days of the encounter This section includes the Chemistry and Hematology Lab Results on record with [place] for the patient. Radiology Reports and Pathology Reports are provided separately, in subsequent sections. Lab Results This section contains the Chemistry/Hematology Results that were resulted 30 days before or 30 daysafter the date of the Encounter. Date/Time Source Result Type Result - Unit Interpretation Reference Range Comment Aug 10, 2024 10:12 AM [facility] GLUCOSE,BLOOD-poct (STL) Specimen Type: BLOOD Comment: Test Performed by: [id number] Meter #: [id number] Ordering Provider: TARYN EDGAR Report Released Date/Time: Aug 10, 2024 10:28 AM Reporting Lab: [facility] [address] [facility] [address] Performing Lab: [facility] [address] [facility] [address] GLUCOSE,BLOOD-p oct (STL) 94 mg/dL 72-99 Jul 23, 2024 06:24 AM [facility] MAGNESIUM Specimen Type: PLASMA Comment: No hemolysis noted. Ordering Provider: ALFREDITO WILSON Report Released Date/Time: Jul 22, 2024 05:37 PM Reporting Lab: [facility] [address] [facility] [address] Performing Lab: [facility] [address] [facility] [address] MAGNESIUM 1.8 mg/dL 1.6-2.6 Jul 23, 2024 06:24 AM [facility] BASIC METABOLIC PANEL Specimen Type: PLASMA Comment: No hemolysis noted. Ordering Provider: ALFREDITO WILSON Report Released Date/Time: Jul 22, 2024 05:37 PM Reporting Lab: [facility] [place] [facility] [address] Performing Lab: [address] [address] CREATININE 0.78 mg/dL 0.7-1.3 UREA NITROGEN 14.4 mg/dL 9.0-25.0 GLUCOSE 113 mg/dL H 72-99 SODIUM 136 meq/L 136-145 POTASSIUM 3.7 meq/L 3.5-5 CHLORIDE 108 meq/L H 98-107 CARBON DIOXIDE 21 meq/L L 22-31 CALCIUM 8.3 mg/dL L 8.4-10.4 EGFR (CKD-EPI 2020) 92.4 >60 Jul 23, 2024 06:24 AM [facility] PHOSPHOROUS Specimen Type: PLASMA Comment: No hemolysis noted. Ordering Provider: ALFREDITO WILSON Report Released Date/Time: Jul 22, 2024 05:37 PM Reporting Lab: [place] [id number] Performing Lab: [address] [address] PHOSPHOROUS 4.0 mg/dL 2.3-4.7 Jul 23, 2024 06:24 AM [facility] CBC Specimen Type: BLOOD Comment: VERIFIED BY REPEAT Ordering Provider: ALFREDITO WILSON Report Released Date/Time: Jul 22, 2024 05:37 PM Reporting Lab: [address] [address] Performing Lab: [address] [address] WBC 11.3 10*3/uL H 3.6-11.2 RBC 3.86 [...] SCRNPERF YES Jul 22, 2024 05:20 PM [facility] MRSA SURVL NARES DNA Specimen Type: NARES [...] Jul 22, 2024 04:20 PM Reporting Lab: [place] [id number] [facility] [address] Performing Lab: [place] [address] [facility] [address] MRSA SURVL NARES DNA Negative Negative Jul 22, 2024 02:16 PM [facility] POC ACT-CELITE,HEMOCHRON (STL) Specimen Type: BLOOD Comment: Test Performed by: [id number] Meter #: [id number] Ordering Provider: TARYN EDGAR Report Released Date/Time: Jul 22, 2024 03:15 PM Reporting Lab: [place] [address] [facility] [address] Performing Lab: [address] [address] POC ACT-CELITE,HEMO CHRON (STL) 174 s H 89-169 Jul 22, 2024 01:45 PM [facility] POC ACT-CELITE,HEMOCHRON (STL) Specimen Type: BLOOD Comment: Test Performed by: [id number] Meter #: [id number] Ordering Provider: TARYN EDGAR Report Released Date/Time: Jul 22, 2024 03:15 PM Reporting Lab: [address] [address] Performing Lab: [address] [address] POC ACT-CELITE,HEMO CHRON (STL) >400 s H 89-169 Jul 22, 2024 01:22 PM [facility] POC ACT-CELITE,HEMOCHRON (STL) Specimen Type: BLOOD Comment: Test Performed by: [id number] Meter #: [id number] Ordering Provider: TARYN EDGAR Report Released Date/Time: Jul 22, 2024 02:24 PM Reporting Lab: [address] [address] Performing Lab: [address] [address] POC ACT-CELITE,HEMO CHRON (STL) 355 s H 89-169 Jul 22, 2024 01:02 PM [facility] POC ACT-CELITE,HEMOCHRON (STL) Specimen Type: BLOOD Comment: Test Performed by: [id number] Meter #: [id number] Ordering Provider: TARYN EDGAR Report Released Date/Time: Jul 22, 2024 02:04 PM Reporting Lab: [address] [address] Performing Lab: [address] [address] POC ACT-CELITE,HEMO CHRON (STL) 339 s H 89-169 Jul 22, 2024 12:46 PM [facility] POC ACT-CELITE,HEMOCHRON (STL) Specimen Type: BLOOD Comment: Test Performed by: [id number] Meter #: [id number] Ordering Provider: TARYN EDGAR Report Released Date/Time: Jul 22, 2024 01:48 PM Reporting Lab: [address] [address] Performing Lab: [place] [phone] POC ACT-CELITE,HEMO CHRON (STL) 327 s H 89-169 Jul 22, 2024 12:30 PM [facility] POC ACT-CELITE,HEMOCHRON (STL) Specimen Type: BLOOD Comment: Test Performed by: [id number] Meter #: [id number] Ordering Provider: TARYN EDGAR Report Released Date/Time: Jul 22, 2024 01:48 PM Reporting Lab: [place] [id number] Performing Lab: [place] [phone] POC ACT-CELITE,HEMO CHRON (STL) >400 s H 89-169 Jul 22, 2024 12:07 PM [facility] POC ACT-CELITE,HEMOCHRON (STL) Specimen Type: BLOOD Comment: Test Performed by: [id number] Meter #: [id number] Ordering Provider: TARYN EDGAR Report Released Date/Time: Jul 22, 2024 01:16 PM Reporting Lab: [place] [phone] Performing Lab: [address] [address] POC ACT-CELITE,HEMO CHRON (STL) >400 s H 89-169 Jul 22, 2024 11:46 AM [facility] POC ACT-CELITE,HEMOCHRON (STL) Specimen Type: BLOOD Comment: Test Performed by: [id number] Meter #: [id number] Ordering Provider: TARYN EDGAR Report Released Date/Time: Jul 22, 2024 12:48 PM Reporting Lab: [address] [address] Performing Lab: [address] [address] POC ACT-CELITE,HEMO CHRON (STL) 354 s H 89-169 Jul 22, 2024 11:31 AM [facility] POC ACT-CELITE,HEMOCHRON (STL) Specimen Type: BLOOD Comment: Test Performed by: [id number] Meter #: [id number] Ordering Provider: TARYN EDGAR Report Released Date/Time: Jul 22, 2024 12:33 PM Reporting Lab: [address] [address] Performing Lab: [address] [address] POC ACT-CELITE,HEMO CHRON (STL) 373 s H 89-169 Jul 22, 2024 11:15 AM [facility] POC ACT-CELITE,HEMOCHRON (STL) Specimen Type: BLOOD Comment: Test Performed by: [id number] Meter #: [id number] Ordering Provider: TARYN EDGAR Report Released Date/Time: Jul 22, 2024 12:16 PM Reporting Lab: [address] [address] Performing Lab: [address] [address] POC ACT-CELITE,HEMO CHRON (STL) 318 s H 89-169 Jul 22, 2024 11:01 AM [facility] POC ACT-CELITE,HEMOCHRON (STL) Specimen Type: BLOOD Comment: Test Performed by: [id number] Meter #: [id number] Ordering Provider: TARYN EDGAR Report Released Date/Time: Jul 22, 2024 12:03 PM Reporting Lab: [address] [address] Performing Lab: [address] [address] POC ACT-CELITE,HEMO CHRON (STL) 313 s H 89-169 Jul 22, 2024 10:25 AM [facility] POC ACT-CELITE,HEMOCHRON (STL) Specimen Type: BLOOD Comment: Test Performed by: [id number] Meter #: [id number] Ordering Provider: TARYN EDGAR Report Released Date/Time: Jul 22, 2024 11:28 AM Reporting Lab: [address] [address] Performing Lab: [address] [address] POC ACT-CELITE,HEMO CHRON (STL) 379 s H 89-169 Jul 22, 2024 10:05 AM [facility] POC ACT-CELITE,HEMOCHRON (STL) Specimen Type: BLOOD Comment: Test Performed by: [id number] Meter #: [id number] Ordering Provider: TARYN EDGAR Report Released Date/Time: Jul 22, 2024 11:06 AM Reporting Lab: [address] [address] Performing Lab: [address] [address] POC ACT-CELITE,HEMO CHRON (STL) 388 s H 89-169 Jul 22, 2024 09:49 AM [facility] POC ACT-CELITE,HEMOCHRON (STL) Specimen Type: BLOOD Comment: Test Performed by: [id number] Meter #: [id number] Ordering Provider: TARYN EDGAR Report Released Date/Time: Jul 22, 2024 10:51 AM Reporting Lab: [address] [address] Performing Lab: [address] [address] POC ACT-CELITE,HEMO CHRON (STL) 351 s H 89-169 Jul 22, 2024 09:33 AM [facility] POC ACT-CELITE,HEMOCHRON (STL) Specimen Type: BLOOD Comment: Test Performed by: [id number] Meter #: [id number] Ordering Provider: TARYN EDGAR Report Released Date/Time: Jul 22, 2024 10:40 AM Reporting Lab: [facility] [address] [place] [address] Performing Lab: [address] [address] POC ACT-CELITE,HEMO CHRON ([facility]) 269 s H 89-169 Jul 22, 2024 08:51 AM [facility] POC ACT-CELITE,HEMOCHRON ([facility]) Specimen Type: BLOOD Comment: Test Performed by: [id number] Meter #: [id number] Ordering Provider: TARYN EDGAR Report Released Date/Time: Jul 22, 2024 09:52 AM Reporting Lab: [address] [address] Performing Lab: [address] [address] POC ACT-CELITE,HEMO CHRON ([facility]) 155 s 89-169 Jul 22, 2024 06:55 AM [facility] PT/INR NEW ([facility]) Specimen Type: PLASMA No comment entered. Ordering Provider: GWENDOLYN CHA Report Released Date/Time: Jun 22, 2024 12:20 PM Reporting Lab: [facility] [address] [place] [address] Performing Lab: [address] [address] PROTIME 14.1 s H 9.4-12.5 INR VALUE 1.3 {INR} Jul 22, 2024 06:55 AM [facility] BASIC METABOLIC PANEL Specimen Type: PLASMA Comment: No hemolysis noted. Ordering Provider: GWENDOLYN CHA Report Released Date/Time: Jun 22, 2024 12:20 PM Reporting Lab: [address] [address] Performing Lab: [address] [address] CREATININE 1.00 mg/dL 0.7-1.3 UREA NITROGEN 16.9 mg/dL 9.0-25.0 GLUCOSE 107 mg/dL H 72-99 SODIUM 138 meq/L 136-145 POTASSIUM 4.4 meq/L 3.5-5 CHLORIDE 108 meq/L H 98-107 CARBON DIOXIDE 22 meq/L 22-31 CALCIUM 9.0 mg/dL 8.4-10.4 EGFR (CKD-EPI 2020) 78.0 >60 Jul 22, 2024 06:55 AM [facility] CBC Specimen Type: BLOOD No comment entered. Ordering Provider: GWENDOLYN CHA Report Released Date/Time: Jun 22, 2024 12:20 PM Reporting Lab: [address] [address] Performing Lab: [address] [address] WBC 14.6 10*3/uL H 3.6-11.2 RBC 4.72 [...] 10*3/uL 2.10-8.00 Jul 20, 2024 11:31 AM [facility] I-STAT, CREAT ([facility]) Specimen Type: BLOOD Comment: Test Performed by: [id number] Meter #: [id number] Ordering Provider: TARYN EDGAR Report Released Date/Time: Jul 20, 2024 11:34 AM Reporting Lab: [facility] [address] [facility] [address] Performing Lab: [facility] [address] [facility] [address] I-STAT, CREAT (STL-MA) 1.1 mg/dL 0.7-1.3 Vital Signs: All taken on the encounter date This section contains inpatient and outpatient Vital Signs collected on the date of the Encounter. Date/Time Temperature Pulse Blood Pressure Respiratory Rate SP02 Pain Height Weight Body Mass Index Source Jul 22, 2024 08:33 PM 0 [facility] Jul 22, 2024 08:32 PM 98 73 105/67 20 94 0 [facility] Jul 22, 2024 07:30 PM 98.3 70 121/68 20 97 [facility] Jul 22, 2024 06:40 PM 6 [facility] Jul 22, 2024 06:30 PM 70 106/66 19 97 [facility] Radiology Reports: +/- 30 days [...] the Encounter. The data comes from all [place] treatment facilities. Date/Time Radiology Report Provider Source Aug 10, 2024 10:29 AM PET/CT TUMOR IMAGING (SKULL TO MID-THIGH)-P: SABINE HOLT [id number] -[id number] M Exm Date: AUG 10, 2024@10:29 Req Phys: TARYN EDGAR Loc: [facility]-PRE-OP EVAL NURSING AM (Req Img Loc: [facility]-PET-CT Service: [facility] [address] [place] [address] (Case [id number] COMPLETE) PET/CT TUMOR SKULL BASE TO MID-T(NM Detailed) CPT:09932 CPT Modifiers : PI PET TUMOR INIT TX STRAT Reason for Study: lung nodule (Case [id number] COMPLETE) F-18 FLUORODEOXYGLUCOSE (FDG),PER(NM Detailed) CPT:A9552 Clinical History: Report Status: Verified Date Reported: AUG 10, 2024 Date Verified: AUG 10, 2024 [employer] E-Sig:/ES/BURKE CARRION M.D. Report: PATIENT NAME: SABINE HOLT. CASE #: [id number] PROCEDURE: PET/CT study HISTORY: A 78-year-old male [...] The brain is partially included in the [id number] and there is misregistration in the region [...] CARRION M.D., STAFF PHYSICIAN - DIAGNOSTIC IMAGING ([employer]) Primary Interpreting Resident: SIRENA VAN, Resident Physician /BURKE PATRICIA [facility] Jul 20, 2024 11:[address] HEART & VENOUS MAPPING W/3D: SABINE HOLT [id number] -1945 M Ex Date: JUL 20, 2024@11:10 Req Phys: GWENDOLYN CHA Loc: [facility]-PRE-OP EVAL NURSING AM (Req Img Loc: [facility]-CT IMAGING [facility] Service: Unknown [facility] [address] [place] [address] (Case [id number] COMPLETE) CT HEART W CONTRAST & VENOUS JOSE(CT Detailed) CPT:63792 Reason for Study: pulmonary vein mapping Clinical History: Responsible Attending: Dr Cha Attending Contact Number: [phone] Resident Contact Number: Enter Hx and Reason [...] 22, 2024 Date Verified: JUL 22, 2024 [employer] E-Sig:/ES/ADA Demian WIGGINST Report: Case [id number]. CT heart with contrast & venous mapping. Max CTDI(vol): 12.46 mGy. Total DLP: 104 mGy*cm. TECHNIQUE: Cardiac CT was obtained with bolus IV contrast administration without gating. Multiplanar reformatted images and 3-D models were reconstructed as a CT cardiac pulmonary venogram for electrophysiology planning. Images were reformatted and analyzed using [employer] [place] [employer] software. NUMBER OF PULMONARY VEINS: 2 [...] advised. Primary Interpreting Staff: ADA WIGGINS MD ([employer]) /ADA SANCHEZ [facility] Encounter Notes: All associated encounter notes This section contains the clinical notes associated to the Encounter. Date/Time Encounter Note(s) Provider Source Jul 22, 2024 04:14 PM ANESTHESIOLOGY MALATHI WSHEET: LOCAL TITLE: PACU POST-OP FLOWSHEET STL STANDARD TITLE: ANESTHESIOLOGY FLOWSHEET DATE OF NOTE: JUL 22, 2024@16:14 ENTRY DATE: JUL 22, 2024@16:14:09 AUTHOR: RICARDO DAVIDSON COSIGNER: URGENCY: STATUS: COMPLETED Patient: SABINE HOLT SSN: [id number] Anesthesia Method: General 07/22/2024 9:11 (Primary), Airway: Endotracheal Intubation, Technique: Direct Laryngoscopy, Level Of Consciousness: Sedated, Patient Position: Supine, Preoxygenated, Induction Type: Intravenous, Breathing Circuit: [place] Adult, Ventilation by Mask: Easy to Ventilate [...] 3 Procedure: ep afib ablation Diagnosis: afib PACU Drugs: PACU Fluids: Urine Output: 200 ml Anesthesia Procedure: ---- Procedure 07/22/2024 9:28 Line [...] Chlorhexidine Technique: Standard Securement: Sterile Occlusive Dressing Date of Operation: 07/22/2024 Anesthesia Care End: 07/22/2024 15:28 Resources: Safety Belt Arm Sleds - Right Arm On Armboards < 90 Degrees Abduction At Shoulders - Left Padding at wrists - Bilateral Padding At Elbows - Bilateral Staff: --------- CECE BOOGIE PRIN. ANES. RUTER, STEPHANIE, PRIN. ANES. CHEN, PAUL, ANES. SUPER. BAUMGARTNER, CHRISTINA, RELIEF SWITCHBOARD OPERATOR RECEPTIONIST EZEQUIEL DAVIS, RELIEF SWITCHBOARD OPERATOR RECEPTIONIST ALEX PACHECO, RELIEF SWITCHBOARD OPERATOR RECEPTIONIST CECE BOOGIE PRIN. ANES. YUNGLING, NEKCOE, Post-Op Nurse Surgery Start Time: Procedure End Time: 07/22/2024 15:12 Moderate Sedation Care End: /dionna/ CLARISA MIKE, RN Signed: 07/22/2024 16:14 RICARDO DAVIDSON [facility]
--- OUTSIDE RECORDS SUMMARY | 2025-01-11 11:59 | XMS_ITS | Encounter Summary ---
Author Name [facility] [place] [facility] [place] [facility] [facility] [place] Address [address] [place] [address] Care Team Providers Care Bog Cutter Name Role Phone ASIYA FIERRO Primary Care Provider TARYN Mayo Primary Care Provider Unavailab jenkins Insurance Providers: [...] Relationship to Policy Gresham HUMANA [facility] ([facility]) MEDICARE ADVANTAGE [facility] ([facility]) 2022 [id number] [phone] YANETMARIELOS PHEN PATIENT MEDICA [facility] ([facility]) MEDICARE ADVANTAGE [facility] ([facility]) May 25, 2013 [id number] YANETMARIELOS PHEN PATIENT MEDICARE ([facility]) MEDICARE (M) PART B May 25, 2013 PART B [id number] MARLOWMARIELOS PHEN PATIENT MEDICARE ([facility]) MEDICARE (M) PART A Jul 26, 2012 PART A [id number] [phone] MARIELOS MARLOW PATIENT MEDICARE PART D (WNR) MEDICARE (M) PART D March 25, 2013 PART D [id number] [phone] MARIELOS MARLOW PATIENT [facility] [facility] (WNR) MEDICARE ADVANTAGE [facility] (WNR) Dec 26, 2022 [id number] [phone] MARIELOS MARLOW PATIENT Selected Encounter This section includes the information on record at [place] for the Encounter. Date/Time Encounter Type Encounter Description Reason Provider Source 2024 10:30 AM OFFICE O/P EST MOD 30 MIN PRIMARY CARE/MEDICINE ICD-10-CM R25.1 Tremor, unspecified SIMOSWALDOINGEVANGELIST Yuan Encounter Template Text not used by [place] Assessments - Encounter Diagnoses This section includes the primary and secondary diagnoses documented for the Encounter. Date/Time Primary/Secondary Diagnosis Diagnosis Name Provider Source 2024 10:28 AM PRIMARY Tremor, unspecified EVANGELIST EDGAR [facility] 2024 10:28 AM SECONDARY [facility]inic keratosis [facility] 2024 10:28 AM SECONDARY Encounter for immunization GARDNERSUSI Marcum [facility] 2024 10:28 AM SECONDARY Lymphocytosis (symptomatic) [facility] 2024 10:28 AM SECONDARY Peripheral vascular disease, unspecified TALAEVANGELIST Jossue [facility] 2024 10:28 AM SECONDARY Personal history of other diseases of the circulatory system MIREILLEINGEVANGELIST [facility] 2024 10:28 AM SECONDARY Unspecified atrial fibrillation [facility] Plan of Treatment: Future Appointments (+ 6 months) and Future Tests (+/- 45 days) The Plan of Treatment section includes future care activities for the patient from all [place] treatmentfacilities. This section includes future appointments and future orders which are active, pending or scheduled. Future Appointments This section includes appointments that were scheduled to occur 6 months from the date of the Encounter, up to a maximum of 20 appointments. The data comes from all [place] treatment facilities. Appointment Date/Time Appointment Type Appointme nt Facility Name Sep 14, 2024 09:00 AM AMBULATORY - SURGERY . Thelma PEREZ [facility] Nov 02, 2024 10:00 AM AMBULATORY - NONE [facility] Jan 19, 2025 02:30 PM AMBULATORY - MEDICINE [facility] Jan 22, 2025 02:30 PM AMBULATORY - NONE [facility] Feb 05, 2025 02:30 PM AMBULATORY - MEDICINE [facility] Active, Pending, and Scheduled Orders This section includes a listing of several types of active, pending, and scheduled orders, including clinic medications orders, diagnostic test orders, procedure orders and consult orders; where the start date of the order is 45 days before the date of the Encounter or 45 days after the date of theEncounter. The data comes from all [place] treatment facilities. Test Date/Time Test Type Test Details Facility Name Jul 22, 2024 06:00 AM Laboratory - Blood Bank Order TYPE & SCREEN - LAB BLOOD WC [facility] Lab Results: +/- 30 days of the encounter This section includes the Chemistry and Hematology Lab Results on record with [place] for the patient. Radiology Reports and Pathology Reports are provided separately, in subsequent sections. Lab Results This section contains the Chemistry/Hematology Results that were resulted 30 days before or 30 daysafter the date of the Encounter. Date/Time Source Result Type Result - Unit Interpretation Reference Range Comment 2024 11:50 AM [facility] URIC ACID Specimen Type: PLASMA Comment: No hemolysis noted. Ordering Provider: EVANGELIST EDGAR Report Released Date/Time: 2024 10:17 AM Reporting Lab: [facility] [address] [facility] [address] Performing Lab: [facility] [address] [facility] [address] URIC ACID 6.0 mg/dL 3.5-7.2 2024 11:50 AM [facility] VITAMIN D, 25-HYDROXY Specimen Type: SERUM Comment: The listed sex of this patient may not be a typical indication for this test. Therefore, reference ranges or interpretive criteria listed may not be valid. Clinical correlation suggested. Ordering Provider: EVANGELIST EDGAR Report Released Date/Time: 2024 10:17 AM Reporting Lab: [place] [address] Performing Lab: [address] [address] VITAMIN D, 25-HYDROXY 63.1 ng/mL 30-96 2024 11:50 AM [facility] PROST. SPECIFIC AG.(PB-STL) Specimen Type: SERUM Comment: The listed sex of this patient may not be a typical indication for this test. Therefore, reference ranges or interpretive criteria listed may not be valid. Clinical correlation suggested. Ordering Provider: EVANGELIST EDGAR Report Released Date/Time: 2024 10:20 AM Reporting Lab: [address] [address] Performing Lab: [place] [address] PROST. SPECIFIC AG.(PB-STL) 1.456 ng/mL 0-4 2024 11:50 AM [facility] COMPREHENSIVE METABOLIC PANEL Specimen Type: PLASMA Comment: No hemolysis noted. Ordering Provider: EVANGELIST EDGAR Report Released Date/Time: 2024 10:17 AM Reporting Lab: [address] [address] Performing Lab: [place] [address] CREATININE 0.89 mg/dL 0.7-1.3 UREA NITROGEN 16.1 [...] (CKD-EPI 2020) 88.3 >60 2024 11:50 AM [facility] CBC Specimen Type: BLOOD No comment entered. Ordering Provider: EVANGELIST EDGAR Report Released Date/Time: 2024 10:17 AM Reporting Lab: [facility] [address] [place] [phone] Performing Lab: [address] [address] WBC 9.3 10*3/uL 3.6-11.2 RBC 4.07 10*6/uL [...] ABSOLUTE 0.04 10*3/uL 0.00-0.20 2024 11:50 AM [facility] URINALYSIS (STL-PB) Specimen Type: URINE No comment entered. Ordering Provider: EVANGELIST EDGAR Report Released Date/Time: 2024 10:20 AM Reporting Lab: [facility] [address] [place] [phone] Performing Lab: [address] [address] URINE COLOR Light-Yellow Yellow U.BILIRUBIN Negative mg/dL Negative U.PH 6.0 5.0-8.0 URINE WBC/HPF 1 /[HPF] 0-5 URINE RBC/HPF 2 /[HPF] 0-5 APPEARANCE Clear Clear U.NITRITE Negative mg/dL Negative MUCUS RARE /[LPF] Negative -Ra re CA OXYLATE CRYSTALS RARE /[HPF] Negative-Ra re URN.GLUCOSE Normal mg/dL Negative URN.PROTEIN 20 mg/dL H Negative-20 URN.UROBILINOGE N Normal mg/dL Normal URN.BLOOD Negative mg/dL Negat dutch-Tr jean URN.KETONES Negative mg/dL Neg ative-Tr jean URN.LEUK.EST. Negative mg/dL N egative-Tr jean URN.SPECIFIC GRAVITY 1.026 1.005-1.029 Aug 10, 2024 10:12 AM [facility] GLUCOSE,BLOOD-poct (STL) Specimen Type: BLOOD Comment: Test Performed by: [id number] Meter #: [id number] Ordering Provider: EVANGELIST EDGAR Report Released Date/Time: Aug 10, 2024 10:28 AM Reporting Lab: [facility] [address] [facility] [address] Performing Lab: [address] [address] GLUCOSE,BLOOD-p oct (STL) 94 mg/dL 72-99 Vital Signs: All taken on the encounter date This section contains inpatient and outpatient Vital Signs collected on the date of the Encounter. Date/Time Temperature Pulse Blood Pressure Respiratory Rate SP02 Pain Height Weight Body Mass Index Source 2024 10:09 AM 96.6 75 139/86 20 100 0 185 25 [facility] Immunizations: All administered on the encounter date This section contains immunizations associated to the Encounter. Immunization Series Date Issued Reaction Comments COVID-19 (PFIZER), MRNA, LNP -S, PF, PATRICIA-SUCROSE, 30 MCG/0.3 ML (AGES 12+ YEARS) 2024 INFLUENZA, HIGH-DOSE, TRIVALENT, PF Aug 25 Social History: Smoking Status (Most current) and Tobacco Use (All prior to encounter date) This section includes the most current, and the historical, smoking and tobacco- related health factors from the [place] facility where the Encounter took place. Current Smoking Status This section includes the most current smoking, or tobacco-related health factor, from the [place] facility where the Encounter took place. Date/Time Current Smoking Status Comment Lilly ity 2024 10:30 AM VA-TOBACCO FORMER USER [facility] Tobacco Use History This section includes a history of the smoking, or tobacco-related health factors, that were collected on or before the date of the Encounter. The data comes from the [place] facility where the Encounter took place. Date/Time Smoking Status/Tobacco Use Comment F acility 2024 10:30 AM VA-TOBACCO QUIT 15 YRS OR MORE [facility] Oct 02, 2022 01:00 PM VA-TOBACCO FORMER USER [facility] Oct 02, 2022 01:00 PM VA-TOBACCO QUIT 15 YRS OR MORE [facility] Radiology Reports: +/- 30 days of the [...] the Encounter. The data comes from all [place] treatment facilities. Date/Time Radiology Report Provider Source Aug 10, 2024 10:29 AM PET/CT TUMOR IMAGING (SKULL TO MID-THIGH)-P: WILLIAN MARLOW [id number] M Exm Date: AUG 10, 2024@10:29 Req Phys: TARYN EDGAR Loc: [facility]-PRE-OP EVAL NURSING AM (Req Img Loc: [facility]-PET-CT Service: Unknown [address] [address] (Case [id number] COMPLETE) PET/CT TUMOR SKULL BASE TO MID-T(NM Detailed) CPT:20566 CPT Modifiers : PI PET TUMOR INIT TX STRAT Reason for Study: lung nodule (Case [id number] COMPLETE) F-18 FLUORODEOXYGLUCOSE (FDG),PER(NM Detailed) CPT:A9552 Clinical History: Report Status: Verified Date Reported: AUG 10, 2024 Date Verified: AUG 10, 2024 Scrum Master E-Sig:/ES/BURKE CARRION M.D. Report: PATIENT NAME: WILLIAN MARLOW. CASE #: [id number] PROCEDURE: PET/CT study HISTORY: A 78-year-old male [...] The brain is partially included in the [id number] and there is misregistration in the region [...] CARRION M.D., STAFF PHYSICIAN - DIAGNOSTIC IMAGING (Scrum Master) Primary Interpreting Resident: SIRENA VAN, Physician /BURKE PATRICIA [facility] Pathology Reports: +/- 30 days [...] the Encounter. The data comes from all [place] treatment facilities. Date/Time Pathology Report Provider Source 2024 11:50 AM LR MICROBIOLOGY RE PORT: Accession [UID]: [id number] [[id number]] Received: 2024@17:54 Collection sample: URINE,CLEAN CATCH Collection date: 2024 11:50 Site/Specimen: URINE Provider: TARYN EDGAR Test(s) ordered: C&S URINE..................... completed: Aug 26, 2024 20:13 * BACTERIOLOGY FINAL REPORT => Aug 26, 2024 20:14 TECH CODE: [id number] Bacteriology Remark(s): BERNADINE 08/26/24 <10,000 CFU/ML MIXED GRAM POSITIVE ORGANISMS There will be no work up. =--=--=--=--=--=--=--=--=--=--=--=-- =--=--=--=--=--=--=--=--=--=--=--=-- =--=-- Performing Laboratory: Bacteriology Report Performed By: [id number] [address] [place] [phone] [facility] [facility] Encounter Notes: All associated encounter notes This section contains the clinical notes associated to the Encounter. Date/Time Encounter Note(s) Provider Source Sep 09, 2024 02:30 PM PHYSICIAN LETTERS: LOCAL TITLE: TEST RESULT GENERAL LETTER ST STANDARD TITLE: PHYSICIAN LETTERS DATE OF NOTE: SEP 09, 2024@14:30 ENTRY DATE: SEP 09, 2024@14:30:04 AUTHOR: TARYN EDGAR: URGENCY: STATUS: COMPLETED [facility] [address] [place] [address] SEP 09, 2024 WILLIAN MARLOW [address] [place] [address] Dear Willian Marlow, I would like to update you on your recent test results. GLUCOSE - Your blood sugar or glucose level result GLUCOSE GLUCOSE 85 mg/dL 2024 11:50 These readings are within normal limits. CBC - A complete blood count (CBC) gives important information about the kinds and numbers of cells in the blood, especially red blood cells, white blood cells, and platelets. HGB 12.2 L g/dL 2024 11:50 HEMATOCRIT 36.7 % L (08/25/24 11:50) PLT 161 10*3/uL 2024 11:50 WHITE BLOOD COUNT 9.3 10*3/uL (08/25/24 11:50) The results are similar to previous values and not a clinical concern. CHEM 7 - This is important information about the current status of your kidneys, liver, and electrolyte and acid/base balance as well as of your blood sugar and blood proteins. SODIUM 139 mEq/L 2024 11:50 POTASSIUM 4.0 mEq/L 2024 11:50 CHLORIDE 107 mEq/L 2024 11:50 UREA NITROGEN 16.1 mg/dL 2024 11:50 CREATININE 0.89 mg/dL 2024 11:50 CALCIUM 9.1 mg/dL 2024 11:50 CARBON DIOXIDE 21 L mEq/L 2024 11:50 GLUCOSE 85 mg/dL 2024 11:50 EGFR (CKD-EPI 2020) 88.3 2024 11:50 These readings are within normal limits. LIVER FUNCTION PANEL - These are tests for liver function: PROTEIN 7.1 g/dL 2024 11:50 ALBUMIN 4.0 g/dL 2024 11:50 TOTAL BILIRUBIN 0.6 mg/dL 2024 11:50 ALKALINE PHOSPHATASE 88 U/L 2024 11:50 AST/SGOT 12 U/L 2024 11:50 ALT/SGPT 10 U/L 2024 11:50 These readings are within normal limits. PSA - Prostate-specific antigen is a protein produced by cells of the prostate gland. The PSA test measures the level of PSA in the blood. PSA PROST. SPECIFIC AG.(PB-STL) 1.456 ng/mL 2024 11:50 These readings are within normal limits. VITAMIN D - Helps promote the proper utilization of calcium and phosphorus, thereby producing proper bone maintenance. VITAMIN D, 25-HYDROXY 63.1 ng/mL 2024 11:50 These readings are within normal limits. URINALYSIS - A urinalysis (or UA ) is an array of tests performed on urine and one of the most common methods of medical diagnosis. URINALYSIS URINE COLOR Light-Yellow 2024 11:50 APPEARANCE Clear 2024 11:50 U.PH 6.0 2024 11:50 U.BILIRUBIN Negative mg/dL 2024 11:50 U.NITRITE Negative mg/dL 2024 11:50 URINE RBC/HPF 2 /HPF 2024 11:50 URINE WBC/HPF 1 /HPF 2024 11:50 MUCUS RARE /LPF 2024 11:50 CA OXYLATE CRYSTALS RARE /HPF 2024 11:50 These readings are within normal limits. PLAN Please continue your treatment as we discussed during your visit. If you have any questions please call your disease case manager. I look forward to seeing you at your next clinic appointment. Thank you for choosing the [facility] for your healthcare. FUTURE APPOINTMENTS: 09/14/2024 09:00 [facility]-UROLOGY RES 11/02/2024 10:00 [facility]-MRI1.5AM 01/01/2025 10:00 EUGENIO-CARDIOLOGY TETO 01/12/2025 10:00 EUGEINO-CARDIOLOGY HE ALCAZAR 1 03/01/2025 11:00 [facility]-NOCO PACT 1 PCP Sincerely, TARYN EDGAR MD STAFF PHYSICIAN WILLIAN MARLOW [facility] 2024 10:15 AM PRIMARY CARE NOTE: LOCAL TITLE: PRIMARY CARE PROVIDER ESTABLISHED VISIT [facility] STANDARD TITLE: PRIMARY CARE NOTE DATE OF NOTE: 2024@10:15 ENTRY DATE: 2024@10:15:44 AUTHOR: TARYN EDGAR EXP COSIGNER: URGENCY: STATUS: COMPLETED ESTABLISHED PATIENT [id number]: REASON FOR VISIT/CHIEF COMPLAINT: HPI: pt does not remember having gout. was on colchcicine but had diarhrea from it. pvd: no issues. a fib no bleeding issues. pt had pet scan. which showed up a small spot on protate Urology consult placed /pending. pt status post ablation 07/22 no issues. WHAT IS YOUR GOAL FOR TODAY? SOURCE(S) OF HISTORY: Patient PAST MEDICAL HISTORY: 1) Chronic tremor 2) AF - Atrial Fibrillation ([facility] [id number]) 3) AK - Actinic keratosis 4) History of varicose veins 5) Lymphocytosis comment: rule out CLL 6) PVD - peripheral vascular disease FAMILY HISTORY: Reviewed and unchanged. SOCIAL HISTORY: NICOTINE:none ILLICIT DRUGS:none ALCOHOL:none ALLERGIES: PENICILLIN ALLERGY REVIEW: Allergy list reviewed and remains current. MEDICATIONS: Active and Recently Outpatient Medications (excluding Supplies): Active Outpatient Medications Status 1) APIXABAN [...] REFLUX DISEASE TAKE 30 MINUTES BEFORE MEAL(S) Inactive Outpatient Medications Status 1) COLCHICINE 0.6MG TAB TAKE ONE TABLET BY MOUTH TWICE A DAY FOR GOUT STOP MED AND CONTACT PROVIDER AT FIRST SIGN OF NAUSEA, VOMITING, OR DIARRHEA 2) SUCRALFATE 1GM TAB TAKE ONE TABLET BY MOUTH FOUR TIMES A DAY FOR DUODENAL ULCER - TAKE ON AN EMPTY STOMACH. 8 Total Medications MEDICATION RECONCILIATION: I have reviewed the patient's medication list with the patient and/or his/her care-adult caregiver. Handwritten corrections, additions and/or deletions were made to the list. Corrected Outpatient Medication List was provided to the patient/caregiver. REVIEW OF SYSTEMS: General: Normal Ears, Nose, Mouth, Throat: Normal Eye: Normal Cardiovascular: Normal Respiratory: Normal ABD/GI: Normal Musculoskeletal/Extremities: Normal /MANAGER CONTENT: Normal Hematology & Lymph: Normal Endocrine: Normal Skin: Normal PHYSICAL EXAMINATION: General appearance:n ad VITALS (most recent, as listed in the electronic record): Temperature: 96.6 F [35.9 C] (2024 10:09) BP: 139/86 (2024 10:09) Pulse: 75 (2024 10:09) Resp: 20 (2024 10:09) PulsOx: 100% (2024 10:09) Pain: 0 (2024 10:09) Weight: Measurement DT WEIGHT LB(KG)[BMI] 2024 10:09 185(83.91)[25] 07/22/2024 17:00 208.3(94.48)[28*] 07/22/2024 06:30 185(83.91)[25] Ears, Nose, Mouth, Throat: Normal. Eye: Normal sclera Normal PERRLA Cardiovascular: S1 S2 Nl. Respiratory: Clear ABD/GI: Normal. Extremities: Normal /MANAGER CONTENT: Deferred Hematology & Lymph: Normal Endocrine: Normal Psych: Normal Neuro: Normal. CN 2-12 WNL. Strength 4/4 all ext Reflexes 2+ x 4. Skin: Normal. DATA REVIEW: HGA1C 6.2 H % 02/03/2024 10:45 HGA1C 5.7 % 12/12/2022 09:26 Lipid Panel: TRIGLYCERIDE 107 mg/dL 02/03/2024 10:45 CHOLESTEROL 148 mg/dL 02/03/2024 10:45 HDL(New) 33 L mg/dL 02/03/2024 10:45 CALCULATED LDL 94 mg/dL 02/03/2024 10:45 CMP: SODIUM 136 mEq/L 07/23/2024 06:00 POTASSIUM 3.7 [...] 06:00 EGFR (CKD-EPI 2020) 92.4 07/23/2024 06:00 CBC: WBC 11.3 H 10*3/uL 07/23/2024 06:00 RBC [...] 1+ 07/23/2024 06:00 POLYCHROMASIA 1+ 07/23/2024 06:00 PROST. SPECIFIC AG.(PB-STL) 0.552 ng/mL 02/03/2024 10:45 PROST. SPECIFIC AG.(PB-STL) 1.454 ng/mL 12/12/2022 09:26 TSH: TSH 1.179 uIU/mL 02/03/2024 10:45 VITAMIN D, 25-HYDROXY 63.8 ng/mL 02/03/2024 10:45 VITAMIN D, 25-HYDROXY 62.3 ng/mL 12/12/2022 09:26 INR: INR VALUE 1.3 INR 07/22/2024 06:55 PROTIME 14.1 H sec 07/22/2024 06:55 UA: URINE COLOR Light-Yellow 01/09/2023 09:00 APPEARANCE Clear 01/09/2023 09:00 U.PH 6.5 01/09/2023 09:00 U.BILIRUBIN Negative 01/09/2023 09:00 U.NITRITE Negative mg/dL 01/09/2023 09:00 URINE RBC/HPF 1 /HPF 01/09/2023 09:00 URINE WBC/HPF 4 /HPF 01/09/2023 09:00 MUCUS RARE /LPF 01/09/2023 09:00 IM - IMMUNIZATIONS ADMINISTERED Immunization Series Date Facility Reaction Info COVID-19 (MODERNA), MRNA, LNP-S,* 2 02/24/2021 [facility] * COVID-19 (MODERNA), MRNA, LNP-S,* 1 02/[facility]21 [facility] PNEUMOCOCCAL CONJUGATE PCV 13 02/03/2016 No Site PNEUMOCOCCAL POLYSACCHARIDE PPV23 11/25/2021 No Site RSV, BIVALENT, PROTEIN SUBUNIT R* 02/03/2024 [facility] TDAP 02/02/2018 No Site CONTRAINDICATED No data available REFUSED ======= Immunization Date Facility Info INFLUENZA, UNSPECIFIED FORMULATI* 11/28/2023 [facility]* <I> <I> See the Detailed Immunizations Health Summary Component[DIM] for Additional Information * Value is truncated; see the Detailed Immunizations Health Summary Component[DIM] for complete text ST - SKIN TESTS No data available Result: Acceptable Follow-up Action: Re check prior to next visit. Data results reviewed with patient and/or caregiver. ASSESSMENT/PLAN: 1. lung nodule re check ct in 6 months. 2. htn stable 3. hld no issues 4. gout check uric acid level 5. a fib status post ablationu stable. 6. prostate nodule noted on pet scan psa is normal. recheck psa along with ua and c and s. RETURN TO CLINIC: 6 months. SUMMARY STATEMENT: Plan of care has been discussed with including expected therapeutic benefits and potential side effects of prescribed medication and treatments. verbalizes understanding and is in agreement with the plan of care. Patient was instructed to keep all scheduled appointments and contact dry house attendant for any additional problems. PREVENTION & SCREENING: ALCOHOL: Clinical Reminder not due now or within a month COLORECTAL CANCER: Clinical Reminder not due now or within a month BLOOD PRESSURE: Clinical Reminder not due now or within a month HEMOGLOBIN A1C: Clinical Reminder not due now or within a month Sexual Orientation: The patient thinks of their sexual orientation as: Prefer not to answer COVID-19 Immunization: Virtual/Telehealth Visit - Patient educated on the need for receiving COVID-19 (SARS-CoV-2) immunization either at [facility] or outside facility. Influenza Immunization: Virtual/Telehealth Visit - Patient educated on the need for receiving influenza immunization either at [facility] or outside facility. Herpes Zoster (Shingles) Vaccine: The patient declines to receive the recommended dose of zoster (shingles) vaccine. Immunization: ZOSTER RECOMBINANT Refusal Reason: PATIENT DECISION Patient refuses all immunization(s) in the ZOSTER group Date Documented: 08/25/24 10:26 Ischemic HD/Post MO Follow Up: Aspirin is contraindicated for the following reason(s): taking warfarin/coumadin PAVE Foot Check: A complete foot check was completed at this encounter. VISUAL INSPECTION: Includes inspection for skin breaks, deformity, erythema, trauma, pallor on elevation, dependent rubor, nail deformities, extensive callus and pitting edema. Visual exam results: Abnormal Observations: Thickened toenails PEDAL PULSES: Includes palpation of dorsalis and posterior tibial pulses and signs/symptoms of vascular compromise like pain, pallor, parasthesia or paralysis. Present (even if diminished) SENSORY CHECK: Includes 10 gram Monofilament (Maurice-Cristina) test of sensation. Intact (Greater than or equal to 80% of sites checked) Abnormal (Less than 80% of sites checked): Abnormal (decreased or absent sensation to monofilament): LOW-RISK: LOW RISK INFORMATION PROVIDED: 1. Advised patient not to walk barefoot. 2. Explained the importance of daily foot checks for changes. 3. Stressed the importance of daily foot hygiene, including bathing and complete drying. Prior Approval/Non-formulary Drug: MEDICATION USE EVALUATION /es/ TARYN EDGAR MD STAFF PHYSICIAN Signed: 2024 10:28 TARYN EDGAR [facility] 2024 10:11 AM NURSING NOTE: LOCAL TITLE: V15 PACT FACE TO FACE NOTE STL STANDARD TITLE: NURSING NOTE DATE OF NOTE: 2024@10:11 ENTRY DATE: 2024@10:11:22 AUTHOR: SUSI GARDNER EXP COSIGNER: URGENCY: STATUS: COMPLETED V15 PACT FACE TO FACE NOTE STL Has ADDENDA Provider Visit: Patient Identifiers : Full Name Date of Reason for visit: Established Follow-Up Mode of Arrival: Ambulatory Allergy Review: PENICILLIN Allergy list reviewed and remains current. Recent Vital Signs: Temperature: 96.6 F [35.9 C] (2024 10:09) Pulse: 75 (2024 10:09) Respiration: 20 (2024 10:09) B/P: 139/86 (2024 10:09) Pain: 0 (2024 10:09) Wt: 185 lb [83.91 kg] (2024 10:09) Ht: 72 in [182.9 cm] (07/22/2024 17:00) BMI: 25.1 POX: 100% (2024 10:09) PERSONAL HEALTH INVENTORY Notes: No data available for PHI note titles PERSONAL HEALTH INVENTORY - MAP: 10/02/2022 Personal Health Plan Milo, Aspiration, Purpose (MAP) famly What matters most to you in your life right now? - [place]'s Response: kids Would you like to discuss any personal problem, family problem, alcohol use, drug use, or a mental or emotional illness? No My [facility] ([facility]), please select appointment type: Face to face: No- Are you interested in getting this done? No Contact provided Primary Care phone number and encouraged to call if any questions or concerns. Review that after hours nurse line ext.[phone] and emergency room are available 17/06 for patient use. Contact verbalized good understanding. No notification required for this note. Frail/Elderly Screen: ADL Screen - [place] Index of [place] in Activities of Daily Living Bathing: (3 Points) Receives no assistance (gets in and out of tub by self, if tub is usual means of bathing) Dressing: (3 Points) Gets clothes and gets completely dressed without assistance. Toileting: (3 Points) Goes to toilet room , cleans self, and arranges clothes without assistance (may use object for support such as cane, walker, or wheelchair, and may manage own night bedpan or commode, emptying same next morning) Transferring: (3 Points) Moves in and out of bed and in and out of chair without assistance (may be using object for support, such as cane or walker) Continence: (3 Points) Controls urination and bowel movement completely by self Feeding: (3 Points) Feeds self without assistance Total Score: 18 Points 18 = High (patient independent) 6 = Low (patient very dependent) IADL Screen - [place] Instrumental Activities of Daily Living Scale Ability to use telephone: (1 point) Operates Telephone on own initiative; looks up and dials numbers. Shopping: (1 point) Takes care of all shopping needs independently. Food preparation: (1 point) Plans, prepares, and serves adequate meals independently. Housekeeping: (1 point) Maintains house alone with occasional assistance (heavy work). Laundry: (1 point) Does personal laundry completely. Mode of transportation: (1 point) Travels independently on public transportation or drives own car. Responsibility for own medications: (1 point) Is responsible for taking medications in correct dosages at correct times. Ability to handle finances: (1 point) Manages financial matters independently (budgets, writes checks, pays rent and bills, goes to bank); collects and keeps track of income. Total score: 8 points 8 = High function, independent 0 = Low function, dependent Falls Screen: No falls within the past 12 months. Incontinence Screen: No incontinence. Tobacco Use Screening: The patient is a former tobacco user. The patient quit fifteen or more years ago. /dionna/ SUSI GARDNER Licensed Practical Nurse Signed: 2024 10:13 2024 ADDENDUM STATUS: COMPLETED COVID-19 Immunization: Pfizer Monovalent (Comirnaty) Administered: COVID-19 (PFIZER), MRNA, LNP-S, PF, PATRICIA-SUCROSE, 30 MCG/0.3 ML (AGES 12+ YEARS) Date Administered: 2024 10:30 Telephone Sales Representative: [employer] Lot: [id number] Exp Date: Feb 25, 2025 [facility]: [phone] Admin Route/Site: INTRAMUSCULAR/LEFT DELTOID Dosage: 0.5mL Vaccine Information Statement(s): COVID-19 MRNA VACCINE (12+ YRS) VACCINE VIS Sep 12, 2023 (INDONESIAN) Order By: Taryn Edgar Administered By: Susi Gardner Vaccine administered without complications. Influenza Immunization: Influenza, High-Dose, Trivalent, Preservative Free (Fluzone-Syringe) Administered: INFLUENZA, HIGH-DOSE, TRIVALENT, PF Date Administered: 2024 10:30 Telephone Sales Representative: [employer] Lot: [id number] Exp Date: May 24, 2025 [facility]: [id number] Admin Route/Site: INTRAMUSCULAR/RIGHT DELTOID Dosage: 0.5mL Vaccine Information Statement(s): INFLUENZA(FLU) VACC(INACTIVATED OR RECOMBINANT)VIS Jun 30, 2021 (INDONESIAN) Order By: Taryn Edgar Administered By: Susi Gardner The Influenza Vaccine Information Statement (VIS) was reviewed with the patient/caregiver which lists the benefits and risks of the vaccine and the risks of not receiving the Influenza vaccine. The patient/caregiver denied any prior severe reaction to this vaccine or its components or a severe allergic reaction, such as anaphylaxis, to any vaccine or any injectable therapy. The patient/caregiver gave verbal consent to receive the vaccine. /dionna/ SUSI GARDNER Licensed Practical Nurse Signed: 2024 10:40 SUSI GARDNER [facility]
--- OUTSIDE RECORDS SUMMARY | 2025-01-11 11:59 | XMS_ITS | Encounter Summary ---
Author Name [facility] [place] [facility] [place] Address [address] [place] [address] Care Team Providers Care Electronic Drafter Name Role Phone ASIYA FIERRO Primary Care [...] Name Patient's Relationship to Policy Gresham [employer] [facility] ([facility]) MEDICARE ADVANTAGE [facility] ([facility]) 2022 [id number] MARIELOS HOLT PHEN PATIENT MEDICA [facility] ([facility]) MEDICARE ADVANTAGE [facility] ([facility]) May 25, 2013 [id number] MARIELOS HOLT PHEN PATIENT MEDICARE ([facility]) MEDICARE (M) PART B May 25, 2013 PART B [id number] [phone] HOLTMARIELOS PHEN PATIENT MEDICARE ([facility]) MEDICARE (M) PART A Jul 26, 2012 PART A [id number] MARIELOS HOLT PATIENT MEDICARE PART D (WNR) MEDICARE (M) PART D March 25, 2013 PART D [id number] MARIELOS HOLT PATIENT [facility] (WNR) MEDICARE ADVANTAGE [facility] (WNR) Dec 26, 2022 [id number] MARIELOS HOLT PATIENT Selected Encounter This section includes the information on record at [place] for the Encounter. Date/Time Encounter Type Encounter Description Reason Pro vider Source Feb 03, 2024 12:16 PM Outpatient Encounter PRIMARY CARE/MEDICINE IHE Encounter Template Text not used by [place] Plan of Treatment: Future Appointments (+ 6 months) and Future Tests (+/- 45 days) The Plan of Treatment section includes future care activities for the patient from all [place] treatmentfacilities. This section includes future appointments and future orders which are active, pending or scheduled. Future Appointments This section includes appointments that were scheduled to occur 6 months from the date of the Encounter, up to a maximum of 20 appointments. The data comes from all [place] treatment facilities. Appointment Date/Time Appointment Type Appointme nt Facility Name Feb 17, 2024 11:00 AM AMBULATORY - SURGERY [facility] March 31, 2024 10:00 AM AMBULATORY - MEDICINE [facility] April 09, 2024 10:15 AM AMBULATORY - MEDICINE [facility] May 01, 2024 10:00 AM AMBULATORY - MEDICINE [facility] May 08, 2024 10:00 AM AMBULATORY - MEDICINE [facility] Jul 20, 2024 10:15 AM AMBULATORY - MEDICINE [facility] Jul 20, 2024 03:00 PM AMBULATORY - NONE . [facility] Jul 22, 2024 06:00 AM AMBULATORY - NONE . [facility] Jul 22, 2024 06:15 AM AMBULATORY - MEDICINE [facility] Jul 31, 2024 10:30 AM AMBULATORY - MEDICINE [facility] Lab Results: +/- 30 days of the encounter This section includes the Chemistry and Hematology Lab Results on record with [place] for the patient. Radiology Reports and Pathology Reports are provided separately, in subsequent sections. Lab Results This section contains the Chemistry/Hematology Results that were resulted 30 days before or 30 daysafter the date of the Encounter. Date/Time Source Result Type Result - Unit Interpretation Reference Range Comment Feb 03, 2024 10:45 AM [facility] LIPID PANEL (STL) Specimen Type: PLASMA Comment: No hemolysis noted. Ordering Provider: EVANGELIST EDGAR Report Released Date/Time: Feb 03, 2024 10:19 AM Reporting Lab: [facility] [address] [facility] [address] Performing Lab: [address] [address] CHOLESTEROL 148 mg/dL 0-200 TRIGLYCERIDE 107 mg/dL 0-150 CALCULATED LDL 94 mg/dL HDL(New) 33 mg/dL L >40 Feb 03, 2024 10:45 AM [facility] HGA1C Specimen Type: BLOOD No comment entered. Ordering Provider: EVANGELIST EDGAR Report Released Date/Time: Feb 03, 2024 10:19 AM Reporting Lab: [facility] [address] [facility] [address] Performing Lab: [facility] [address] [place] [phone] HGA1C 6.2 H 4.0-6.0 Feb 03, 2024 10:45 AM [facility] COMPREHENSIVE METABOLIC PANEL Specimen Type: PLASMA Comment: No hemolysis noted. Ordering Provider: EVANGELIST EDGAR Report Released Date/Time: Feb 03, 2024 10:18 AM Reporting Lab: [facility] [address] [facility] [address] Performing Lab: [place] [address] [facility] [address] CREATININE 0.84 mg/dL 0.7-1.3 UREA NITROGEN 16.9 [...] >60 Feb 03, 2024 10:45 AM [facility] PROST. SPECIFIC AG.(PB-STL) Specimen Type: SERUM Comment: The listed sex of this patient may not be a typical indication for this test. Therefore, reference ranges or interpretive criteria listed may not be valid. Clinical correlation suggested. Ordering Provider: EVANGELIST EDGAR Report Released Date/Time: Feb 03, 2024 10:19 AM Reporting Lab: [address] [address] Performing Lab: [address] [address] PROST. SPECIFIC AG.(PB-STL) 0.552 ng/mL 0-4 Feb 03, 2024 10:45 AM [facility] CBC Specimen Type: BLOOD No comment entered. Ordering Provider: EVANGELIST EDGAR Report Released Date/Time: Feb 03, 2024 10:19 AM Reporting Lab: [address] [address] Performing Lab: [address] [address] WBC 10.0 10*3/uL 3.6-11.2 RBC 4.34 10*6/uL [...] 0.00-0.20 Feb 03, 2024 10:45 AM [facility] TSH (MA-PB-STL) Specimen Type: SERUM Comment: The listed sex of this patient may not be a typical indication for this test. Therefore, reference ranges or interpretive criteria listed may not be valid. Clinical correlation suggested. Ordering Provider: EVANGELIST EDGAR Report Released Date/Time: Feb 03, 2024 10:19 AM Reporting Lab: [address] [address] Performing Lab: [address] [address] TSH 1.179 u[IU]/mL 0.47-5 Feb 03, 2024 10:45 AM [facility] VITAMIN D, 25-HYDROXY Specimen Type: SERUM Comment: The listed sex of this patient may not be a typical indication for this test. Therefore, reference ranges or interpretive criteria listed may not be valid. Clinical correlation suggested. Ordering Provider: EVANGELIST EDGAR Report Released Date/Time: Feb 03, 2024 10:19 AM Reporting Lab: [facility] [address] [facility] [address] Performing Lab: [address] [address] VITAMIN D, 25-HYDROXY 63.8 ng/mL 30-96 Vital Signs: All taken on the encounter date This section contains inpatient and outpatient Vital Signs collected on the date of the Encounter. Date/Time Temperature Pulse Blood Pressure Respiratory Rate SP02 Pain Height Weight Body Mass Index Source Feb 03, 2024 10:30 AM 76 112/78 16 1 [facility] Social History: Smoking Status (Most current) and Tobacco Use (All prior to encounter date) This section includes the most current, and the historical, smoking and tobacco- related health factors from the [place] facility where the Encounter took place. Current Smoking Status This section includes the most current smoking, or tobacco-related health factor, from the [place] facility where the Encounter took place. Date/Time Current Smoking Status Comment Lilly ity Oct 02, 2022 01:00 PM [place]-TOBACCO FORMER USER [facility] Tobacco Use History This section includes a history of the smoking, or tobacco-related health factors, that were collected on or before the date of the Encounter. The data comes from the [place] facility where the Encounter took place. Date/Time Smoking Status/Tobacco Use Comment F acility Oct 02, 2022 01:00 PM [place]-TO[place]AC[place] QUIT 15 YRS OR MORE [facility] Encounter Notes: All associated encounter notes This section contains the clinical notes associated to the Encounter. Date/Time Encounter Note(s) Provider Source Feb 03, 2024 03:51 PM CARDIOLOGY DIAGNOS TIC STUDY CONSULT: LOCAL TITLE: EKG CONSULT STL STANDARD TITLE: CARDIOLOGY DIAGNOSTIC STUDY CONSULT DATE OF NOTE: FEB 03, 2024@15:51:33 ENTRY DATE: FEB 03, 2024@15:51:33 AUTHOR: CLINICAL,DEVICE PRO EXP COSIGNER: URGENCY: STATUS: COMPLETED DOCUMENT IN [facility] SEE FULL REPORT IN [facility] SIGNATURE NOT REQUIRED SEE SIGNATURE IN [facility]ISTA IMAGING ([place] EKG) AUTO-INSTRUMENT DIAGNOSIS Procedure: 87800 12 Lead ECG Release Status: Released Off-Line Verified Date Verified: Feb 03, 2024@15:51:32 67649.2 Ventricular Rate: 65 BPM 61701.3 Atrial Rate: 65 BPM 96847.4 P-R Interval: 172 ms 44271.5 QRS Duration: 100 ms 69158.6 Q-T Interval: 438 ms 07246 QTC Calculation(Bazett)455 ms 38831.12 Calculated P [place]: -14 degrees 20616.13 Calculated R [place]: -51 degrees 40500.14 Calculated T [place]: 32 degrees Sinus rhythm with Premature supraventricular complexes Incomplete right bundle branch block Left anterior fascicular block Abnormal ECG When compared with ECG of 31-OCT-2023 10:21, No significant change was found Administrative Closure: 02/03/2024 by: CLINICAL,DEVICE PROXY SERVICE CLINICAL,DEVICE PROXY SERVICE [facility]
--- OUTSIDE RECORDS SUMMARY | 2025-01-11 11:59 | XMS_ITS | Encounter Summary ---
Author Name [facility] [place] [facility] [place] Address [address] [place] [address] Care Team Providers Care Logistics Analytics Manager Name Role Phone ASIYA FIERRO Primary Care [...] Name Patient's Relationship to Policy Gresham HUMANA [facility] ([facility]) MEDICARE ADVANTAGE [facility] ([facility]) 2022 [id number] [phone] YANETMARIELOS PHEN PATIENT MEDICA [facility] ([facility]) MEDICARE ADVANTAGE [facility] ([facility]) May 25, 2013 [id number] HOLTMARIELOS PHEN PATIENT MEDICARE ([facility]) MEDICARE (M) PART B May 25, 2013 PART B [id number] HOLTMARIELOS CORDOVA PHEN PATIENT MEDICARE ([facility]) MEDICARE (M) PART A Jul 26, 2012 PART A [id number] [phone] MARIELOS HOLT PATIENT MEDICARE PART D (WNR) MEDICARE (M) PART D March 25, 2013 PART D [id number] MARIELOS HOLT PATIENT WELLCARE [facility] (WNR) MEDICARE ADVANTAGE [facility] (WNR) Dec 26, 2022 [id number] [phone] MARIELOS HOLT PATIENT Selected Encounter This section includes the information on record at [place] for the Encounter. Date/Time Encounter Type Encounter Description Reason Provider Source Jul 22, 2024 08:08 AM OFFICE O/P EST MOD 30 MIN NON-OR ANESTHESIA PROCEDURES ICD-10-CM Z01.818 Encounter for other preprocedural examination JAQUELINE BOYLE [facility] Encounter Template Text not used by [place] Assessments - Encounter Diagnoses This section includes the primary and secondary diagnoses documented for the Encounter. Date/Time Primary/Secondary Diagnosis Diagnosis Name Provider Source Jul 22, 2024 08:12 AM PRIMARY Encounter for other preprocedural examination JAQUELINE BOYLE [facility] Jul 22, 2024 08:12 AM SECONDARY Encounter for other specified surgical aftercare JAQUELINE BOYLE [facility] Plan of Treatment: Future Appointments (+ 6 months) and Future Tests (+/- 45 days) The Plan of Treatment section includes future care activities for the patient [facility] [place] [facility] This section includes future appointments and future orders which are active, pending or scheduled. Future Appointments This section includes appointments that were scheduled to occur 6 months from the date of the Encounter, up to a maximum of 20 appointments. The data comes from all [place] treatment facilities. Appointment Date/Time Appointment Type Appointme nt Facility Name Jul 31, 2024 10:30 AM AMBULATORY - MEDICINE [facility] Aug 10, 2024 10:15 AM AMBULATORY - NONE [facility] Aug 18, 2024 10:30 AM [facility]UL[facility]ORY - MEDICINE [facility] Aug 20, 2024 08:30 PM AMBULATORY - NONE [facility] 2024 10:30 AM AMBULATORY - MEDICINE [facility] Sep 14, 2024 09:00 AM AMBULATORY - SURGERY [facility] Nov 02, 2024 10:00 AM AMBULATORY - NONE [facility] Jan 19, 2025 02:30 PM AMBULATORY - MEDICINE [facility] Jan 22, 2025 02:30 PM AMBULATORY - NONE [facility] Active, Pending, and Scheduled Orders This section includes a listing of several types of active, pending, and scheduled orders, including clinic medications orders, diagnostic test orders, procedure orders and consult orders; where the start date of the order is 45 days before the date of the Encounter or 45 days after the date of theEncounter. The data comes from all [place] treatment facilities. Test Date/Time Test Type Test Details Facility Name Jul 22, 2024 06:00 AM Laboratory - Blood Bank Order TYPE & SCREEN - LAB BLOOD WC [facility] Lab Results: +/- 30 days of [...] Range Comment Aug 10, 2024 10:12 AM [facility] GLUCOSE,BLOOD-poct (STL) Specimen Type: BLOOD Comment: Test Performed by: [id number] Meter #: [id number] Ordering Provider: TARYN EDGAR Report Released Date/Time: Aug 10, 2024 10:28 AM Reporting Lab: [facility] [address] [address] Performing Lab: [facility] [address] [address] GLUCOSE,BLOOD-p oct (STL) 94 mg/dL 72-99 Jul 23, 2024 06:24 AM [facility] MAGNESIUM Specimen Type: PLASMA Comment: No hemolysis noted. Ordering Provider: ALFREDITO WILSON Report Released Date/Time: Jul 22, 2024 05:37 PM Reporting Lab: [place] [address] [address] Performing Lab: [address] [address] MAGNESIUM 1.8 mg/dL 1.6-2.6 Jul 23, 2024 06:24 AM [facility] PHOSPHOROUS Specimen Type: PLASMA Comment: No hemolysis noted. Ordering Provider: ALFREDITO WILSON Report Released Date/Time: Jul 22, 2024 05:37 PM Reporting Lab: [address] [address] Performing Lab: [address] [address] PHOSPHOROUS 4.0 mg/dL 2.3-4.7 Jul 23, 2024 06:24 AM [facility] BASIC METABOLIC PANEL Specimen Type: PLASMA Comment: No hemolysis noted. Ordering Provider: ALFREDITO WILSON Report Released Date/Time: Jul 22, 2024 05:37 PM Reporting Lab: [address] [address] Performing Lab: [address] [address] CREATININE 0.78 mg/dL 0.7-1.3 UREA NITROGEN 14.4 mg/dL 9.0-25.0 GLUCOSE 113 mg/dL H 72-99 SODIUM 136 meq/L 136-145 POTASSIUM 3.7 meq/L 3.5-5 CHLORIDE 108 meq/L H 98-107 CARBON DIOXIDE 21 meq/L L 22-31 CALCIUM 8.3 mg/dL L 8.4-10.4 EGFR (CKD-EPI 2020) 92.4 >60 Jul 23, 2024 06:24 AM [facility] CBC Specimen Type: BLOOD Comment: VERIFIED BY REPEAT Ordering Provider: ALFREDITO WILSON Report Released Date/Time: Jul 22, 2024 05:37 PM Reporting Lab: [address] [address] Performing Lab: [address] [address] WBC 11.3 10*3/uL H 3.6-11.2 RBC 3.86 [...] SCRNPERF YES Jul 22, 2024 05:20 PM [facility] MRSA SURVL NARES DNA Specimen Type: NARES [...] Jul 22, 2024 04:20 PM Reporting Lab: [address] [address] Performing Lab: [address] [address] MRSA SURVL NARES DNA Negative Negative Jul 22, 2024 02:16 PM [facility] POC ACT-CELITE,HEMOCHRON (STL) Specimen Type: BLOOD Comment: Test Performed by: [id number] Meter #: [id number] Ordering Provider: TARYN EDGAR Report Released Date/Time: Jul 22, 2024 03:15 PM Reporting Lab: [place] [address] [address] Performing Lab: [place] [address] [address] POC ACT-CELITE,HEMO CHRON (STL) 174 s H 89-169 Jul 22, 2024 01:45 PM [facility] POC ACT-CELITE,HEMOCHRON (STL) Specimen Type: BLOOD Comment: Test Performed by: [id number] Meter #: [id number] Ordering Provider: TARYN EDGAR Report Released Date/Time: Jul 22, 2024 03:15 PM Reporting Lab: [place] [address] [address] Performing Lab: [place] [address] [address] POC ACT-CELITE,HEMO CHRON (STL) >400 s H 89-169 Jul 22, 2024 01:22 PM [facility] POC ACT-CELITE,HEMOCHRON (STL) Specimen Type: BLOOD Comment: Test Performed by: [id number] Meter #: [id number] Ordering Provider: TARYN EDGAR Report Released Date/Time: Jul 22, 2024 02:24 PM Reporting Lab: [address] [address] Performing Lab: [address] [address] POC ACT-CELITE,HEMO CHRON (STL) 355 s H 89-169 Jul 22, 2024 01:02 PM [facility] POC ACT-CELITE,HEMOCHRON (STL) Specimen Type: BLOOD Comment: Test Performed by: [id number] Meter #: [id number] Ordering Provider: TARYN EDGAR Report Released Date/Time: Jul 22, 2024 02:04 PM Reporting Lab: [address] [address] Performing Lab: [address] [address] POC ACT-CELITE,HEMO CHRON (STL) 339 s H 89-169 Jul 22, 2024 12:46 PM [facility] POC ACT-CELITE,HEMOCHRON (STL) Specimen Type: BLOOD Comment: Test Performed by: [id number] Meter #: [id number] Ordering Provider: TARYN EDGAR Report Released Date/Time: Jul 22, 2024 01:48 PM Reporting Lab: [address] [address] Performing Lab: [address] [address] POC ACT-CELITE,HEMO CHRON (STL) 327 s H 89-169 Jul 22, 2024 12:30 PM [facility] POC ACT-CELITE,HEMOCHRON (STL) Specimen Type: BLOOD Comment: Test Performed by: [id number] Meter #: [id number] Ordering Provider: TARYN EDGAR Report Released Date/Time: Jul 22, 2024 01:48 PM Reporting Lab: [address] [address] Performing Lab: [address] [address] POC ACT-CELITE,HEMO CHRON (STL) >400 s H 89-169 Jul 22, 2024 12:07 PM [facility] POC ACT-CELITE,HEMOCHRON (STL) Specimen Type: BLOOD Comment: Test Performed by: [id number] Meter #: [id number] Ordering Provider: TARYN EDGAR Report Released Date/Time: Jul 22, 2024 01:16 PM Reporting Lab: [address] [address] Performing Lab: [address] [address] POC ACT-CELITE,HEMO CHRON (STL) >400 s H 89-169 Jul 22, 2024 11:46 AM [facility] POC ACT-CELITE,HEMOCHRON (STL) Specimen Type: BLOOD Comment: Test Performed by: [id number] Meter #: [id number] Ordering Provider: TARYN EDGAR Report Released Date/Time: Jul 22, 2024 12:48 PM Reporting Lab: [address] [address] Performing Lab: [address] [address] POC ACT-CELITE,HEMO CHRON (STL) 354 s H 89-169 Jul 22, 2024 11:31 AM [facility] POC ACT-CELITE,HEMOCHRON (STL) Specimen Type: BLOOD Comment: Test Performed by: [id number] Meter #: [id number] Ordering Provider: TARYN EDGAR Report Released Date/Time: Jul 22, 2024 12:33 PM Reporting Lab: [address] [address] Performing Lab: [address] [address] POC ACT-CELITE,HEMO CHRON (STL) 373 s H 89-169 Jul 22, 2024 11:15 AM [facility] POC ACT-CELITE,HEMOCHRON (STL) Specimen Type: BLOOD Comment: Test Performed by: [id number] Meter #: [id number] Ordering Provider: TARYN EDGAR Report Released Date/Time: Jul 22, 2024 12:16 PM Reporting Lab: [address] [address] Performing Lab: [address] [address] POC ACT-CELITE,HEMO CHRON (STL) 318 s H 89-169 Jul 22, 2024 11:01 AM [facility] POC ACT-CELITE,HEMOCHRON (STL) Specimen Type: BLOOD Comment: Test Performed by: [id number] Meter #: [id number] Ordering Provider: TARYN EDGAR Report Released Date/Time: Jul 22, 2024 12:03 PM Reporting Lab: [place] [phone] Performing Lab: [place] [phone] POC ACT-CELITE,HEMO CHRON (STL) 313 s H 89-169 Jul 22, 2024 10:25 AM [facility] POC ACT-CELITE,HEMOCHRON (STL) Specimen Type: BLOOD Comment: Test Performed by: [id number] Meter #: [id number] Ordering Provider: TARYN EDGAR Report Released Date/Time: Jul 22, 2024 11:28 AM Reporting Lab: [place] [phone] Performing Lab: [place] [address] POC ACT-CELITE,HEMO CHRON (STL) 379 s H 89-169 Jul 22, 2024 10:05 AM [facility] POC ACT-CELITE,HEMOCHRON (STL) Specimen Type: BLOOD Comment: Test Performed by: [id number] Meter #: [id number] Ordering Provider: TARYN EDGAR Report Released Date/Time: Jul 22, 2024 11:06 AM Reporting Lab: [place] [phone] Performing Lab: [address] [address] POC ACT-CELITE,HEMO CHRON (STL) 388 s H 89-169 Jul 22, 2024 09:49 AM [facility] POC ACT-CELITE,HEMOCHRON (STL) Specimen Type: BLOOD Comment: Test Performed by: [id number] Meter #: [id number] Ordering Provider: TARYN EDGAR Report Released Date/Time: Jul 22, 2024 10:51 AM Reporting Lab: [place] [phone] Performing Lab: [address] [address] POC ACT-CELITE,HEMO CHRON (STL) 351 s H 89-169 Jul 22, 2024 09:33 AM [facility] POC ACT-CELITE,HEMOCHRON (STL) Specimen Type: BLOOD Comment: Test Performed by: [id number] Meter #: [id number] Ordering Provider: TARYN EDGAR Report Released Date/Time: Jul 22, 2024 10:40 AM Reporting Lab: [address] [address] Performing Lab: [address] [address] POC ACT-CELITE,HEMO CHRON (L) 269 s H 89-169 Jul 22, 2024 08:51 AM [facility] POC ACT-CELITE,HEMOCHRON (L) Specimen Type: BLOOD Comment: Test Performed by: [id number] Meter #: [id number] Ordering Provider: TARYN EDGAR Report Released Date/Time: Jul 22, 2024 09:52 AM Reporting Lab: [address] [address] Performing Lab: [address] [address] POC ACT-CELITE,HEMO CHRON (L) 155 s 89-169 Jul 22, 2024 06:55 AM [facility] PT/INR NEW ([facility]) Specimen Type: PLASMA No comment entered. Ordering Provider: GWENDOLYN CHA Report Released Date/Time: Jun 22, 2024 12:20 PM Reporting Lab: [address] [address] Performing Lab: [address] [address] PROTIME 14.1 s H 9.4-12.5 INR VALUE 1.3 {INR} Jul 22, 2024 06:55 AM [facility] BASIC METABOLIC PANEL Specimen Type: PLASMA Comment: No hemolysis noted. Ordering Provider: GWENDOLYN CHA Report Released Date/Time: Jun 22, 2024 12:20 PM Reporting Lab: [address] [address] Performing Lab: [address] [address] CREATININE 1.00 mg/dL 0.7-1.3 UREA NITROGEN 16.9 mg/dL 9.0-25.0 GLUCOSE 107 mg/dL H 72-99 SODIUM 138 meq/L 136-145 POTASSIUM 4.4 meq/L 3.5-5 CHLORIDE 108 meq/L H 98-107 CARBON DIOXIDE 22 meq/L 22-31 CALCIUM 9.0 mg/dL 8.4-10.4 EGFR (CKD-EPI 2020) 78.0 >60 Jul 22, 2024 06:55 AM [facility] CBC Specimen Type: BLOOD No comment entered. Ordering Provider: GWENDOLYN CHA Report Released Date/Time: Jun 22, 2024 12:20 PM Reporting Lab: [address] [address] Performing Lab: [address] [address] WBC 14.6 10*3/uL H 3.6-11.2 RBC 4.72 [...] 10*3/uL 2.10-8.00 Jul 20, 2024 11:31 AM [facility] I-STAT, CREAT (STL-MA) Specimen Type: BLOOD Comment: Test Performed by: [id number] Meter #: [id number] Ordering Provider: TARYN EDGAR Report Released Date/Time: Jul 20, 2024 11:34 AM Reporting Lab: [facility] [address] [facility] [address] Performing Lab: [place] [address] [address] [address] I-STAT, CREAT (L-MA) 1.1 mg/dL 0.7-1.3 Vital Signs: All taken on the encounter date This section contains inpatient and outpatient Vital Signs collected on the date of the Encounter. Date/Time Temperature Pulse Blood Pressure Respiratory Rate SP02 Pain Height Weight Body Mass Index Source Jul 22, 2024 08:33 PM 0 [facility] Jul 22, 2024 08:32 PM 98 73 105/67 20 94 0 [facility] Jul 22, 2024 07:30 PM 98.3 70 121/68 20 97 [facility] Jul 22, 2024 06:40 PM 6 [facility] Jul 22, 2024 06:30 PM 70 106/66 19 97 [facility] Rad[facility] Reports: +/- 30 days of [...] the Encounter. The data comes from all [facility] facilities. Date/Time Radiology Report Provider Source Aug 10, 2024 10:29 AM PET/CT TUMOR IMAGING (SKULL TO MID-THIGH)-P: SABINE HOLT [id number] -[id number] M Exm Date: AUG 10, 2024@10:29 Req Phys: TARYN EDGAR Loc: [facility]-PRE-OP EVAL NURSING AM (Req Img Loc: [facility]-PET-CT Service: Unknown [facility], [address] [place] [address] (Case [id number] COMPLETE) PET/CT TUMOR SKULL BASE TO MID-T(NM Detailed) CPT:81700 CPT Modifiers : PI PET TUMOR INIT TX STRAT Reason for Study: lung nodule (Case [id number] COMPLETE) F-18 FLUORODEOXYGLUCOSE (FDG),PER(NM Detailed) CPT:A9552 Clinical History: Report Status: Verified Date Reported: AUG 10, 2024 Date Verified: AUG 10, 2024 Pigment Pumper E-Sig:/ES/BURKE CARRION M.D. Report: PATIENT NAME: SABINE HOLT. CASE #: [id number] PROCEDURE: PET/CT study HISTORY: A 78-year-old male [...] The brain is partially included in the [id number] and there is misregistration in the region [...] ABNORMALITY, ATTN NEEDED Primary Interpreting Staff: BURKE CARRINO M.D., STAFF PHYSICIAN - DIAGNOSTIC IMAGING (Pigment Pumper) Primary Interpreting Resident: SIRENA VAN, Resident Physician /BURKE PATRICIA [facility] Jul 20, 2024 11:[address] HEART & VENOUS MAPPING W/3D: HOLTSABINE [id number] -[id number] M Ex Date: JUL 20, 2024@11:10 Req Phys: GWENDOLYN CHA Loc: [facility]-PRE-OP EVAL NURSING AM (Req Img Loc: [facility]-CT IMAGING [facility] Service: Unknown [facility], [address] [place] [address] (Case [id number] COMPLETE) CT HEART W CONTRAST & VENOUS JOSE(CT Detailed) CPT:38293 Reason for Study: pulmonary vein mapping Clinical History: Responsible Attending: Dr Cha Attending Contact Number: [phone] Resident Contact Number: Enter Hx and Reason [...] 22, 2024 Date Verified: JUL 22, 2024 Pigment Pumper E-Sig:/ES/ADA Demian WIGGINST Report: Case [id number]. CT heart with contrast & venous mapping. Max CTDI(vol): 12.46 mGy. Total DLP: 104 mGy*cm. TECHNIQUE: Cardiac CT was obtained with bolus IV contrast administration without gating. Multiplanar reformatted images and 3-D models were reconstructed as a CT cardiac pulmonary venogram for electrophysiology planning. Images were reformatted and analyzed using [employer] [place] Suite software. NUMBER OF PULMONARY VEINS: 2 [...] advised. Primary Interpreting Staff: ADA WIGGINS MD (Pigment Pumper) /ADA SANCHEZ [facility] Encounter Notes: All associated encounter notes This section contains the clinical notes associated to the Encounter. Date/Time Encounter Note(s) Provider Source Jul 22, 2024 05:30 PM ANESTHESIOLOGY POS T OPERATIVE E & M NOTE: LOCAL TITLE: ANESTHESIA POST-OP STL STANDARD TITLE: ANESTHESIOLOGY POST OPERATIVE E & M NOTE DATE OF NOTE: JUL 22, 2024@17:30 ENTRY DATE: JUL 22, 2024@17:30:12 AUTHOR: TARYN SHEA EXP COSIGNER: URGENCY: STATUS: COMPLETED Post-Anesthesia Review: No anesthetic related complications. Intra Op Flowsheet Submitted /es/ TARYN SHEA MD Staff Anesthesiologist Signed: 07/22/2024 17:30 TARYN SHEA [facility] Jul 22, 2024 08:08 AM ANESTHESIOLOGY PRE OPERATIVE E & M NOTE: LOCAL TITLE: ANESTHESIA PRE-OP STL STANDARD TITLE: ANESTHESIOLOGY PRE OPERATIVE E & M NOTE DATE OF NOTE: JUL 22, 2024@08:08 ENTRY DATE: JUL 22, 2024@08:08:36 AUTHOR: JAQUELINE BOYLE EXP COSIGNER: URGENCY: STATUS: COMPLETED Pre-Operative Diagnosis: A-fib Operation proposed: A-fib ablation Vitals: Age: 78 Weight: 185 lb [83.91 kg] (07/22/2024 06:30) Height: 72 in [182.9 cm] (07/22/2024 06:30) Blood Pressure: 131/87 (07/22/2024 06:30) Pulse: 100 (07/22/2024 06:30) Temp: 98.1 F [36.7 C] (07/22/2024 06:30) Resp: 18 (07/22/2024 06:30) SpO2: 99% (07/22/2024 06:30) BMI: 25.1 Allergies: PENICILLIN Medications: ACTIVE INPT MEDS: No medications found. Active Outpatient Medications (including [...] A MEAL TAKE 30 MINUTES BEFORE MEAL(S) Most Recent Labs/CXR/EKG Results HGB 14.4 g/dL 07/22/2024 06:55 HCT 43.6 % (07/22/24 06:55) PLT 170 10*3/uL 07/22/2024 06:55 WBC 14.6 10*3/uL H (07/22/24 06:55) PT 14.1 sec H (07/22/24 06:55) No PTT EO data found INR VALUE 1.3 INR 07/22/2024 06:55 PROTIME 14.1 H sec 07/22/2024 06:55 SODIUM 138 mEq/L 07/22/2024 06:55 POTASSIUM 4.4 mEq/L 07/22/2024 06:55 CHLORIDE 108 H mEq/L 07/22/2024 06:55 UREA NITROGEN 16.9 mg/dL 07/22/2024 06:55 CREATININE 1.00 mg/dL 07/22/2024 06:55 CALCIUM 9.0 mg/dL 07/22/2024 06:55 CARBON DIOXIDE 22 mEq/L 07/22/2024 06:55 GLUCOSE 107 H mg/dL 07/22/2024 06:55 EGFR (CKD-EPI 2020) 78.0 07/22/2024 06:55 ALBUMIN 4.0 g/dL 02/03/2024 10:45 HGA1C 6.2 H % 02/03/2024 10:45 ALKALINE PHOSPHATASE 82 U/L 02/03/2024 10:45 SGPT/ALT 10 U/L (02/03/24 10:45) SGOT/AST 15 U/L (02/03/24 10:45) TOTAL BILIRUBIN 0.6 mg/dL 02/03/2024 10:45 No GLUCOSE,BLOOD-poct (STL) data found URINE COLOR Light-Yellow 01/09/2023 09:00 APPEARANCE Clear 01/09/2023 09:00 U.PH 6.5 01/09/2023 09:00 U.BILIRUBIN Negative 01/09/2023 09:00 U.NITRITE Negative mg/dL 01/09/2023 09:00 URINE RBC/HPF 1 /HPF 01/09/2023 09:00 URINE WBC/HPF 4 /HPF 01/09/2023 09:00 MUCUS RARE /LPF 01/09/2023 09:00 UDS: No URINE DRUG SCREEN EO data found TEST: No TEST LAST ONE EO data found No HIV SCREENING EO data found [facility] Hep C tests in last five years. HEP C Ab HCV Ab (STL) Nonreactive S/CO (12/12/22 09:26) CXR: No Impressions found EKG 05/01/24: Normal sinus rhythm with sinus arrhythmia, 63 bpm Incomplete right bundle branch block Left anterior fascicular block Abnormal ECG When compared with ECG of 09-APR-2024 10:09, No significant change was found CXR: No Radiology exams found. ECHO 10/24/22: Conclusion 1. Sinus rhythm intraventricular conduction delay and [...] 7. No prior study available for comparison. PROBLEM LIST 1) Chronic tremor 2) AF - Atrial Fibrillation (SCT [id number]) 3) AK - Actinic keratosis 4) History of varicose veins 5) Lymphocytosis comment: rule out CLL 6) PVD - peripheral vascular disease REVIEW OF SYSTEMS/PAST MEDICAL HISTORY RESPIRATORY - Sleep apnea - Asthma - COPD CARDIAC + Hypertension - Hyperlipidemia - Myocardial infarction - Coronary artery disease - Heart failure + s/p mitral valve repair 2002 + Atrial fibrillation + PVD (per Vasc lab, [facility] 07/24/23 Ankle brachial indices are falsely elevated. Normal bilateral lower extremity arterial Doppler study at rest based on Doppler wave forms and within normal toe pressures. PSYCH/CENTRAL NERVOUS - Depression - Anxiety - Post-traumatic stress disorder - Cerebral vascular accident - Seizures + essential tremor ENDOCRINE - Diabetes - Hypothyroid RENAL + Chronic kidney disease - Nephrolithiasis GI : ? GERD (on pantoprazole) - Liver disease - GI bleed VASCULAR/HEMATOLOGY/ONCOLOGY - Anemia - Thrombocytopenia - Bleeding disorders MUSCULOSKELETAL/SKIN/PERIPHER AL NERVOUS - Obesity - Arthritis/Degenerative joint disease - Rheumatoid arthritis - Neuropathy /REPRODUCTIVE - Prostate hypertrophy HABITS: ETOH use: Current: occasionally Remote: denies abuse Smoking History: Non-smoker Illicit Drugs: denies any IVDA/ MJ use. PSH: No previous Anesthesia complications Physical Exam: Sensorium-AAOx3 Auscultation Finding: Heart Sounds: Regular Rate, Regular Rhythm Breath Sounds: Clear AIRWAY: MP CLASS:II SUBMANDIBULAR SPACE:3 finger breaths RANGE OF MOTION: FULL TEETH: Okay ASA: 3 PLAN: GA/ETT, second PIV, A-line. Risks/Options discussed with patinet. Patient verbalized acceptance of risks of anesthesia related procedures NPO > 8 HOURS BBT: takes MELISSA /dionna/ JAQUELINE BOYLE MD Staff Physician, Anesthesiology Signed: 07/22/2024 08:12 Receipt Acknowledged By: 07/22/2024 08:23 /dionna/ CECE BOOGIE CRNA AUTOMOTIVE MANAGER, Anesthesiology JAQUELINE BOYLE [facility]
--- OUTSIDE RECORDS SUMMARY | 2025-01-11 11:59 | XMS_ITS | Encounter Summary ---
Author Name [facility] [place] [facility] [place] Address [address] [place] [address] Care Team Providers Care Executive Administrator Name Role Phone ASIYA FIERRO Primary Care [...] Name Patient's Relationship to Policy Gresham [employer]MANA [facility] ([place]) MEDICARE ADVANTAGE [facility] ([facility]) 2022 [id number] MARIELOS HOLT PHEN PATIENT MEDICA [facility] ([facility]) MEDICARE ADVANTAGE [facility] ([facility]) May 25, 2013 [id number] MARIELOS HOLT PHEN PATIENT MEDICARE ([place]) MEDICARE (M) PART B May 25, 2013 PART B [id number] MARIELOS HOLT PHEN PATIENT MEDICARE (WNR) MEDICARE (M) PART A Jul 26, 2012 PART A [id number] [phone] MARIELOS HOLT PATIENT MEDICARE PART D (WNR) MEDICARE (M) PART D March 25, 2013 PART D [id number] MARIELOS HOLT PATIENT [facility] (WNR) MEDICARE ADVANTAGE [facility] (WNR) Dec 26, 2022 [id number] MARIELOS HOLT PATIENT Selected Encounter This section includes the information on record at [place] for the Encounter. Date/Time Encounter Type Encounter Description Reason Provider Source Jul 29, 2024 10:02 AM QNHP OL DIG ASSMT&MGMT 5-10 CLINICAL PHARMACY ICD-10-CM Z51.81 Encounter for therapeutic drug level monitoring CONSTANZA LEIVA Encounter Template Text not used by [place] Assessments - Encounter Diagnoses This section includes the primary and secondary diagnoses documented for the Encounter. 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 This section includes future appointments and future orders which are active, pending or scheduled. Future Appointments This section includes appointments that were scheduled to occur 6 months from the date of the Encounter, up to a maximum of 20 appointments. The data comes from all [place] treatment facilities. Appointment Date/Time Appointment Type Appointme nt Facility Name Jul 31, 2024 10:30 AM AMBULATORY - MEDICINE [facility] Aug 10, 2024 10:15 AM AMBULATORY - NONE [facility] Aug 18, 2024 10:30 AM AMBULATORY - MEDICINE [facility] Aug 20, 2024 08:30 PM AMBULATORY - NONE [facility] 2024 10:30 AM AMBULATORY - MEDICINE [facility] Sep 14, 2024 09:00 AM AMBULATORY - SURGERY . Thelma PEREZ [facility] Nov 02, 2024 10:00 AM AMBULATORY - NONE [facility] Jan 19, 2025 02:30 PM AMBULATORY - MEDICINE [facility] Jan 22, 2025 02:30 PM AMBULATORY - NONE [facility] Active, Pending, and Scheduled Orders This section includes a listing of several types of active, pending, and scheduled orders, including clinic medications orders, diagnostic test orders, procedure orders and consult orders; where the start date of the order is 45 days before the date of the Encounter or 45 days after the date of theEncounter. The data comes from all [place] treatment facilities. Test Date/Time Test Type Test Details Facility Name Jul 22, 2024 06:00 AM Laboratory - Blood Bank Order TYPE & SCREEN - LAB BLOOD WC [facility] Lab Results: +/- 30 days of the encounter This section includes the Chemistry and Hematology Lab Results on record with [place] for the patient. Radiology Reports and Pathology Reports are provided separately, in subsequent sections. Lab Results This section contains the Chemistry/Hematology Results that were resulted 30 days before or 30 daysafter the date of the Encounter. Date/Time Source Result Type Result - Unit Interpretation Reference Range Comment 2024 11:50 AM [facility] URIC ACID Specimen Type: PLASMA Comment: No hemolysis noted. Ordering Provider: TARYN EDGAR Report Released Date/Time: 2024 10:17 AM Reporting Lab: [facility] [address] [facility] [address] Performing Lab: [facility] [address] [facility] [address] URIC ACID 6.0 mg/dL 3.5-7.2 2024 11:50 AM [facility] VITAMIN D, 25-HYDROXY Specimen Type: SERUM Comment: The listed sex of this patient may not be a typical indication for this test. Therefore, reference ranges or interpretive criteria listed may not be valid. Clinical correlation suggested. Ordering Provider: TARYN EDGAR Report Released Date/Time: 2024 10:17 AM Reporting Lab: [address] [address] Performing Lab: [address] [address] VITAMIN D, 25-HYDROXY 63.1 ng/mL 30-96 2024 11:50 AM [facility] PROST. SPECIFIC AG.(PB-STL) Specimen Type: SERUM Comment: The listed sex of this patient may not be a typical indication for this test. Therefore, reference ranges or interpretive criteria listed may not be valid. Clinical correlation suggested. Ordering Provider: TARYN EDGAR Report Released Date/Time: 2024 10:20 AM Reporting Lab: [address] [address] Performing Lab: [address] [address] PROST. SPECIFIC AG.(PB-STL) 1.456 ng/mL 0-4 2024 11:50 AM [facility] COMPREHENSIVE METABOLIC PANEL Specimen Type: PLASMA Comment: No hemolysis noted. Ordering Provider: TARYN EDGAR Report Released Date/Time: 2024 10:17 AM Reporting Lab: [address] [address] Performing Lab: [address] [address] CREATININE 0.89 mg/dL 0.7-1.3 UREA NITROGEN 16.1 [...] (CKD-EPI 2020) 88.3 >60 2024 11:50 AM [facility] CBC Specimen Type: BLOOD No comment entered. Ordering Provider: TARYN EDGAR Report Released Date/Time: 2024 10:17 AM Reporting Lab: [facility] [address] [facility] [address] Performing Lab: [facility] [address] [place] [address] WBC 9.3 10*3/uL 3.6-11.2 RBC 4.07 10*6/uL [...] ABSOLUTE 0.04 10*3/uL 0.00-0.20 2024 11:50 AM [facility] URINALYSIS (STL-PB) Specimen Type: URINE No comment entered. Ordering Provider: TARYN EDGAR Report Released Date/Time: 2024 10:20 AM Reporting Lab: [facility] [address] [facility] [address] Performing Lab: [facility] [address] [place] [phone] URINE COLOR Light-Yellow Yellow U.BILIRUBIN Negative mg/dL [...] 1.005-1.02 9 Aug 10, 2024 10:12 AM [facility] GLUCOSE,BLOOD-poct (STL) Specimen Type: BLOOD Comment: Test Performed by: [id number] Meter #: [id number] Ordering Provider: TARYN EDGAR Report Released Date/Time: Aug 10, 2024 10:28 AM Reporting Lab: [facility] [address] [facility] [address] Performing Lab: [address] [address] GLUCOSE,BLOOD-p oct (STL) 94 mg/dL 72-99 Jul 23, 2024 06:24 AM [facility] MAGNESIUM Specimen Type: PLASMA Comment: No hemolysis noted. Ordering Provider: ALFREDITO WILSON Report Released Date/Time: Jul 22, 2024 05:37 PM Reporting Lab: [facility] [address] [facility] [address] Performing Lab: [facility] [address] [place] [address] MAGNESIUM 1.8 mg/dL 1.6-2.6 Jul 23, 2024 06:24 AM [facility] PHOSPHOROUS Specimen Type: PLASMA Comment: No hemolysis noted. Ordering Provider: ALFREDITO WILSON Report Released Date/Time: Jul 22, 2024 05:37 PM Reporting Lab: [address] [place] [address] Performing Lab: [address] [address] PHOSPHOROUS 4.0 mg/dL 2.3-4.7 Jul 23, 2024 06:24 AM [facility] BASIC METABOLIC PANEL Specimen Type: PLASMA Comment: No hemolysis noted. Ordering Provider: ALFREDITO WILSON Report Released Date/Time: Jul 22, 2024 05:37 PM Reporting Lab: [address] [address] Performing Lab: [address] [address] CREATININE 0.78 mg/dL 0.7-1.3 UREA NITROGEN 14.4 mg/dL 9.0-25.0 GLUCOSE 113 mg/dL H 72-99 SODIUM 136 meq/L 136-145 POTASSIUM 3.7 meq/L 3.5-5 CHLORIDE 108 meq/L H 98-107 CARBON DIOXIDE 21 meq/L L 22-31 CALCIUM 8.3 mg/dL L 8.4-10.4 EGFR (CKD-EPI 2020) 92.4 >60 Jul 23, 2024 06:24 AM [facility] CBC Specimen Type: BLOOD Comment: VERIFIED BY REPEAT Ordering Provider: ALFREDITO WILSON Report Released Date/Time: Jul 22, 2024 05:37 PM Reporting Lab: [address] [address] Performing Lab: [address] [address] WBC 11.3 10*3/uL H 3.6-11.2 RBC 3.86 [...] SCRNPERF YES Jul 22, 2024 05:20 PM [facility] MRSA SURVL NARES DNA Specimen Type: [...] Jul 22, 2024 04:20 PM Reporting Lab: [facility] [address] [facility] [address] Performing Lab: [place] [address] [facility] [address] MRSA SURVL NARES DNA Negative Negative Jul 22, 2024 02:16 PM [facility] POC ACT-CELITE,HEMOCHRON (STL) Specimen Type: BLOOD Comment: Test Performed by: [id number] Meter #: [id number] Ordering Provider: TARYN EDGAR Report Released Date/Time: Jul 22, 2024 03:15 PM Reporting Lab: [place] [address] [facility] [address] Performing Lab: [address] [address] POC ACT-CELITE,HEMO CHRON (STL) 174 s H 89-169 Jul 22, 2024 01:45 PM [facility] POC ACT-CELITE,HEMOCHRON (STL) Specimen Type: BLOOD Comment: Test Performed by: [id number] Meter #: [id number] Ordering Provider: TARYN EDGAR Report Released Date/Time: Jul 22, 2024 03:15 PM Reporting Lab: [address] [address] Performing Lab: [address] [address] POC ACT-CELITE,HEMO CHRON (STL) >400 s H 89-169 Jul 22, 2024 01:22 PM [facility] POC ACT-CELITE,HEMOCHRON (STL) Specimen Type: BLOOD Comment: Test Performed by: [id number] Meter #: [id number] Ordering Provider: TARYN EDGAR Report Released Date/Time: Jul 22, 2024 02:24 PM Reporting Lab: [address] [address] Performing Lab: [address] [address] POC ACT-CELITE,HEMO CHRON (STL) 355 s H 89-169 Jul 22, 2024 01:02 PM [facility] POC ACT-CELITE,HEMOCHRON (STL) Specimen Type: BLOOD Comment: Test Performed by: [id number] Meter #: [id number] Ordering Provider: TARYN EDGAR Report Released Date/Time: Jul 22, 2024 02:04 PM Reporting Lab: [address] [address] Performing Lab: [address] [address] POC ACT-CELITE,HEMO CHRON (STL) 339 s H 89-169 Jul 22, 2024 12:46 PM [facility] POC ACT-CELITE,HEMOCHRON (STL) Specimen Type: BLOOD Comment: Test Performed by: [id number] Meter #: [id number] Ordering Provider: TARYN EDGAR Report Released Date/Time: Jul 22, 2024 01:48 PM Reporting Lab: [place] [address] [facility] [address] Performing Lab: [place] [address] [facility] [address] POC ACT-CELITE,HEMO CHRON (STL) 327 s H 89-169 Jul 22, 2024 12:30 PM [facility] POC ACT-CELITE,HEMOCHRON (STL) Specimen Type: BLOOD Comment: Test Performed by: [id number] Meter #: [id number] Ordering Provider: TARYN EDGAR Report Released Date/Time: Jul 22, 2024 01:48 PM Reporting Lab: [address] [address] Performing Lab: [place] [address] [facility] [address] POC ACT-CELITE,HEMO CHRON (STL) >400 s H 89-169 Jul 22, 2024 12:07 PM [facility] POC ACT-CELITE,HEMOCHRON (STL) Specimen Type: BLOOD Comment: Test Performed by: [id number] Meter #: [id number] Ordering Provider: TARYN EDGAR Report Released Date/Time: Jul 22, 2024 01:16 PM Reporting Lab: [place] [phone] Performing Lab: [address] [address] POC ACT-CELITE,HEMO CHRON (STL) >400 s H 89-169 Jul 22, 2024 11:46 AM [facility] POC ACT-CELITE,HEMOCHRON (STL) Specimen Type: BLOOD Comment: Test Performed by: [id number] Meter #: [id number] Ordering Provider: TARYN EDGAR Report Released Date/Time: Jul 22, 2024 12:48 PM Reporting Lab: [address] [address] Performing Lab: [address] [address] POC ACT-CELITE,HEMO CHRON (STL) 354 s H 89-169 Jul 22, 2024 11:31 AM [facility] POC ACT-CELITE,HEMOCHRON (STL) Specimen Type: BLOOD Comment: Test Performed by: [id number] Meter #: [id number] Ordering Provider: TARYN EDGAR Report Released Date/Time: Jul 22, 2024 12:33 PM Reporting Lab: [address] [address] Performing Lab: [address] [address] POC ACT-CELITE,HEMO CHRON (STL) 373 s H 89-169 Jul 22, 2024 11:15 AM [facility] POC ACT-CELITE,HEMOCHRON (STL) Specimen Type: BLOOD Comment: Test Performed by: [id number] Meter #: [id number] Ordering Provider: TARYN EDGAR Report Released Date/Time: Jul 22, 2024 12:16 PM Reporting Lab: [address] [address] Performing Lab: [address] [address] POC ACT-CELITE,HEMO CHRON (STL) 318 s H 89-169 Jul 22, 2024 11:01 AM [facility] POC ACT-CELITE,HEMOCHRON (STL) Specimen Type: BLOOD Comment: Test Performed by: [id number] Meter #: [id number] Ordering Provider: TARYN EDGAR Report Released Date/Time: Jul 22, 2024 12:03 PM Reporting Lab: [address] [address] Performing Lab: [address] [address] POC ACT-CELITE,HEMO CHRON (STL) 313 s H 89-169 Jul 22, 2024 10:25 AM [facility] POC ACT-CELITE,HEMOCHRON (STL) Specimen Type: BLOOD Comment: Test Performed by: [id number] Meter #: [id number] Ordering Provider: TARYN EDGAR Report Released Date/Time: Jul 22, 2024 11:28 AM Reporting Lab: [place] [address] [facility] [address] Performing Lab: [place] [phone] POC ACT-CELITE,HEMO CHRON (STL) 379 s H 89-169 Jul 22, 2024 10:05 AM [facility] POC ACT-CELITE,HEMOCHRON (STL) Specimen Type: BLOOD Comment: Test Performed by: [id number] Meter #: [id number] Ordering Provider: TARYN EDGAR Report Released Date/Time: Jul 22, 2024 11:06 AM Reporting Lab: [address] [address] Performing Lab: [address] [address] POC ACT-CELITE,HEMO CHRON (STL) 388 s H 89-169 Jul 22, 2024 09:49 AM [facility] POC ACT-CELITE,HEMOCHRON (STL) Specimen Type: BLOOD Comment: Test Performed by: [id number] Meter #: [id number] Ordering Provider: TARYN EDGAR Report Released Date/Time: Jul 22, 2024 10:51 AM Reporting Lab: [address] [address] Performing Lab: [address] [address] POC ACT-CELITE,HEMO CHRON (STL) 351 s H 89-169 Jul 22, 2024 09:33 AM [facility] POC ACT-CELITE,HEMOCHRON (STL) Specimen Type: BLOOD Comment: Test Performed by: [id number] Meter #: [id number] Ordering Provider: TARYN EDGAR Report Released Date/Time: Jul 22, 2024 10:40 AM Reporting Lab: [address] [address] Performing Lab: [address] [address] POC ACT-CELITE,HEMO CHRON ([facility]) 269 s H 89-169 Jul 22, 2024 08:51 AM [facility] POC ACT-CELITE,HEMOCHRON ([facility]) Specimen Type: BLOOD Comment: Test Performed by: [id number] Meter #: [id number] Ordering Provider: TARYN EDGAR Report Released Date/Time: Jul 22, 2024 09:52 AM Reporting Lab: [address] [address] Performing Lab: [address] [address] POC ACT-CELITE,HEMO CHRON ([facility]) 155 s 89-169 Jul 22, 2024 06:55 AM [facility] PT/INR NEW ([facility]) Specimen Type: PLASMA No comment entered. Ordering Provider: GWENDOLYN CHA Report Released Date/Time: Jun 22, 2024 12:20 PM Reporting Lab: [address] [address] Performing Lab: [address] [address] PROTIME 14.1 s H 9.4-12.5 INR VALUE 1.3 {INR} Jul 22, 2024 06:55 AM [facility] BASIC METABOLIC PANEL Specimen Type: PLASMA Comment: No hemolysis noted. Ordering Provider: GWENDOLYN CHA Report Released Date/Time: Jun 22, 2024 12:20 PM Reporting Lab: [address] [address] Performing Lab: [address] [address] CREATININE 1.00 mg/dL 0.7-1.3 UREA NITROGEN 16.9 mg/dL 9.0-25.0 GLUCOSE 107 mg/dL H 72-99 SODIUM 138 meq/L 136-145 POTASSIUM 4.4 meq/L 3.5-5 CHLORIDE 108 meq/L H 98-107 CARBON DIOXIDE 22 meq/L 22-31 CALCIUM 9.0 mg/dL 8.4-10.4 EGFR (CKD-EPI 2020) 78.0 >60 Jul 22, 2024 06:55 AM [facility] CBC Specimen Type: BLOOD No comment entered. Ordering Provider: GWENDOLYN CHA Report Released Date/Time: Jun 22, 2024 12:20 PM Reporting Lab: [address] [address] Performing Lab: [address] [address] WBC 14.6 10*3/uL H 3.6-11.2 RBC 4.72 [...] 10*3/uL 2.10-8.00 Jul 20, 2024 11:31 AM [facility] I-STAT, CREAT ([facility]) Specimen Type: BLOOD Comment: Test Performed by: [id number] Meter #: [id number] Ordering Provider: TARYN EDGAR Report Released Date/Time: Jul 20, 2024 11:34 AM Reporting Lab: [facility] [address] [facility] [address] Performing Lab: [facility] [address] [facility] [address] I-STAT, CREAT (STL-MA) 1.1 mg/dL 0.7-1.3 Radiology Reports: +/- 30 days of the [...] the Encounter. The data comes from all [place] treatment facilities. Date/Time Radiology Report Provider Source Aug 10, 2024 10:29 AM PET/CT TUMOR IMAGING (SKULL TO MID-THIGH)-P: SABINE HOLT [id number] -[id number] M Exm Date: AUG 10, 2024@10:29 Req Phys: TARYN EDGAR Pat Loc: [facility]-PRE-OP EVAL NURSING AM (Req Img Loc: [facility]-PET-CT Service: [address] [address] (Case [id number] COMPLETE) PET/CT TUMOR SKULL BASE TO MID-T(NM Detailed) CPT:17830 CPT Modifiers : PI PET TUMOR INIT TX STRAT Reason for Study: lung nodule (Case [id number] COMPLETE) F-18 FLUORODEOXYGLUCOSE (FDG),PER(NM Detailed) CPT:A9552 Clinical History: Report Status: Verified Date Reported: AUG 10, 2024 Date Verified: AUG 10, 2024 Outdoor Fitness Trainer E-Sig:/ES/BURKE CARRION M.D. Report: PATIENT NAME: SABINE HOLT. CASE #: [id number] PROCEDURE: PET/CT study HISTORY: A 78-year-old male [...] The brain is partially included in the ryvkx-ct-xmcm and there is misregistration in the region [...] CARRION M.D., STAFF PHYSICIAN - DIAGNOSTIC IMAGING (Outdoor Fitness Trainer) Primary Interpreting Resident: SIRENA VAN, Resident Physician /BURKE PATRICIA [facility] Jul 20, 2024 11:[address] HEART & VENOUS MAPPING W/3D: SABINE HOLT [id number] -1945 M Exm Date: JUL 20, 2024@11:10 Req Phys: GWENDOLYN CHA Loc: [facility]-PRE-OP EVAL NURSING AM (Req Img Loc: [facility]-CT IMAGING [facility] Service: Unknown [facility] [address] [place] [address] (Case [id number] COMPLETE) CT HEART W CONTRAST & VENOUS JOSE(CT Detailed) CPT:04800 Reason for Study: pulmonary vein mapping Clinical History: Responsible Attending: Dr Cha Attending Contact Number: [phone] Resident Contact Number: Enter Hx and Reason [...] 22, 2024 Date Verified: JUL 22, 2024 Outdoor Fitness Trainer E-Sig:/ES/ADA WIGGINS Report: Case [id number]. CT heart with contrast & venous mapping. Max CTDI(vol): 12.46 mGy. Total DLP: 104 mGy*cm. TECHNIQUE: Cardiac CT was obtained with bolus IV contrast administration without gating. Multiplanar reformatted images and 3-D models were reconstructed as a CT cardiac pulmonary venogram for electrophysiology planning. Images were reformatted and analyzed using [employer] software. NUMBER OF PULMONARY VEINS: 2 [...] advised. Primary Interpreting Staff: ADA WIGGINS MD (Outdoor Fitness Trainer) /ADA SANCHEZ [facility] Pathology Reports: +/- 30 days [...] the Encounter. The data comes from all [place] treatment facilities. Date/Time Pathology Report Provider Source 2024 11:50 AM LR MICROBIOLOGY RE PORT: Accession [UID]: [id number] [[id number]] Received: 2024@17:54 Collection sample: URINE,CLEAN CATCH Collection date: 2024 11:50 Site/Specimen: URINE Provider: TARYN EDGAR Test(s) ordered: C&S URINE..................... completed: Aug 26, 2024 20:13 * BACTERIOLOGY FINAL REPORT => Aug 26, 2024 20:14 TECH CODE: [id number] Bacteriology Remark(s): BERNADINE 08/26/24 <10,000 CFU/ML MIXED GRAM POSITIVE ORGANISMS There will be no work up. =--=--=--=--=--=--=--=--=--=--=--=-- =--=--=--=--=--=--=--=--=--=--=--=-- =--=-- Performing Laboratory: Bacteriology Report Performed By: [facility] [address] [place], [place] [address]IA# [id number] [address] [facility] [address] [place] [address] [facility] Encounter Notes: All associated encounter notes This section contains the clinical notes associated to the Encounter. Date/Time Encounter Note(s) Provider Source Jul 29, 2024 10:02 AM PHARMACY NOTE: LOCAL TITLE: ANTICOAGULATION MONITORING [facility] STANDARD TITLE: PHARMACY NOTE DATE OF NOTE: JUL 29, 2024@10:02 ENTRY DATE: JUL 29, 2024@10:02:24 AUTHOR: CONSTANZA LEIVA COSIGNER: URGENCY: STATUS: COMPLETED SUBJECTIVE: Drug: Apixaban Indication: Atrial Fibrillation/Flutter Anticipated duration of anticoagulant therapy: Indefinite/extended (no anticipated stop date) Patient identified as needing review for the following: Notable lab findings Greater than 2 g/dL decline in Hgb OBJECTIVE: Active VA and non-VA medication lists, pertinent laboratory tests (i.e., H/H, Plts, SCr, LFTs, Anti-Xa, etc), recent progress notes, and other pertinent objective data were reviewed. Height: 72 in [182.9 cm] (07/22/2024 17:00) Weight: 208.3 lb [94.48 kg] (07/22/2024 17:00) 28.3 ASSESSMENT/PLAN: Notable lab findings: Greater than 2 g/dL decline in Hgb. Pt recently admitted to [facility] for planned ablation on 07/22/2024. Hgb was WNL upon admission, though decreased to 11.8 07/23. NO s/sx of bleeding noted during inpt stay and apixaban was continued. Will alert Antico CPS for awareness. For ongoing monitoring, a population-based approach will be used to ensure safety, adherence to therapy, and appropriateness of prescribing. Periodic risk/benefit assessments will be performed as necessary. TIME REVIEWING CHART:5. (minutes) /dionna/ Constanza Leiva PharmD, BCPS Clinical Pharmacist Signed: 07/29/2024 10:08 Receipt Acknowledged By: 07/29/2024 10:12 /salma Dejesus Pharm.D., BCACP Clinical Pharmacist CONSTANZA LEIVA [facility]
--- OUTSIDE RECORDS SUMMARY | 2025-01-11 11:59 | XMS_ITS | Encounter Summary ---
Author Name [facility] [place] [facility] [place] [facility] [place] [facility] [place] Address [address] [place] [address] Care Team Providers Care Yarn Spinner Name Role Phone ASIYA FIERRO Primary Care [...] Name Patient's Relationship to Policy Gresham HUMANA [facility] MEDICARE ADVANTAGE [facility] ([facility]) 2022 [id number] HOLTMARIELOS PHEN PATIENT MEDICA [facility] ([facility]) MEDICARE ADVANTAGE [facility] ([facility]) May 25, 2013 [id number] [phone] HOLTMARIELOS PHEN PATIENT MEDICARE (WN) MEDICARE (M) PART B May 25, 2013 PART B [id number] HOLTMARIELOS PHEN PATIENT MEDICARE ([facility]) MEDICARE (M) PART A Jul 26, 2012 PART A [id number] MARIELOS HOLT PATIENT MEDICARE PART D (WNR) MEDICARE (M) PART D March 25, 2013 PART D [id number] MARIELOS HOLT PATIENT WELLCARE [facility] (WNR) MEDICARE ADVANTAGE [facility] (WNR) Dec 26, 2022 [id number] MARIELOS HOLT PATIENT Selected Encounter This section includes the information on record at [place] for the Encounter. Date/Time Encounter Type Encounter Description Reason Provider Source Jul 23, 2024 07:31 AM MTMS BY PHARM EST 15 MIN CLINICAL PHARMACY ICD-10-CM Z51.81 Encounter for therapeutic drug level monitoring MADDY BEASLEY Yuan Encounter Template Text not used by [place] Assessments - Encounter Diagnoses This section includes the primary and secondary diagnoses documented for the Encounter. 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 This section includes future appointments and future orders which are active, pending or scheduled. Future Appointments This section includes appointments that were scheduled to occur 6 months from the date of the Encounter, up to a maximum of 20 appointments. The data comes from all [place] treatment facilities. Appointment Date/Time Appointment Type Appointme nt Facility Name Jul 31, 2024 10:30 AM AMBULATORY - MEDICINE [facility] Aug 10, 2024 10:15 AM AMBULATORY - NONE [facility] Aug 18, 2024 10:30 AM AMBULATORY - MEDICINE [facility] Aug 20, 2024 08:30 PM AMBULATORY - NONE [facility] 2024 10:30 AM AMBULATORY - MEDICINE [facility] Sep 14, 2024 09:00 AM AMBULATORY - SURGERY . Thelma PEREZ [facility] Nov 02, 2024 10:00 AM AMBULATORY - NONE [facility] Jan 19, 2025 02:30 PM AMBULATORY - MEDICINE [facility] Jan 22, 2025 02:30 PM AMBULATORY [...] of theEncounter. The data comes from all [place] treatment facilities. Test Date/Time Test Type Test Details Facility Name Jul 22, 2024 06:00 AM Laboratory - Blood Bank Order TYPE & SCREEN - LAB BLOOD WC [facility] Lab Results: +/- 30 days of the encounter This section includes the Chemistry and Hematology Lab Results on record with [place] for the patient. Radiology Reports and Pathology Reports are provided separately, in subsequent sections. Lab Results This section contains the Chemistry/Hematology Results that were resulted 30 days before or 30 daysafter the date of the Encounter. Date/Time Source Result Type Result - Unit Interpretation Reference Range Comment Aug 10, 2024 10:12 AM [facility] GLUCOSE,BLOOD-poct (STL) Specimen Type: BLOOD Comment: Test Performed by: [id number] Meter #: [id number] Ordering Provider: TARYN EDGAR Report Released Date/Time: Aug 10, 2024 10:28 AM Reporting Lab: [facility] [address] [facility] [address] Performing Lab: [facility] [address] [facility] [address] GLUCOSE,BLOOD-p oct (STL) 94 mg/dL 72-99 Jul 23, 2024 06:24 AM [facility] MAGNESIUM Specimen Type: PLASMA Comment: No hemolysis noted. Ordering Provider: ALFREDITO WILSON Report Released Date/Time: Jul 22, 2024 05:37 PM Reporting Lab: [facility] [address] [facility] [address] Performing Lab: [facility] [address] [place] [address] MAGNESIUM 1.8 mg/dL 1.6-2.6 Jul 23, 2024 06:24 AM [facility] PHOSPHOROUS Specimen Type: PLASMA Comment: No hemolysis noted. Ordering Provider: ALFREDITO WILSON Report Released Date/Time: Jul 22, 2024 05:37 PM Reporting Lab: [address] [address] Performing Lab: [address] [address] PHOSPHOROUS 4.0 mg/dL 2.3-4.7 Jul 23, 2024 06:24 AM [facility] BASIC METABOLIC PANEL Specimen Type: PLASMA Comment: No hemolysis noted. Ordering Provider: ALFREDITO WILSON Report Released Date/Time: Jul 22, 2024 05:37 PM Reporting Lab: [address] [address] Performing Lab: [address] [address] CREATININE 0.78 mg/dL 0.7-1.3 UREA NITROGEN 14.4 mg/dL 9.0-25.0 GLUCOSE 113 mg/dL H 72-99 SODIUM 136 meq/L 136-145 POTASSIUM 3.7 meq/L 3.5-5 CHLORIDE 108 meq/L H 98-107 CARBON DIOXIDE 21 meq/L L 22-31 CALCIUM 8.3 mg/dL L 8.4-10.4 EGFR (CKD-EPI 2020) 92.4 >60 Jul 23, 2024 06:24 AM [facility] CBC Specimen Type: BLOOD Comment: VERIFIED BY REPEAT Ordering Provider: ALFREDITO WILSON Report Released Date/Time: Jul 22, 2024 05:37 PM Reporting Lab: [address] [address] Performing Lab: [address] [place] [address] WBC 11.3 10*3/uL H 3.6-11.2 RBC 3.86 [...] SCRNPERF YES Jul 22, 2024 05:20 PM [facility] MRSA SURVL NARES DNA Specimen Type: [...] Jul 22, 2024 04:20 PM Reporting Lab: [address] [address] Performing Lab: [address] [address] MRSA SURVL NARES DNA Negative Negative Jul 22, 2024 02:16 PM [facility] POC ACT-CELITE,HEMOCHRON (STL) Specimen Type: BLOOD Comment: Test Performed by: [id number] Meter #: [id number] Ordering Provider: TARYN EDGAR Report Released Date/Time: Jul 22, 2024 03:15 PM Reporting Lab: [address] [address] Performing Lab: [address] [address] POC ACT-CELITE,HEMO CHRON (STL) 174 s H 89-169 Jul 22, 2024 01:45 PM [facility] POC ACT-CELITE,HEMOCHRON (STL) Specimen Type: BLOOD Comment: Test Performed by: [id number] Meter #: [id number] Ordering Provider: TARYN EDGAR Report Released Date/Time: Jul 22, 2024 03:15 PM Reporting Lab: [address] [address] Performing Lab: [address] [address] POC ACT-CELITE,HEMO CHRON (STL) >400 s H 89-169 Jul 22, 2024 01:22 PM [facility] POC ACT-CELITE,HEMOCHRON (STL) Specimen Type: BLOOD Comment: Test Performed by: [id number] Meter #: [id number] Ordering Provider: TARYN EDGAR Report Released Date/Time: Jul 22, 2024 02:24 PM Reporting Lab: [address] [address] Performing Lab: [address] [address] POC ACT-CELITE,HEMO CHRON (STL) 355 s H 89-169 Jul 22, 2024 01:02 PM [facility] POC ACT-CELITE,HEMOCHRON (STL) Specimen Type: BLOOD Comment: Test Performed by: [id number] Meter #: [id number] Ordering Provider: TARYN EDGAR Report Released Date/Time: Jul 22, 2024 02:04 PM Reporting Lab: [address] [address] Performing Lab: [address] [address] POC ACT-CELITE,HEMO CHRON (STL) 339 s H 89-169 Jul 22, 2024 12:46 PM [facility] POC ACT-CELITE,HEMOCHRON (STL) Specimen Type: BLOOD Comment: Test Performed by: [id number] Meter #: [id number] Ordering Provider: TARYN EDGAR Report Released Date/Time: Jul 22, 2024 01:48 PM Reporting Lab: [place] [phone] Performing Lab: [place] [phone] POC ACT-CELITE,HEMO CHRON (STL) 327 s H 89-169 Jul 22, 2024 12:30 PM [facility] POC ACT-CELITE,HEMOCHRON (STL) Specimen Type: BLOOD Comment: Test Performed by: [id number] Meter #: [id number] Ordering Provider: TARYN EDGAR Report Released Date/Time: Jul 22, 2024 01:48 PM Reporting Lab: [place] [phone] Performing Lab: [address] [address] POC ACT-CELITE,HEMO CHRON (STL) >400 s H 89-169 Jul 22, 2024 12:07 PM [facility] POC ACT-CELITE,HEMOCHRON (STL) Specimen Type: BLOOD Comment: Test Performed by: [id number] Meter #: [id number] Ordering Provider: TARYN EDGAR Report Released Date/Time: Jul 22, 2024 01:16 PM Reporting Lab: [place] [phone] Performing Lab: [address] [address] POC ACT-CELITE,HEMO CHRON (STL) >400 s H 89-169 Jul 22, 2024 11:46 AM [facility] POC ACT-CELITE,HEMOCHRON (STL) Specimen Type: BLOOD Comment: Test Performed by: [id number] Meter #: [id number] Ordering Provider: TARYN EDGAR Report Released Date/Time: Jul 22, 2024 12:48 PM Reporting Lab: [address] [address] Performing Lab: [address] [address] POC ACT-CELITE,HEMO CHRON (STL) 354 s H 89-169 Jul 22, 2024 11:31 AM [facility] POC ACT-CELITE,HEMOCHRON (STL) Specimen Type: BLOOD Comment: Test Performed by: [id number] Meter #: [id number] Ordering Provider: TARYN EDGAR Report Released Date/Time: Jul 22, 2024 12:33 PM Reporting Lab: [address] [address] Performing Lab: [address] [address] POC ACT-CELITE,HEMO CHRON (STL) 373 s H 89-169 Jul 22, 2024 11:15 AM [facility] POC ACT-CELITE,HEMOCHRON (STL) Specimen Type: BLOOD Comment: Test Performed by: [id number] Meter #: [id number] Ordering Provider: TARYN EDGAR Report Released Date/Time: Jul 22, 2024 12:16 PM Reporting Lab: [address] [address] Performing Lab: [address] [address] POC ACT-CELITE,HEMO CHRON (STL) 318 s H 89-169 Jul 22, 2024 11:01 AM [facility] POC ACT-CELITE,HEMOCHRON (STL) Specimen Type: BLOOD Comment: Test Performed by: [id number] Meter #: [id number] Ordering Provider: TARYN EDGAR Report Released Date/Time: Jul 22, 2024 12:03 PM Reporting Lab: [address] [address] Performing Lab: [address] [address] POC ACT-CELITE,HEMO CHRON (STL) 313 s H 89-169 Jul 22, 2024 10:25 AM [facility] POC ACT-CELITE,HEMOCHRON (STL) Specimen Type: BLOOD Comment: Test Performed by: [id number] Meter #: [id number] Ordering Provider: TARYN EDGAR Report Released Date/Time: Jul 22, 2024 11:28 AM Reporting Lab: [address] [address] Performing Lab: [address] [address] POC ACT-CELITE,HEMO CHRON (STL) 379 s H 89-169 Jul 22, 2024 10:05 AM [facility] POC ACT-CELITE,HEMOCHRON (STL) Specimen Type: BLOOD Comment: Test Performed by: [id number] Meter #: [id number] Ordering Provider: TARYN EDGAR Report Released Date/Time: Jul 22, 2024 11:06 AM Reporting Lab: [place] [phone] Performing Lab: [address] [address] POC ACT-CELITE,HEMO CHRON (STL) 388 s H 89-169 Jul 22, 2024 09:49 AM [facility] POC ACT-CELITE,HEMOCHRON (STL) Specimen Type: BLOOD Comment: Test Performed by: [id number] Meter #: [id number] Ordering Provider: TARYN EDGAR Report Released Date/Time: Jul 22, 2024 10:51 AM Reporting Lab: [facility] [address] [facility] [address] Performing Lab: [address] [address] POC ACT-CELITE,HEMO CHRON (STL) 351 s H 89-169 Jul 22, 2024 09:33 AM [facility] POC ACT-CELITE,HEMOCHRON (STL) Specimen Type: BLOOD Comment: Test Performed by: [id number] Meter #: [id number] Ordering Provider: TARYN EDGAR Report Released Date/Time: Jul 22, 2024 10:40 AM Reporting Lab: [address] [address] Performing Lab: [address] [address] POC ACT-CELITE,HEMO CHRON (L) 269 s H 89-169 Jul 22, 2024 08:51 AM [facility] POC ACT-CELITE,HEMOCHRON (L) Specimen Type: BLOOD Comment: Test Performed by: [id number] Meter #: [id number] Ordering Provider: TARYN EDGAR Report Released Date/Time: Jul 22, 2024 09:52 AM Reporting Lab: [address] [address] Performing Lab: [address] [address] POC ACT-CELITE,HEMO CHRON (L) 155 s 89-169 Jul 22, 2024 06:55 AM [facility] PT/INR NEW ([facility]) Specimen Type: PLASMA No comment entered. Ordering Provider: GWENDOLYN CHA Report Released Date/Time: Jun 22, 2024 12:20 PM Reporting Lab: [address] [address] Performing Lab: [address] [address] PROTIME 14.1 s H 9.4-12.5 INR VALUE 1.3 {INR} Jul 22, 2024 06:55 AM [facility] BASIC METABOLIC PANEL Specimen Type: PLASMA Comment: No hemolysis noted. Ordering Provider: GWENDOLYN CHA Report Released Date/Time: Jun 22, 2024 12:20 PM Reporting Lab: [address] [address] Performing Lab: [address] [address] CREATININE 1.00 mg/dL 0.7-1.3 UREA NITROGEN 16.9 mg/dL 9.0-25.0 GLUCOSE 107 mg/dL H 72-99 SODIUM 138 meq/L 136-145 POTASSIUM 4.4 meq/L 3.5-5 CHLORIDE 108 meq/L H 98-107 CARBON DIOXIDE 22 meq/L 22-31 CALCIUM 9.0 mg/dL 8.4-10.4 EGFR (CKD-EPI 2020) 78.0 >60 Jul 22, 2024 06:55 AM [facility] CBC Specimen Type: BLOOD No comment entered. Ordering Provider: GWENDOLYN CHA Report Released Date/Time: Jun 22, 2024 12:20 PM Reporting Lab: [address] [address] Performing Lab: [address] [address] WBC 14.6 10*3/uL H 3.6-11.2 RBC 4.72 [...] 10*3/uL 2.10-8.00 Jul 20, 2024 11:31 AM [facility] I-STAT, CREAT (L-MA) Specimen Type: BLOOD Comment: Test Performed by: [id number] Meter #: [id number] Ordering Provider: TARYN EDGAR Report Released Date/Time: Jul 20, 2024 11:34 AM Reporting Lab: [place] [address] [facility] [address] Performing Lab: [place] [id number] [facility] [address] I-STAT, CREAT (STL-MA) 1.1 mg/dL 0.7-1.3 Vital Signs: All taken on the encounter date This section contains inpatient and outpatient Vital Signs collected on the date of the Encounter. Date/Time Temperature Pulse Blood Pressure Respiratory Rate SP02 Pain Height Weight Body Mass Index Source Jul 23, 2024 08:38 PM 98 68 97/62 20 97 0 [facility] Jul 23, 2024 12:05 PM 97.6 82 108/61 20 97 8 [facility] Jul 23, 2024 09:03 AM 8 [facility] Jul 23, 2024 08:29 AM 97.2 70 104/64 20 98 8 [facility] Jul 23, 2024 07:17 AM 98.3 84 114/66 18 92 8 [facility] Radiology Reports: +/- 30 days of [...] the Encounter. The data comes from all [place] treatment facilities. Date/Time Radiology Report Provider Source Aug 10, 2024 10:29 AM PET/CT TUMOR IMAGING (SKULL TO MID-THIGH)-P: SABINE HOLT [id number] -[id number] M Exm Date: AUG 10, 2024@10:29 Req Phys: TALATARYN Peace Loc: [facility]-PRE-OP EVAL NURSING AM (Req Img Loc: [facility]-PET-CT Service: Unknown [facility], [address]IS [address] [place] [address] (Case [id number] COMPLETE) PET/CT TUMOR SKULL BASE TO MID-T(NM Detailed) CPT:89030 CPT Modifiers : PI PET TUMOR INIT TX STRAT Reason for Study: lung nodule (Case [id number] COMPLETE) F-18 FLUORODEOXYGLUCOSE (FDG),PER(NM Detailed) CPT:A9552 Clinical History: Report Status: Verified Date Reported: AUG 10, 2024 Date Verified: AUG 10, 2024 Is Architect E-Sig:/ES/BURKE CARRION M.D. Report: PATIENT NAME: SABINE HOLT. CASE #: [id number] PROCEDURE: PET/CT study HISTORY: A 78-year-old male [...] The brain is partially included in the [id number] and there is misregistration in the region [...] CARRION M.D., STAFF PHYSICIAN - DIAGNOSTIC IMAGING (Is Architect) Primary Interpreting Resident: SIRENA VAN, Physician /BURKE PATRICIA [facility] Jul 20, 2024 11:[address] HEART & VENOUS MAPPING W/3D: SABINE HOLT [id number] -1945 M Ex Date: JUL 20, 2024@11:10 Req Phys: GWENDOLYN CHA Pat Loc: [facility]-PRE-OP EVAL NURSING AM (Req Img Loc: [facility]-CT IMAGING [facility] Service: Unknown [facility], [facility] [address] [place] [address] (Case [id number] COMPLETE) CT HEART W CONTRAST & VENOUS JOSE(CT Detailed) CPT:50862 Reason for Study: pulmonary vein mapping Clinical History: Responsible Attending: Dr Cha Attending Contact Number: [phone] Resident Contact Number: Enter Hx and Reason [...] 22, 2024 Date Verified: JUL 22, 2024 Is Architect E-Sig:/ES/ADA WIGGINS Report: Case [id number]. CT heart with contrast & venous mapping. Max CTDI(vol): 12.46 mGy. Total DLP: 104 mGy*cm. TECHNIQUE: Cardiac CT was obtained with bolus IV contrast administration without gating. Multiplanar reformatted images and 3-D models were reconstructed as a CT cardiac pulmonary venogram for electrophysiology planning. Images were reformatted and analyzed using [employer] software. NUMBER OF PULMONARY VEINS: 2 [...] advised. Primary Interpreting Staff: ADA WIGGINS MD (Is Architect) /ADA SANCHEZ [facility] Encounter Notes: All associated encounter notes This section contains the clinical notes associated to the Encounter. Date/Time Encounter Note(s) Provider Source Jul 23, 2024 07:31 AM INITIAL EVALUATION NOTE: LOCAL TITLE: ANTICOAGULATION INITIAL NOTE STANDARD TITLE: INITIAL EVALUATION NOTE DATE OF NOTE: JUL 23, 2024@07:31 ENTRY DATE: JUL 23, 2024@07:32:28 AUTHOR: KELLIE PERERA EXP COSIGNER: JESSICA BEASLEY URGENCY: STATUS: COMPLETED ANTICOAGULATION INITIAL NOTE Has ADDENDA INPATIENT ANTICOAGULATION MONITORING NOTE SABINE HOLT is a 78 y/o evaluated today for anticoagulation monitoring. Subjective: Pt w/ PMH significant for chronic tremor, atrial fibrillation/ flutter (s/p ablation on 07/22/2024), actinic keratosis, and PVD presenting for planned ablation on 07/22/2024. The purpose of this note is for inpatient anticoagulation monitoring. Indication for anticoagulation: Atrial fibrillation Anticoagulant agent: Apixaban Anticoagulant start date: 12/31/19 at [facility] (12/19/[address] [facility]) Outpatient anticoagulant dose (from most recent outpt AC note): 5 mg PO BID Home regimen verified with patient during admission: Yes Anticipated anticoagulation duration: Indefinitely [id number] score = 3 (Age>75, Vascular) HAS-BLED = 1 (age>65) Active Inpatient Medications: 1) FENTANYL INJ,SOLN IVP Q15MIN PRN 25MCG-50MCG 2) ONDANSETRON INJ,SOLN IVP Q6H PRN 4MG/2ML 3) ACETAMINOPHEN 1000MG/100ML (PA-F) INJ IV PRN 1000MG/100ML 4) APIXABAN (PA-F) TAB,ORAL PO BID 5MG 5) CICLOPIROX OLAMINE SOLN,TOP TOP QDAILY LIGHTLY 6) DRONEDARONE (PA-F) TAB PO BID W/MEALS Give with food to improve absorption. 7) METOPROLOL SUCCINATE (SUST RELEASE) PO QDAILY 100MG 8) PANTOPRAZOLE TAB,EC PO QAMAC 40MG 9) SUCRALFATE TAB PO QID 1GM 10) ACETAMINOPHEN TAB PO TID 650MG 11) ONDANSETRON INJ,SOLN IVP TID PRN 4MG/2ML 12) NITROGLYCERIN TAB,SUBLINGUAL SL ONE-TIME 0.4MG Active Outpatient Medications: (for new admissions and discharge notes) Active and Recently Outpatient Medications (excluding Supplies): [...] A MEAL TAKE 30 MINUTES BEFORE MEAL(S) Pertinent labs: HGB 11.8 L g/dL 07/23/2024 06:00 HCT 35.8 L % 07/23/2024 06:00 PLT 126 L 10*3/uL 07/23/2024 06:00 CREATININE 0.78 mg/dL 07/23/2024 06:00 EGFR (CKD-EPI 2020) 92.4 07/23/2024 06:00 AST/SGOT 15 U/L 02/03/2024 10:45 ALT/SGPT 10 U/L 02/03/2024 10:45 CrCl: 88.4 mL/min Weight: 208.3 lb [94.48 kg] (07/22/2024 17:00) Does patient have adequate anticoagulation supply at home? Patient has one bottle at home but requesting a refill on apixaban to ensure he does not run out A/P: Apixaban: - Patient continues on home apixaban 5mg BID . Labs appropriate for continued use. Renal function and BMI support DOAC use. Dose appropriate for age, weight, and SCr. -- Continue apixaban 5 mg PO BID Monitoring: - H/H is lower than baseline, however patient does have history of fluctuating H/H. Will continue to monitor as no signs or symptoms of bleeding. Monitor daily or as ordered by medicine team while inpatient, monitor per anticoagulation pharmacists recommendations outpatient - Plt are low, will continue to monitor. Monitor daily or as ordered by medicine team while inpatient, monitor per anticoagulation pharmacists recommendations outpatient - BUN/SCr are WNL and stable for the patient. Monitor daily or as ordered by the medicine team while inpatient, monitor per anticoagulation pharmacists recommendations outpatient - AST/ALT are WNL and stable. Monitor weekly or as ordered by medicine team while inpatient, monitor per anticoagulation pharmacists recommendations outpatient Bridging: - Patient is not indicated for bridging while inpatient as their DOAC is not currently on hold s/p ablation. Significant drug interactions: - Dronedarone and apixaban can increase the risk of bleeding. Per cards, patient to continue dronedarone at this time. Patient has been educated to monitor signs and symptoms of abnormal bleeding and to come ED if fall occurs in which they hit their head. Education: - Spoke with patient at bedside today. Correct patient verified via two patient identifiers. Counseling as below. Handout provided. Patient verbalized understanding and had no questions/concerns. Counseling Notes: -- Purpose of DOAC and how/when to take medication -- Tablet/capsule identification and storage -- Importance of medication adherence and management of missed doses -- Signs/symptoms of bleeding and TE -- Drug interactions (e.g. NSAIDS, ASA), required labs and follow-up -- Risks associated with falling -- Notifying PCP and anticoagulation clinic about any scheduled procedures/surgeries -- Given DOAC handout with contact information Outpatient follow-up: - Patient enrolled in outpatient anticoagulation clinic; patient followed PRN and via DOAC dashboard - Will alert outpatient anticoagulation pharmacists of admission and possible discharge - Will ask anticoagulation pharmacist to follow Hgb as above Inpatient team alerted of above recommendations and plan. Pharmacy will continue to monitor inpatient anticoagulation unless otherwise instructed by team. --Minutes spent on review: 15 minutes PBM PharmD Pharmacotherapy Rem V12: PHARMACIST INTERVENTIONS: ANTICOAGULATION THERAPY DIRECT ORAL ANTICOAGULANT (DOAC) MANAGEMENT Medication monitoring, no dosage change required, continue to monitor and assess Care coordination Address adherence /dionna/ Kellie Perera PharmD PGY1 General Farmer Signed: 07/23/2024 13:16 /salma BEASLEY, PHARM.D., [facility] Clinical Supervisor Production Managing Cosigned: 07/23/2024 14:28 07/23/2024 ADDENDUM STATUS: COMPLETED I have read and agree with above. /salma BEASLEY, PHARM.D., [facility] Clinical Supervisor Production Managing Signed: 07/23/2024 14:29 KELLIE PERERA [facility]
--- OUTSIDE RECORDS SUMMARY | 2025-01-11 11:59 | XMS_ITS | Encounter Summary ---
Author Name [facility] Address [address] [place] [address] Care Team Providers Care Private Branch Exchange Service Adviser Name Role Phone ASIYA FIERRO Primary Care [...] Name Patient's Relationship to Policy Gresham HUMANA [facility] ([facility]) MEDICARE ADVANTAGE [facility] ([facility]) 2022 [id number] YANETMARIELOS PHEN PATIENT MEDICA [facility] ([facility]) MEDICARE ADVANTAGE [facility] ([facility]) May 25, 2013 [id number] MARIELOS HLOT PHEN PATIENT MEDICARE ([facility]) MEDICARE (M) PART B May 25, 2013 PART B [id number] HOLTMARIELOS PHEN PATIENT MEDICARE ([facility]) MEDICARE (M) PART A Jul 26, 2012 PART A [id number] MARIELOS HOLT PATIENT MEDICARE PART D (WNR) MEDICARE (M) PART D March 25, 2013 PART D [id number] MARIELOS HOLT PATIENT [facility] (WNR) MEDICARE ADVANTAGE [facility] (WNR) Dec 26, 2022 [id number] [phone] MARIELOS HOLT PATIENT Selected Encounter This section includes the information on record at [place] for the Encounter. Date/Time Encounter Type Encounter Description Reason Pro vider Source March 31, 2024 11:34 AM Outpatient Encounter [facility] Encounter Template Text not used by [place] Plan of Treatment: Future Appointments (+ 6 months) and Future Tests (+/- 45 days) The Plan of Treatment section includes future care activities for the patient from all [place] treatmentfacilities. This section includes future appointments and future orders which are active, pending or scheduled. Future Appointments This section includes appointments that were scheduled to occur 6 months from the date of the Encounter, up to a maximum of 20 appointments. The data comes from all [place] treatment facilities. Appointment Date/Time Appointment Type Appointme nt Facility Name April 09, 2024 10:15 AM AMBULATORY - MEDICINE [facility] May 01, 2024 10:00 AM AMBULATORY - MEDICINE [facility] May 08, 2024 10:00 AM AMBULATORY - MEDICINE [facility] Jul 20, 2024 10:15 AM AMBULATORY - MEDICINE [facility] Jul 20, 2024 03:00 PM AMBULATORY - NONE [facility] Jul 22, 2024 06:00 AM AMBULATORY - NONE [facility] Jul 22, 2024 06:15 AM AMBULATORY - MEDICINE [facility] Jul 31, 2024 10:30 AM AMBULATORY - MEDICINE [facility] Aug 10, 2024 10:15 AM AMBULATORY - NONE [facility] Aug 18, 2024 10:30 AM AMBULATORY - MEDICINE [facility] Aug 20, 2024 08:30 PM AMBULATORY - NONE [facility] 2024 10:30 AM AMBULATORY - MEDICINE [facility] Sep 14, 2024 09:00 AM AMBULATORY - SURGERY [facility] Thelma PALLAVI [facility] Vital Signs: All taken on the encounter date This section contains inpatient and outpatient Vital Signs collected on the date of the Encounter. Date/Time Temperature Pulse Blood Pressure Respiratory Rate SP02 Pain Height Weight Body Mass Index Source March 31, 2024 02:15 PM 128 115/87 98 187 [facility] N Encounter Notes: All associated encounter notes This section contains the clinical notes associated to the Encounter. Date/Time Encounter Note(s) Provider Source March 31, 2024 11:55 AM CARDIOLOGY DIAGNOS TIC STUDY CONSULT: LOCAL TITLE: EKG CONSULT ST[facility] STANDARD TITLE: CARDIOLOGY DIAGNOSTIC STUDY CONSULT DATE OF NOTE: MARCH 31, 2024@11:55:36 ENTRY DATE: MARCH 31, 2024@11:55:36 AUTHOR: CLINICAL,DEVICE PRO EXP COSIGNER: URGENCY: STATUS: COMPLETED DOCUMENT IN [facility] SEE FULL REPORT IN [facility] SIGNATURE NOT REQUIRED SEE SIGNATURE IN [facility]IST[facility] ([facility] EKG) AUTO-INSTRUMENT DIAGNOSIS Procedure: 21622 12 Lead ECG Release Status: Released Off-Line Verified Date Verified: March 31, 2024@11:55:29 35001.2 Ventricular Rate: 120 BPM 79282.5 QRS Duration: 90 ms 31218.6 Q-T Interval: 340 ms 11669 QTC Calculation(Bazett)480 ms 02017.13 Calculated R Redford: -56 degrees 93984.14 Calculated T Redford: 65 degrees Atrial fibrillation with rapid ventricular response with premature ventricular or aberrantly conducted complexes Left axis deviation Abnormal ECG When compared with ECG of 03-FEB-2024 09:50, Atrial fibrillation has replaced Sinus rhythm Vent. rate has increased BY 55 BPM Administrative Closure: 03/31/2024 by: CLINICAL,DEVICE PROXY SERVICE CLINICAL,DEVICE PROXY SERVICE [facility]
--- OUTSIDE RECORDS SUMMARY | 2025-01-11 11:59 | XMS_ITS | Encounter Summary ---
Author Name [facility] [place] [facility] [place] Address [address] [place] [address] Care Team Providers Care Construction Safety Consultant Name Role Phone ASIYA FIERRO Primary [...] Patient's Relationship to Policy Gresham HUMANA [facility] ([facility]) MEDICARE ADVANTAGE [facility] ([facility]) 2022 [id number] [phone] MARLOWMARIELOS PHEN PATIENT MEDICA [facility] ([facility]) MEDICARE ADVANTAGE [facility] ([facility]) May 25, 2013 [id number] MARIELOS MARLOW PHEN PATIENT MEDICARE ([facility]) MEDICARE (M) PART B May 25, 2013 PART B [id number] [phone] MARLOWMARIELOS PHEN PATIENT MEDICARE ([facility]) MEDICARE (M) PART A Jul 26, 2012 PART A [id number] [phone] MARIELOS MARLOW PATIENT MEDICARE PART D (WNR) MEDICARE (M) PART D March 25, 2013 PART D [id number] MARIELOS MARLOW PATIENT WELLCARE [facility] (WNR) MEDICARE ADVANTAGE [facility] (WNR) Dec 26, 2022 [id number] [phone] MARIELOS MARLOW PATIENT Selected Encounter This section includes the information on record at [place] for the Encounter. Date/Time Encounter Type Encounter Description Reason Provider Source Jul 22, 2024 06:15 AM ELECTROPHYS MAP 3D ADD-ON EP LAB ICD-10-CM I48.91 Unspecified atrial fibrillation SANDRA EDGAR Encounter Template Text not used by [place] Assessments - Encounter Diagnoses This section includes the primary and secondary diagnoses documented for the Encounter. Date/Time Primary/Secondary Diagnosis Diagnosis Name Provider Source Jul 22, 2024 03:24 PM PRIMARY Unspecified atrial fibrillation PAYAM CHA [facility] Plan of Treatment: Future Appointments (+ 6 months) and Future Tests (+/- 45 days) The Plan of Treatment section includes future care activities for the patient from all [place] [facility]. This section includes future appointments and [...] 2024 10:30 AM AMBULATORY - MEDICINE [facility] Aug 10, 2024 10:15 AM AMBULATORY - NONE . [facility] Aug 18, 2024 10:30 AM AMBULATORY - MEDICINE [facility] Aug 20, 2024 08:30 PM AMBULATORY - NONE [facility] 2024 10:30 AM AMBULATORY - MEDICINE [facility] Sep 14, 2024 09:00 AM AMBULATORY - SURGERY [facility] Nov 02, 2024 10:00 AM AMBULATORY - NONE [facility] Jan 19, 2025 02:30 PM AMBULATORY - MEDICINE [facility] Jan 22, 2025 02:30 PM AMBULATORY - NONE Iris [facility] Active, Pending, and Scheduled Orders This section [...] & SCREEN - LAB BLOOD WC [facility] Lab Results: +/- 30 days [...] Range Comment Aug 10, 2024 10:12 AM [facility] GLUCOSE,BLOOD-poct (STL) Specimen Type: BLOOD Comment: Test Performed by: [id number] Meter #: [id number] Ordering Provider: TARYN EDGAR Report Released Date/Time: Aug 10, 2024 10:28 AM Reporting Lab: [facility] [address] [facility] [facility] [address] Performing Lab: [facility] [address] [place] [address] GLUCOSE,BLOOD-p oct (STL) 94 mg/dL 72-99 Jul 23, 2024 06:24 AM [facility] MAGNESIUM Specimen Type: PLASMA Comment: No hemolysis noted. Ordering Provider: ALFREDITO WILSON Report Released Date/Time: Jul 22, 2024 05:37 PM Reporting Lab: [facility] [address] [facility] [place] [address] Performing Lab: [facility] [address] [facility] [place] [address] MAGNESIUM 1.8 mg/dL 1.6-2.6 Jul 23, 2024 06:24 AM [facility] BASIC METABOLIC PANEL Specimen Type: PLASMA Comment: No hemolysis noted. Ordering Provider: ALFREDITO WILSON Report Released Date/Time: Jul 22, 2024 05:37 PM Reporting Lab: [facility] [address] [place] [address] Performing Lab: [address] [address] CREATININE 0.78 mg/dL 0.7-1.3 UREA NITROGEN 14.4 mg/dL 9.0-25.0 GLUCOSE 113 mg/dL H 72-99 SODIUM 136 meq/L 136-145 POTASSIUM 3.7 meq/L 3.5-5 CHLORIDE 108 meq/L H 98-107 CARBON DIOXIDE 21 meq/L L 22-31 CALCIUM 8.3 mg/dL L 8.4-10.4 EGFR (CKD-EPI 2020) 92.4 >60 Jul 23, 2024 06:24 AM [facility] PHOSPHOROUS Specimen Type: PLASMA Comment: No hemolysis noted. Ordering Provider: ALFREDITO WILSON Report Released Date/Time: Jul 22, 2024 05:37 PM Reporting Lab: [address] [address] Performing Lab: [address] [address] PHOSPHOROUS 4.0 mg/dL 2.3-4.7 Jul 23, 2024 06:24 AM [facility] CBC Specimen Type: BLOOD Comment: VERIFIED BY REPEAT Ordering Provider: ALFREDITO WILSON Report Released Date/Time: Jul 22, 2024 05:37 PM Reporting Lab: [address] [address] Performing Lab: [address] [address] WBC 11.3 10*3/uL H 3.6-11.2 RBC 3.86 [...] SCRNPERF YES Jul 22, 2024 05:20 PM [facility] MRSA SURVL NARES DNA Specimen Type: [...] Jul 22, 2024 04:20 PM Reporting Lab: [facility] [address] [facility] [place] [address] Performing Lab: [place] [id number] [facility] [address] MRSA SURVL NARES DNA Negative Negative Jul 22, 2024 02:16 PM [facility] POC ACT-CELITE,HEMOCHRON (STL) Specimen Type: BLOOD Comment: Test Performed by: [id number] Meter #: [id number] Ordering Provider: TARYN EDGAR Report Released Date/Time: Jul 22, 2024 03:15 PM Reporting Lab: [place] [id number] Performing Lab: [place] [id number] POC ACT-CELITE,HEMO CHRON (STL) 174 s H 89-169 Jul 22, 2024 01:45 PM [facility] POC ACT-CELITE,HEMOCHRON (STL) Specimen Type: BLOOD Comment: Test Performed by: [id number] Meter #: [id number] Ordering Provider: TARYN EDGAR Report Released Date/Time: Jul 22, 2024 03:15 PM Reporting Lab: [place] [id number] Performing Lab: [place] [id number] POC ACT-CELITE,HEMO CHRON (STL) >400 s H 89-169 Jul 22, 2024 01:22 PM [facility] POC ACT-CELITE,HEMOCHRON (STL) Specimen Type: BLOOD Comment: Test Performed by: [id number] Meter #: [id number] Ordering Provider: TARYN EDGAR Report Released Date/Time: Jul 22, 2024 02:24 PM Reporting Lab: [place] [id number] Performing Lab: [address] [address] POC ACT-CELITE,HEMO CHRON (STL) 355 s H 89-169 Jul 22, 2024 01:02 PM [facility] POC ACT-CELITE,HEMOCHRON (STL) Specimen Type: BLOOD Comment: Test Performed by: [id number] Meter #: [id number] Ordering Provider: TARYN EDGAR Report Released Date/Time: Jul 22, 2024 02:04 PM Reporting Lab: [place] [id number] Performing Lab: [address] [address] POC ACT-CELITE,HEMO CHRON (STL) 339 s H 89-169 Jul 22, 2024 12:46 PM [facility] POC ACT-CELITE,HEMOCHRON (STL) Specimen Type: BLOOD Comment: Test Performed by: [id number] Meter #: [id number] Ordering Provider: TARYN EDGAR Report Released Date/Time: Jul 22, 2024 01:48 PM Reporting Lab: [address] [address] Performing Lab: [address] [address] POC ACT-CELITE,HEMO CHRON (STL) 327 s H 89-169 Jul 22, 2024 12:30 PM [facility] POC ACT-CELITE,HEMOCHRON (STL) Specimen Type: BLOOD Comment: Test Performed by: [id number] Meter #: [id number] Ordering Provider: TARYN EDGAR Report Released Date/Time: Jul 22, 2024 01:48 PM Reporting Lab: [address] [address] Performing Lab: [address] [address] POC ACT-CELITE,HEMO CHRON (STL) >400 s H 89-169 Jul 22, 2024 12:07 PM [facility] POC ACT-CELITE,HEMOCHRON (STL) Specimen Type: BLOOD Comment: Test Performed by: [id number] Meter #: [id number] Ordering Provider: TARYN EDGAR Report Released Date/Time: Jul 22, 2024 01:16 PM Reporting Lab: [address] [address] Performing Lab: [address] [address] POC ACT-CELITE,HEMO CHRON (STL) >400 s H 89-169 Jul 22, 2024 11:46 AM [facility] POC ACT-CELITE,HEMOCHRON (STL) Specimen Type: BLOOD Comment: Test Performed by: [id number] Meter #: [id number] Ordering Provider: TARYN EDGAR Report Released Date/Time: Jul 22, 2024 12:48 PM Reporting Lab: [address] [address] Performing Lab: [address] [address] POC ACT-CELITE,HEMO CHRON (STL) 354 s H 89-169 Jul 22, 2024 11:31 AM [facility] POC ACT-CELITE,HEMOCHRON (STL) Specimen Type: BLOOD Comment: Test Performed by: [id number] Meter #: [id number] Ordering Provider: TARYN EDGAR Report Released Date/Time: Jul 22, 2024 12:33 PM Reporting Lab: [address] [address] Performing Lab: [address] [address] POC ACT-CELITE,HEMO CHRON (STL) 373 s H 89-169 Jul 22, 2024 11:15 AM [facility] POC ACT-CELITE,HEMOCHRON (STL) Specimen Type: BLOOD Comment: Test Performed by: [id number] Meter #: [id number] Ordering Provider: TARYN EDGAR Report Released Date/Time: Jul 22, 2024 12:16 PM Reporting Lab: [place] [id number] Performing Lab: [address] [address] POC ACT-CELITE,HEMO CHRON (STL) 318 s H 89-169 Jul 22, 2024 11:01 AM [facility] POC ACT-CELITE,HEMOCHRON (STL) Specimen Type: BLOOD Comment: Test Performed by: [id number] Meter #: [id number] Ordering Provider: TARYN EDGAR Report Released Date/Time: Jul 22, 2024 12:03 PM Reporting Lab: [address] [address] Performing Lab: [address] [address] POC ACT-CELITE,HEMO CHRON (STL) 313 s H 89-169 Jul 22, 2024 10:25 AM [facility] POC ACT-CELITE,HEMOCHRON (STL) Specimen Type: BLOOD Comment: Test Performed by: [id number] Meter #: [id number] Ordering Provider: TARYN EDGAR Report Released Date/Time: Jul 22, 2024 11:28 AM Reporting Lab: [address] [address] Performing Lab: [address] [address] POC ACT-CELITE,HEMO CHRON (STL) 379 s H 89-169 Jul 22, 2024 10:05 AM [facility] POC ACT-CELITE,HEMOCHRON (STL) Specimen Type: BLOOD Comment: Test Performed by: [id number] Meter #: [id number] Ordering Provider: TARYN EDGAR Report Released Date/Time: Jul 22, 2024 11:06 AM Reporting Lab: [address] [address] Performing Lab: [address] [address] POC ACT-CELITE,HEMO CHRON (STL) 388 s H 89-169 Jul 22, 2024 09:49 AM [facility] POC ACT-CELITE,HEMOCHRON (STL) Specimen Type: BLOOD Comment: Test Performed by: [id number] Meter #: [id number] Ordering Provider: TRAYN EDGAR Report Released Date/Time: Jul 22, 2024 10:51 AM Reporting Lab: [address] [address] Performing Lab: [address] [address] POC ACT-CELITE,HEMO CHRON (STL) 351 s H 89-169 Jul 22, 2024 09:33 AM [facility] POC ACT-CELITE,HEMOCHRON (STL) Specimen Type: BLOOD Comment: Test Performed by: [id number] Meter #: [id number] Ordering Provider: TARYN EDGAR Report Released Date/Time: Jul 22, 2024 10:40 AM Reporting Lab: [address] [address] Performing Lab: [address] [address] POC ACT-CELITE,HEMO CHRON (STL) 269 s H 89-169 Jul 22, 2024 08:51 AM [facility] POC ACT-CELITE,HEMOCHRON (L) Specimen Type: BLOOD Comment: Test Performed by: [id number] Meter #: [id number] Ordering Provider: TARYN EDGAR Report Released Date/Time: Jul 22, 2024 09:52 AM Reporting Lab: [address] [address] Performing Lab: [address] [address] POC ACT-CELITE,HEMO CHRON (STL) 155 s 89-169 Jul 22, 2024 06:55 AM [facility] PT/INR NEW ([email or web address]) Specimen Type: PLASMA No comment entered. Ordering Provider: PAYAM CHA Report Released Date/Time: Jun 22, 2024 12:20 PM Reporting Lab: [address] [address] Performing Lab: [address] [address] PROTIME 14.1 s H 9.4-12.5 INR VALUE 1.3 {INR} Jul 22, 2024 06:55 AM [facility] BASIC METABOLIC PANEL Specimen Type: PLASMA Comment: No hemolysis noted. Ordering Provider: PAYAM CHA Report Released Date/Time: Jun 22, 2024 12:20 PM Reporting Lab: [address] [place] [address] Performing Lab: [address] [address] CREATININE 1.00 mg/dL 0.7-1.3 UREA NITROGEN 16.9 mg/dL 9.0-25.0 GLUCOSE 107 mg/dL H 72-99 SODIUM 138 meq/L 136-145 POTASSIUM 4.4 meq/L 3.5-5 CHLORIDE 108 meq/L H 98-107 CARBON DIOXIDE 22 meq/L 22-31 CALCIUM 9.0 mg/dL 8.4-10.4 EGFR (CKD-EPI 2020) 78.0 >60 Jul 22, 2024 06:55 AM [facility] CBC Specimen Type: BLOOD No comment entered. Ordering Provider: PAYAM CHA Report Released Date/Time: Jun 22, 2024 12:20 PM Reporting Lab: [address] [address] Performing Lab: [address] [address] WBC 14.6 10*3/uL H 3.6-11.2 RBC 4.72 [...] 2.10-8.00 Jul 20, 2024 11:31 AM [facility] I-STAT, CREAT (STL-MA) Specimen Type: BLOOD Comment: Test Performed by: [id number] Meter #: [id number] Ordering Provider: TARYN EDGAR Report Released Date/Time: Jul 20, 2024 11:34 AM Reporting Lab: [facility] [address] [facility] [place] [address] Performing Lab: [facility] [address] [facility] [place] [address] I-STAT, CREAT (STL-MA) 1.1 mg/dL 0.7-1.3 Vital Signs: All taken on the encounter date This section contains inpatient and outpatient Vital Signs collected on the date of the Encounter. Date/Time Temperature Pulse Blood Pressure Respiratory Rate SP02 Pain Height Weight Body Mass Index Source Jul 22, 2024 08:33 PM 0 [facility] Jul 22, 2024 08:32 PM 98 73 105/67 20 94 0 [facility] Jul 22, 2024 07:30 PM 98.3 70 121/68 20 97 [facility] Jul 22, 2024 06:40 PM 6 [facility] Jul 22, 2024 06:30 PM 70 106/66 19 97 [facility] Radiology Reports: +/- 30 days of [...] TUMOR IMAGING (SKULL TO MID-THIGH)-P: WILLIAN MARLOW [id number] -1945 M Exm Date: AUG 10, 2024@10:29 Req Phys: TARYN EDGAR Pat Loc: [facility]-PRE-OP EVAL NURSING AM (Req Img Loc: [facility]-PET-CT Service: Unknown [facility], [address] [place] [address] (Case [id number] COMPLETE) PET/CT TUMOR SKULL BASE TO MID-T(NM Detailed) CPT:18670 CPT Modifiers : PI PET TUMOR INIT TX STRAT Reason for Study: lung nodule (Case [id number] COMPLETE) F-18 FLUORODEOXYGLUCOSE (FDG),PER(NM Detailed) CPT:A9552 Clinical History: Report Status: Verified Date Reported: AUG 10, 2024 Date Verified: AUG 10, 2024 Professor Of Religion E-Sig:/ES/BURKE CARRION M.D. Report: PATIENT NAME: WILLIAN MARLOW. CASE #: [id number] PROCEDURE: PET/CT study HISTORY: A 78-year-old male [...] The brain is partially included in the [id number]-[id number] and there is misregistration in the region [...] CARRION M.D., STAFF PHYSICIAN - DIAGNOSTIC IMAGING (Professor Of Religion) Primary Interpreting Resident: SIRENA VAN, Resident Physician /BURKE PATRICIA [facility] Jul 20, 2024 11:[address] HEART & VENOUS MAPPING W/3D: WILLIAN MARLOW MAXI [id number] -1945 M Ex Date: JUL 20, 2024@11:10 Req Phys: PAYAM CHA Loc: [facility]-PRE-OP EVAL NURSING AM (Req Img Loc: [facility]-CT IMAGING [facility] Service: Unknown [facility], [address] [place] [address] (Case [id number] COMPLETE) CT HEART W CONTRAST & VENOUS JOSE(CT Detailed) CPT:59279 Reason for Study: pulmonary vein mapping Clinical History: Responsible Attending: Dr Cha Attending Contact Number: [phone] Resident Contact Number: Enter Hx and Reason [...] 22, 2024 Date Verified: JUL 22, 2024 Professor Of Religion E-Sig:/ES/ADA WIGGINS Report: Case [id number]. CT heart with contrast & venous mapping. Max CTDI(vol): 12.46 mGy. Total DLP: 104 mGy*cm. TECHNIQUE: Cardiac CT was obtained with bolus IV contrast administration without gating. Multiplanar reformatted images and 3-D models were reconstructed as a CT cardiac pulmonary venogram for electrophysiology planning. Images were reformatted and analyzed using [employer] software. NUMBER OF PULMONARY VEINS: 2 [...] advised. Primary Interpreting Staff: ADA WIGGINS MD (Professor Of Religion) /ADA [facility] Encounter Notes: All associated encounter notes This section contains the clinical notes associated to the Encounter. Date/Time Encounter Note(s) Provider Source Jul 23, 2024 07:37 AM CARDIOLOGY BENDING MACHINE OPERATOR NOTE: LOCAL TITLE: [facility] CARDIOLOGY PATTERN GENERATOR OPERATOR [facility] [[email or web address]] STANDARD TITLE: CARDIOLOGY BENDING MACHINE OPERATOR NOTE DATE OF NOTE: JUL 23, 2024@07:37 ENTRY DATE: JUL 23, 2024@07:37:26 AUTHOR: LOAN LEBRON COSIGNER: URGENCY: STATUS: COMPLETED Instructions to follow after your Afib ablation: * Do not lift anything over 10 pounds for 7days. * You should not drive, operate machinery, consume alcohol or make legal decisions for 24 hours after the end of your procedure due to sedation/anesthesia you received. * You will have a follow-up with Cardiology provider-Call me if you are not contacted. You can remove the bandage on your groin(s) tomorrow. Showers only for 1 week- DO NOT scrub area- wash gently in shower. After one week, then you may bathe in a tub. * Leave open to air. DO NOT put ointments or an airtight dressing over it. * You may have bruising and a small, tender lump on your right and/or left groin. This is normal after a procedure. If the lump grows larger, gets very tender, red, or warm to the touch or if it begins to bleed, or ooze a colored substance, call [phone] Ext: [phone] Stefany DOMINIQUE: [phone] If we are unavailable, call the above number dial O for x ray developing machine operator and ask for the Gizzard Puller coke oven mason, or go to an Emergency Room. * If you continue to have symptoms of heart rhythm problems, call the above number or go to the Emergency Room if needed. Do not wait for your follow-up appointment. CONTINUE/RESUME taking ALL YOUR CURRENT MEDICINES AND START ANY NEW MEDICINES PRESCRIBED FOR YOU: YOU MUST SHEET METAL DUCT INSTALLER HELPER THESE TWO NEW MEDICATIONS FROM PHARMACY BEFORE YOU LEAVE THE HOSPITAL: CARAFATE: 1Gram 4 times a day by mouth x2 weeks PANTOPRAZOLE : 40 mg twice daily by mouth x6 weeks (THEN GO BACK TO REGULAR DOSING) CONTINUE DRONEDARONE (AT LEAST 3-6 MONTHS MORE) BLOOD THINNER: Please begin taking this again the evening OF YOUR PROCEDURE OR DIRECTED. Remain on it uninterrupted. Do Not stop taking it unless your doctor tells you to or you have life threatening bleeding. ABIXABAN/ELIQUIS DO NOT SCHEDULE ANY ELECTIVE PROCEDURE DURING THE FIRST 3 MONTHS, PREFERABLY 6 MONTHS AFTER AFIB ABLATION. * You may also experience some chest discomfort or occasional palpitations- This is normal especially when breathing. Please call if this becomes a problem. You may have more AFIB or more intense afib after the procedure. It takes a minimum of 90 days for the scar to be completed. * You should seek Medical attention right away for the following: * Any shortness of breath (different than what your baseline is) Heart attack pain, bleeding/pain in groin, fevers, passing out, shortness of breath, vomiting blood or any stroke symptoms. * PLEASE EAT A MECHANICAL SOFT DIET X 2 WEEKS. (foods that are soft and easy to swallow, may be blended or ground up) TO REPORT NON [place] EMERGENCY CARE: -> -> -> -> PLEASE CALL WITHIN 72 HOURS OF ADMISSION/VISIT/AMBULANCE SERVICE FOR CARE TO BE CONSIDERED FOR PAYMENT. (YOU OR A FAMILY/FRIEND) DO NOT RELY ON NON[place] FACILITY TO CALL AND REPORT [phone] reviewed with barbara /dionna/ Loan Lebron,RN,BSN Registered Nurse Signed: 07/23/2024 08:49 LYNN LEBRON [facility] Jul 22, 2024 03:26 PM CARDIOLOGY NOTE: LOCAL TITLE: CARDIOLOGY CHART REVIEW ST STANDARD TITLE: CARDIOLOGY NOTE DATE OF NOTE: JUL 22, 2024@15:26 ENTRY DATE: JUL 22, 2024@15:26:15 AUTHOR: PAYAM CHA EXP COSIGNER: URGENCY: STATUS: COMPLETED Incidental finding of Right middle lobe nodule measuring 9 mm. Correlation with prior examinations is recommended if available to confirm stability. If unavailable then short-term follow-up CT versus PET/CT or tissue sampling is advised. Will alert patient's PCP, Dr. Edgar for followup. Will also send a TEAMS message. /dionna/ PAYAM CHA MD CLINICAL CARDIAC DIE BAKER Signed: 07/22/2024 15:27 Receipt Acknowledged By: 07/23/2024 13:55 /dionna/ TARYN EDGAR MD STAFF PHYSICIAN PAYAM CHA [facility] Jul 22, 2024 03:22 PM CARDIOLOGY NURSING PREPROCEDURE NOTE: LOCAL TITLE: UPSETTER HELPER PROCEDURE STL STANDARD TITLE: CARDIOLOGY NURSING PREPROCEDURE NOTE DATE OF NOTE: JUL 22, 2024@15:22 ENTRY DATE: JUL 22, 2024@15:22:11 AUTHOR: DELL BUSTOS COSIGNER: URGENCY: STATUS: COMPLETED UPSETTER HELPER PROCEDURE STL Has ADDENDA Atrial Ablation Report 07/22/2024 15:19:47 Financial #: 1 of 7 Patient Name: Willian Marlow Date of : 1945 Initial MD: Payam Cha MD Study Date: 07/22/2024 Entire Case Report Patient Information Patient Name: Willian Marlow Date of : 1945 Age: 78 years Financial #: Gender: M Weight (lbs): 185.1 Weight (kg): 84.1 AlternateID: [id number] Lab Number: 3 Admission Scheduled Start Study Start 07/22/2024 07/22/2024 07/22/2024 Stay Type Inpatient Admit Source Facility Department Other [facility] Maxi Jack - Service Station Console Operator Physician and Clinical Staff Initial MD: Payam Cha MD Terminal Manager: Deb Kunz RN Terminal Manager: Maxi ALAS EP Stimulator: Maxi ALAS Holding Area: Deb Kunz RN Medication Nurse: Staff Anesthesia Monitored Sedation Nurse: Staff Anesthesia Recorder: Dell Bustos RN Scrub: Edwin Hinkle [facility] 07/22/2024 15:19:47 Financial #: 2 of 7 Patient Name: Willian Marlow Date of : 1945 Initial MD: Payam Cha Study Date: 07/22/2024 Time Digital Account Supervisor Description Size Mfg Part Number Used/Scraped 8:44 [employer]um[employer] [place] 10f x 10cm [id number] Used 8:44 [employer] [place] 6 fr 10cm [id number] Used 8:44 [employer] [place] 8Fr x 10cm [id number] Used Equipment Medication Medication Time Given Dosage/Unit Concentration/Unit Diluent (ml) Solution HEPARIN (Drip) 07/22/2024 10:16:42 1800 units/hr 24762 units 500 NaCl .45 1800 units/hr HEPARIN (Drip) given in lab by Deb Kunz RN in Right Hand via Peripheral IV. Pump/Drip Flow = 36 ml/hr using NaCl .45 [place] [address] units in 500 ml. Ordered by Payam Cha MD. Reason: Verbal order, read back and confirmed. HEPARIN (Drip) 07/22/2024 12:02:42 2800 units/hr 57847 units 500 NaCl .45 2800 units/hr HEPARIN (Drip) given in lab by Cherelle Bustos RN in Right Hand via Peripheral IV. Pump/Drip Flow = 56 ml/hr using NaCl .45 [place] [address] units in 500 ml. Ordered by Payam Cha MD. Reason: Verbal order, read back and confirmed. HEPARIN (Drip) 07/22/2024 12:15:59 3300 units/hr 53235 units 500 NaCl .45 3300 units/hr HEPARIN (Drip) given in lab by Deb Kunz in Right Hand via Peripheral IV. Pump/Drip Flow = 66 ml/hr using NaCl .[place] [address] units in 500 ml. Ordered by Payam Cha. Reason: Verbal order, read back and confirmed. HEPARIN (Drip) 07/22/2024 13:31:19 0 units/hr 16184 units 500 NaCl .45 0 units/hr HEPARIN (Drip) given in lab by Deb Kunz RN in Right Hand via Peripheral IV. Pump/Drip Flow = 0 ml/hr using NaCl .45 [place] [address] units in 500 ml. Ordered by Paaym Cha MD. Reason: Verbal order, read back and confirmed. HEPARIN (Drip) 07/22/2024 13:47:24 2800 units/hr 50085 units 500 NaCl .45 2800 units/hr HEPARIN (Drip) given in lab by Deb Kunz in Right Hand via Peripheral IV. Pump/Drip Flow = 56 ml/hr using NaCl .[place] [address] units in 500 ml. Ordered by Payam Cha. Reason: Verbal order, read back and confirmed. HEPARIN (Drip) 07/22/2024 14:33:01 0 units/hr 51171 units 500 NaCl .45 0 units/hr HEPARIN (Drip) given in lab by Deb Kunz RN in Right Hand via Peripheral IV. Pump/Drip Flow = 0 ml/hr using NaCl .[place] [address] units in 500 ml. Ordered by Payam Cha MD. Reason: Verbal order, read back and confirmed. Discontinued at 07/22/2024 14:33. Medication (Drip) 07/22/2024 15:19:47 Financial #: 3 of 7 Patient Name: Willian Marlow Date of : 1945 Initial MD: Payam Cha Study Date: 07/22/2024 Alert Oriented to time-placeperson Moves all extremities Respiration Rate (B/min) 16 Chest Pain 0 Initial Case Assessment Color Lower Right Color Lower Left Pale Pale Cardiovascular Edema Present Skin Color Skin None Normal Warm Dry Circulatory - Lower Extremities Neurological State Respiration - General Time Study Chronological Log 8:06:25 MD notified that patient is en route to EP lab. 8:06:27 Pt arrived from [facility] with labs drawn and working IV noted. 8:06:34 Pre-procedure check performed with: RN, including patient's full name, full social security number, full date of , planned procedure. Information verified by patient. Arm band correct. 8:06:43 Assessment: Initial Case, Chest Pain=0, Edema=None, Color=Normal, Skin = Warm, Dry Lower Right Extremities: Color=Pale Lower Left Extremities: Color=Pale Neurological: State=Alert, Ox3, SCANLON Respiration: Resp=16 B/min 8:07:02 Family Status-In Waiting Area-MD Aware 8:07:[address] 8:07:06 NPO Since: 6pm yesterday. 8:07:20 Site clipped. 8:07:23 IV site: Right hand # 20 PIV 8:07:35 Allergy list reviewed with patient. Chronological Log 07/22/2024 15:19:47 Financial #: 4 of 7 Patient Name: Willian Marlow Date of : 1945 Initial MD: Payam Cha Study Date: 07/22/2024 8:07:38 Allergy list: PCN 8:08:01 Previous reaction to sedation/anesthesia? Patient denies. 8:08:11 Hx of smoking? quit in 8:10:12 Hx of ETOH? occasional 8:11:31 Hx of illicit drug use? patient denies 8:11:39 ASA SCORE=Class 3. 8:12:42 Mallampati Airway Assesment=Class 2. 8:13:05 Company rep present: Dionne from [employer] 8:30:48 MD arrives to perform pre-op eval. 8:31:53 Pre-procedure education completed by physician. Pt is able and willing to learn. Asks appropriate questions. 8:31:56 Sedation plan reviewed with patient by physician. 8:40:17 CPRS med list reviewed by physician. 8:40:20 Procedure site verified by physician. 8:40:29 Informed consent obtained on IMED in CPRS by physician. 8:40:40 Fire Risk Assessment performed. 8:40:42 Ignition source (cautery,laser,fiberoptic light)-1=Y, 0=N = 1 8:40:46 Open Oxygen source-1=Y, 0=N = 1 8:40:50 Procedure site above Xiphoid-1=Y, 0=N = 0 8:40:54 Total Score(1-2=routine protocol; 3=high risk fire protocol)= 2 8:40:58 Mobile sterling in use 8:41:01 Permanent dose record reviewed. 8:41:04 Staff at procedure table wearing Leaded glasses 8:41:06 Staff wearing external film badges. 8:41:16 Staff wearing lead aprons and collars. 8:41:19 X-ray Image detector height reviewed 8:41:23 Warning level at 300,000 mGy/cm2 D.A.P. or 2,000 mGy A.K. 8:41:25 X-ray protocol selected. 8:41:29 All staff to report radiation concerns in real time. 8:41:58 Time out including patient, procedure & site verification took place with staff, physician and patient prior to start of case. 8:42:00 Time out performed by: Payam Cha MD, Cherelle Bustos RN, Maxi Wiggins, Deb Kunz RN, Edwin ALAS Everyone in agreement to proceed with procedure. 8:51:54 Patient assisted to procedure room and positioned supine on table. 8:53:20 Continuous 12 lead ECG in progress. 8:53:24 Hands free defib pads placed. 8:53:26 Grounding pad placed: bilateral thighs 8:53:[address] patches in place. 07/22/2024 15:19:47 Financial #: 5 of 7 Patient Name: Willian Marlow Date of : 1945 Initial MD: Payam Cha Study Date: 07/22/2024 9:00:05 Anesthesia staff present to manage and maintain airway, O2 administration, medication administration and vital signs. See anesthesia record. 9:00:08 Anesthesia Patient: PACU notified that anesthesia is performing this procedure and that patient will recover in PACU. Spoke to: Caleb CLEARY 9:04:27 Patient prepped and draped in sterile fashion. 9:13:32 #16 kosovan hou cath placed without difficulties. Draining clear yellow urine. Hou secured to left leg with securement device. 9:26:49 #20 PIV placed in right hand. 9:31:59 Patient prepped and draped in sterile fashion. 9:50:40 Baseline ACT result: 155 9:53:04 Physcian scrubbed in at table. 9:53:06 Case Start 9:53:09 Lidocaine 2% injected to: right groin. 9:57:09 Access to R Femoral Vein obtained; guidewire inserted 9:57:12 Access to R Femoral Vein obtained; guidewire inserted 9:57:15 Access to R Femoral Vein obtained; guidewire inserted 9:57:19 A [place] 6 fr 10cm was inserted into the Fem Vein (right) and advanced. Guidewire removed. 9:57:44 A [place] 8Fr x 10cm was inserted into the Fem Vein (right) and advanced. Guidewire removed. 9:57:58 A [place] 9 x 10cm was inserted into the Fem Vein (right) and advanced. Guidewire removed. 10:15:17 Inquiry diagnostic EP catheters advanced to CS position. Position confirmed under floroscopy. 10:15:54 Sound Star diagnostic EP catheter advanced to RA. Position confirmed under floroscopy. 10:16:42 1800 units/hr HEPARIN (Drip) given in lab by Deb Kunz RN in Right Hand via Peripheral IV. Pump/Drip Flow = 36 ml/hr [place] .45 [place] [address] units in 500 ml. Ordered by Payam Cha MD. Reason: Verbal order, read back and confirmed. 10:23:24 Liz VersaCross transvenous sheath exchanged for existing #8 sheath and advanced to RA septum under floroscopy. 10:25:09 Liz system positioned on septal fossa. Position confirmed under floroscopy and ICE catheter. 10:33:52 ACT result: 269 10:36:03 RF utilized on Liz system to gain access to LA. 10:36:26 Guide wire utilized to verify LA position on fluoroscopy 10:36:31 Liz transseptal sheath advanced into LA OTW. Guidewire removed. 10:43:54 Pentaray catheter advanced through Liz transvenous sheath into LA. 10:44:03 3D mapping in progress. 10:49:43 ACT result: 351 10:52:38 Pentaray catheter removed. 10:52:54 RF ablation catheter advanced to LA under floroscopy. 10:58:31 1000ml 0.9% Sodium Chloride with 2000 units Heparin started at transeptal sheath site at 150ml per hour. 11:12:55 RF ablation begins 11:26:51 ACT result: 379 07/22/2024 15:19:47 Financial #: 6 of 7 Patient Name: Willian Marlow Date of : 1945 Initial MD: Payam Cha Study Date: 07/22/2024 11:27:32 Esosure placed under direct supervision of Dr. Cha. 11:44:30 Esosure removed from OGT, unable to adequately displace esophagus. 12:02:20 ACT result: 313 12:02:42 2800 units/hr HEPARIN (Drip) given in lab by Cherelle Bustos RN in Right Hand via Peripheral IV. Pump/Drip Flow = 56 ml/hr using [place] .[place] [address] units in 500 ml. Ordered by Payam Cha MD. Reason: Verbal order,read back and confirmed. 12:15:31 ACT result: 318 12:15:59 3300 units/hr HEPARIN (Drip) given in lab by Deb Kunz in Right Hand via Peripheral IV. Pump/Drip Flow = 66 ml/hr using [place] .[place] [address] units in 500 ml. Ordered by Payam Cha. Reason: Verbal order, read back and confirmed. 12:31:56 ACT result: 373 13:31:02 ACT result: Out of Range High 13:31:19 0 units/hr HEPARIN (Drip) given in lab by Deb Kunz RN in Right Hand via Peripheral IV. Pump/Drip Flow = 0 ml/hr [place] [address] units in 500 ml. Ordered by Payam Cha MD. Reason: Verbal order, read back and confirmed. 13:47:16 ACT result: 327 13:47:24 2800 units/hr HEPARIN (Drip) given in lab by Deb Kunz in Right Hand via Peripheral IV. Pump/Drip Flow = 56 ml/hr using NaCl .45 [place] [address] units in 500 ml. Ordered by Payam Cha. Reason: Verbal order, read back and confirmed. 14:00:30 Patient's and daughter updated in waiting room. 14:13:25 RF catheter removed. Pentaray catheter advanced to LA under floroscopy. 14:23:15 ACT result: 355 14:30:46 Pentaray removed and RF ablation catheter advanced under floroscopy to LA. 14:33:01 0 units/hr HEPARIN (Drip) given in lab by Deb Kunz RN in Right Hand via Peripheral IV. Pump/Drip Flow = 0 ml/hr using NaCl .45 [place] [address] units in 500 ml. Ordered by Payam Cha MD. Reason: Verbal order, read back and confirmed. Discontinued at 07/22/2024 14:33. 14:33:40 1000ml 0.9% Sodium Chloride with 2000 units Heparin started at transeptal sheath site decreased to 50ml per hour. 14:34:06 Report called to Hugo Fuentes RN on 7N. 14:36:01 RF ablation resumes. 14:49:41 EP Catheters out. 14:49:43 Case end 14:59:39 Anesthesia Patient: Report given to Isaiah RN in PACU; ETA to PACU of 30 minutes given. 15:03:10 RFV x 3 sheaths removed. Manual pressure held. 15:11:51 Hemostatis obtained. Sterile bandage applied to site. 15:17:57 ACT result: 174 15:19:00 Patient escorted to PACU via stretcher with 02, monitor, RN and BODYWORK THERAPIST End Study - Patient Disposition Complications No 07/22/2024 15:19:47 Financial #: 7 of 7 Patient Name: Willian Marlow Date of : 1945 Initial MD: Payam Cha Study Date: 07/22/2024 /dionna/ DELL MCKENNA RN REGISTERED NURSE Signed: 07/22/2024 15:28 Receipt Acknowledged By: 07/22/2024 18:00 /salma CHA MD CLINICAL CARDIAC DIE BAKER 07/22/2024 ADDENDUM STATUS: COMPLETED I have reviewed this note and have ordered the medications/treatments as recorded. /dionna/ PAYAM CHA MD CLINICAL CARDIAC DIE BAKER Signed: 07/22/2024 18:01 DELL BUSTOS [facility] Jul 22, 2024 03:21 PM CARDIOLOGY PROCEDURE NOTE: LOCAL TITLE: CARDIOLOGY PROCEDURE REPORT ST STANDARD TITLE: CARDIOLOGY PROCEDURE NOTE DATE OF NOTE: JUL 22, 2024@15:21 ENTRY DATE: JUL 22, 2024@15:21:38 AUTHOR: PAYAM CHA EXP COSIGNER: URGENCY: STATUS: COMPLETED [facility]3] Program for Clinical Assessment, Reporting, and Tracking ELECTROPHYSIOLOGY DIAGNOSTIC AND THERAPEUTIC PROCEDURE REPORT Patient: WILLIAN MARLOW SSN: [id number] : 1945 AGE: 78 Procedure Date: 07/22/2024 Associated Assessment: EP (07/22/2024) Procedure Status: Elective outpatient procedure Attending: PAYAM CHA PROCEDURE INDICATIONS Symptoms: Fatigue Dyspnea Dyspnea on Exertion Indications: Atrial Fibrillation (AF) Atrial Flutter (AFL) PROCEDURES PERFORMED Therapeutic Procedures: Atrial fibrillation ablation Additional AF arrhythmia ablation Additional SVT Arrhythmia ablation Adjunctive Procedures: Ultrasound guidance for vascular access Intracardiac Echocardiography 3D electroanatomic mapping TIME-OUT A time-out was performed addressing all safety requirements relevant to the procedure. Type of procedure, site, and patient ID were verified with the patient. The attending has assessed or re-assessed the patient and there are no changes to the pre-procedure assessment. PROCEDURE DETAILS Informed consent was obtained. The patient arrived at the electrophysiology laboratory in sinus rhythm with frequent PACs. Right femoral venous access was obtained under ultrasound guidance (8Fx1, 9Fx1, 6Fx1). A decapolar catheter was placed in the coronary sinus. Intracardiac echo was used to survey the left atrium and to assess for baseline pericardial effusion. Carto Sound was used to create a shell of the LA and identify the esophogus and the pulmonary vein ostia. Heparin bolus and continuous infusion were administered with a goal ACT of 350-400 seconds. Fluoroscopy, pressure monitoring, and intracardiac ultrasound were used for the first transseptal puncture with a Liz Versa transseptal wire, and a Liz Versa was advanced through the fossa ovalis. A Pentarray catheter was advanced to the left atrium using the Versa sheath. Using the Carto 3 mapping system, a complete electroanatomic and voltage map of the left atrium and all the pulmonary veins was constructed, which was then compared to the prior cardiac CT. Low voltage was seen throughout the LA, including the posterior and anterior appiah, roof and septum. The patient went into atrial flutter during ablation (CL- 250 ms). Initial entrainment was consistent with mitral flutter. Following entrainment, there was change in atrial activation. Entrainment was then consistent with CTI-dependent typical atrial flutter. There was then changing atrial activation sequences consistent with atrial fibrillation. Atrial fibrillation terminated during ablation anterior to the appendage while creating the anterior box lesion for anterior wall isolation. The Pentarray catheter was positioned in the left superior pulmonary vein (LSPV), and irrigated radiofrequency energy was used to create a circumferential lesion set around the left sided pulmonary veins. A carinal line was required to achieve isolation in the left sided pulmonary veins. Additional lesions were given in areas of exit conduction. Entrance block and exit block was obtained in the left sided pulmonary veins. The Pentarray was positioned in the right superior pulmonary vein (RSPV) os, as visualized by intracardiac ultrasound. Irrigated radiofrequency energy was used to create a common wide circumferential lesion set around the right sided pulmonary veins. Entrance block was obtained with elimination of the pulmonary vein potentials in the RSPV and RIPV (right inferior pulmonary vein). A carinal line was required to achieve isolation in the right sided pulmonary veins. Pacing from the Pentarray catheter revealed exit block with local capture. Given the low voltage in the posterior and anterior appiah, the decision was made to isolate these areas. Irrigated RF energy was given to create superior and inferior posterior wall lines. RF energy was given to create separate lines in the superior anterior roof and inferior anterior wall, resulting in isolation of the anterior wall via a superior box lesion. Next the patient mitral annuloplasty ring was mapped by intracardiac echo to ensure there was no ablation was done near this area. Irrigated RF energy was given from the anterior mitral annulus away from the ring connecting the anterior box lesion given the patient's spontaneous mitral flutter. Following these lesions, mapping and additional ablation of areas of early signals and areas all 4 veins, posterior wall, anterior wall, roof, and septum. Ablation in the posterior wall was limited to 20-25W for 20-25 seconds with esophogeal temperature monitoring. The Esosure system was used to move the esophogus when necessary. Phrenic nerve mapping was done in the right anterior pulmonary vein antrum and ablation was avoided in areas of phrenic nerve capture. Following a 60 minute waiting period, persistent entrance and exit block were seen in the right sided pulmonary veins, left sided pulmonary veins, posterior wall, anterior wall, roof, and septum. The Liz defectable sheath was withdrawn to the right atrium, and heparin was discontinued. Given the clinical history of spontaeous CTI-dependent atrial flutter, the decision was made to empirically ablate the cavo-tricuspid isthmus. Carto3 was used for electroanatomic mapping. The ablation catheter was advanced anterograde across the tricuspid valve and was positioned in the inferior tricuspid annulus using a Marilou Versa sheath. In this position, a large ventricular and small atrial electrogram were observed on the distal pole of the ablation catheter. Radiofrequency energy was then applied between the catheter tip and a surface patch electrode. A contiguous line of radiofrequency ablation lesions was extended across the cavo-tricuspid isthmus from the tricupid annulus to the inferior vena cava. After the completion of ablation, trans-isthmus conduction time was >190 msec. Differential pacing confirmed activation patterns and timing consistent with block across the isthmus. Doppler echo post ablation showed no significant pericardial effusion. The catheters were withdrawn, Protamine was given, and the femoral venous sheaths were removed. Hemostasis was obtained by manual compression. IN-LAB MEDICATIONS Summary Data: Estimated Blood Loss: 20 mL PERIPROCEDURAL COMPLICATIONS No Major Adverse Events or Complications The attending was present throughout the procedure. PROCEDURE SUMMARY -Pumonary vein isolation -Right and Left Sided Carinal Lines -Posterior wall, Anterior Wall, Septum, and Roof Isolation -Creation of mitral line connected to the anterior wall box lesion given spontaenous mitral flutter (CL- 255 ms) -CTI Flutter line for like spontaenous CTI-dependent atrial fluttter (CL 250 ms). At times, the mitral flutter would convert to atrial flutter. -Eventual degeneration of the atrial flutter to atrial flibrillation. Termination of atrial fibrillation while ablating anterior to the appendage. -Empiric roof line for roof dependent atrial flutter -Successful ablation of the CTI, with bidirectional line of block -Low voltage throughout the left atrium RECOMMENDATIONS -Bedrest x 4 hours. Do not bend legs or knees during this time. -Restart Eliquis. 1st dose to be given as soon as patient returns frm PACU. -Proton pump inhibitor (PPi) 40 mg po bid x 6 weeks and carafate 1g PO QID x 2weeks. if patient was on PPI prior to the procedure, please make sure he isplaced on his prior dose of PPi after 6 weeks. If patient was not on a PPi,please start protonix at 40 mg po BID x 6 weeks -D/C hou once ambulatory (please do not leave in overnight) -Continue Multaq at current dose -Mechanical soft diet for two weeks. Please give patient instructions on this. -Anticipate D/C tomorrow PROCEDURE CODING Coding Procedure 42637 Atrial fibrillation ablation 74187 x6 Additional AF arrhythmia ablation 79366 x3 Additional SVT Arrhythmia ablation 27301 x2 Ultrasound guidance for vascular access 70915 Intracardiac Echocardiography 34120 3D electroanatomic mapping [id number] 07/22/2024 /dionna/ PAYAM CHA MD CLINICAL CARDIAC DIE BAKER Signed: 07/22/2024 15:24 PAYAM CHA [facility] Jul 22, 2024 09:12 AM CARDIOLOGY PREPROCEDURE NOTE: LOCAL TITLE: CARDIOLOGY PRE-PROCEDURAL NOTE STL STANDARD TITLE: CARDIOLOGY PREPROCEDURE NOTE DATE OF NOTE: JUL 22, 2024@09:12 ENTRY DATE: JUL 22, 2024@09:12:34 AUTHOR: PAYAM CHA EXP COSIGNER: URGENCY: STATUS: COMPLETED [facility]3] Program for Clinical Assessment, Reporting, and Tracking ELECTROPHYSIOLOGY PRE-PROCEDURE ASSESSMENT REPORT Patient: WILLIAN MARLWO SSN: [id number] : 1945 AGE: 78 Assessment for elective ELECTROPHYSIOLOGY procedure Assessed by: PAYAM CHA Date: 07/22/2024 Attending: PAYAM CHA PRESENTATION Indications: Atrial Fibrillation (AF) COMORBID CONDITIONS Peripheral Vascular Disease REVIEW OF SYSTEMS PHYSICAL EXAM Vital Value Unit Date/Time BP 131/ 87 mmHG 2024-07-22 06:03 HR 100 bpm 2024-07-22 06:03 Height 72 inches 2024-07-22 06:03 Weight 185 lbs 2024-07-22 06:03 BSA 1.9 m^2 2024-07-22 06:03 LABS Lab Value Date/Time Alert --------- Creatinine 1.00 2024-07-22 06:55 Potassium 4.4 2024-07-22 06:55 Hematocrit 43.6 2024-07-22 06:55 Platelets 170 2024-07-22 06:55 INR 1.3 2024-07-22 06:55 Cholesterol total 148 2024-02-03 10:45 LDL (calculated) 94 2024-02-03 10:45 HDL Cholesterol 33 2024-02-03 10:45 low Triglycerides 107 2024-02-03 10:45 --------- INPATIENT MEDICATIONS *FENTANYL INJ,SOLN expires: 07/23/2024 Give: 25MCG-50MCG IVP Q15MIN PRN ONDANSETRON INJ,SOLN expires: 07/23/2024 Give: 4MG/2ML IVP Q6H PRN ACETAMINOPHEN 1000MG/100ML (PA-F) INJ expires: 07/23/2024 Give: 1000MG/100ML IV PRN OUTPATIENT MEDICATIONS CICLOPIROX 8% TOP SOLN Qty: 6.6 for 30 days expires: 04/23/2025; last filled: 04/24/2024; active Sig: APPLY LIGHTLY TO AFFECTED AREA(S) ONCE A DAY (THIN COAT TO THICK NAILS - FILE DOWN AFTER 1 WEEK) (EXTERNAL USE ONLY) PANTOPRAZOLE NA 40MG EC TAB Qty: 90 for 90 days expires: 02/03/2025; last filled: 04/23/2024; active Sig: TAKE ONE TABLET BY MOUTH EVERY MORNING BEFORE A MEAL TAKE 30 MINUTES BEFORE MEAL(S) APIXABAN 5MG TAB Qty: 180 for 90 days expires: 11/28/2024; last filled: 05/13/2024; active Sig: TAKE ONE TABLET BY MOUTH TWICE A DAY FOR ANTICOAGULATION Indication: FOR ANTICOAGULATION DRONEDARONE 400MG TAB Qty: 180 for 90 days expires: 11/28/2024; last filled: 06/17/2024; active Sig: TAKE ONE TABLET BY MOUTH TWICE A DAY FOR ATRIAL FIBRILLATION - TAKE IN THE MORNING AND EVENING WITH FOOD METOPROLOL SUCCINATE 200MG SA TAB Qty: 45 for 90 days expires: 11/28/2024; last filled: 05/13/2024; active Sig: TAKE ONE-HALF TABLET BY MOUTH ONCE A DAY FOR HEART/BLOOD PRESSURE. SWALLOW WHOLE, DO NOT CRUSH OR CHEW (TABLETS MAY BE CUT IN HALF). MEDICATION REVIEW AND RECONCILIATION Medications could not be reviewed or reconciled at this time. ALLERGIES/ADVERSE REACTIONS Penicillin SEDATION/CONSENT CodeStatus: Full Code Anesthesia: consult obtained General Anesthesia NPO for procedure was explained to patient/surrogate. NPO since: midnight The risks, benefits, and alternatives of the procedure and sedation/analgesia were explained to and discussed with the patient/surrogate in detail. All questions have been answered and the patient/surrogate understands the potential risks and benefits and consents to the procedure and the plan for sedation. PROCEDURE PLAN Planned Therapeutic Procedures: Atrial fibrillation ablation Additional AF arrhythmia ablation Additional SVT Arrhythmia ablation Planned Adjunctive Procedures: Ultrasound guidance for vascular access Intracardiac Echocardiography 3D electroanatomic mapping SUMMARY 657 [facility][id number] 001 07/22/2024 /es/ PAYAM CHA MD CLINICAL CARDIAC DIE BAKER Signed: 07/22/2024 09:12 PAYAM CHA [facility]
--- OUTSIDE RECORDS SUMMARY | 2025-01-11 11:59 | XMS_ITS ---
[place] ANESTHESIA PRE/POST-OP CONSULT [facility] Encounter Summary Created on: January 11, 2025 YANET SABINE MAXI : 1945 Sex: Male Author Name [facility] [place] [facility] [place] [facility] [place] Address [address] [place] [address] Care Team Providers Care First Front Ventilator Name Role Phone ASIYA FIERRO Primary Care [...] Patient's Relationship to Policy Gresham HUMANA [facility] ([facility]) MEDICARE ADVANTAGE [facility]) 2022 [id number] [phone] HOLTMARIELOS PHEN PATIENT MEDICA [facility] ([facility]) MEDICARE ADVANTAGE [facility] ([facility]) May 25, 2013 [id number] HOLTMARIELOS PHEN PATIENT MEDICARE ([facility]) MEDICARE (M) PART B May 25, 2013 PART B [id number] [phone] HOLTMARIELOS PHEN PATIENT MEDICARE ([facility]) MEDICARE (M) PART A Jul 26, 2012 PART A [id number] MARIELOS HOLT PATIENT MEDICARE PART D (WNR) MEDICARE (M) PART D March 25, 2013 PART D [id number] MARIELOS HOLT PATIENT [facility] (WNR) MEDICARE ADVANTAGE [facility] (WNR) Dec 26, 2022 [id number] MARIELOS HOLT PATIENT Selected Encounter This section includes the information on record at [place] for the Encounter. Date/Time Encounter Type Encounter Description Reason Provider Source Jun 26, 2024 01:36 PM Outpatient Encounter ANESTHESIA PRE/POST-OP CONSULT ICD-10-CM R25.1 Tremor, unspecified STIVEN WALLACE Yuan Encounter Template Text not used by [place] Assessments - Encounter Diagnoses This section includes the primary and secondary diagnoses documented for the Encounter. Date/Time Primary/Secondary Diagnosis Diagnosis Name Provider Source Jun 26, 2024 01:46 PM PRIMARY Tremor, unspecified ARELY WALLACE [facility] Jun 26, 2024 01:46 PM SECONDARY Chronic atrial fibrillation, unspecified ARELY WALLACE [facility] Jun 26, 2024 01:46 PM SECONDARY Essential tremor ARELY WALLACE [facility] Jun 26, 2024 01:46 PM SECONDARY Nonrheumatic mitral valve disorder, unspecified ARELY WALLACE [facility] Jun 26, 2024 01:46 PM SECONDARY Paroxysmal atrial fibrillation ARELY WALLACE [facility] Jun 26, 2024 01:46 PM SECONDARY Peripheral vascular disease, unspecified ARELY WALLACE [facility] Jun 26, 2024 01:46 PM SECONDARY Unspecified atrial fibrillation ARELY WALLACE [facility] Plan of Treatment: Future Appointments (+ 6 months) and Future Tests (+/- 45 days) The Plan of Treatment section includes future care activities for the patient from all [place] treatmentfacilities. This section includes future appointments and future orders which are active, pending or scheduled. Future Appointments This section includes appointments that were scheduled to occur 6 months from the date of the Encounter, up to a maximum of 20 appointments. The data comes from all [facility]. Appointment Date/Time Appointment Type Appointme nt Facility Name Jul 20, 2024 10:15 AM AMBULATORY - MEDICINE [facility] Jul 20, 2024 03:00 PM AMBULATORY - NONE [facility] Jul 22, 2024 06:00 AM AMBULATORY - NONE [facility] Jul 22, 2024 06:15 AM AMBULATORY - MED[facility] Jul 31, 2024 10:30 AM AMBULATORY - MEDICINE [facility] Aug 10, 2024 10:15 AM AMBULATORY - NONE [facility] Aug 18, 2024 10:30 AM AMBULATORY - MEDICINE [facility] Aug 20, 2024 08:30 PM AMBULATORY - NONE [facility] 2024 10:30 AM AMBULATORY - MEDICINE [facility] Sep 14, 2024 09:00 AM AMBULATORY - SURG[facility] Nov 02, 2024 10:00 AM AMBULATORY - NONE [facility] Active, Pending, and Scheduled Orders This section includes a listing of several types of active, pending, and scheduled orders, including clinic medications orders, diagnostic test orders, procedure orders and consult orders; where the start date of the order is 45 days before the date of the Encounter or 45 days after the date of theEncounter. The data comes from all [facility]. Test Date/Time Test Type Test Details Facility Name Jul 22, 2024 06:00 AM Laboratory - Blood Bank Order TYPE & SCREEN - LAB BLOOD WC [facility] Lab Results: +/- 30 days of the encounter This section includes the Chemistry and Hematology Lab Results on record with [place] for the patient. Radiology Reports and Pathology Reports are provided separately, in subsequent sections. Lab Results This section contains the Chemistry/Hematology Results that were resulted 30 days before or 30 daysafter the date of the Encounter. Date/Time Source Result Type Result - Unit Interpretation Reference Range Comment Jul 23, 2024 06:24 AM [facility] BASIC METABOLIC PANEL Specimen Type: PLASMA Comment: No hemolysis noted. Ordering Provider: ALFREDITO WILSON Report Released Date/Time: Jul 22, 2024 05:37 PM Reporting Lab: [facility] [address] [facility] [address] Performing Lab: [facility] [address] [facility] [address] CREATININE 0.78 mg/dL 0.7-1.3 UREA NITROGEN 14.4 mg/dL 9.0-25.0 GLUCOSE 113 mg/dL H 72-99 SODIUM 136 meq/L 136-145 POTASSIUM 3.7 meq/L 3.5-5 CHLORIDE 108 meq/L H 98-107 CARBON DIOXIDE 21 meq/L L 22-31 CALCIUM 8.3 mg/dL L 8.4-10.4 EGFR (CKD-EPI 2020) 92.4 >60 Jul 23, 2024 06:24 AM [facility] MAGNESIUM Specimen Type: PLASMA Comment: No hemolysis noted. Ordering Provider: ALFREDITO WILSON Report Released Date/Time: Jul 22, 2024 05:37 PM Reporting Lab: [facility] [address] [address] Performing Lab: [facility] [address] [place] [phone] MAGNESIUM 1.8 mg/dL 1.6-2.6 Jul 23, 2024 06:24 AM [facility] PHOSPHOROUS Specimen Type: PLASMA Comment: No hemolysis noted. Ordering Provider: ALFREDITO WILSON Report Released Date/Time: Jul 22, 2024 05:37 PM Reporting Lab: [facility] [address] [facility] [address] Performing Lab: [facility] [address] [address] PHOSPHOROUS 4.0 mg/dL 2.3-4.7 Jul 23, 2024 06:24 AM [facility] CBC Specimen Type: BLOOD Comment: VERIFIED BY REPEAT Ordering Provider: ALFREDIOT WILSON Report Released Date/Time: Jul 22, 2024 05:37 PM Reporting Lab: [facility] [address] [address] Performing Lab: [facility] [address] [facility] [address] WBC 11.3 10*3/uL H 3.6-11.2 RBC 3.86 [...] SCRNPERF YES Jul 22, 2024 05:20 PM [facility] MRSA SURVL NARES DNA Specimen [...] Jul 22, 2024 04:20 PM Reporting Lab: [address] [address] Performing Lab: [address] [address] MRSA SURVL NARES DNA Negative Negative Jul 22, 2024 02:16 PM [facility] POC ACT-CELITE,HEMOCHRON (STL) Specimen Type: BLOOD Comment: Test Performed by: [id number] Meter #: [id number] Ordering Provider: TARYN EDGAR Report Released Date/Time: Jul 22, 2024 03:15 PM Reporting Lab: [address] [address] Performing Lab: [address] [address] POC ACT-CELITE,HEMO CHRON (STL) 174 s H 89-169 Jul 22, 2024 01:45 PM [facility] POC ACT-CELITE,HEMOCHRON (STL) Specimen Type: BLOOD Comment: Test Performed by: [id number] Meter #: [id number] Ordering Provider: TARYN EDGAR Report Released Date/Time: Jul 22, 2024 03:15 PM Reporting Lab: [address] [address] Performing Lab: [address] [address] POC ACT-CELITE,HEMO CHRON (STL) >400 s H 89-169 Jul 22, 2024 01:22 PM [facility] POC ACT-CELITE,HEMOCHRON (STL) Specimen Type: BLOOD Comment: Test Performed by: [id number] Meter #: [id number] Ordering Provider: TARYN EDGAR Report Released Date/Time: Jul 22, 2024 02:24 PM Reporting Lab: [address] [address] Performing Lab: [address] [address] POC ACT-CELITE,HEMO CHRON (STL) 355 s H 89-169 Jul 22, 2024 01:02 PM [facility] POC ACT-CELITE,HEMOCHRON (STL) Specimen Type: BLOOD Comment: Test Performed by: [id number] Meter #: [id number] Ordering Provider: TARYN EDGAR Report Released Date/Time: Jul 22, 2024 02:04 PM Reporting Lab: [address] [address] Performing Lab: [address] [address] POC ACT-CELITE,HEMO CHRON (STL) 339 s H 89-169 Jul 22, 2024 12:46 PM [facility] POC ACT-CELITE,HEMOCHRON (STL) Specimen Type: BLOOD Comment: Test Performed by: [id number] Meter #: [id number] Ordering Provider: TARYN EDGAR Report Released Date/Time: Jul 22, 2024 01:48 PM Reporting Lab: [address] [address] Performing Lab: [address] [address] POC ACT-CELITE,HEMO CHRON (STL) 327 s H 89-169 Jul 22, 2024 12:30 PM [facility] POC ACT-CELITE,HEMOCHRON (STL) Specimen Type: BLOOD Comment: Test Performed by: [id number] Meter #: [id number] Ordering Provider: TARYN EDGAR Report Released Date/Time: Jul 22, 2024 01:48 PM Reporting Lab: [address] [address] Performing Lab: [address] [address] POC ACT-CELITE,HEMO CHRON (STL) >400 s H 89-169 Jul 22, 2024 12:07 PM [facility] POC ACT-CELITE,HEMOCHRON (STL) Specimen Type: BLOOD Comment: Test Performed by: [id number] Meter #: [id number] Ordering Provider: TARYN EDGAR Report Released Date/Time: Jul 22, 2024 01:16 PM Reporting Lab: [address] [address] Performing Lab: [address] [address] POC ACT-CELITE,HEMO CHRON (STL) >400 s H 89-169 Jul 22, 2024 11:46 AM [facility] POC ACT-CELITE,HEMOCHRON (STL) Specimen Type: BLOOD Comment: Test Performed by: [id number] Meter #: [id number] Ordering Provider: TARYN EDGAR Report Released Date/Time: Jul 22, 2024 12:48 PM Reporting Lab: [address] [address] Performing Lab: [address] [address] POC ACT-CELITE,HEMO CHRON (STL) 354 s H 89-169 Jul 22, 2024 11:31 AM [facility] POC ACT-CELITE,HEMOCHRON (STL) Specimen Type: BLOOD Comment: Test Performed by: [id number] Meter #: [id number] Ordering Provider: TARYN EDGAR Report Released Date/Time: Jul 22, 2024 12:33 PM Reporting Lab: [address] [address] Performing Lab: [address] [address] POC ACT-CELITE,HEMO CHRON (STL) 373 s H 89-169 Jul 22, 2024 11:15 AM [facility] POC ACT-CELITE,HEMOCHRON (STL) Specimen Type: BLOOD Comment: Test Performed by: [id number] Meter #: [id number] Ordering Provider: TARYN EDGAR Report Released Date/Time: Jul 22, 2024 12:16 PM Reporting Lab: [address] [address] Performing Lab: [address] [address] POC ACT-CELITE,HEMO CHRON (STL) 318 s H 89-169 Jul 22, 2024 11:01 AM [facility] POC ACT-CELITE,HEMOCHRON (STL) Specimen Type: BLOOD Comment: Test Performed by: [id number] Meter #: [id number] Ordering Provider: TARYN EDGAR Report Released Date/Time: Jul 22, 2024 12:03 PM Reporting Lab: [address] [address] Performing Lab: [place] [phone] POC ACT-CELITE,HEMO CHRON (STL) 313 s H 89-169 Jul 22, 2024 10:25 AM [facility] POC ACT-CELITE,HEMOCHRON (STL) Specimen Type: BLOOD Comment: Test Performed by: [id number] Meter #: [id number] Ordering Provider: TARYN EDGAR Report Released Date/Time: Jul 22, 2024 11:28 AM Reporting Lab: [address] [address] Performing Lab: [address] [address] POC ACT-CELITE,HEMO CHRON (STL) 379 s H 89-169 Jul 22, 2024 10:05 AM [facility] POC ACT-CELITE,HEMOCHRON (STL) Specimen Type: BLOOD Comment: Test Performed by: [id number] Meter #: [id number] Ordering Provider: TARYN EDGAR Report Released Date/Time: Jul 22, 2024 11:06 AM Reporting Lab: [address] [address] Performing Lab: [address] [address] POC ACT-CELITE,HEMO CHRON (STL) 388 s H 89-169 Jul 22, 2024 09:49 AM [facility] POC ACT-CELITE,HEMOCHRON (STL) Specimen Type: BLOOD Comment: Test Performed by: [id number] Meter #: [id number] Ordering Provider: TARYN EDGAR Report Released Date/Time: Jul 22, 2024 10:51 AM Reporting Lab: [address] [address] Performing Lab: [address] [address] POC ACT-CELITE,HEMO CHRON (STL) 351 s H 89-169 Jul 22, 2024 09:33 AM [facility] POC ACT-CELITE,HEMOCHRON (STL) Specimen Type: BLOOD Comment: Test Performed by: [id number] Meter #: [id number] Ordering Provider: TARYN EDGAR Report Released Date/Time: Jul 22, 2024 10:40 AM Reporting Lab: [address] [address] Performing Lab: [address] [address] POC ACT-CELITE,HEMO CHRON (STL) 269 s H 89-169 Jul 22, 2024 08:51 AM [facility] POC ACT-CELITE,HEMOCHRON (L) Specimen Type: BLOOD Comment: Test Performed by: [id number] Meter #: [id number] Ordering Provider: TARYN EDGAR Report Released Date/Time: Jul 22, 2024 09:52 AM Reporting Lab: [address] [address] Performing Lab: [address] [address] POC ACT-CELITE,HEMO CHRON (STL) 155 s 89-169 Jul 22, 2024 06:55 AM [facility] PT/INR [facility] ([facility]) Specimen Type: PLASMA No comment entered. Ordering Provider: GWENDOLYN LOPEZ Report Released Date/Time: Jun 22, 2024 12:20 PM Reporting Lab: [address] [address] Performing Lab: [address] [address] PROTIME 14.1 s H 9.4-12.5 INR VALUE 1.3 {INR} Jul 22, 2024 06:55 AM [facility] BASIC METABOLIC PANEL Specimen Type: PLASMA Comment: No hemolysis noted. Ordering Provider: GWENDOLYN LOPEZ Report Released Date/Time: Jun 22, 2024 12:20 PM Reporting Lab: [address] [address] Performing Lab: [address] [address] CREATININE 1.00 mg/dL 0.7-1.3 UREA NITROGEN 16.9 mg/dL 9.0-25.0 GLUCOSE 107 mg/dL H 72-99 SODIUM 138 meq/L 136-145 POTASSIUM 4.4 meq/L 3.5-5 CHLORIDE 108 meq/L H 98-107 CARBON DIOXIDE 22 meq/L 22-31 CALCIUM 9.0 mg/dL 8.4-10.4 EGFR (CKD-EPI 2020) 78.0 >60 Jul 22, 2024 06:55 AM [facility] CBC Specimen Type: BLOOD No comment entered. Ordering Provider: GWENDOLYN LOPEZ Report Released Date/Time: Jun 22, 2024 12:20 PM Reporting Lab: [address] [address] Performing Lab: [address] [address] WBC 14.6 10*3/uL H 3.6-11.2 RBC 4.72 [...] 10*3/uL 2.10-8.00 Jul 20, 2024 11:[address] [facility] I-STAT, CREAT (STL-MA) Specimen Type: BLOOD Comment: Test Performed by: [id number] Meter #: [id number] Ordering Provider: TARYN EDGAR Report Released Date/Time: Jul 20, 2024 11:34 AM Reporting Lab: [place] [address] [facility] [address] Performing Lab: [address] [address] I-STAT, CREAT (STL-MA) 1.1 mg/dL 0.7-1.3 Radiology [...] the Encounter. The data comes from all [place] treatment facilities. Date/Time Radiology Report Provider Source Jul 20, 2024 11:[address] HEART & VENOUS MAPPING W/3D: YANETSABINE MAXI [id number] -1945 M Exm Date: JUL 20, 2024@11:10 Req Phys: GWENDOLYN LOPEZ Loc: [facility]-PRE-OP EVAL NURSING AM (Req Img Loc: [facility]-CT IMAGING [facility] Service: Unknown [facility] [address] [place] [address] (Case [id number] COMPLETE) CT HEART W CONTRAST & VENOUS JOSE(CT Detailed) CPT:93493 Reason for Study: pulmonary vein mapping Clinical History: Responsible Attending: Dr Lopez Attending Contact Number: [phone] Resident Contact Number: Enter Hx and Reason [...] 22, 2024 Date Verified: JUL 22, 2024 Turret Lathe Operator E-Sig:/ES/ADA WIGGINS Report: Case [id number]. CT heart with contrast & venous mapping. Max CTDI(vol): 12.46 mGy. Total DLP: 104 mGy*cm. TECHNIQUE: Cardiac CT was obtained with bolus IV contrast administration without gating. Multiplanar reformatted images and 3-D models were reconstructed as a CT cardiac pulmonary venogram for electrophysiology planning. Images were reformatted and analyzed using [employer] Suite software. NUMBER OF PULMONARY VEINS: 2 [...] advised. Primary Interpreting Staff: ADA WIGGINS MD (Turret Lathe Operator) /ADA SANCHEZ [facility] Encounter Notes: All associated encounter notes This section contains the clinical notes associated to the Encounter. Date/Time Encounter Note(s) Provider Source Jun 26, 2024 01:36 PM CONSULT: LOCAL TITLE: E-CONSULT ANESTHESIA STL STANDARD TITLE: CONSULT DATE OF NOTE: JUN 26, 2024@13:36 ENTRY DATE: JUN 26, 2024@13:36:29 AUTHOR: EARLINE WALLACE COSIGNER: URGENCY: STATUS: COMPLETED E-CONSULT ANESTHESIA STL Has ADDENDA SABINE HOLT is a 78 year old MALE The reason for eConsult: Pre-operative evaluation I have reviewed pertinent documentation in the electronic medical record for this patient. The recommendations/findings offered are the result of information from the requesting provider and a CHART REVIEW ONLY. The 's chart was reviewed. The patient is scheduled for a-fib ablation scheduled for 07/22/24. VITALS Age: 78 Weight: 185.1 lb [83.96 kg] (05/08/2024 09:45) Height: BMI: BMI not available without height Blood pressure: 150/82 (05/08/2024 09:45) Pulse: 67 (05/08/2024 09:45) Temperature: 97.6 F [36.4 C] (05/08/2024 09:45) Respiration: 16 (05/08/2024 09:45) SpO2: 98% (03/31/2024 14:15) Pain: 0 (05/08/2024 09:45) ALLERGIES PENICILLIN MEDICATIONS Active Outpatient Medications (including Supplies): Active Outpatient [...] 10:45 HGA1C 6.2 H % 02/03/2024 10:45 No URINE DRUG SCREEN EO data found No HIV SCREENING EO data found [facility] Hep C tests in last five years. HEP C Ab HCV Ab (STL) Nonreactive S/CO (12/12/22 09:26) DIAGNOSTICS EKG 05/01/24: Normal sinus rhythm with sinus [...] tremor 2) AF - Atrial Fibrillation (SCT 35675862) 3) AK - Actinic keratosis 4) History of varicose veins 5) Lymphocytosis comment: rule out CLL 6) PVD - peripheral vascular disease REVIEW OF SYSTEMS/PAST MEDICAL HISTORY RESPIRATORY for: - Sleep apnea - Asthma - COPD CARDIAC for: + Hypertension - Hyperlipidemia - Myocardial infarction - Coronary artery disease - Heart failure + s/p mitral valve repair 2002 + Atrial fibrillation + PVD (per Vasc lab, [facility] 07/24/23 Ankle brachial indices are falsely elevated. Normal bilateral lower extremity arterial Doppler study at rest based on Doppler wave forms and within normal toe pressures. PSYCH/CENTRAL NERVOUS for: - Depression - Anxiety - Post-traumatic stress disorder - Cerebral vascular accident - Seizures + essential tremor ENDOCRINE for: - Diabetes - Hypothyroid RENAL for: - Chronic kidney disease - Nephrolithiasis GI for: ? GERD (on pantoprazole) - Liver disease - GI bleed VASCULAR/HEMATOLOGY/ONCOLOG Y for: - Anemia - Thrombocytopenia - Bleeding disorders MUSCULOSKELETAL/SKIN/PERIPH ERAL NERVOUS for: - Obesity - Arthritis/Degenerative joint disease - Rheumatoid arthritis - Neuropathy /REPRODUCTIVE for: - Prostate hypertrophy BETA BLOCKERS: METOPROLOL SUCCINATE RECOMMENDATIONS/PLAN: 1. Additional labs/imaging/consults needed for anesthesia team: PATRICIA 07/20/24 labs AM of per Cardiology 2. If tests are within acceptable limits, the patient may proceed as planned and will be reassessed by Anesthesia AM of surgery. 3. NPO after midnight except for small sips of water with meds. 4. Unless directed by procedural team, take morning medications with a sip of water. 5. Anticoagulation and antithrombotics per procedural team. 6. If patient uses CPAP, they should bring machine with them. 16 minutes to 30 minutes spent reviewing patient's medical records. /dionna/ EARLINE WALLACE PA-C Physician Manager Media, Anesthesiology Signed: 06/26/2024 13:46 Receipt Acknowledged By: 06/26/2024 14:19 /dionna/ HIMA CHRISTIANSON Invasive Cardiology Product Marketing Programs Manager 07/20/2024 ADDENDUM STATUS: COMPLETED ECHO (PATRICIA) 07/20/24: Conclusion 1. Normal left ventricular size. 2. Global systolic function: Overall left ventricular systolic function is normal with an estimated ejection fraction of 60%. 3. Normal right ventricular size and systolic function. 4. The left atrium is mildly enlarged. 5. No evidence of left atrial appendage thrombus. 6. The left atrial appendage is normal in size with normal Doppler emptying velocities (>40 cm/s). 7. Mitral ring annuloplasty is in place. No evidence of mitral stenosis (mean gradient =3 mmHg @ 60 bpm). No mitral regurgitation. 8. The aortic root is normal in size. 9. No pericardial effusion. 10. Interatrial septum intact. No evidence of patent foramen ovale or septal defect by color Doppler. /dionna/ EARLINE WALLACE PA-C Physician Manager Media, Anesthesiology Signed: 07/20/2024 15:21 EARLINE WALLACE [facility]
--- OUTSIDE RECORDS SUMMARY | 2025-01-11 12:03 | XMS_ITS | Continuity of Care Document ---
Author Name [facility] Organization [facility] Care Team Providers Care Collar Trimmer Name Role Phone [facility] Unavailable Unavailable Problems Combined list of problems from Department of Defense and [facility] Affairs facilities. It does not include entries that were removed or entered in error. Problem Status Onset Date Problem Type Date of Resolution Comments Source colon cancer screening Active 11/25/19 14 Condition Jun 24, 2014 Entered By: MYRNA WOOD Comment: pt thinks last normal cscope 2008, and due in 2018, non [facility] Excessive cerumen in ear canal Active 11/25/[address] [facility] Varicose veins of lower extremity Active 11/25/19 11 Condition [facility] Actinic keratosis Active Condition [facility] AF - Atrial Fibrillation (RUST [id number]) Active Condition [facility] [place] - Actinic keratosis Active Condition [facility] Allergic rhinitis Active Condition [facility] Amalgam tattoo Active Condition [facility] Cataracts Active Condition [facility] Cervical spondylosis Active Condition [facility] Chronic tremor Active Condition [facility] Fatigue (ICD-9-CM 780.79) Active Condition [facility] H/O: multiple allergies Active Condition [facility] History of repair of mitral valve Active Condition [facility] History of varicose veins Active Condition [facility] Impaired fasting glucose Active Condition [facility] Lipoma Active Condition [facility] Lumbar spine scoliosis Active Condition [facility] Lumbar spondylosis Active Condition 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 Condition [facility] Thoracic spondylosis Active Condition [facility] Varicose veins Active Condition [facility] Vitamin D deficiency Active Condition [facility] Diagnosis: ICD-10-CM R31.29 Other microscopic hematuria Active Diagnosis [facility] Diagnosis: ICD-10-CM R25.1 Tremor, unspecified Active Diagnosis [facility] Diagnosis: ICD-10-CM R19.7 Diarrhea, unspecified Active Diagnosis [facility] Diagnosis: ICD-10-CM I48.91 Unspecified atrial fibrillation Active Diagnosis [facility] Diagnosis: ICD-10-CM Z23 Encounter for immunization Active Diagnosis [facility] Diagnosis: ICD-10-CM Z51.81 Encounter for therapeutic drug level monitoring Active Diagnosis [facility] Diagnosis: ICD-10-CM Z71.81 Spiritual or jehovah's witness counseling Active Diagnosis [facility] Admit Reason: ATRIAL FIBRILLATION Active Diagnosis [facility] Diagnosis: ICD-10-CM Z01.818 Encounter for other preprocedural examination Active Diagnosis [facility] Diagnosis: ICD-10-CM R94.31 Abnormal electrocardiogram [ECG] [EKG] Active Diagnosis [facility] Diagnosis: ICD-10-CM I48.19 Other persistent atrial fibrillation Active Diagnosis [facility] Diagnosis: ICD-10-CM 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 Medication Details Route Status Patient Instructions Prescription Expires Prescription Number Last Dispense Date Ordering Provider Order Date Order Qty Source APIXABAN 5MG TAB TAKE ONE TABLET BY MOUTH TWICE A DAY FOR ANTICOAG ULATION ORAL DISCONT [facility] 08/01/2024 [id number] ADI PEREZ 2022 180 [facility] N APIXABAN 5MG TAB TAKE ONE TABLET BY MOUTH TWICE A DAY FOR ANTICOAG ULATION ORAL 11/28/2024 [id number] Tye IRENE 2023 180 [facility] BROMOLIN 500MG TAB TAKE ONE TABLET BY MOUTH TWICE A DAY ORAL ACTIVE NAELVATOSudeep D 2012 [place] [facility] CHOLECALCIF SHARRON 25MCG (1,000UNIT) TAB TAKE TWO TABLETS BY MOUTH DAILY ORAL ACTIVE VADIMMURIEL JUDITHMAGY Stack 2018 [facility] CICLOPIROX 8% SOLN,TOP APPLY LIGHTLY TO AFFECTED AREA(S) ONCE A DAY (THIN COAT TO THICK NAILS - FILE DOWN AFTER 1 WEEK) (EXTERNA L USE ONLY) TOPICA L ACTIVE 04/23/2025 [id number] TARYN EDGAR 2023 6.6 [facility] CICLOPIROX 8% SOLN,TOP APPLY LIGHTLY TO AFFECTED AREA(S) ONCE A DAY (THIN COAT TO THICK NAILS - FILE DOWN AFTER 1 WEEK) (EXTERNA L USE ONLY) TOPICA L DISCONT INUED 04/02/2024 [id number] TARYN EDGAR 2022 6.6 [facility] COLCHICINE 0.6MG TAB TAKE ONE TABLET BY MOUTH TWICE A DAY STOP MED AND CONTACT PROVIDER AT FIRST SIGN OF NAUSEA, VOMITING , OR DIARRHEA ORAL 09/19/2024 [id number] 4 TARYN EDGAR 2023 14 [facility] N COLCHICINE 0.6MG TAB TAKE ONE TABLET BY MOUTH TWICE A DAY FOR GOUT STOP MED AND CONTACT PROVIDER AT FIRST SIGN OF NAUSEA, VOMITING , OR DIARRHEA ORAL 08/23/2024 [id number] 4 ALFREDITO WILSON 2023 14 [facility] N CYANOCOBALA MIN 1000MCG TAB TAKE ONE TABLET BY MOUTH EVERY DAY ORAL ACTIVE NOLBERTO WOOD K 2013 [facility] CYANOCOBALA MIN 1000MCG TAB TAKE ONE TABLET BY MOUTH ONCE EVERY DAY ORAL ACTIVE VADIMMURIEL JOSE R 2018 [facility] DRONEDARONE 400MG TAB TAKE ONE TABLET BY MOUTH TWICE A DAY FOR ATRIAL FIBRILLA TION - TAKE IN THE MORNING AND EVENING WITH FOOD ORAL ACTIVE 12/22/2025 [id number] 5 Tye IRENE [address] [facility] DRONEDARONE 400MG TAB TAKE ONE TABLET BY MOUTH TWICE A DAY FOR ATRIAL FIBRILLA TION - TAKE IN THE MORNING AND EVENING WITH FOOD ORAL DISCONT INUED 11/28/2024 [id number] Tye IRENE 2023 180 [facility] N DRONEDARONE 400MG TAB TAKE ONE TABLET BY MOUTH TWICE A DAY FOR ATRIAL FIBRILLA TION - TAKE IN THE MORNING AND EVENING WITH FOOD ORAL DISCONT INUED 11/20/2024 [id number] 3 TARYN EDGAR 2022 60 [facility] N DRONEDARONE 400MG TAB TAKE ONE TABLET BY MOUTH TWICE A DAY FOR ATRIAL FIBRILLA TION - TAKE IN THE MORNING AND EVENING WITH FOOD ORAL DISCONT INUED 09/26/2024 [id number] TARYN EDGAR 2022 60 [facility] FISH OIL 1000MG (500MG DHA/EPA) CAP,ORAL TAKE 1 CAPSULE BY MOUTH TWICE A DAY WITH MEALS ORAL ACTIVE MURIEL FIERRO R 2018 [facility] LUTEIN CAP/TAB TAKE ONE TABLET po EVERY DAY ACTIVE NANAMANL,TOD D 2012 [facility] METOPROLOL SUCCINATE 200MG TAB,SA TAKE ONE-HALF TABLET BY MOUTH ONCE A DAY FOR HEART/BL OOD PRESSURE . SWALLOW WHOLE, DO NOT CRUSH OR CHEW (TABLETS MAY BE CUT IN HALF). ORAL DISCONT INUED 02/15/2024 [id number] TARYN EDGAR 2022 45 [facility] N METOPROLOL SUCCINATE 200MG TAB,SA TAKE ONE-HALF TABLET BY MOUTH ONCE A DAY FOR HEART/BL OOD PRESSURE . SWALLOW WHOLE, DO NOT CRUSH OR CHEW (TABLETS MAY BE CUT IN HALF). ORAL 11/28/2024 [id number] 4 Tye IRENE 2023 45 [facility] N PANTOPRAZOL E NA 40MG TAB,EC TAKE ONE TABLET BY MOUTH ONCE A DAY FOR GASTROES OPHAGEAL REFLUX DISEASE TAKE 30 MINUTES BEFORE MEAL(S) ORAL SUSPEND ED 08/20/2025 [id number] 5 TARYN EDGAR 2023 90 [facility] N PANTOPRAZOL E NA 40MG TAB,EC TAKE ONE TABLET BY MOUTH TWO TIMES A DAY BEFORE MEALS FOR 6 WEEKS FOR GASTROES OPHAGEAL REFLUX DISEASE TAKE 30 MINUTES BEFORE MEAL(S) AFTER 6 WEEKS OF TWICE A DAY PATIENT SHOULD RETURN TO HIS ONCE DAILY DOSE ORAL DISCONT INUED (EDIT) 09/04/2024 [id number] 4 ALFREDITO WILSON 2023 90 [facility] N PANTOPRAZOL E NA 40MG TAB,EC TAKE ONE TABLET BY MOUTH EVERY MORNING BEFORE A MEAL TAKE 30 MINUTES BEFORE MEAL(S) ORAL DISCONT INUED 02/03/2025 [id number] 4 TARYN EDGAR 2023 90 [facility] SUCRALFATE 1GM TAB TAKE ONE TABLET BY MOUTH FOUR TIMES A DAY FOR DUODENAL ULCER - TAKE ON AN EMPTY STOMACH. ORAL 08/23/2024 [id number] ALFREDITO WILSON 2023 48 [facility] N Allergies, Adverse Reactions, Alerts Combined list of allergies from Department of Defense and Veterans Affairs facilities. It does not include entries that were removed or entered in error. Substance Category Reaction Severity Reaction type Status Date Reported Comments Source PENICILLIN Propensity to adverse reactions to drug (finding) Fever active 6 [facility] PENICILLIN Propensity to adverse reactions to drug (finding) Drowsy active 2 [facility] Immunizations Combined list of available immunizations from the Department of Defense and Veterans Affairs facilities. Immunization Series Date Given Administered By Site Reaction Lot Number CVX Code Drug Ham Stringer Status Comments Source COVID-19 (PFIZER), MRNA, LNP-S, PF, PATRICIA-SUCROSE, 30 MCG/0.3 ML (AGES 12+ YEARS) 2023 GARDNER,EDIT H R LEFT DELTO ID [id number] 309 complet [facility] INFLUENZA, HIGH-DOSE, TRIVALENT, PF 2023 GARDNER,EDIT H R RIGHT DELTO ID [id number] 135 complet [facility] RSV, BIVALENT, PROTEIN SUBUNIT RSVPREF, DILUENT RECONSTITUTED , 0.5 ML, PF 2023 GARDNER,EDIT H R LEFT DELTO ID [id number] 305 complet [facility] PNEUMOCOCCAL POLYSACCHARID E PPV23 2021 33 complet [facility] INFLUENZA, UNSPECIFIED FORMULATION 2021 88 complet [facility] PNEUMOCOCCAL POLYSACCHARID E PPV23 2021 33 complet [facility] DIVISIO N COVID-19 (MODERNA), MRNA, LNP-S, PF, 100 MCG/0.5ML DOSE OR 50 MCG/0.25ML DOSE 2 2020 207 complet [facility] DIVISIO N COVID-19 (MODERNA), MRNA, LNP-S, PF, 100 MCG/0.5ML DOSE OR 50 MCG/0.25ML DOSE 1 2020 207 complet [facility] DIVISIO N COVID-19 (MODERNA), MRNA, LNP-S, PF, 100 MCG/0.5 ML DOSE 1 2020 207 complet [facility] TDAP 2017 115 complet [facility] DIVISIO N TDAP 2017 115 complet ed sanofi pasteur/c [id number] [facility] PNEUMOCOCCAL CONJUGATE PCV 13 2015 133 complet ed [facility] N PNEUMOCOCCAL CONJUGATE PCV 13 2015 133 complet [facility]/ [id number]/ [facility] Results Combined list of recent chemistry, hematology [...] Released Date/Time: 2024 10:17 AM Reporting Lab: [place] [address] Performing Lab: [address] [facility] CBC ERYTHROCYTE S [#/VOLUME] IN BLOOD BY AUTOMATED COUNT 4.07 10*6/u L 4.10 - 5.70 08/25 L Specimen Type: BLOOD No comment entered. Ordering Provider: Zandra EDGAR Report Released Date/Time: 2024 10:17 AM Reporting Lab: [facility] [address] [place] [address] Performing Lab: [facility] [address] [place] [address] [facility] CBC HEMOGLOBIN [MASS/VOLUM E] IN BLOOD 12.2 g/dL 13.1 - 16.8 08/25 L Specimen Type: BLOOD No comment entered. Ordering Provider: Zandra EDGAR Report Released Date/Time: 2024 10:17 AM Reporting Lab: [facility] [address] [place] [address] Performing Lab: [address] [facility] CBC HEMATOCRIT [VOLUME FRACTION] OF BLOOD 36.7 38.2 - 48.4 08/25 L Specimen Type: BLOOD No comment entered. Ordering Provider: Zandra EDGAR Report Released Date/Time: 2024 10:17 AM Reporting Lab: [place] [id number] [place] [phone] Performing Lab: [address] [address] [facility] CBC MCV [ENTITIC VOLUME] BY AUTOMATED COUNT 90.2 fL 80.0 - 100.0 08/25 Specimen Type: BLOOD No comment entered. Ordering Provider: Zandra EDGAR Report Released Date/Time: 2024 10:17 AM Reporting Lab: [address] [address] Performing Lab: [address] [phone] [facility] CBC MCH [ENTITIC MASS] BY AUTOMATED COUNT 30.0 pg 27.0 - 34.0 08/25 Specimen Type: BLOOD No comment entered. Ordering Provider: Zandra EDGAR Report Released Date/Time: 2024 10:17 AM Reporting Lab: [address] [address] Performing Lab: [address] [phone] [place] [address] [facility]OC CBC MCHC [MASS/VOLUM E] BY AUTOMATED COUNT 33.2 g/dL 33.0 - 36.0 08/25 Specimen Type: BLOOD No comment entered. Ordering Provider: Zandra EDGAR Report Released Date/Time: 2024 10:17 AM Reporting Lab: [address] [address] Performing Lab: [address] [phone] [place] [address] [facility]OC CBC PLATELETS [#/VOLUME] IN BLOOD BY AUTOMATED COUNT 161 10*3/u L 150 - 400 08/25 Specimen Type: BLOOD No comment entered. Ordering Provider: Zandra EDGAR Report Released Date/Time: 2024 10:17 AM Reporting Lab: [address] [address] Performing Lab: [facility] [address] [facility] [address] [facility] CBC PLATELET MEAN VOLUME [ENTITIC VOLUME] IN BLOOD BY AUTOMATED COUNT 12.6 fL 7.5 - 11.2 08/25 H Specimen Type: BLOOD No comment entered. Ordering Provider: Zandra EDGAR Report Released Date/Time: 2024 10:17 AM Reporting Lab: [address] [address] Performing Lab: [address] [address] [facility] CBC ERYTHROCYTE DISTRIBUTIO N WIDTH [RATIO] BY AUTOMATED COUNT 13.7 11.8 - 15.1 08/25 Specimen Type: BLOOD No comment entered. Ordering Provider: Zandra EDGAR Report Released Date/Time: 2024 10:17 AM Reporting Lab: [address] [address] Performing Lab: [place] [address] [facility] [address] [facility] CBC LYMPHOCYTES /100 LEUKOCYTES IN BLOOD BY AUTOMATED COUNT 50 08/25 Specimen Type: BLOOD No comment entered. Ordering Provider: Zandra EDGAR Report Released Date/Time: 2024 10:17 AM Reporting Lab: [facility] [address] Performing Lab: [facility] [address] [place] [phone] [facility] CBC MONOCYTES/1 00 LEUKOCYTES IN BLOOD BY AUTOMATED COUNT 5 08/25 Specimen Type: BLOOD No comment entered. Ordering Provider: Zandra EDGAR Report Released Date/Time: 2024 10:17 AM Reporting Lab: [facility] [address] Performing Lab: [place] [address] [facility] [phone] [facility] CBC NEUTROPHILS /100 LEUKOCYTES IN BLOOD BY AUTOMATED COUNT 44 08/25 Specimen Type: BLOOD No comment entered. Ordering Provider: Zandra EDGAR Report Released Date/Time: 2024 10:17 AM Reporting Lab: [facility] [address] [place] [phone] Performing Lab: [address] [phone] [facility] [facility] CBC EOSINOPHILS /100 LEUKOCYTES IN BLOOD BY AUTOMATED COUNT 1 08/25 Specimen Type: BLOOD No comment entered. Ordering Provider: Zandra EDGAR Report Released Date/Time: 2024 10:17 AM Reporting Lab: [facility] [address] [place], [place] [phone] Performing Lab: [place] [phone] [facility] CBC BASOPHILS/1 00 LEUKOCYTES IN BLOOD BY AUTOMATED COUNT 0 08/25 Specimen Type: BLOOD No comment entered. Ordering Provider: Zandra EDGAR Report Released Date/Time: 2024 10:17 AM Reporting Lab: [facility] [address] [place] [phone] Performing Lab: [address] [phone] [facility] [address] [facility] CBC LYMPHOCYTES [#/VOLUME] IN BLOOD BY AUTOMATED COUNT 4.61 10*3/u L 0.77 - 4.50 08/25 H Specimen Type: BLOOD No comment entered. Ordering Provider: Zandra EDGAR Report Released Date/Time: 2024 10:17 AM Reporting Lab: [facility] [address] [place] [phone] Performing Lab: [facility] [address] [place] [address] [phone] [facility] CBC MONOCYTES [#/VOLUME] IN BLOOD BY AUTOMATED COUNT 0.43 10*3/u L 0.19 - 0.80 08/25 Specimen Type: BLOOD No comment entered. Ordering Provider: Zandra EDGAR Report Released Date/Time: 2024 10:17 AM Reporting Lab: [facility] [address] [place] [address] Performing Lab: [place] [phone] [facility] CBC NEUTROPHILS [#/VOLUME] IN BLOOD BY AUTOMATED COUNT 4.03 10*3/u L 2.10 - 8.00 08/25 Specimen Type: BLOOD No comment entered. Ordering Provider: Zandra EDGAR Report Released Date/Time: 2024 10:17 AM Reporting Lab: [place] [address] Performing Lab: [address] [facility] CBC EOSINOPHILS [#/VOLUME] IN BLOOD BY AUTOMATED COUNT 0.12 10*3/u L 0.00 - 0.60 08/25 Specimen Type: BLOOD No comment entered. Ordering Provider: Zandra EDGAR Report Released Date/Time: 2024 10:17 AM Reporting Lab: [facility] [address] [place] [address] Performing Lab: [address] [facility] CBC BASOPHILS [#/VOLUME] IN BLOOD BY AUTOMATED COUNT 0.04 10*3/u L 0.00 - 0.20 08/25 Specimen Type: BLOOD No comment entered. Ordering Provider: Zandra EDGAR Report Released Date/Time: 2024 10:17 AM Reporting Lab: [facility] [address] [place] [address] Performing Lab: [place] [phone] [facility] COMPREHEN SIVE METABOLIC PANEL CREATININE [MASS/VOLUM E] IN SERUM OR PLASMA 0.89 mg/dL 0.7 - 1.3 08/25 Specimen Type: PLASMA Comment: No hemolysis noted. Ordering Provider: Zandra EDGAR Report Released Date/Time: 2024 10:17 AM Reporting Lab: [address] [address] Performing Lab: [address] [address] [facility] COMPREHEN SIVE METABOLIC PANEL UREA NITROGEN [MASS/VOLUM E] IN SERUM OR PLASMA 16.1 mg/dL 9.0 - 25.0 08/25 Specimen Type: PLASMA Comment: No hemolysis noted. Ordering Provider: Zandra EDGAR Report Released Date/Time: 2024 10:17 AM Reporting Lab: [address] [address] Performing Lab: [address] [phone] [facility] COMPREHEN SIVE METABOLIC PANEL GLUCOSE [MASS/VOLUM E] IN SERUM OR PLASMA 85 mg/dL 72 - 99 08/25 Specimen Type: PLASMA Comment: No hemolysis noted. Ordering Provider: Zandra EDGAR Report Released Date/Time: 2024 10:17 AM Reporting Lab: [address] [address] Performing Lab: [address] [address] [facility] COMPREHEN SIVE METABOLIC PANEL SODIUM [MOLES/VOLU ME] IN SERUM OR PLASMA 139 meq/L 136 - 145 08/25 Specimen Type: PLASMA Comment: No hemolysis noted. Ordering Provider: Zandra EDGAR Report Released Date/Time: 2024 10:17 AM Reporting Lab: [address] [address] Performing Lab: [address] [address] [facility] COMPREHEN SIVE METABOLIC PANEL POTASSIUM [MOLES/VOLU ME] IN SERUM OR PLASMA 4.0 meq/L 3.5 - 5 08/25 Specimen Type: PLASMA Comment: No hemolysis noted. Ordering Provider: Zandra EDGAR Report Released Date/Time: 2024 10:17 AM Reporting Lab: [place] [address] [facility] [address] Performing Lab: [address] [address] [facility] COMPREHEN SIVE METABOLIC PANEL CHLORIDE [MOLES/VOLU ME] IN SERUM OR PLASMA 107 meq/L 98 - 107 08/25 Specimen Type: PLASMA Comment: No hemolysis noted. Ordering Provider: Zandra EDGAR Report Released Date/Time: 2024 10:17 AM Reporting Lab: [address] [address] Performing Lab: [address] [address] [facility] COMPREHEN SIVE METABOLIC PANEL CARBON DIOXIDE, TOTAL [MOLES/VOLU ME] IN SERUM OR PLASMA 21 meq/L 22 - 31 08/25 L Specimen Type: PLASMA Comment: No hemolysis noted. Ordering Provider: Zandra EDGAR Report Released Date/Time: 2024 10:17 AM Reporting Lab: [address] [address] Performing Lab: [address] [address] [facility] COMPREHEN SIVE METABOLIC PANEL CALCIUM [MASS/VOLUM E] IN SERUM OR PLASMA 9.1 mg/dL 8.4 - 10.4 08/25 Specimen Type: PLASMA Comment: No hemolysis noted. Ordering Provider: Zandra EDGAR Report Released Date/Time: 2024 10:17 AM Reporting Lab: [address] [address] Performing Lab: [address] [address] [facility] COMPREHEN SIVE METABOLIC PANEL PROTEIN [MASS/VOLUM E] IN SERUM OR PLASMA 7.1 g/dL 6 - 8.6 08/25 Specimen Type: PLASMA Comment: No hemolysis noted. Ordering Provider: Zandra EDGAR Report Released Date/Time: 2024 10:17 AM Reporting Lab: [place] [address] [place] [phone] Performing Lab: [place] [address] [place] [phone] [facility] COMPREHEN SIVE METABOLIC PANEL ALBUMIN [MASS/VOLUM E] IN SERUM OR PLASMA 4.0 g/dL 3.4 - 5 08/25 Specimen Type: PLASMA Comment: No hemolysis noted. Ordering Provider: Zandra EDGAR Report Released Date/Time: 2024 10:17 AM Reporting Lab: [place] [address] [place] [address] Performing Lab: [place] [address] [facility] COMPREHEN SIVE METABOLIC PANEL BILIRUBIN.T OTAL [MASS/VOLUM E] IN SERUM OR PLASMA 0.6 mg/dL 0.2 - 1.2 08/25 Specimen Type: PLASMA Comment: No hemolysis noted. Ordering Provider: Zandra EDGAR Report Released Date/Time: 2024 10:17 AM Reporting Lab: [place] [address] [place] [phone] Performing Lab: [place] [address] [place] [phone] [facility] COMPREHEN SIVE METABOLIC PANEL ALKALINE PHOSPHATASE [ENZYMATIC ACTIVITY/VO LUME] IN SERUM OR PLASMA 88 U/L 40 - 150 08/25 Specimen Type: PLASMA Comment: No hemolysis noted. Ordering Provider: Zandra EDGAR Report Released Date/Time: 2024 10:17 AM Reporting Lab: [place] [address] [place] [address] Performing Lab: [place] [address] [facility] [address] [facility] COMPREHEN SIVE METABOLIC PANEL ASPARTATE AMINOTRANSF ERASE [ENZYMATIC ACTIVITY/VO LUME] IN SERUM OR PLASMA 12 U/L 5 - 34 08/25 Specimen Type: PLASMA Comment: No hemolysis noted. Ordering Provider: Zandra EDGAR Report Released Date/Time: 2024 10:17 AM Reporting Lab: [address] [address] Performing Lab: [address] [phone] [place] [address] [facility] COMPREHEN SIVE METABOLIC PANEL ALANINE AMINOTRANSF ERASE [ENZYMATIC ACTIVITY/VO LUME] IN SERUM OR PLASMA 10 U/L 8 - 40 08/25 Specimen Type: PLASMA Comment: No hemolysis noted. Ordering Provider: Zandra EDGAR Report Released Date/Time: 2024 10:17 AM Reporting Lab: [address] [address] Performing Lab: [address] [phone] [place] [address] [facility]OC COMPREHEN SIVE METABOLIC PANEL GLOMERULAR FILTRATION RATE/1.73 SQ M.PREDICTED [VOLUME RATE/AREA] IN SERUM, PLASMA OR BLOOD BY CREATININE- BASED FORMULA (CKD-EPI 2020) 88.3 60 08/25 Specimen Type: PLASMA Comment: No hemolysis noted. Ordering Provider: Zandra EDGAR Report Released Date/Time: 2024 10:17 AM Reporting Lab: [address] [address] Performing Lab: [address] [facility] PROST. SPECIFIC AG.(PB-ST L) PROSTATE [...] Released Date/Time: 2024 10:20 AM Reporting Lab: [place] [id number] Performing Lab: [address] [id number] [address] [facility] URIC ACID URATE [MASS/VOLUM E] IN SERUM OR PLASMA 6.0 mg/dL 3.5 - 7.2 08/25 Specimen Type: PLASMA Comment: No hemolysis noted. Ordering Provider: Zandra EDGAR Report Released Date/Time: 2024 10:17 AM Reporting Lab: [place] [address] Performing Lab: [address] [facility] URINALYSI S (STL-PB) COLOR OF URINE Light- Yellow 08/25 Specimen Type: URINE No comment entered. Ordering Provider: Zandra EDGAR Report Released Date/Time: 2024 10:20 AM Reporting Lab: [place] [phone] Performing Lab: [address] [phone] [place] [address] [facility] URINALYSI S (STL-PB) BILIRUBIN.T OTAL [PRESENCE] IN URINE BY TEST STRIP Negati vemg/d L 08/25 Specimen Type: URINE No comment entered. Ordering Provider: Zandra EDGAR Report Released Date/Time: 2024 10:20 AM Reporting Lab: [place] [phone] Performing Lab: [address] [phone] [place] [address] [facility] URINALYSI S (STL-PB) PH OF URINE BY TEST STRIP 6.0 5.0 - 8.0 08/25 Specimen Type: URINE No comment entered. Ordering Provider: Zandra EDGAR Report Released Date/Time: 2024 10:20 AM Reporting Lab: [address] [address] Performing Lab: [address] [address] [facility] URINALYSI S (STL-PB) LEUKOCYTES [#/AREA] IN URINE SEDIMENT BY MICROSCOPY HIGH POWER FIELD 1 /[HPF] 0 - 5 08/25 Specimen Type: URINE No comment entered. Ordering Provider: Zandra EDGAR Report Released Date/Time: 2024 10:20 AM Reporting Lab: [address] [address] Performing Lab: [address] [address] [facility] URINALYSI S (STL-PB) ERYTHROCYTE S [#/VOLUME] IN URINE SEDIMENT BY MICROSCOPY HIGH POWER FIELD 2 /[HPF] 0 - 5 08/25 Specimen Type: URINE No comment entered. Ordering Provider: Zandra EDGAR Report Released Date/Time: 2024 10:20 AM Reporting Lab: [address] [address] Performing Lab: [address] [address] [facility] URINALYSI S (STL-PB) APPEARANCE OF URINE Clear 08/25 Specimen Type: URINE No comment entered. Ordering Provider: Zandra EDGAR Report Released Date/Time: 2024 10:20 AM Reporting Lab: [address] [address] Performing Lab: [address] [address] [facility] URINALYSI S (STL-PB) NITRITE [PRESENCE] IN URINE BY TEST STRIP Negati vemg/d L 08/25 Specimen Type: URINE No comment entered. Ordering Provider: Zandra EDGAR Report Released Date/Time: 2024 10:20 AM Reporting Lab: [address] [address] Performing Lab: [address] [address] [facility] URINALYSI S (STL-PB) MUCUS [PRESENCE] IN URINE SEDIMENT BY LIGHT MICROSCOPY RARE/[ LPF] 08/25 Specimen Type: URINE No comment entered. Ordering Provider: Zandra EDGAR Report Released Date/Time: 2024 10:20 AM Reporting Lab: [address] [address] Performing Lab: [address] [phone] [facility] URINALYSI S (STL-PB) CALCIUM OXALATE CRYSTALS [PRESENCE] IN URINE SEDIMENT BY LIGHT MICROSCOPY RARE/[ HPF] 08/25 Specimen Type: URINE No comment entered. Ordering Provider: Zandra EDGAR Report Released Date/Time: 2024 10:20 AM Reporting Lab: [address] [address] Performing Lab: [address] [address] [facility] URINALYSI S (STL-PB) GLUCOSE [MASS/VOLUM E] IN URINE BY TEST STRIP Normal mg/dL 08/25 Specimen Type: URINE No comment entered. Ordering Provider: Zandra EDGAR Report Released Date/Time: 2024 10:20 AM Reporting Lab: [address] [address] Performing Lab: [address] [address] [facility] URINALYSI S (STL-PB) PROTEIN [MASS/VOLUM E] IN URINE BY TEST STRIP 20 mg/dL - 20 08/25 H Specimen Type: URINE No comment entered. Ordering Provider: Zandra EDGAR Report Released Date/Time: 2024 10:20 AM Reporting Lab: [address] [address] Performing Lab: [address] [address] [facility] URINALYSI S (STL-PB) URN.UROBILI NOGEN Normal mg/dL 08/25 Specimen Type: URINE No comment entered. Ordering Provider: Zandra EDGAR Report Released Date/Time: 2024 10:20 AM Reporting Lab: [address] [address] Performing Lab: [address] [address] [facility] URINALYSI S (STL-PB) HEMOGLOBIN [MASS/VOLUM E] IN URINE BY TEST STRIP Negati vemg/d L 08/25 Specimen Type: URINE No comment entered. Ordering Provider: Zandra EDGAR Report Released Date/Time: 2024 10:20 AM Reporting Lab: [address] [address] Performing Lab: [address] [address] [facility] URINALYSI S (STL-PB) KETONES [MASS/VOLUM E] IN URINE BY TEST STRIP Negati vemg/d L 08/25 Specimen Type: URINE No comment entered. Ordering Provider: Zandra EDGAR Report Released Date/Time: 2024 10:20 AM Reporting Lab: [address] [address] Performing Lab: [address] [address] [facility] URINALYSI S (STL-PB) URN.LEUK.ES T. Negati vemg/d L 08/25 Specimen Type: URINE No comment entered. Ordering Provider: Zandra EDGAR Report Released Date/Time: 2024 10:20 AM Reporting Lab: [place] [address] Performing Lab: [address] [facility] URINALYSI S (L-PB) SPECIFIC GRAVITY OF URINE 1.026 1.005 - 1.029 08/25 Specimen Type: URINE No comment entered. Ordering Provider: Zandra EDGAR Report Released Date/Time: 2024 10:20 AM Reporting Lab: [place] [address] Performing Lab: [address] [facility] VITAMIN D, 25-HYDROX Y 25-HYDROXYV [...] Released Date/Time: 2024 10:17 AM Reporting Lab: [place] [address] Performing Lab: [address] [facility] GLUCOSE,B LOOD-poct ([facility]) GLUCOSE [MASS/VOLUM E] IN BLOOD BY AUTOMATED TEST STRIP 94 mg/dL 72 - 99 08/10 Specimen Type: BLOOD Comment: Test Performed by: [id number] Meter #: [id number] Ordering Provider: Zandra EDGAR Report Released Date/Time: Aug 10, 2024 10:28 AM Reporting Lab: [facility] [address] [facility] [address] Performing Lab: [facility] [address] [facility] [address] [facility] BASIC METABOLIC PANEL CREATININE [MASS/VOLUM E] IN SERUM OR PLASMA 0.78 mg/dL 0.7 - 1.3 07/23 Specimen Type: PLASMA Comment: No hemolysis noted. Ordering Provider: DANE WILSON Report Released Date/Time: Jul 22, 2024 05:37 PM Reporting Lab: [place] [address] [address] [facility] [address] Performing Lab: [facility] [address] [address] [facility] BASIC METABOLIC PANEL UREA NITROGEN [MASS/VOLUM E] IN SERUM OR PLASMA 14.4 mg/dL 9.0 - 25.0 07/23 Specimen Type: PLASMA Comment: No hemolysis noted. Ordering Provider: DANE WILSON Report Released Date/Time: Jul 22, 2024 05:37 PM Reporting Lab: [place] [address] [address] [address] Performing Lab: [facility] [address] [facility] [address] [facility] BASIC METABOLIC PANEL GLUCOSE [MASS/VOLUM E] IN SERUM OR PLASMA 113 mg/dL 72 - 99 07/23 H Specimen Type: PLASMA Comment: No hemolysis noted. Ordering Provider: DANE WILSON Report Released Date/Time: Jul 22, 2024 05:37 PM Reporting Lab: [place] [address] [address] [address] Performing Lab: [place] [address] [address] [address] [facility] BASIC METABOLIC PANEL SODIUM [MOLES/VOLU ME] IN SERUM OR PLASMA 136 meq/L 136 - 145 07/23 Specimen Type: PLASMA Comment: No hemolysis noted. Ordering Provider: DANE WILSON Report Released Date/Time: Jul 22, 2024 05:37 PM Reporting Lab: [facility] [address] [facility] [address] Performing Lab: [facility] [address] [facility] [address] [facility] BASIC METABOLIC PANEL POTASSIUM [MOLES/VOLU ME] IN SERUM OR PLASMA 3.7 meq/L 3.5 - 5 07/23 Specimen Type: PLASMA Comment: No hemolysis noted. Ordering Provider: DANE WILSON Report Released Date/Time: Jul 22, 2024 05:37 PM Reporting Lab: [address] [address] Performing Lab: [facility] [address] [place] [address] [facility] BASIC METABOLIC PANEL CHLORIDE [MOLES/VOLU ME] IN SERUM OR PLASMA 108 meq/L 98 - 107 07/23 H Specimen Type: PLASMA Comment: No hemolysis noted. Ordering Provider: DANE WILSON Report Released Date/Time: Jul 22, 2024 05:37 PM Reporting Lab: [address] [address] Performing Lab: [facility] [address] [address] [facility] BASIC METABOLIC PANEL CARBON DIOXIDE, TOTAL [MOLES/VOLU ME] IN SERUM OR PLASMA 21 meq/L 22 - 31 07/23 L Specimen Type: PLASMA Comment: No hemolysis noted. Ordering Provider: DANE WILSON Report Released Date/Time: Jul 22, 2024 05:37 PM Reporting Lab: [facility] [address] [place] [address] Performing Lab: [facility] [address] [place] [address] [facility] BASIC METABOLIC PANEL CALCIUM [MASS/VOLUM E] IN SERUM OR PLASMA 8.3 mg/dL 8.4 - 10.4 07/23 L Specimen Type: PLASMA Comment: No hemolysis noted. Ordering Provider: DANE WILSON Report Released Date/Time: Jul 22, 2024 05:37 PM Reporting Lab: [facility] [address] [address] Performing Lab: [facility] [address] [address] [facility] BASIC METABOLIC PANEL GLOMERULAR FILTRATION RATE/1.73 SQ M.PREDICTED [VOLUME RATE/AREA] IN SERUM, PLASMA OR BLOOD BY CREATININE- BASED FORMULA (CKD-EPI 2020) 92.4 60 07/23 Specimen Type: PLASMA Comment: No hemolysis noted. Ordering Provider: DANE WILSON Report Released Date/Time: Jul 22, 2024 05:37 PM Reporting Lab: [facility] [address] [address] Performing Lab: [facility] [address] [address] [facility] MAGNESIUM MAGNESIUM [MASS/VOLUM E] IN SERUM OR PLASMA 1.8 mg/dL 1.6 - 2.6 07/23 Specimen Type: PLASMA Comment: No hemolysis noted. Ordering Provider: DANE WILSON Report Released Date/Time: Jul 22, 2024 05:37 PM Reporting Lab: [facility] [address] [address] Performing Lab: [facility] [address] [address] [facility] PHOSPHORO US PHOSPHATE [MASS/VOLUM E] IN SERUM OR PLASMA 4.0 mg/dL 2.3 - 4.7 07/23 Specimen Type: PLASMA Comment: No hemolysis noted. Ordering Provider: DANE WILSON Report Released Date/Time: Jul 22, 2024 05:37 PM Reporting Lab: [facility] [address] [address] Performing Lab: [facility] [address] [place] [address] [facility] Vital Signs Combined list of inpatient and outpatient Vital Signs from Department of Defense and Veterans Affairs, ranging from 12 months to all on record, depending upon the facility. Vital Sign Value Date Comments Source SYSTOLIC BLOOD PRESSURE 143 09/14/2024 09:15:09 [facility] DIASTOLIC BLOOD PRESSURE 79 09/14/2024 09:15:09 [facility] PULSE OXIMETRY 99 09/14/2024 09:15:09 [facility] WEIGHT 187.4 09/14/2024 09:15:09 [facility] BMI 25 kg/m2 09/14/2024 09:15:09 [facility] PAIN 0 09/14/2024 09:15:09 [facility] HEIGHT 72 09/14/2024 09:15:09 [facility] TEMPERATURE 97.7 09/14/2024 09:15:09 [facility] PULSE 75 09/14/2024 09:15:09 [facility] RESPIRATION 18 09/14/2024 09:15:09 [facility] SYSTOLIC BLOOD PRESSURE 139 2024 10:09:00 [facility] DIASTOLIC BLOOD PRESSURE 86 2024 10:09:00 [facility] PULSE OXIMETRY 100 2024 10:09:00 [facility] WEIGHT 185 2024 10:09:00 [facility] BMI 25 kg/m2 2024 10:09:00 [facility] PAIN 0 2024 10:09:00 [facility] TEMPERATURE 96.6 2024 10:09:00 [facility] PULSE 75 2024 10:09:00 [facility] RESPIRATION 20 2024 10:09:00 [facility] SYSTOLIC BLOOD PRESSURE 125 08/18/2024 13:37:55 [facility] DIASTOLIC BLOOD PRESSURE 75 08/18/2024 13:37:55 [facility] PULSE OXIMETRY 98 08/18/2024 13:37:55 [facility] PULSE 71 08/18/2024 13:37:55 [facility] PAIN 0 07/24/2024 00:05:00 [facility] SYSTOLIC BLOOD PRESSURE 133 07/23/2024 04:57:47 [facility] DIASTOLIC BLOOD PRESSURE 67 07/23/2024 04:57:47 [facility] PULSE OXIMETRY 95 07/23/2024 04:57:47 [facility] PAIN 0 07/23/2024 04:57:47 [facility] TEMPERATURE 98.7 07/23/2024 04:57:47 [facility] PULSE 80 07/23/2024 04:57:47 [facility] RESPIRATION 18 07/23/2024 04:57:47 [facility] Encounters Combined list of: 1) Encounters from Department of [facility] Affairs facilities going backup to the last 18 months, not all [place] inpatient encounters are included; 2) Encounters from the Department of [facility] facilities going backup to 280 months. Location Location Details Encounter Type Encounter Number Reason For Visit Attending Provider ADM Date DC Date Status Disposition Source [facility] QNHP OL DIG ASSMT&MGMT 5-10 [id number] Diagnos is: ICD-10- CM Z51.81 Encount er for therape utic drug level monitor Kim [place] 07/19 [facility] Outpatient Encounter [id number] SARAH CLAY 07/30 [facility] Outpatient Encounter [id number] JESÚS CASTILLO CA E 07/31 [facility] HC PRO PHONE CALL 5-10 MIN [id number] Diagnos is: ICD-10- CM Z51.81 Encount er for therape utic drug level monitor mallory PEREZJAQUELINE Mike 08/01 [facility] OFFICE O/P EST LOW 20-29 MIN [id number] Diagnos is: ICD-10- CM L60.0 Ingrowi RESHMA Donnelly 08/23 [facility] Outpatient Encounter [id number] ADELE DAVIS 09/23 [facility] PT-FOCUSED HLTH RISK ASSMT [id number] Diagnos is: ICD-10- CM I48.91 Unspeci fied atrial fibrill ation DAVIDSON DAWSON A 10/31 [facility] Outpatient Encounter [id number] 11/01 [facility] Outpatient Encounter [id number] 11/15 [facility] Outpatient Encounter [id number] SARAH CLAY 11/19 [facility] OFF/OP CONSLTJ NEW/EST HI 55 [id number] Diagnos is: ICD-10- CM I48.91 Unspeci fied atrial fibrill ation AMANDA IRENE THAN S 11/28 [facility] TRANSPORT PORTABLE EKG [id number] Diagnos is: ICD-10- CM I48.91 Unspeci fied atrial fibrill ation DAVIDSON DAWSON A 02/02 [facility] OFFICE O/P EST MOD 30 MIN [id number] Diagnos is: ICD-10- CM R25.1 Tremor, unspeci fied TARYN EDGAR 02/02 [facility] Outpatient Encounter [id number] 02/02 [facility] Outpatient Encounter [id number] 02/09 [facility] OFFICE O/P NEW LOW 30 MIN [id number] Diagnos is: ICD-10- CM 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 Encounter [id number] 02/18 [facility] O[facility]P EST HI 40 MIN [id number] Diagnos is: ICD-10- CM I48.91 Unspeci fied atrial fibrill ation BRIDGER LOPEZ C 03/31 [facility] PRO PHONE CALL 11-20 MIN [id number] Diagnos is: ICD-10- CM I48.91 Unspeci fied atrial fibrill ation GRETCHEN CRANE 03/31 [facility] Encounter [id number] 03/31 [facility] HC PRO PHONE CALL 21-30 MIN [id number] Diagnos is: ICD-10- CM I48.91 Unspeci fied atrial fibrill ation HIMA CHRISTIANSON 04/06 [facility] Outpatient Encounter [id number] 04/08 [facility] OFFICE O/P EST MOD 30 MIN [id number] Diagnos is: ICD-10- CM Z01.818 Encount er for other preproc edural examSreekanth Pro 04/09 [facility] OFF[facility] O/P EST SF 10 MIN [id number] Diagnos is: ICD-10- CM I48.19 Other persist ent atrial fibrill ation ENEDINA SHIRLEY 04/09 [facility] Outpatient Encounter [id number] SKINNY RING 04/21 [facility] OFF/OP EST MAY X REQ PHY/QHP [id number] Diagnos is: ICD-10- CM R94.31 Abnorma l electro cardiog hernandez [ECG] [EKG] ANSLEY ELENA 05/01 [facility] OFFICE O/P EST HI 40 MIN [id number] [id number] Diagnos is: ICD-10- CM I48.91 Unspeci fied atrial fibrill ation AMANDA IRENE S 05/08 [facility] QNHP OL DIG ASSMT&MGMT 5-10 [id number] Diagnos is: ICD-10- CM Z51.81 Encount er for therape utic drug level monitor Kim [place] 06/12 [facility] Outpatient Encounter [id number] 06/22 [facility] HC PRO PHONE CALL 21-30 MIN [id number] [id number] Diagnos is: ICD-10- CM I48.91 Unspeci fied atrial fibrill ation HIMA CHRISTIANSON 06/26 [facility] Outpatient Encounter [id number] Diagnos is: ICD-10- CM R25.1 Tremor, unspeci fied ANN WALLACE 06/26 [facility] Outpatient Encounter [id number] 07/20 [facility] OFFICE O/P EST MOD 30 MIN [id number] Diagnos is: ICD-10- CM I48.91 Unspeci fied atrial fibrill ation RUSS BANUELOS 07/20 [facility] MEASURE BLOOD OXYGEN LEVEL [id number] [id number] Diagnos is: ICD-10- CM I48.91 Unspeci fied atrial fibrill ation DOV PHIPPS 07/22 [facility] ELECTROPHY S MAP 3D ADD-ON [id number] [id number] Diagnos is: ICD-10- CM I48.91 Unspeci fied atrial fibrill ation BRIDGER LOPEZ STEVEN C 07/22 [facility] Inpatient Encounter [id number] TARYN EDGAR 07/22 [facility] N [facility] 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 [id number] Diagnos is: ICD-10- CM 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 ZA MORALES 07/22 [facility] OFFICE O/P EST MOD 30 MIN [id number] [id number] Diagnos is: ICD-10- CM Z01.818 Encount er for other preproc edural examina JAQUELINE Abdi 07/22 [facility] Outpatient Encounter [id number] 07/22 [facility] Outpatient Encounter [id number] PABLO PACHECO ICA A 07/22 [facility] Outpatient Encounter [id number] Tye DAVIDSON EKCOYuan 07/22 [facility] Inpatient Encounter [id number] Admit Reason: ATRIAL FIBRILL ATION JENNIFER,GINO 07/22 [facility] Inpatient Encounter [id number] JOE AUGUSTE JR 07/22 [facility] Inpatient Encounter [id number] TERESE CANNON 07/22 [facility] Inpatient Encounter [id number] YOLANDA FIGUEROA 07/22 [facility] N [facility] Inpatient Encounter [id number] YOLANDA FIGUEROA 07/22 [facility] Inpatient Encounter [id number] YOLANDA FIGUEROA 07/22 [facility] Inpatient Encounter [id number] CAROLINAYOLANDA 07/22 [facility] Inpatient Encounter [id number] JOE AUGUSTE SON JR 07/22 [facility] Encounter [id number] DEBRA AUGUSTEER SON JR 07/22 [facility] In[facility] Encounter [id number] MOLINAJOE SON JR 07/23 [facility] Inpatient Encounter [id number] DEBRA AUGUSTEER SON JR 07/23 [facility] Inpatient Encounter [id number] 07/23 [facility] Inpatient Encounter [id number] 07/23 [facility] MTMS BY PHARM EST 15 MIN [id number] Diagnos is: ICD-10- CM Z51.81 Encount er for therape utic drug level monitor ESAU Mesa 07/23 [facility] Inpatient Encounter [id number] PARKER,BUCHANANPrincess CARBONE E 07/23 [facility] Inpatient Encounter [id number] PARKER,BUCHANANPrincess CARBONE E 07/23 [facility] Inpatient Encounter [id number] PARKERCHANEL CARBONE E 07/23 [facility] Inpatient Encounter [id number] TEDDY MANRIQUEZ 07/23 [facility] 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 INDIVIDU [id number] [id number] Diagnos is: ICD-10- CM 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.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 OLIVE Kingston 07/23 [facility] SBSQ HOSP IP/OBS HIGH 50 [id number] Diagnos is: ICD-10- CM I48.91 Unspeci fied atrial fibrill ation MISBAH AUGUSTIN OE K 07/23 [facility] Inpatient Encounter [id number] CHANEL PARKER RAF E 07/23 [facility] Inpatient Encounter [id number] CHANEL PARKER RAF E 07/23 [facility] Inpatient Encounter [id number] JOE AUGUSTE JR 07/24 [facility] Inpatient Encounter [id number] JOE AUGUSTE SON JR 07/24 [facility] Inpatient Encounter [id number] JOE AUGUSTE JR 07/24 [facility] Inpatient Encounter [id number] JOE AUGUSTE SON JR 07/24 [facility] Inpatient Encounter [id number] CASSANDRA PARKERU RAF E 07/24 [facility] Inpatient Encounter [id number] PARKERCASSANDRAU RAF E 07[facility]/OBS MODERATE 35 [id number] Diagnos is: ICD-10- CM I48.91 Unspeci fied atrial fibrill ation BRIDGER LOPEZ STEVEN C 07/24 [facility] Inpatient Encounter [id number] CHANEL PARKER RAF E 07/24 [facility] Outpatient Encounter [id number] 07/25 [facility] Outpatient Encounter [id number] JESÚS CASTILLO E 07/28 [facility] QNHP OL DIG ASSMT&MGMT 5-10 [id number] Diagnos is: ICD-10- CM Z51.81 Encount er for therape utic drug level monitor TRACY Ramos 07/29 [facility] Outpatient Encounter [id number] 07/29 [facility] CB OFFICE O/P EST LOW 20 MIN [id number] [id number] Diagnos is: ICD-10- CM Z23 Encount er for immuniz ation JESÚS CASTILLO E 07/31 [facility] Outpatient Encounter [id number] 08/03 [facility] Outpatient Encounter [id number] 08/17 [facility] OFFICE O/P EST HI 40 MIN [id number] [id number] Diagnos is: ICD-10- CM I48.91 Unspeci fied atrial fibrill ation BRIDGER LOPEZ STEVEN Uribe 08/18 [facility] Outpatient Encounter [id number] 08/18 [facility] Outpatient Encounter [id number] 08/20 [facility] Outpatient Encounter [id number] 08/20 [facility] Outpatient Encounter [id number] Diagnos is: ICD-10- CM R19.7 Diarrhe a, unspeci fied Rony WOLFE ONSTANNEIL D 08/20 [facility] OFFICE O/P EST MOD 30 MIN [id number] Diagnos is: ICD-10- CM R25.1 Tremor, unspeci fied TARYN EDGAR 08/25 [facility] OFFICE O/P NEW MOD 45 MIN [id number] Diagnos is: ICD-10- CM R31.29 Other microsc opic hematur ia AGUILAR,R ALPH J 09/14 [facility] Outpatient Encounter [id number] 12/21 [facility] Outpatient Encounter [id number] 12/29 [facility] Outpatient Encounter [id number] 01/01 [facility] Social History Combined list of available smoking, tobacco, and other social history from [facility] and [facility] facilities. Social History Type Response Date Comment Sourc e Tobacco smoking status NHIS VA-TOBACCO FORMER USER 2024 [facility] History of tobacco use VA-TOBACCO QUIT 1 5 YRS OR MORE 2024 [facility] History of tobacco use VA-TOBACCO FORMER USER 10/02/2022 [facility] History of tobacco use VA-TOBACCO FORMER USER 01/17/2022 [facility] History of tobacco use VA-TOBACCO FORMER USER 12/23/2020 [facility] History of tobacco use VA-TOBACCO NEVER USED 11/09/2019 [facility] History of tobacco use VA-TOBACCO NEVER USED 11/10/2018 [facility] History of tobacco use 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 Additional future care activities may be listed in the Assessment and Plan section. Date/Time Care Activity Care Activity Detail Facili ty 01/19/2025 AMBULATORY - MEDICINE AMBULATORY - MEDICI NE [facility] 01/22/2025 AMBULATORY - NONE AMBULATORY - NONE [facility] 02/05/2025 AMBULATORY - MEDICINE AMBULATORY - MEDICI NE [facility] 03/01/2025 AMBULATORY - MEDICINE AMBULATORY - MEDICI NE [facility] 01/08/2025 Procedure Order CP EKG STL CP EK G - STL Proc Orthopedic Nurse's Choice [facility] 01/22/2025 Imaging - Magnetic Resonance Imaging (MRI) Order MRI SPINE THORACIC W/O CONT [facility]
== END 2025-01-11 10:48 | disposition home or self-care (01) ==
PROVIDERS: Emergency Provider Registered Nurse; PCP Nurse Practitioner Adult Health
DX: J32.4 Chronic pansinusitis (principal); I48.91 Unspecified atrial fibrillation; K21.9 Gastro-esophageal reflux disease without esophagitis; Z79.01 Long term (current) use of anticoagulants
CPT/HCPCS: 99213; G0463